=== PATIENT | female | born 2005 | race Caucasian/White ===

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

== ENCOUNTER 2024-04-01 20:21 | Emergency (ER) | payer BC, SELFPAY ==
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
[2024-04-01 20:44] VITALS: BP 127/67; PULSE 99; RESP 18; RESP 20; TEMP 36.9; O2SAT 99; BMI 21.6
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
--- OUTSIDE RECORDS SUMMARY | 2024-04-01 21:18 | XMS_ITS | Encounter Summary ---
Author Organization [facility] Healthcare Address [address] [place] [address] Care Team Providers Care Second Grade Teacher Name Role Phone Gerald Tuttle MD Primary Care Provider [phone] Reason for Visit * Reason Onset Date Comments Request Call Back 02/19/2024 Encounter Details Date Type Department Care Team (Late st Contact Info) Description 02/19/2024 Telephone [facility] Medical Group Women's Care [address] [facility] [address] [place] [id number] Diana Yu MD [address] [facility] [address], [place] [address] Request Call Back Social History Tobacco Use Types Packs/Day Years Used Date Smoking Tobacco: Every Day Cigarettes 0.3 1 Smokeless Tobacco: Never AUDIT-C Answer Date Recorded Q1: How often do you have a drink containing alcohol? Never 08/16/2023 Q2: How many drinks containi ng alcohol do you have on a typical day when you are drinking? Patient does not drink Q3: How often do you have si x or more drinks on one occasion? Never 08/16/2023 Personal Safety Answer Date Recorded Have you ever been in or are you currently in a harmful physical or emotional relationship or is someone making you feel afraid or unsafe? Denies 08/16/2023 Sex and Gender Information Value Date Recorded Sex Assigned at Not on file Gender Identity Not on file Sexual Orientation Not on file documented as of this encounter Miscellaneous Notes * Telephone Encounter - Stacia Rocha MA - 02/19/2024 4:10 PM CDT Spoke to patient. Schedule for replacement for 02/19 at 10:30 * Telephone Encounter - Carlita Fulton - 02/19/2024 3:07 PM CDT Pt's mother called to schedule IUD removal and replacement following the ultrasound she had done tolocate her current IUD before she returns to college 03/07/24. documented in this encounter Plan of Treatment Not on file documented as of this encounter Visit Diagnoses Not on filedocumented in this encounter Care Teams Second Grade Teacher Relationship Specialty [place] [address] [facility] [address] [place] [address] PCP - General Pediatrics 08/20/19 documented as of this encounter
--- OUTSIDE RECORDS SUMMARY | 2024-04-01 21:18 | XMS_ITS | Encounter Summary ---
Author Organization [facility] Address [facility] [place] [address] Care Team Providers Care Pipe Layer Helper Name Role Phone Undetermined, Pcp Primary Care Provider Unavaila ble Encounter Details Date Type Department Care Team (Late st Contact Info) Description 02/28/2023 Access Center [facility] [place] [address] Social History Tobacco Use Types Packs/Day Years Used Date Smoking Tobacco: Every Day Cigarettes E-cigarette Smokeless Tobacco: Never Alcohol Use Standard Drinks/Week Comments Yes 0 (1 standard drink = 0.6 oz pure alcohol) Pt reports recent sewell but not daily use, hx withdrawals 2yrs ago, last drink 2200 yesterday Sex and Gender Information Value Date Recorded Sex Assigned at Not on file Gender Identity Not on file Sexual Orientation Not on file COVID-19 Exposure Response Date Recorded In the last 10 days, have yo u been in contact with someone who was confirmed or suspected to have Coronavirus/COVID-19? No / Unsure 02/28/2023 11:33 AM CDT documented as of this encounter Plan of Treatment Not on file documented as of this encounter Visit Diagnoses Not on filedocumented in this encounter Care Teams Pipe Layer Helper Relationship Specialty Start Date End Date Undetermined, Pcp PCP - General 02/28/23 documented as of this encounter
--- OUTSIDE RECORDS SUMMARY | 2024-04-01 21:18 | XMS_ITS | Encounter Summary ---
Author Organization [facility] Healthcare Address [address] [place] [address] Care Team Providers Care Lightout Examiner Name Role Phone Gerald Tuttle MD Primary Care Provider [phone] Reason for Referral * Procedure (Routine) - Pending Review Specialty Diagnoses / Procedures Referred By Leobardo singh Referred To Contact Diagnoses Encounter for removal and reinsertion of intrauterine contraceptive device (IUD) Malpositioned intrauterine device (IUD), subsequent encounter Procedures IUD ? Insertion/removal/reinsertion procedure. Diana Yu MD [address] [address] [facility] Referral ID Status Reason Start Date Expiration Date V isits Requested Visits Authorized [id number] Pending Review 02/25/2024 03/26/2025 1 1 Reason for Visit * Reason Comments paragard replacement Encounter Details Date Type Department Care Team (Latest Contact Info) Description 02/20/2024 10:30 AM CDT Procedure visit [facility] Medical Group Women's Care [address] [facility] [address] [id number] Diana Yu MD [address] [facility] [address] [address] Encounter for removal and reinsertion of intrauterine contraceptive device (IUD) (Primary Dx); Malpositioned intrauterine device (IUD), subsequent encounter Social History Tobacco Use Types Packs/Day [...] on file documented as of this encounter Last Filed Vital Signs Vital Sign Reading Time Taken Comments Blood Pressure 114/76 02/20/2024 10:20 AM CDT Pulse - - Temperature - - Respiratory Rate - - Oxygen Saturation - - Inhaled Oxygen Concentration - - Weight 59.4 kg (131 lb) 02/20/2024 10:20 AM CDT Height 165.1 cm (5' 5) 02/20/2024 10:20 AM CDT Body Mass Index 21.8 02/20/2024 10:20 AM CDT documented in this encounter Progress Notes * Stacia Rocha MA - 02/20/2024 10:30 AM CDT Song [facility]: [id number] Lot: [id number] Exp: 04/2029 documented in this encounter Procedure Notes * Diana Yu MD - 02/20/2024 10:30 AM CDTAssociated Order(s): IUD ??? Insertion/removal/reinsertion procedure. Post-Procedure Diagnose(s): Malpositioned intrauterine device (IUD), subsequent encounter; Encounter for removal and reinsertion of intrauterine contraceptive device (IUD) IUD - Insertion/removal/reinsertion procedure. Performed by: Diana Yu MD Authorized by: Diana Yu MD Consent Given by: Patient Verbal consent obtained: Yes Written consent obtained: Yes Risks, alternatives, and patient questions discussed: Yes Removal: Removal with/due to: Mechanical complications of IUD Insertion: Pelvic exam performed: yes Negative urine test: yes Cervix cleaned and prepped: yes Speculum placed in vagina: yes Tenaculum applied to cervix: yes IUD inserted with no complications: yes IUD type: 1 each copper 380 square mm Strings trimmed: yes Uterus sounded to confirm IUD placement: yes Post-procedure: Patient tolerance: Patient tolerated the procedure well with no immediate complications Comments: Diana Yu MD documented in this encounter Plan of Treatment Not on file documented as of this encounter Procedures Procedure Name Priority Date/Time Associated Diagnosis Comments [place] REMOVAL INTRAUTERINE DEVICE IUD Routine 02/20/2024 10:30 AM CDT Encounter for removal and reinsertion of intrauterine contraceptive device (IUD) Malpositioned intrauterine device (IUD), subsequent encounter [place] INSERTION INTRAUTERINE DEVICE IUD Routine 02/20/2024 10:30 AM CDT Encounter for removal and reinsertion of intrauterine contraceptive device (IUD) Malpositioned intrauterine device (IUD), subsequent encounter documented in this encounter Results * [place] INSERTION INTRAUTERINE DEVICE IUD, [place] REMOVAL INTRAUTERINE DEVICE IUD (02/20/2024 10:30 AM CDT) Narrative Diana Yu MD - 02/20/2024 10:30 AM CDT Diana Yu MD ? 02/25/2024 ??9:15 PM IUD - Insertion/removal/reinsertion procedure. Performed by: Diana Yu MD Authorized by: Diana Yu MD ?? Consent Given by: ??Patient Verbal consent obtained: Yes ?? Written consent obtained: Yes ?? Risks, alternatives, and patient questions discussed: Yes ?? Removal: ??Removal with/due to: ??Mechanical complications of IUD Insertion: ??Pelvic exam performed: yes ?Negative urine test: yes ?Cervix cleaned and prepped: yes ?Speculum placed in vagina: yes ?Tenaculum applied to cervix: yes ?IUD inserted with no complications: yes ?IUD type: ??1 each copper 380 square mm ??Strings trimmed: yes ?Uterus sounded to confirm IUD placement: yes ?? Post-procedure: ??Patient tolerance: ??Patient tolerated the procedure well with no immediate complications Comments: ?? Diana Yu MD Diana Yu MD IN CLINIC/BEDS MELANIE ORDERABLES documented in this encounter Visit Diagnoses Diagnosis Encounter for removal and reinsertion of intrauterine contraceptive device (IUD)- Primary Malpositioned intrauterine device (IUD), subsequent encounter documented in this encounter Administered Medications Inactive Administered Medications - up to 3 most recent administrations Medication Order MAR Action Action Date Dose Rate Site copper (PARAGARD) 380 square mm IUD 1 each 1 each, intrauterine, One-Time Injection, Starting on Mon02/20/24 at 1030, For 1 dose, Indications: Contraception Given 02/20/2024 10:30 AM CDT 1 each documented in this encounter Historical Medications * This list may reflect changes made after this encounter. Medication Sig Dispensed Refills Start Date End Date ISOtretinoin (ABSORICA) 30 mg capsule Take 1 capsule (30 mg total) by mouth 2 (two) times a day added in this encounter Care Teams Lightout Examiner Relationship Specialty [place] [address] [facility] [address] [place] [address] PCP - General Pediatrics 08/20/19 documented as of this encounter
--- OUTSIDE RECORDS SUMMARY | 2024-04-01 21:18 | XMS_ITS | Encounter Summary ---
Author Organization [facility] Healthcare Address [address] [place] [address] Care Team Providers Care Long Term Name Role Phone Gerald Tuttle MD Primary Care Provider [phone] Reason for Visit * Reason Onset Date Comments Request Call Back 02/05/2024 Encounter Details Date Type Department Care Team (Late st Contact Info) Description 02/05/[address] [facility] Medical Group Women's Care [address] [facility] [address] [address] Diana Yu MD [address] [facility] [address], [place] [address] Request Call Back Social History [...] encounter Miscellaneous Notes * Telephone Encounter - Nathalia Love RN - 02/05/2024 1:13 PM CDT Order was already placed by AC. Called pt back and provided phone # to call to schedule. * Telephone Encounter - Carlita Fulton - 02/05/2024 11:25 AM CDT Pt left vm stating she needs to schedule an ultrasound to check where her IUD is so that it can be removed. documented in this encounter Plan of Treatment Not on file documented as of this encounter Visit Diagnoses Not on filedocumented in this encounter Care Teams Long Term Relationship Specialty [place] [id number] [facility] [address] [place] [address] PCP - General Pediatrics 08/20/19 documented as of this encounter
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
--- OUTSIDE RECORDS SUMMARY | 2024-04-01 21:18 | XMS_ITS | Referral Summary ---
Author Organization [facility] Address [address] [place] [address] Care Team Providers Care Vocational Services Specialist Name Role Phone Gerald Tuttle MD Primary Care Provider Encounters Date Type Department Care Team Description 04/01/2024 Nurse Triage [facility] Answer Line 1 [place] [address] Jayshree Scott RN 02/20/2024 10:30 AM CDT Procedure [facility] [address] [facility] [address] [place] [phone] Diana Yu MD Encounter for removal and reinsertion of intrauterine contraceptive device (IUD) (Primary Dx); Malpositioned intrauterine device (IUD), subsequent encounter 02/19/2024 Telephone [facility] [address] [place] [address] [place] [phone] Diana Yu MD Request Call Back 02/13/2024 11:14 AM CDT - 02/13/2024 11:59 PM CDT Hospital Encounter [facility] [address] [facility] [address] [place] [address] Abnormal uterine bleeding (AUB); IUD (intrauterine device) in place Discharge Disposition: Discharge to home or self care 02/05/[address] [phone] Diana Yu MD Request Call Back 02/02/2024 Telephone [facility] [address] [place] [phone] Gladys Donovan RN Covid 02/01/2024 9:15 AM CDT Office Visit [address] [phone] Diana Yu MD Surveillance of intrauterine contraception (Primary Dx); Abnormal uterine bleeding (AUB); IUD (intrauterine device) in place 01/29/[address] [phone] Diana Yu MD CRAFT ARTIST Problem (IUD) 01/22/2024 3:15 PM CDT Office Visit [address] [phone] Gerald Tuttle MD Irritant contact dermatitis, unspecified trigger (Primary Dx); Deliberate self-cutting from Last 3 Months Allergies Active Allergy Reactions Criticality Noted Date [...] 1 each by intrauterine route once Paragard [facility]: [address]-7 Lot: [id number] Exp: 04/202902/20/2024 Active carBAMazepine (TEGretol) 200 mg [...] Anxiety 04/23/2016 Overview (10/27/2017): Description: Ad[facility] for suicidal ideation. Major depressive disorder, single episode, moder ate 09/09/2015 Overview (08/09/2021): Intentional overdose of clonidine 07/2021. Admitted to [facility]. Vocal cord dysfunction 01/12/2015 Resolved Problems [...] of breast 07/05/2016 07/05/2018 Angioedema 01/12/2015 07/05/2018 Immunizations Name Administration Dates Next Due DTaP 03/02/2009, 6,2004,06/18,2004 HPV9 05/09/2016,04/29/2015 Hep A, Pediatric 02/07/2007,07/11/2006 Hep B / HiB 02/18/2005,2004,2004 IPV 03/02/2009, 5,2004,04/14 Influenza LAIV (Nasal) 04/07/2014,2011,03/07/2011,05/06 Influenza, Quadrivalent, Spl it, Preservative Free, Intramuscular 05/26/2021,04/26/2019,04/14/2018,05/09,04/29/2015 Influenza, Unspecified 04/10/2020,04/26/2019 MMR 03/02/2009,02/18/2005 Meningococcal B, Recombinant (Trumenba) 03/14/2023,08/20/2020 Meningococcal MCV4P (Menactra) 08/20/2020,2014 PPD TEST 07/22/2019,05/22/2019 Pneumococcal Conjugate 7-Valent 05/20/20,2004,2004,04/14 Tdap 04/29/2015 Varicella 03/02/2009,05/20/2005 Social History Tobacco Use Types Packs/Day Years [...] AM CDT Pulse 57 08/16/2023 6:50 PM COMMUNITY PLANNER Temperature 36.7 ??C (98.1 ??F) 01/22/2024 3:19 PM CD T Respiratory Rate 22 01/22/2024 3:19 PM CDT Oxygen Saturation 98% 08/16/2023 6:50 PM COMMUNITY PLANNER Inhaled Oxygen Concentration - - Weight 59.4 kg (131 lb) 02/20/2024 10:20 AM CDT Height 165.1 cm (5' 5) 02/20/2024 10:20 AM CDT Body Mass Index 21.8 02/20/2024 10:20 AM CDT Plan of Treatment Not on file Procedures Procedure Name Priority Date/Time Associated Diagnosis Comments UT REMOVAL INTRAUTERINE DEVICE IUD Routine 02/20/2024 10:30 AM CDT Encounter for removal and reinsertion of intrauterine contraceptive device (IUD) Malpositioned intrauterine device (IUD), subsequent encounter UT INSERTION INTRAUTERINE DEVICE IUD Routine 02/20/2024 10:30 AM CDT Encounter for removal and reinsertion of intrauterine contraceptive device (IUD) Malpositioned intrauterine device (IUD), subsequent encounter US PELVIS COMPLETE Schedule Routine, Read Routine (OP Routine) 02/13/2024 11:14 AM CDT Abnormal uterine bleeding (AUB) IUD (intrauterine device) in place from Last 3 Months Results * UT INSERTION INTRAUTERINE DEVICE IUD, UT REMOVAL INTRAUTERINE DEVICE IUD (02/20/2024 10:30 AM [...] RES from Last 3 Months Care Teams Vocational Services Specialist Relationship Specialty [place] [address] [place] [address] PCP - General Pediatrics 08/20/19
--- OUTSIDE RECORDS SUMMARY | 2024-04-01 21:18 | XMS_ITS | Encounter Summary ---
Author Organization [facility] Address [address] [place] [address] Phone Care Team Providers Care Inductor Tester Name Role Phone Gerald Tuttle MD Primary Care Provider [phone] Reason for Visit * Reason Onset Date Comments Covid 02/02/2024 Encounter Details Date Type Department Care Team (Late st Contact Info) Description 02/02/2024 Telephone [facility] [address] [phone] Gladys Donovan, RN Covid Social History Tobacco Use Types Packs/Day Years [...] encounter Miscellaneous Notes * Telephone Encounter - Gladys Donovan RN - 02/02/2024 3:22 PM CDT Pt called re: testing positive for COVID on at home test today. Pt was exposure at work as there isan outbreak in the [employer] she works at. Pt woke up this morning with ST and BYRD. No fevers at this time. No cold symptoms or breathing concerns. RN reviewed that we follow CDC guidelines for COVID but she should check with her place of work for their guidelines. Pt is concerned as her father has a history of heart disease. RN advised taking special precautions around her father with mask andgood hand washing. Informed pt that we are happy to see her in the office for PCWAs. documented in this encounter Plan of Treatment Not on file documented as of this encounter Visit Diagnoses Not on filedocumented in this encounter Care Teams Inductor Tester Relationship Specialty [place] [address] [facility] [address] [place] [address] PCP - General Pediatrics 08/20/19 documented as of this encounter
--- OUTSIDE RECORDS SUMMARY | 2024-04-01 21:18 | XMS_ITS | Encounter Summary ---
Author Organization [facility] Address [address] [place] [address] Care Team Providers Care Surgical Garment Assembly Supervisor Name Role Phone Gerald Tuttle MD Primary Care Provider [phone] Reason for Referral * Diagnostic Imaging (Routine) - Closed Specialty Diagnoses / Procedures Referred By Leobardo t Referred To Contact Diagnoses Abnormal uterine bleeding (AUB) IUD (intrauterine device) in place Procedures US Pelvis Complete Diana Yu MD [address] [address] [facility] (All Locations) Referral ID Status Reason Start Date Expiration Date Visits Re quested Visits Authorized [id number] Closed 02/04/2024 03/05/2025 1 1 Reason for Visit * Reason Comments irregular periods with IUD Encounter Details Date Type Department Care Team (Latest Contact Info) Description 02/01/2024 9:15 AM CDT Office Visit [facility] [address] [facility] [address], [place] [address] Diana Yu MD [address] [address] Surveillance of intrauterine contraception (Primary Dx); Abnormal uterine bleeding (AUB); IUD (intrauterine device) in place Social History Tobacco Use Types Packs/Day Years [...] Sign Reading Time Taken Comments Blood Pressure 124/70 02/01/2024 9:06 AM CDT Pulse - - Temperature - - Respiratory Rate - - Oxygen Saturation - - Inhaled Oxygen Concentration - - Weight 58.1 kg (128 lb) 02/01/2024 9:06 AM CDT Height 165.1 cm (5' 5) 02/01/2024 9:06 AM CDT Body Mass Index 21.3 02/01/2024 9:06 AM CDT documented in this encounter Progress Notes * Diana Yu MD - 02/01/2024 9:15 AM CDT Karen had an IUD placed 02/2022. She flew to [place] 01/06. In [place] until the . She then got her period on 01/11. Heavier than it had been. She also had vomiting and was feeling poorly. The nausea continued for a little while on Monday, 01/27, got some spotting. She had not had spotting in between periods for a time. She has also noticed that she has had more mood swings, headaches, and cramping. The cramping is more recent than the abnormal bleeding. Vitals BP 124/70 Ht 165.1 cm (5' 5) Wt 128 lb (58.1 kg) LMP 01/18/2024 BMI 21.30 kg/m?? Normal external genitalia, vagina and cervix normal in appearance, IUD strings visualized and appropriate Shanda Jean is a 18 year old who presents for an IUD issue. IUD issue - Reports that she recently had a heavier period than usual. She also had intermenstrual spotting. Additionally she has had more mood swings, headaches, and cramping - We discussed that given that there are no hormones in the copper IUD, I would not expect systemicproblems, which she understands - IUD strings visualized today - Given change in symptoms, Pelvic US ordered - Also discussed using alternative form of contraception until after ultrasound - If IUD is malpositioned, she would like another one Will plan for follow up pending US My total encounter time on 02/01/2024 was 32 minutes which was spent in the activities documented inthe note. This includes time spent prior to the visit and after the visit in direct care of the patient. This time does not include time spent in any separately reportable services. Diana Yu MD documented in this encounter Plan of Treatment Not on file documented as of this encounter Results * US Pelvis Complete (02/13/2024 11:14 AM [...] Diana Yu MD IMG US PROCEDU RES documented in this encounter Visit Diagnoses Diagnosis Surveillance of intrauterine contraception- Primary Abnormal uterine bleeding (AUB) IUD (intrauterine device) in place Presence of intrauterine contraceptive device Abnormal uterine bleeding (AUB) IUD (intrauterine device) in place Presence of intrauterine contraceptive device documented in this encounter Discontinued Medications Medication Sig Discontinue Reason Start Date End Da te traZODone (DESYREL) 50 mg tabletIndications:katie or depressive disorder Take 1 tablet (50 mg total) by mouth nightly Therapy completed 05/01/2023 02/01/2024 topiramate (TOPAMAX) 50 mg tabletIndications:moo d Take 1 tablet (50 mg total) by mouth 2 times daily Therapy completed 07/02/2022 02/01/2024 propranoloL (INDERAL) 20 mg tabletIndications:Moo d Take 2 tablets (40 mg total) by mouth 2 (two) times a day Therapy completed 04/24/2023 02/01/2024 levonorgestreL (MIRENA) IUD 1 each by intrauterine route once Therapy completed 02/01/2024 hydrOXYzine (ATARAX) 50 mg tabletIndications:anx iety Take 1 tablet (50 mg total) by mouth 3 (three) times a day Therapy completed 04/14/2023 02/01/2024 hydrocortisone 2.5 % ointment Apply topically 2 (two) times a day Therapy completed 01/22/2024 02/01/2024 HYDROcodone-acetamino phen (NORCO) 5-325 mg per tabletIndications:James n Take 1 tablet by mouth every 6 (six) hours as needed for pain Therapy completed 08/16/2023 02/01/2024 gabapentin (NEURONTIN) 300 mg capsuleIndications:an xiety Take 1-2 mg by mouth 2 (two) times a day Therapy completed 06/16/2023 02/01/2024 documented as of this encounter Historical Medications * This list may reflect changes made after this encounter. Medication Sig Dispensed Refills Start Date End Date carBAMazepine (TEGretol) 200 mg tablet Take 1 tablet (200 mg total) by mouth nightly 12/25/2023 copper (PARAGARD) 380 square mm IUDIndications: Contraception 1 each by intrauterine route once Paragard [facility]: [address]-1 Lot: [id number] Exp: 04/202902/20/2024 added in this encounter Care Teams Surgical Garment Assembly Supervisor Relationship Specialty [place] [address] [facility] [address] [place] [address] PCP - General Pediatrics 08/20/19 documented as of this encounter
--- OUTSIDE RECORDS SUMMARY | 2024-04-01 21:18 | XMS_ITS ---
Author Organization [facility] Address [address] [place] [address] Care Team Providers Care Dopster Name Role Phone Gerald Tuttle MD Primary Care Provider [phone] Active Problems Problem Noted Date Diagnosed Date [...] Anxiety 04/23/2016 Overview (10/27/2017): Description: Admitted to [facility] for suicidal ideation. Major depressive disorder, single episode, moder ate 09/09/2015 Overview (08/09/2021): Intentional overdose of clonidine 07/2021. Admitted to [facility]. Vocal cord dysfunction 01/12/2015 Current Oncology Plans No current plan information found. Past Plans No past plan information found. Radiation Treatments * No radiation treatments are documented for this patient in [facility]. Treatments may have been administered in another system. Lifetime Dose Tracking * Chemical Lifetime Dose Automatic Entry Manual Entr y DLP 348 mGycm 348 mGycm 0 mGycm Resolved Problems Problem Noted Date Diagnosed Date [...]
--- OUTSIDE RECORDS SUMMARY | 2024-04-01 21:18 | XMS_ITS | Encounter Summary ---
Author Organization [facility] Healthcare Address [address] [place] [address] Care Team Providers Care Occ Therapist Name Role Phone Gerald Tuttle MD Primary Care Provider [phone] Reason for Visit * Reason Onset Date Comments Rectal Bleeding 04/01/2024 Encounter Details Date Type Department Care Team (Late st Contact Info) Description 04/01/2024 Nurse Triage [facility] Answer Line [address] [place] [id number] Jayshree Scott RN Social History Tobacco Use Types Packs/Day Years [...] encounter Miscellaneous Notes * Telephone Encounter - Jayshree Scott RN - 04/01/2024 8:43 PM CDT MEDICAL VISITS (OFFICE/ED/Urgent Care) IN LAST 2 WEEKS:n/a ADDITIONAL INFORMATION: being evaluated now. RN instructed to f/u with PCP in the am with update ON-CALL PROVIDER: Kat Holguin Reason for Disposition Already left for the hospital/clinic Protocols used: No Contact or Duplicate Contact [id number] * Telephone Encounter - Jayshree Scott RN - 04/01/2024 8:41 PM CDT Regarding: bm with blood in it since yesterday and still having blood coming out ----- Message from [facility] sent at 04/01/2024 7:41 PM CDT ----- Phone number: Number verified. documented in this encounter Plan of Treatment Not on file documented as of this encounter Visit Diagnoses Not on filedocumented in this encounter Care Teams Occ Therapist Relationship Specialty [place] [address] [facility] [address] [place] [address] PCP - General Pediatrics 08/20/19 documented as of this encounter
--- OUTSIDE RECORDS SUMMARY | 2024-04-01 21:18 | XMS_ITS | Encounter Summary ---
Author Organization [facility] Healthcare Address [address] [place] [address] Care Team Providers Care Inventory Control Manager Name Role Phone Gerald Tuttle MD Primary Care Provider [phone] Reason for Referral * Diagnostic Imaging (Routine) - Closed Specialty Diagnoses / Procedures Referred By Contac t Referred To Contact Diagnoses Abnormal uterine bleeding (AUB) IUD (intrauterine device) in place Procedures US Pelvis Complete Diana Yu MD [address] [address] [facility] (All Locations) Referral ID Status Reason Start Date Expiration Date Visits Re quested Visits Authorized [id number] Closed 02/04/2024 03/05/2025 1 1 Reason for Visit * Diagnostic Imaging (Routine) - Closed Specialty Diagnoses / Procedures Referred By Contac t Referred To Contact Diagnoses Abnormal uterine bleeding (AUB) IUD (intrauterine device) in place Procedures US Pelvis Complete Diana Yu MD [address] [address] [facility] (All Locations) Referral ID Status Reason Start Date Expiration Date Visits Re quested Visits Authorized [id number] Closed 02/04/2024 03/05/2025 1 1 Encounter Details Date Type Department Care Team (Latest Contact Info) Description 02/13/2024 11:14 AM CDT - 02/13/2024 11:59 PM CDT Hospital Encounter [facility] [address] [facility] [address] [place] [address] Abnormal uterine bleeding (AUB); IUD (intrauterine device) in place Discharge Disposition: Discharge to home or self care Social History Tobacco Use Types Packs/Day Years [...] on file documented as of this encounter Medications at Time of Discharge Medication Sig Dispensed Refills Start Date End Date carBAMazepine (TEGretol) 200 mg tablet Take 1 tablet (200 mg total) by mouth nightly 12/25/2023 chlorproMAZINE (THORAZINE) 50 mg tabletIndications:[place] associated with Bipolar Disorder,Borderline Personality Disorder and Bipolar Take 4 tablets (200 mg total) by mouth nightly copper (PARAGARD) 380 square mm IUDIndications: Contraception 1 each by intrauterine route once Paragard [facility]: [address]-4 Lot: [id number] Exp: 04/202902/20/2024 lurasidone (LATUDA) 60 mg tabletIndications:Depres tyler associated with Bipolar Disorder Take 2 tablets (120 mg total) by mouth nightly at bedtime. 06/22/2023 prazosin (MINIPRESS) 1 mg capsule Take 1 capsule (1 mg total) by mouth nightly 01/31/2023 documented as of this encounter Discharge Disposition Disposition Code Departure Means Destination Discharge to home or self care documented in this encounter Plan of Treatment Not on file documented as of this encounter Procedures Procedure Name Priority Date/Time Associated Diagnosis Comments US PELVIS COMPLETE Schedule Routine, Read Routine (OP Routine) 02/13/2024 11:14 AM CDT Abnormal uterine bleeding (AUB) IUD (intrauterine device) in place documented in this encounter Results * US Pelvis Complete [...] documented in this encounter Visit Diagnoses Diagnosis Abnormal uterine bleeding (AUB) IUD (intrauterine device) in place Presence of intrauterine contraceptive device documented in this encounter Care Teams Inventory Control Manager Relationship Specialty [place] [address] [facility] [address] [place] [address] PCP - General Pediatrics 08/20/19 documented as of this encounter
--- OUTSIDE RECORDS SUMMARY | 2024-04-01 21:19 | XMS_ITS | Clinical Summary ---
Author Organization [facility] Address [address] [place] [address] Care Team Providers Care Rn Hematology Name Role Phone Gerald Tuttle MD Primary Care Provider [phone] Source Comments [facility],non-owned Affiliates and Associated Physician Practices is amultiple site organization consisting of ambulatory clinics and hospital sitesin [place], [place], [place]. This disclosure is being madepursuant to the Care Everywhere program and may not contain all information available regarding this patient. Last updated 18.[facility] Allergies Active Allergy Reactions Criticality Noted Date Comments Amoxicillin Unknown 05/25/2021 Medications * Be aware that medications may not be up to date on this document. Alwaysverify current medications with the patient. Medication Sig Dispensed Refills Start Date End Date Status norgestim-eth estrad triphasic 0.18/0.215/0.25 MG-35 MCG tabletIndications:C ontraceptive Therapy Take 1 tablet by mouth at bedtime Reasons: Control Treatment 0 04/08/2021 Active hydrOXYzine hcl (ATARAX) 10 MG tabletIndications:A nxiety Take 1 (one) tablet by mouth 3 times daily Reasons: Feeling Anxious 90 tablet 1 05/30/2021 Active traZODone (DESYREL) 50 MG tabletIndications:I nsomnia Take 1 (one) tablet by mouth at bedtime Reasons: Trouble Sleeping 30 tablet 1 05/30/2021 Active Additional Information Patient not taking.Reported on 11/16/2021 prazosin (MINIPRESS) 1 MG capsuleIndications: Sleep Disturbance Take 1 (one) capsule by mouth at bedtime Reasons: Disturbed Sleep 30 capsule 1 05/30/2021 Active Additional Information Patient not taking.Reported on 11/16/2021 ARIPiprazole (ABILIFY) 2 MG tabletIndications:Litzy ramsey Depressive Disorder Take 1 (one) tablet by mouth once daily Reasons: Major Depressive Disorder 30 tablet 1 05/30/2021 Active Additional Information Patient not taking.Reported on 11/16/2021 OLANZapine (ZYPREXA) 5 MG tablet Take 5 mg by mouth at bedtime 0 Active Active Problems Problem Noted Date Diagnosed Date Anticholinergic drug overdose 11/16/2021 Last Assessment & Plan: Karen Jean is a 16 year old transgender male (he/him) with MDD and prior inpatient psychiatric hospitalizations admitted for management of anticholinergic toxicity (seizures, hallucinations, and confusion, tachycardia, hypertension, QTc prolongation, mydriasis) following ingestion of 30-40 of 25mg benadryl tablets with intention of stress relief. Pt clinically improving. Plan -Diet: regular -DC IVF -I/Os, q4hr vitals, CRMs -EKG on admission then q4-6 hours until QTc normalizes -Continue home medication: OCPs (if parents bring) -Hold home olanzapine 5mg qPM until EKG normalize -Suicide precautions with sitter -Psych consult -Contact pt's PCP, psychiatrist, and psychologist regarding admission -Social work to provide substance abuse resources Access: PIV Labs: none scheduled Suicidal ideation 05/27/2021 PTSD (post-traumatic stress disorder) 05/27/2021 Major depressive disorder 05/25/2021 Immunizations Name Administration Dates Next Due INFLUENZA VACCINE, QUADR. (F LUZONE; FLULAVAL; FLUARIX; AFLURIA QUADRIVALENT; 6MO+), 0.5 ML (IIV4) 05/26/2021 Family History Medical History Relation Name Comments Nephrolithiasis Maternal Grandfather Arrhthymia Neg Hx Seizures Neg Hx Sudd. <30 Neg Hx Relation Name Status Comments Maternal Grandfather Social History Tobacco Use Types Packs/Day Years Used Date Smoking Tobacco: Never Smokeless Tobacco: Never Tobacco Cessation:Counseling Given: No Alcohol Use Standard Drinks/Week Comments Yes 0 (1 standard drink = 0.6 oz pur e alcohol) tablespoon of grain alcohol PHQ-2 Answer Date Recorded PHQ2 TOTAL SCORE 6 05/25/2021 Sex and Gender Information Value Date Recorded Sex Assigned at Not on file Gender Identity Not on file Sexual Orientation Not on file Last Filed Vital Signs Vital Sign Reading Time Taken Comments Blood Pressure 117/88 11/17/2021 12:05 PM CDT Pulse 96 11/17/2021 12:05 PM CDT Temperature 36.8 ??C (98.2 ??F) 11/17/2021 12:05 PM C DT Respiratory Rate 22 11/17/2021 12:05 PM CDT Oxygen Saturation 97% 11/17/2021 12:05 PM CDT Inhaled Oxygen Concentration - - Weight 68 kg (149 lb 14.6 oz) 11/16/2021 7:44 PM CDT Height 167.6 cm (5' 6) 11/16/2021 7:44 PM CDT Body Mass Index 24.2 11/16/2021 7:44 PM CDT Plan of Treatment Health Maintenance Due Date Last Done Comments HIV SCREENING 02/11/2019 HPV VACCINE (1 - 3-dose series) 02/11/2019 CHLAMYDIA/GONORRHEA SCREENING 2020 HEPATITIS C SCREENING 02/07/2022 DTAP/TDAP/TD VACCINES (1 - Tdap) 02/11/2023 HEPATITIS B VACCINE (1 of 3 - 19+ 3-dose series) 02/11/2023 DEPRESSION SCREENING 07/17/2023 COVID-19 VACCINE (4 - 2022- season) 2024 07/08/2021, 11/13/2020, 10/22/2020 INFLUENZA VACCINE (#1) 2024 , 04/10/2020, 04/26/2019, Additional history exists ZOSTER VACCINE (1 of 2) 02/11/2054 HIB VACCINE Aged Out No longer eligi ble based on patient's age to complete this topic MENINGOCOCCAL VACCINE Aged Out No roque nilton eligible based on patient's age to complete this topic PNEUMOCOCCAL VACCINE Aged Out No long er eligible based on patient's age to complete this topic Advance Directives * Full Code (Latest Code Status on File) Date Activated Date Inactivated Comments 11/16/2021 8:14 PM 11/17/2021 6:05 PM * Full Code Date Activated Date Inactivated Comments 05/25/2021 9:06 PM 05/30/2021 11:55 AM Care Teams Rn Hematology Relationship Specialty [place] [address] [facility] [address] [place] [address] PCP - General Pediatrics 05/25/21
--- OUTSIDE RECORDS SUMMARY | 2024-04-01 21:19 | XMS_ITS | Patient Health Record ---
Author Organization [facility] Address [address] [place] [address] [address] [place], [place] [id number] Care Team Providers Care Mill Operator Helper Name Role Phone NONE PROVIDED, . Primary Care Provider Unavailab Soheila England Unavailable [phone] ALLERGIES Allergen (clinical drug ingredient) Drug/Non Drug Allergy documented on EMR Reaction Allergy Type Onset Date Status amoxicillin Amoxicillin Unknown Drug Allergy Act beau RESULTS Component Value Reference Range Notes Test, Urine Reviewed date:07/25/2023 03:47:26 PM Interpretation: Acceptable Performing Lab: Notes/Report: Acceptable Test, Urine negative Test, Urine Reviewed date:12/21/2023 08:20:23 AM Interpretation: Acceptable Performing Lab: Notes/Report: Acceptable Test, Urine negative Test, Urine Reviewed date:12/21/2023 08:20:23 AM Interpretation: Acceptable Performing Lab: Notes/Report: Acceptable Test, Urine Test, Urine Reviewed date:12/21/2023 08:20:23 AM Interpretation: Acceptable Performing Lab: Notes/Report: Acceptable Test, Urine negative Test, Urine (Not y et reviewed by provider) Interpretation: Performing Lab: Notes/Report: Test, Urine Negative Test, Urine (Not y et reviewed by provider) Interpretation: Performing Lab: Notes/Report: Test, Urine negative HCG, TOTAL, QN Reviewed date:07/25/2023 03:47:26 PM Interpretation:08/09 accu labs Acceptable Performing Lab:[place], [facility]-[id number] Philip Sanon, [id number] Carlos Warren MD Notes/Report: FASTING:YES FASTING: YES HCG, TOTAL, QN <5 Reference Range Non or premenopausal <5 Postmenopausal <10 Values from different assay methods may vary. The use of this assay to monitor or to diagnose patients with cancer or any condition unrelated to has not been cleared or approved by the FDA or the mechanical planner of the assay. COMPREHENSIVE METABOLIC PANE L Reviewed date:07/25/2023 03:47:26 PM Interpretation: Acceptable Performing Lab:[facility]-[id number] Philip Sanon, [id number] Carlos Warren MD Notes/Report: FASTING:YES FASTING: YES GLUCOSE 79 65-99 mg/dL Fasting reference interval UREA NITROGEN (BUN) 13 7-20 mg/dL CREATININE 0.82 0.50-0.96 mg/dL EGFR 106 > OR = 60 mL/min/1.73m2 BUN/CREATININE RATIO SEE NOTE: 6-22 (calc) Not Reported: BUN and Creatinine are within reference range. SODIUM 141 135-146 mmol/L POTASSIUM 4.0 3.8-5.1 mmol/L CHLORIDE 108 98-110 mmol/L CARBON DIOXIDE 27 20-32 mmol/L CALCIUM 9.2 8.9-10.4 mg/dL PROTEIN, TOTAL 6.5 6.3-8.2 g/dL ALBUMIN 4.5 3.6-5.1 g/dL GLOBULIN 2.0 2.0-3.8 g/dL (calc) ALBUMIN/GLOBULIN RATIO 2.3 1.0-2.5 (calc) BILIRUBIN, TOTAL 0.5 0.2-1.1 mg/dL ALKALINE PHOSPHATASE 70 36-128 U/L AST 14 12-32 U/L ALT 13 5-32 U/L LIPID PANEL Reviewed date:07/25/2023 03:47:26 PM Interpretation: Acceptable Performing Lab:[facility]-[id number] Philip Sanon, [id number] Carlos Warren MD Notes/Report: FASTING:YES FASTING: YES CHOLESTEROL, TOTAL 160 <170 mg/dL HDL CHOLESTEROL 62 >45 mg/dL TRIGLYCERIDES 96 <90 mg/dL LDL-CHOLESTEROL 80 <110 mg/dL (calc) LDL-C is now calculated using the Whitney calculation, which is a validated novel method providing better accuracy than the Friedewald equation in the estimation of LDL-C. Godwin VENTURA et al. CINDY. 2013;310(19): 3202-2733 (http://education.MINDBODY/faq/TYX534) CHOL/HDLC RATIO 2.6 <5.0 (calc) NON HDL CHOLESTEROL 98 <120 mg/dL (calc) For patients with diabetes plus 1 major ASCVD risk factor, treating to a non-HDL-C goal of <100 mg/dL (LDL-C of <70 mg/dL) is considered a therapeutic option. COMPREHENSIVE METABOLIC PANE L Reviewed date:12/21/2023 08:20:23 AM Interpretation:01/07 accu labs Acceptable Performing Lab:[facility]-[id number] Derek [id number] Carlos Warren MD Notes/Report: FASTING:YES FASTING: YES GLUCOSE 108 65-99 mg/dL Fasting reference interval For someone without known diabetes, a glucose value between 100 and 125 mg/dL is consistent with prediabetes and should be confirmed with a follow-up test. UREA NITROGEN (BUN) 9 7-20 mg/dL CREATININE 0.74 0.50-0.96 mg/dL EGFR 119 > OR = 60 mL/min/1.73m2 BUN/CREATININE RATIO SEE NOTE: 6- (calc) Not Reported: BUN and Creatinine are within reference range. SODIUM 141 135-146 mmol/L POTASSIUM 3.9 3.8-5.1 mmol/L CHLORIDE 106 98-110 mmol/L CARBON DIOXIDE 28 20-32 mmol/L CALCIUM 9.2 8.9-10.4 mg/dL PROTEIN, TOTAL 6.9 6.3-8.2 g/dL ALBUMIN 4.9 3.6-5.1 g/dL GLOBULIN 2.0 2.0-3.8 g/dL (calc) ALBUMIN/GLOBULIN RATIO 2.5 1.0-2.5 (calc) BILIRUBIN, TOTAL 0.6 0.2-1.1 mg/dL ALKALINE PHOSPHATASE 71 36-128 U/L AST 17 12-32 U/L ALT 9 5-32 U/L LIPID PANEL Reviewed date:12/21/2023 08:20:23 AM Interpretation: Acceptable Performing Lab:[facility]-[id number] Derek [id number] Carlos Warren MD Notes/Report: FASTING:YES FASTING: YES CHOLESTEROL, TOTAL 157 <170 mg/dL HDL CHOLESTEROL 55 >45 mg/dL TRIGLYCERIDES 140 <90 mg/dL LDL-CHOLESTEROL 78 <110 mg/dL (calc) LDL-C is now calculated using the Whitney calculation, which is a validated novel method providing better accuracy than the Friedewald equation in the estimation of LDL-C. Godwin SS et al. CINDY. 2013;310(19): 2620-2953 (http://Askablogr.MINDBODY/faq/RBI254) CHOL/HDLC RATIO 2.9 <5.0 (calc) NON HDL CHOLESTEROL 102 <120 mg/dL (calc) For patients with diabetes plus 1 major ASCVD risk factor, treating to a non-HDL-C goal of <100 mg/dL (LDL-C of <70 mg/dL) is considered a therapeutic option. REASON FOR REFERRAL No Information MEDICATIONS Medication SIG (Take, Route, Frequency, Duration) Notes Start Date End Date Status Doxycycline Hyclate 100 MG 1 capsule Orally Once a day for 30 days 03/08/2022 Not-Taking Winlevi 1 % 1 application Externally Twice a day for 30 days 09/13/2021 Not-Taking Spironolactone 100 MG 1 tablet Orally Once a day for 30 day(s) 06/02/2021 Not-Taking Cleocin-T 1 % 1 application to affected area Externally Twice a day for 30 days large bottle 01/22/2018 Not-Taking Accutane 30 MG 1 pill Orally twice a day for 30 days 11/28/2023 Active Tazarotene 0.1 % APPLY 2 GRAMS IN THE EVENING for 30 Active hydrOXYzine HCl 10 MG Oral for 30 Active Bactrim DS 800-160 MG 1 tablet Orally 11rf qday for 30 days 03/25/2019 Not-Taking Tretinoin 0.05 % 1 application to affected area in the evening to face Externally Once a day for 30 days 12/16/2019 Not-Taking traZODone HCl 50 MG Oral for 30 Active Aczone 5 % APPLY ONCE DAILY IN THE MORNING TO AFFECTED AREA for 30 Not-Taking Prazosin HCl 1 MG Oral for 30 Active Spironolactone 100 MG 1 tablet Orally Once a day for 30 day(s) 12/16/2019 Not-Taking ARIPiprazole 2 MG Oral for 30 Active Adapalene 0.3 % 1 application to affected area at bedtime Externally Once a day for 30 days 03/11/2019 Not-Taking IMMUNIZATIONS Vaccine Route Administration Date Status Comme nts Influenza, unspecified formu lation (CPT 22410 Inactive) Unknown 04/25/2017 Administered Influenza, unspecified formu lation (CPT 70456 Inactive) Unknown 04/25/2018 Administered Influenza, unspecified formu lation (CPT 78800 Inactive) Unknown 03/20/2019 Administered Influenza, unspecified formu lation (CPT 03362 Inactive) Unknown 03/25/2020 Administered Influenza, unspecified formu lation (CPT 55807 Inactive) Unknown 04/27/2021 Administered Influenza, unspecified formu lation (CPT 28901 Inactive) Unknown 04/27/2022 Administered Influenza, unspecified formu lation (CPT 18042 Inactive) Unknown 04/25/2023 Administered Pneumococcal polysaccharide PPV23 Unknown 10/16/2017 Re fused Pneumococcal polysaccharide PPV23 Unknown 06/28/2021 Re fused Pneumococcal polysaccharide PPV23 Unknown 03/08/2022 Re fused Pneumococcal polysaccharide PPV23 Unknown 05/30/2022 Re fused Pneumococcal polysaccharide PPV23 Unknown 06/13/2023 Re fused Pneumococcal polysaccharide PPV23 Unknown 08/21/2023 Re fused SOCIAL HISTORY Tobacco Use: Social History Observation Description Date Details (start date - stop date) Never Smoker NA - NA Sex Assigned At : Social History Observation Description Sex Assigned At Unknown Tobacco Use/Smoking Question Answer Notes Are you a nonsmoker PROBLEMS Problem Type ICD Code Onset Dates Problem Status W/U Status Risk SNOMED Code Notes Problem Acne vulgaris (L70.0) Active confirmed Acne vulgaris (53228786) Acne is improving on Accutane with minimal side effects or blood abnormalities other than xerosis. Reviewed lab work results and potential side effects including teratogenicity, photosensitivity , xerosis, chelitis, mood changes, liver toxicity, headaches and lipid elevation and ways to manage the side effects. Patient has negative test and was advised to continue 2 forms of control. Patient will continue Accutane at 30 mg p.o. twice daily Encounters Encounter Location Date Provider Diagnosis [facility] [address] [place] [id number] 08/21/2023 Soheila Jacobs Acne vulgaris L70.0 [facility]ila Jacobs[facility] 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 [address] [place], [place] [id number] 12/18/2023 Soheila Jacobs Soheila Jacobs, [facility] 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 [address] [place], [place] [id number] 08/25/2023 Soheila Jacobs Soheila Jacobs, [facility] [address] [place], [place] [id number] 11/28/2023 Soheila Jacobs Soheila Jacobs, [facility] [address] [place], [place] [id number] 12/21/2023 Soheila Jacobs Soheila Jacobs, Inc[facility] [address] [place], [place] [id number] 06/13/2023 Soheila Jacobs Acne vulgaris L70.0 and half-way use of drug Z79.899 Osheila Jacobs, [facility] [address] [place], [place] [id number] 07/19/2023 Soheila Jacobs Acne vulgaris L70.0 and half-way use of drug Z79.899 Soheila Jacobs[facility] 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 [address] [place], [place] [id number] 11/09/2023 Soheila Jacobs Soheila Jacobs, [facility] 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 Is here today to initiate Accutane, awaiting blood work results. Once we have those available we will treat with 30 mg of Accutane twice daily. She was again warned of the side effects of this medication. 11/15/2023 Acne vulgaris (ICD-10 - L70.0) Acne is improving on Accutane with minimal side effects or blood abnormalities other than xerosis. Reviewed lab work results and potential side effects including teratogenicity, photosensitivity, xerosis, chelitis, mood changes, liver toxicity, headaches and lipid elevation and ways to manage the side effects. Patient has negative test and was advised to continue 2 forms of control. Patient will continue Accutane at 30 mg p.o. 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 Reviewed lab work results and potential side effects including teratogenicity, photosensitivity, xerosis, chelitis, mood changes, liver toxicity, headaches and lipid elevation and ways to manage the side effects. Patient has negative test and was advised to continue 2 forms of control. Patient will continue Accutane at 30 mg p.o. twice daily 01/24/2024 half-way use of drug (ICD-10 - Z79.899) 10/10/2023 Acne vulgaris (ICD-10 - L70.0) Acne is improving on Accutane with minimal side effects or blood abnormalities other than xerosis. Reviewed lab work results and potential side effects including teratogenicity, photosensitivity, xerosis, chelitis, mood changes, liver toxicity, headaches and lipid elevation and ways to manage the side effects. Patient has negative test and was advised to continue 2 forms of control. Patient will continue Accutane at 30 mg p.o. twice daily 10/10/2023 half-way use of drug (ICD-10 - Z79.899) 06/13/2023 Acne vulgaris (ICD-10 - L70.0) Patient still severely involved with acne despite Tazorac and continuing spironolactone and winlevi, doxycycline . She would like to transition to Accutane. The risks and benefits of isotretinoin were discussed in detail with the patient and her parent where appropriate. Patient was warned of the side effects of accutane including teratogenicity, pseudotumor cerebri, elevated triglycerides with acute pancreatitis, liver toxicity, inflammatory bowel disease, headaches, muscle or joint aches, decrease WBC, nosebleeds, alopecia, depression and suicidal ideation, xerosis, photohypersensitivity and premature closure of the epiphyseal plates. Informed consent was obtained.Patient had a negarive urine test in the office and I confirmed that the patient will initiate 2 forms of control immediately. Once patient has been on both control methods for a month and has ahd a menstrual cycle and her screening bloodwork drawn, she will return to my office to initiate the medication. 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 Is here today to initiate Accutane, awaiting blood work results. Once we have those available we will treat with 30 mg of Accutane twice daily. She was again warned of the side effects of this medication. 07/19/2023 half-way use of drug (ICD-10 - Z79.899) 11/09/2023 Acne vulgaris (ICD-10 - L70.0) Acne is improving on Accutane with minimal side effects or blood abnormalities other than xerosis. Reviewed lab work results and potential side effects including teratogenicity, photosensitivity, xerosis, chelitis, mood changes, liver toxicity, headaches and lipid elevation and ways to manage the side effects. Patient has negative test and was advised to continue 2 forms of control. Patient will continue Accutane at 30 mg p.o. twice daily 03/07/2024 Acne vulgaris (ICD-10 - L70.0) Acne is improving on Accutane with minimal side effects or blood abnormalities other than xerosis. Reviewed lab work results and potential side effects including teratogenicity, photosensitivity, xerosis, chelitis, mood changes, liver toxicity, headaches and lipid elevation and ways to manage the side effects. Patient has negative test and was advised to continue 2 forms of control. Patient will continue Accutane at 30 mg p.o. 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) 11/09/2023 half-way use of drug (ICD-10 - Z79.899) 06/13/2023 Other [employer] Your [employer] material was published 07/19/2023 Other Learning About [employer] Your [employer] material was published 10/10/2023 Other Learning About [employer] Your [employer] material was published 11/15/2023 Other [employer] Your [employer] material was published 01/24/2024 Other [employer] About [employer] Your [employer] material was published 03/07/2024 Other Learning About [employer] Your [employer] material was published PLAN OF TREATMENT Pending Test Test Name Order Date Test, Urine 01/24/2024 Test, Urine 03/07/2024 hCG,Beta Subunit,Qnt,Serum 07/19/2023 Lipid Panel 11/15/2023 Lipid Panel 07/19/2023 Comp. Metabolic Panel (14) 07/19/2023 Comp. Metabolic Panel (14) 11/15/2023 Future Test Test Name Order Date hCG,Beta Subunit,Qnt,Serum 11/07/2023 Lipid Panel 11/07/2023 Comp. Metabolic Panel (14) 11/07/2023 Insurance Providers Payer Name Payer Address Payer Phone Subscriber Number Group Number Insured Name Patient Relationship to Insured Coverage Start Date Coverage End Date [facility] [address] [place] [address] [id number] [id number] Self - patient is the insured
--- OUTSIDE RECORDS SUMMARY | 2024-04-01 21:19 | XMS_ITS | Encounter Summary ---
Author Organization [facility] Address [address] [place] [address] Phone Care Team Providers Care Property Investor Name Role Phone Gerald Tuttle MD Primary Care Provider [phone] Reason for Visit * Reason Comments Rash Encounter Details Date Type Department Care Team (Late st Contact Info) Description 01/22/2024 3:15 PM CDT Office Visit [facility] [address] [place] [address] [place] [address] [facility] [address] [place] [address] Irritant contact dermatitis, unspecified trigger (Primary Dx); Deliberate self-cutting Social History Tobacco Use Types Packs/Day Years [...] Sign Reading Time Taken Comments Blood Pressure 112/65 01/22/2024 3:19 PM CDT Pulse - - Temperature 36.7 ??C (98.1 ??F) 01/22/2024 3:19 PM CD T Respiratory Rate 22 01/22/2024 3:19 PM CDT Oxygen Saturation - - Inhaled Oxygen Concentration - - Weight 57.9 kg (127 lb 9.6 oz) 01/22/2024 3:19 P M CDT Height 165.1 cm (5' 5) 01/22/2024 3:19 PM CDT Body Mass Index 21.23 01/22/2024 3:19 PM CDT documented in this encounter Ordered Prescriptions Prescription Sig Dispensed Refills Start Date End Da te hydrocortisone 2.5 % ointment Apply topically 2 (two) times a day 30 g 01/22/2024 02/01/2024 documented in this encounter Progress Notes * Gerald Tuttle MD - 01/22/2024 3:15 PM CDT Karen Jean is a 18 y.o. female who presents for rash on left wrist first noticed about 2 weeksago and spreading. ROS: General: negative for fever, negative stiff neck Skin: positive for rashes, negative for petechiae Throat: negative for sore throat Resp: negative for wheezing, negative for shortness of breath Medications: Accutane, Thorazine, Latuda, Tegretol History was provided by the patient. I have reviewed the patient's medical history in detail; there are no changes to the history as noted in the electronic medical record. OBJECTIVE: Vital signs: Blood pressure 112/65, temperature 36.7 ??C (98.1 ??F), temperature source Oral, resp.rate 22, height 165.1 cm (5' 5), weight 57.9 kg (127 lb 9.6 oz). General: Alert in NAD with good color, non-toxic appearing Skin: No petechiae or purpura, good turgor, erythematous papular rash on left forearm with excoriations, numerous healed scars consistent with cutting on both forearms Extremities: No clubbing, no cyanosis, no edema ASSESSMENT: Encounter Diagnoses Name Primary? Irritant contact dermatitis, unspecified trigger Yes Deliberate self-cutting PLAN: Will Rx as written for contact derm. Discussed further care for avoiding cutting. Symptomaticrelief measures discussed. She is to call or return for any persisting, changing, worsening, or anxiety provoking symptoms or for any of the specific symptoms we discussed. documented in this encounter Plan of Treatment Not on file documented as of this encounter Visit Diagnoses Diagnosis Irritant contact dermatitis, unspecified trigger- Primary Deliberate self-cutting Unspecified nonpsychotic mental disorder documented in this encounter Care Teams Property Investor Relationship Specialty [place] [address] [facility] [address] [place] [address] PCP - General Pediatrics 08/20/19 documented as of this encounter
--- OUTSIDE RECORDS SUMMARY | 2024-04-01 21:19 | XMS_ITS | Referral Summary ---
Author Organization [facility] Address [address] [place] [address] Care Team Providers Care Railway Track Worker Name Role Phone Gerald Tuttle MD Primary Care Provider [phone] Source Comments [facility],non-owned Affiliates and Associated Physician Practices is amultiple site organization consisting of ambulatory clinics and hospital sitesin [place], [place], [place] and [place]. This disclosure is being madepursuant to the Care Everywhere program and may not contain all information available regarding this patient. Last updated 18.[facility] PerspecSys Allergies Active Allergy Reactions Criticality Noted Date [...] AFLURIA QUADRIVALENT; 6MO+), 0.5 ML (IIV4) 05/26/2021 Social History Tobacco Use Types Packs/Day Years [...] Mass Index 24.2 11/16/2021 7:44 PM CDT Functional Status Functional Status Response Date of Assess ment Is person deaf or have serious hearing difficult y? No 11/16/2021 Is person blind or have serious difficulty seein g? No 11/16/2021 Does person have serious dif ficulty walking/climbing stairs? No 11/16/2021 Does person have difficulty dressing/bathing? No 11/16/2021 Does person have difficulty doing errands alone? No 11/16/2021 Cognitive Status Response Date of Assessm ent Does person have difficulty concentrating/remembering/making decisions? No 11/16/2021 Plan of Treatment Not on file Advance Directives * Full Code (Latest Code Status on File) Date Activated Date Inactivated Comments 11/16/2021 8:14 PM 11/17/2021 6:05 PM * Full Code Date Activated Date Inactivated Comments 05/25/2021 9:06 PM 05/30/2021 11:55 AM Care Teams Railway Track Worker Relationship Specialty [place] [address] [facility] [address] [place] [address] PCP - General Pediatrics 05/25/21
--- OUTSIDE RECORDS SUMMARY | 2024-04-01 21:19 | XMS_ITS ---
Author Organization [facility] Address [address] [place] [address] [address] [place] [id number] Care Team Providers Care Air Support Operations Operator Name Role Phone NONE PROVIDED, . Primary Care Provider Unavailab Soheila England Unavailable [phone] ALLERGIES Allergen (clinical drug ingredient) Drug/Non Drug Allergy documented on EMR Reaction Allergy Type Onset Date Status amoxicillin Amoxicillin Unknown Drug Allergy Act beau RESULTS Component Value Reference Range Notes Test, Urine (Not y et reviewed by provider) Interpretation: Performing Lab: Notes/Report: Test, Urine negative REASON FOR VISIT ACCUTANE - facetime MEDICATIONS Medication SIG (Take, Route, Frequency, Duration) Notes Start Date End Date Status Accutane 30 MG 1 pill Orally twice a day for 30 days 11/28/2023 Active Bactrim DS 800-160 MG 1 tablet Orally 11rf qday for 30 days 03/25/2019 Not-Taking Aczone 5 % APPLY ONCE DAILY IN THE MORNING TO AFFECTED AREA for 30 Not-Taking Spironolactone 100 MG 1 tablet Orally Once a day for 30 day(s) 12/16/2019 Not-Taking Adapalene 0.3 % 1 application to affected area at bedtime Externally Once a day for 30 days 03/11/2019 Not-Taking Winlevi 1 % 1 application Externally Twice a day for 30 days 09/13/2021 Not-Taking Spironolactone 100 MG 1 tablet Orally Once a day for 30 day(s) 06/02/2021 Not-Taking Cleocin-T 1 % 1 application to affected area Externally Twice a day for 30 days large bottle 01/22/2018 Not-Taking Tazarotene 0.1 % 1 application in the evening Externally Once a day for 30 days 06/02/2022 Not-Taking Tretinoin 0.05 % 1 application to affected area in the evening to face Externally Once a day for 30 days 12/16/2019 Not-Taking Doxycycline Hyclate 100 MG 1 capsule Orally Once a day for 30 days 03/08/2022 Not-Taking hydrOXYzine HCl 10 MG Oral for 30 Active traZODone HCl 50 MG Oral for 30 Active Prazosin HCl 1 MG Oral for 30 Active ARIPiprazole 2 MG Oral for 30 Active SOCIAL HISTORY Tobacco Use: Social History Observation Description Date Details (start date - stop date) Never Smoker NA - NA Sex Assigned At : Social History Observation Description Sex Assigned At Unknown Tobacco Use/Smoking Question Answer Notes Are you a nonsmoker Encounters Encounter Location Date Provider [facility] [address] [place], [place] [id number] 03/07/2024 Soheila Jacobs Acne vulgaris L70.0 and intermediate use of drug Z79.899 ASSESSMENTS Encounter Date Diagnosis Assessment Notes Treatment Notes Treatment Clinical Notes 03/07/2024 Acne vulgaris (ICD-10 - L70.0) Acne [...] at 30 mg p.o. twice daily 03/07/2024 intermediate use of drug (ICD-10 - Z79.899) 03/07/2024 Other Learning About Sun Damage and Your Skin material was published PLAN OF TREATMENT Medication Medication Name Sig Start Date Stop Date Notes Accutane 30 MG 1 pill Orally twice a day for 30 days 11/27 Treatment Notes Assessment Notes Other Learning About Sun D amage and Your Skin material was published Pending Test Test Name Order Date Test, Urine 03/07/2024 Next Appt Details Follow Up: prn, Reason:
--- OUTSIDE RECORDS SUMMARY | 2024-04-01 21:19 | XMS_ITS ---
Author Organization Unknown Address [address] [place], [place] [id number] Phone Care Team Providers Care Employee Health Nurse Name Role Phone JESU HINOJOSA MD Attending Unavail able NO OR UNK FAMILY PHYSICIAN Primary Unava ilable Results TEST URINE - Colle ct Date/Time: 02/28/2023 03:12 [facility] ID: [id number] [address] [place], [place], [id number] LOINC: 2112-1 Test Value Unit Reference Range Code Code System Flag PREG URINE NEGATIVE URINALYSIS* - Collect Date/T jluis: 02/28/2023 03:12 [facility] ID: [id number] [address] [place], [place], [id number] LOINC: 39187-8 Test Value Unit Reference Range Code Code System Flag SOURCE Random COLOR Dk Yellow NORMAL: Straw 5778-6 LOINC CLARITY Hazy NORMAL: Clear 52926-0 LOINC GLUCOSE Negative NORMAL: Negative 5792-7 LOINC BILIRUBIN Negative NORMAL: Negative 5770-3 LOINC KETONE Negative NORMAL: Negative 5797-6 LOINC SPEC GRAVITY 1.025 1.005 - 1.020 5811-5 LOINC A BLOOD 3+ NORMAL: Negative 98416-8 LOINC A pH 6.0 5.5 - 7.5 5803-2 LOINC PROTEIN 1+ NORMAL: Negative 5804-0 LOINC A UROBILINOGEN 0.2 0.2 - 1.0 mg/dL 5818-0 LOINC NITRITE Negative NORMAL: Negative 5802-4 LOINC LEUK EST Negative NORMAL: Negative 5799-2 LOINC MICROSCOPIC? SEE BELOW WBC 20 - 30 NORMAL: None Seen 78254-1 LOINC RBC 10 - 20 NORMAL: None Seen 798-9 LOINC SQUAMOUS EPI Many/lpf NORMAL: None Seen 45828-1 LOINC BACTERIA 1+/hpf NORMAL: None Seen 43799-7 LOINC MUCOUS Trace NORMAL: None Seen 87437-6 LOINC CASTS None Seen NORMAL: None Seen 9842-6 LOINC CRYSTALS None Seen NORMAL: None Seen COMP METABOLIC PANEL - Colle ct Date/Time: 02/28/2023 02:36 [facility] ID: [id number] [address] [place] [address], [id number] LOINC: 23696-0 Test Value Unit Reference Range Code Code System Flag SODIUM 142 mEq/L L=136 H=145 2951-2 LOINC POTASSIUM 4.4 mEq/L L=3.5 H=5.1 2823-3 LOINC CHLORIDE 105 mmol/L L=98 H=107 2075-0 LOINC CO2 31.8 mmol/L L=21.0 H=32.0 2028-9 LOINC CALCIUM 8.0 mg/dL L=8.5 H=10.1 95693-3 LOINC L BUN 12 mg/dL L=7 H=18 3094-0 LOINC CREATININE 1.0 mg/dL L=0.6 H=1.3 2160-0 LOINC BUN/CREAT 12 L=6 H=20 3097-3 LOINC GLUCOSE 97 mg/dL L=74 H=106 2345-7 LOINC SGPT/ALTI 119 U/L L=17 H=78 1743-4 LOINC H ALBUMIN 3.5 g/dL L=3.4 H=5.0 1751-7 LOINC ALKALINE PHOS 73 U/L L=46 H=116 6768-6 LOINC SGOT/AST 91 IU/L L=15 H=37 77115-5 LOINC H TOTAL BILI 0.4 mg/dL L=0.2 H=1.0 1975-2 LOINC TOTAL PROTEIN 5.7 g/dL L=6.4 H=8.2 2885-2 LOINC L AGE 18 yrs 73466-2 LOINC eGFR > 60 mL/min/BAS 73052-5 LOINC CBC WITH AUTO DIFF - Collect Date/Time: 02/28/2023 02:36 [facility] ID: [id number] [address] [place] [address], [id number] LOINC: 73893-0 Test Value Unit Reference Range Code Code System Flag WBC 19.79 K/uL L=3.90 H=10.60 6690-2 LOINC H RBC 3.97 M/uL L=3.80 H=5.20 789-8 LOINC HEMOGLOBIN 12.5 g/dL L=11.7 H=15.7 718-7 LOINC HEMATOCRIT 36.5 % L=35.0 H=47.0 4544-3 LOINC MCV 91.9 fL L=80.0 H=100 787-2 LOINC MCH 31.5 pg L=27.0 H=34.0 785-6 LOINC MCHC 34.2 g/dL L=30.0 H=36.0 786-4 LOINC RDWSD 42.1 fL L=39.0 H=47.0 39145-0 LOINC RDW 12.8 % L=11.5 H=14.5 788-0 LOINC PLATELETS 226 K/uL L=150 H=400 777-3 LOINC MPV 10.6 fL L=7.4 H=10.4 63785-6 LOINC H %NEUT 83.4 % L=55.0 H=62.0 770-8 LOINC H %LYMPH 10.0 % L=20.0 H=40.0 736-9 LOINC L %MONO 6.4 % L=4.0 H=10.0 5905-5 LOINC %EOS 0.1 % L=1.0 H=3.0 713-8 LOINC L %BASO 0.1 % L=0.0 H=1.0 706-2 LOINC #NEUT 16.53 K/uL L=1.40 H=9.80 751-8 LOINC H #LYMPH 1.97 K/uL L=1.20 H=3.40 731-0 LOINC #MONO 1.26 K/uL L=0.10 H=0.60 742-7 LOINC H #EOS 0.01 K/uL L=0.00 H=0.30 711-2 LOINC #BASO 0.02 K/uL L=0.00 H=0.10 704-7 LOINC MANUAL DIFF? NO CT ABD/PELVIS W/CONTRAST - C ompleted: 02/28/2023 03:22 LOINC: \TM00\\12PI\\DRAo\\BM09\ \MRLo\ [address] [address] ---------NAME--------- NUMBER SEX AGE ADMIT DISC. XRAY# F/C TYPE DENNYI IWONA Hagan [id number] F 18 02/28/23 03288 P E/R DATE OF : 2005 M/R# [id number] #: [id number] [facility] LOCATION: TRANSCRIBED: 02/28/23 4:53 CT ABD/PELVIS W/CONTRAST [id number] COMPLETED:02/28/23 3:22 MDD [id number] Reason for Procedure: Abdominal Pain PHYSICIAN: JESU CONROY RADIOLOGY REPORT ORDER DATE and TIME: 02/28/[address] SCANS ABDOMEN AND PELVIS WITH IV CONTRAST. HISTORY: Trauma COMPARISON: None. TECHNIQUE: Radiation dose reduction techniques were utilized, including automated exposure control and exposure modulation based on body size. Axial images were obtained from the lung bases to the symphysis pubis with IV contrast only.. Oral contrast was not administered per request. FINDINGS : There are linear areas of decreased density along the inferior margin of the right hepatic lobe (segment 5) best illustrated on axial images 35-40 likely related to small grade 2 parenchymal laceration. It measures approximately 3.4 x 2.2 cm. There is a very small amount of adjacent fluid along the undersurface of the liver likely related to small amount of hemorrhage. There does not appear to be evidence of active hemorrhage. Spleen is enlarged at 13.3 cm but enhances homogeneously. Remaining abdominal organs have an unremarkable appearance. Normal aorta. The appendix is not identified with certainty on this exam without oral contrast. Mild constipation. The GI tract not opacified for assessment but non obstructive in appearance. IUD resides in the central uterus. Regional osseous structures intact on bone window images. Findings were called directly to Dr. Brandt Lorenz during interpretation at 5:48 AM eastern time. IMPRESSION : 1. Small irregular hepatic laceration with minimal amount of adjacent hemorrhage. No active hemorrhage. 2. Homogeneous splenomegaly. 3. Constipation without obstruction Electronically signed by: Boy Bocanegra MD 02/28/2023 4:53 AM CDT Social History Type Status Start Date End Date Code Code Syst em Sex Female Hospital Discharge Instructions Should you have any questions prior to discharge, please contact a member of your healthcare team. If you have left the hospital and have any questions, please contact your primary care physician. Reason For Referral No Data Found Plan of Treatment No Data Found Encounters Encounter Diagnosis Start Date Code Code Sys tem Laceration of liver 02/28/2023 [id number] SNOMED-C T Personal Care Team Section Performer Name Performer Role Active Date Inactive Da te
--- OUTSIDE RECORDS SUMMARY | 2024-04-01 21:19 | XMS_ITS | Encounter Summary ---
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 Pt agreeable. Appt made. * Telephone Encounter - Carlita Fulton - 01/29/2024 3:15 PM CDT Pt states she thinks her IUD is out of place because she's had irregular periods, and a bit of bleeding in between her periods and would like to come in to be seen. Pt was last seen by Dr. Yu but states she would like to be seen by the soonest available doctor. Pt notified that transfer of care would be permanent. Pt is aware the nurse will follow up for additional information. documented in this encounter Plan of Treatment Not on file documented as of this encounter Visit Diagnoses Not on filedocumented in this encounter Care Teams Core Piler Relationship Specialty [place] [address] [place] [address] PCP - General Pediatrics 08/20/19 documented as of this encounter
--- OUTSIDE RECORDS SUMMARY | 2024-04-01 21:19 | XMS_ITS ---
Author Organization [facility] Address [address] [place] [address] [address] [place] [id number] Care Team Providers Care Network Operations Technician Name Role Phone NONE PROVIDED, . Primary Care Provider Unavailab Soheila England Unavailable [phone] ALLERGIES Allergen (clinical drug ingredient) Drug/Non Drug Allergy documented on EMR Reaction Allergy Type Onset Date Status amoxicillin Amoxicillin Unknown Drug Allergy Act beau RESULTS Component Value Reference Range Notes Test, Urine (Not y et reviewed by provider) Interpretation: Performing Lab: Notes/Report: Test, Urine Negative REASON FOR VISIT acne facetime - [phone] MEDICATIONS Medication SIG (Take, Route, Frequency, Duration) Notes Start Date End Date Status traZODone HCl 50 MG Oral for 30 Active Adapalene 0.3 % 1 application to affected area at bedtime Externally Once a day for 30 days 03/11/2019 Not-Taking Accutane 30 MG 1 pill Orally twice a day for 30 days 11/28/2023 Active hydrOXYzine HCl 10 MG Oral for 30 Active Prazosin HCl 1 MG Oral for 30 Active Cleocin-T 1 % 1 application to affected area Externally Twice a day for 30 days large bottle 01/22/2018 Not-Taking Tretinoin 0.05 % 1 application to affected area in the evening to face Externally Once a day for 30 days 12/16/2019 Not-Taking Bactrim DS 800-160 MG 1 tablet Orally 11rf qday for 30 days 03/25/2019 Not-Taking Spironolactone 100 MG 1 tablet Orally Once a day for 30 day(s) 12/16/2019 Not-Taking Aczone 5 % APPLY ONCE DAILY IN THE MORNING TO AFFECTED AREA for 30 Not-Taking Spironolactone 100 MG 1 tablet Orally Once a day for 30 day(s) 06/02/2021 Not-Taking Winlevi 1 % 1 application Externally Twice a day for 30 days 09/13/2021 Not-Taking Tazarotene 0.1 % 1 application in the evening Externally Once a day for 30 days 06/02/2022 Not-Taking ARIPiprazole 2 MG Oral for 30 Active Doxycycline Hyclate 100 MG 1 capsule Orally Once a day for 30 days 03/08/2022 Not-Taking SOCIAL HISTORY Tobacco Use: Social History Observation Description Date Details (start date - stop date) Never Smoker NA - NA Sex Assigned At : Social History Observation Description Sex Assigned At Unknown Tobacco Use/Smoking Question Answer Notes Are you a nonsmoker Encounters Encounter Location Date Provider 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 twice daily 01/24/2024 residential use of drug (ICD-10 - Z79.899) 01/24/2024 Other Learning About Sun Damage and Your Skin material was published PLAN OF TREATMENT Medication Medication Name Sig Start Date Stop Date Notes Accutane 30 MG 1 pill Orally twice a day for 30 days 11/27 Treatment Notes Assessment Notes Other Learning About Sun D amage and Your Skin material was published Pending Test Test Name Order Date Test, Urine 01/24/2024 Next Appt Details Follow Up: pt will call, Stephanie son:
--- OUTSIDE RECORDS SUMMARY | 2024-04-01 21:20 | XMS_ITS | Continuity of Care Document ---
Author Organization [employer] [place] Address [address] [facility] [address] [place] [phone] Phone Care Team Providers Care Drop Board Worker Name Role Phone Jamaica Jameson PT Unavailable Unavailable Procedures Procedure Date Therapeutic Exercise Therapeutic Activities Therapeutic Activities Therapeutic Exercise Therapeutic Activities Therapeutic Exercise Therapeutic Activities Neuromuscular Re-Ed Therapeutic Activities Neuromuscular Re-Ed Therapeutic Exercise Therapeutic Activities Neuromuscular Re-Ed Therapeutic Activities Neuromuscular Re-Ed Therapeutic Activities Neuromuscular Re-Ed Neuromuscular Re-Ed Therapeutic Activities Neuromuscular Re-Ed Therapeutic Activities Therapeutic Activities Neuromuscular Re-Ed Therapeutic Exercise Therapeutic Activities Therapeutic Exercise Neuromuscular Re-Ed Neuromuscular Re-Ed Therapeutic Exercise Therapeutic Activities Therapeutic Activities Neuromuscular Re-Ed Neuromuscular Re-Ed Therapeutic Activities Therapeutic Activities Neuromuscular Re-Ed Therapeutic Exercise Therapeutic Activities Therapeutic Activities Therapeutic Exercise Neuromuscular Re-Ed Therapeutic Activities Hot or Cold Pack Neuromuscular Re-Ed Therapeutic Exercise Therapeutic Activities Neuromuscular Re-Ed Therapeutic Exercise Manual Therapy PT Evaluation Moderate Complexity Therapeutic Activities Therapeutic Exercise Neuromuscular Re-Ed Advance Directives Directive Yes / No Effective Date File Name No Information Encounters Encounter Description Practice Location Reason(s) For Visit Diagnoses Date Provider Providers Copied on Encounter [facility], [id number], tel:[phone] [place] No Information Nahlik Jamaica. . Referring Provider: Naren Muñoz, [address], [place], [address]. tel:[phone] [place] [address] [address] [address], [place], [place], [id number], tel:[phone] [place] No Information Nahlik Jamaica. . Referring Provider: Naren Muñoz, [address], [place], [address]. tel:[phone] [place] [address], [place], [place], [id number], tel:[phone] [place] No Information Nahlik Jamaica. . Referring Provider: Naren Muñoz, [address], [place], [address]. tel:[phone] [place], [place] [id number] [address] [address], [place], [place], [id number], tel:[phone] [place] No Information Nahlik Jamaica. . Referring Provider: Naren Muñoz, [address], [place], [address]. tel:[phone] [place] [address], [address] [place], [place] [address], [place], [place], [id number], tel:[phone] [place] No Information Nahlik Jamaica. . Referring Provider: Naren Muñoz, [address], [place], [address]. tel:[phone] [place], [place] [address], [place], [place], [id number], tel:[phone] [place] No Information Nahlik Jamaica. . Referring Provider: Naren Muñoz, [address], [place], [address]. tel:[phone] [place] [address], [address] [place], [place] [address], [place], [place], [id number], [place] tel:[phone] Susanne No Information Nahlik [place]. . Referring Provider: Naren Muñoz, [address], [place], [address]. tel:[phone] [place], [place] [address], [place], [place], [id number], [place] tel:[phone] [place] No Information Nahlik [place]. . Referring Provider: Naren Muñoz, [address], [place], [address]. tel:[phone] [place] [id number] [facility], [place], [place], [id number], tel:[phone] [place] No Information Nahlik Jamaica. . Referring Provider: Naren Muñoz, [address], [place], [address]. tel:[phone] [place] [address] [address], [place], [place], [id number], [place] tel:[phone] [place] No Information Nahlik [place]. . Referring Provider: Naren Muñoz, [address], [place], [address]. tel:[phone] [place] [address] [address], [place], [place], [id number], [place] tel:[phone] [place] No Information Nahlik [place]. . Referring Provider: Naren Muñoz, [address], [place], [address]. tel:[phone] [place] [address], [address] [facility], [place], [place], [id number], [place] tel:[phone] [place] No Information Nahlik [place]. . Referring Provider: Naren Muñoz, [address], [place], [address]. tel:[phone] [place], [place] [address] [facility], [place], [place], [address], [place] tel:[phone] [place] No Information Nahlik [place]. . Referring Provider: Naren Muñoz, [address], [place], [address]. tel:[phone] [place] [id number] [address], [place], [place], [id number], [place] tel:[phone] [place] No Information Nahlik Jamaica. . Referring Provider: Naren Muñoz, [address], [place], [address]. tel:[phone] [place], [place] [address] [address], [place], [place], [address], [place] tel:[phone] [place] No Information Nahlik [place]. . Referring Provider: Naren Muñoz, [address], [place], [address]. tel:[phone] [place] [address], [address] [facility], [place], [place], [address], tel:[phone] [place] No Information Nahlik [place]. . Referring Provider: Naren Muñoz, [address], [place], [address]. tel:[phone] [place] [address] [facility], [place], [place], [id number], tel:[phone] Susanne No Information Nahlik [place]. . Referring Provider: Naren Muñoz, [address], [place], [address]. tel:[phone] [place] [address], [address] [facility], [place], [place], [address], tel:[phone] Susanne No Information Nahlik [place]. . Referring Provider: Naren Muñoz, [address], [place], [address]. tel:[phone] [place] [address] [address] [facility], [place], [place], [id number], tel:[phone] Susanne No Information Nahlik Jamaica. . Referring Provider: Naren Muñoz, [address], [place], [address]. tel:[phone] [place] [address] [facility], [place], [place], [id number], tel:[phone] Susanne No Information Nahlik [place]. . Referring Provider: Naren Muñoz, [address], [place], [address]. tel:[phone] [employer] [place], [address] [facility] [address], [place], [place], [address], [place] tel:[phone] Susanne No Information Gisell Jamaica. . Referring Provider: Naren Muñoz, [address] [facility] [address], [place], [address]. tel:[phone] Family History Family Member Type Diagnosis Age At Onset No Information Payers Payer name Insurance type Covered democrat ID Authorsharon rogers(s) All Savers [id number] Social History Type Description Quantity Date Captured Comments Sex Female Smoking Status No Information Chief Complaint And Reason For Visit No Information Reason For Referral Reason For Referral No Information History Of Present Illness Encounter Date Complaint History Of Prese nt Illness No Information Functional Status Date Functional Assessmen t No Information Instructions Date Instruction Additional Infor mation No Information Assessments Type Assessment Date No Information Patient Care Teams Name Effective Dates (start - stop) Status Members No Information
--- OUTSIDE RECORDS SUMMARY | 2024-04-01 21:20 | XMS_ITS | Clinical Summary ---
Author Organization [place] Address [address] [place] [address]. [place] [address] Care Team Providers Care Blending Supervisor Name Role Phone Unavailable Primary Care Provider Unavailabl e Allergies Active Allergy Reactions Criticality Noted Date Comments Amoxicillin 05/05/2022 Lamotrigine Muscle Pain (Myalgia) 08/10/2022 Medications Medication Sig Dispensed Refills Start Date End Date Status doxycycline hyclate (VIBRAMYCIN) 100 MG capsule Take 100 mg by mouth daily Take one capsule by mouth every day for 30 days. Filled 07/15/22 Active gabapentin (NEURONTIN) 300 MG capsuleIndications:B orderline personality disorder (H) Take 3 capsules (900 mg) by mouth At Bedtime for 14 days 42 capsule 08/12/2022 Active lurasidone (LATUDA) 60 MG TABS tabletIndications:Javier rderline personality disorder (H) Take 1 tablet (60 mg) by mouth daily with food for 14 days 14 tablet 08/12/2022 Active spironolactone (ALDACTONE) 100 MG tabletIndications:Ajvier rderline personality disorder (H) Take 1 tablet (100 mg) by mouth daily for 14 days Take one tablet by mouth every day for 30 days. 14 tablet 08/12/2022 Active topiramate (TOPAMAX) 50 MG tabletIndications:Javier rderline personality disorder (H) Take 1 tablet (50 mg) by mouth 2 times daily for 14 days 28 tablet 08/12/2022 Active clonazePAM (KLONOPIN) 0.5 MG tabletIndications:Javier rderline personality disorder (H) Take 1 tablet (0.5 mg) by mouth 2 times daily as needed for anxiety 28 tablet 08/13/2022 Active Social History Tobacco Use Types Packs/Day Years Used Date Smoking Tobacco: Never Assessed Adolescent Education Answer Date Record ed Getting School Help Needed Not on file 04/08 Sex and Gender Information Value Date Recorded Sex Assigned at Not on file Gender Identity Not on file Sexual Orientation Not on file Last Filed Vital Signs Vital Sign Reading Time Taken Comments Blood Pressure 102/70 08/13/2022 6:00 AM 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 Pulse 91 08/13/2022 6:00 AM 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 Temperature 36.2 ??C (97.2 ??F) 08/13/2022 6:00 AM CS T Respiratory Rate 12 08/13/2022 6:00 AM 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 Oxygen Saturation 100% 08/13/2022 6:00 AM 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 Inhaled Oxygen Concentration - - Weight 58.8 kg (129 lb 11.9 oz) 05/05/2022 2:09 PM CDT Height - - Body Mass Index - - Plan of Treatment Health Maintenance Due Date Last Done Comments ADVANCE CARE PLANNING 2004 ANNUAL REVIEW OF HM ORDERS 2004 CHLAMYDIA SCREENING 2004 YEARLY PREVENTIVE VISIT 2004 DTAP/TDAP/TD IMMUNIZATION (1 - Tdap) 02/11/2011 HIV SCREENING 02/11/2019 HPV IMMUNIZATION (1 - 3-dose series) 02/11/2019 HEPATITIS C SCREENING 02/11/2022 HEPATITIS B IMMUNIZATION (1 of 3 - 19+ 3-dose series) 02/11/2023 PHQ-2 (once per calendar year) 2023 COVID-19 Vaccine (2 - season) 2024 06/15/2022 INFLUENZA VACCINE (#1) 2024 2, 05/26/2021, 04/27/2021, Additional history exists MENINGITIS IMMUNIZATION Aged Out No l onger eligible based on patient's age to complete this topic Pneumococcal Vaccine: Pediatrics (0 to 5 Years) and At-Risk Patients (6 to 64 Years) Aged Out No longer eligible based on patient's age to complete this topic RSV MONOCLONAL ANTIBODY Aged Out No l onger eligible based on patient's age to complete this topic Advance Directives For more information, please contact: [phone] * Full Code (Latest Code Status on File) Date Activated Date Inactivated Comments 08/09/2022 12:32 PM 08/13/2022 2:59 PM All basic a nd advanced life-sustaining interventions are performed as appropriate Question Answer Comments Code status determined by: Unable to dis cuss and no AD/POLST on file; continue PREVIOUSLY ORDERED code status
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
--- OUTSIDE RECORDS SUMMARY | 2024-04-01 21:20 | XMS_ITS | Patient Health Summary ---
Author Organization [facility] Address [address] [place] [address] Care Team Providers [employer] Name Role Phone Gerald Tuttle MD Primary Care Provider [phone] Note from [facility],non-owned Affiliates and Associated Physician Practices is amultiple site organization consisting of ambulatory clinics and hospital sitesin [place], [place], [place]. This disclosure is being madepursuant to the Care Everywhere program and may not contain all information available regarding this patient. Last updated 18.[facility] Allergies * Amoxicillin(Unknown) Medications * Be aware that medications may not be up to date on this document. Alwaysverify current medications with the patient. * norgestim-eth estrad triphasic 0.18/0.215/0.25 MG-35 MCG tablet(Started 04/08/2021) Take 1 tablet by mouth at bedtime Reasons: Control Treatment * hydrOXYzine hcl (ATARAX) 10 MG tablet(Started 05/30/2021) Take 1 (one) tablet by mouth 3 times daily Reasons: Feeling Anxious 1 refill by 05/30/2022 * traZODone (DESYREL) 50 MG tablet(Started 05/30/2021) Take 1 (one) tablet by mouth at bedtime Reasons: Trouble Sleeping 1 refill by 05/30/2022 * prazosin (MINIPRESS) 1 MG capsule(Started 05/30/2021) Take 1 (one) capsule by mouth at bedtime Reasons: Disturbed Sleep 1 refill by 05/30/2022 * ARIPiprazole (ABILIFY) 2 MG tablet(Started 05/30/2021) Take 1 (one) tablet by mouth once daily Reasons: Major Depressive Disorder 1 refill by 05/30/2022 * OLANZapine (ZYPREXA) 5 MG tablet Take 5 mg by mouth at bedtime Active Problems Problem Noted Date Diagnosed Date Anticholinergic drug overdose 11/16/2021 Suicidal ideation 05/27/2021 PTSD (post-traumatic stress disorder) 05/27/2021 Major depressive disorder 05/25/2021 Immunizations * INFLUENZA VACCINE, QUADR. (FLUZONE; FLULAVAL; FLUARIX; AFLURIA QUADRIVALENT; 6MO+), 0.5 ML (IIV4)(Given 05/26/2021) Social History Tobacco Use Types Packs/Day Years [...] Mass Index 24.2 11/16/2021 7:44 PM CDT Procedures * CARDIAC EKG ORDER(Performed 11/17/2021) * EKG 15-LEAD(Performed 11/17/2021) * URINE DRUG SCREEN IMMUNOASSAY(Performed 11/16/2021) * DRUG SCREEN TOX COMPREHESIVE PANEL(Performed 11/16/2021) * EKG 15-LEAD(Performed 11/16/2021) * MAGNESIUM BLOOD(Performed 11/16/2021) * CK BLOOD(Performed 11/16/2021) * HCG BLOOD QUALITATIVE(Performed 11/16/2021) * SALICYLATE LEVEL BLOOD(Performed 11/16/2021) * COMPREHENSIVE METABOLIC PANEL(Performed 11/16/2021) * CBC W AUTO DIFFERENTIAL(Performed 11/16/2021) * ALCOHOL ETHYL BLOOD(Performed 11/16/2021) * ACETAMINOPHEN LEVEL(Performed 11/16/2021) * ED CRITICAL CARE(Performed 11/16/2021) Performed for Accidental diphenhydramine overdose, initial encounter, Prolonged Q-T interval on ECG, Auditory hallucination * EKG 12-LEAD(Performed 11/16/2021) Performed for Accidental diphenhydramine overdose, initial encounter * URINALYSIS REFLEX TO MICROSCOPIC NO CULTURE(Performed 05/26/2021) * URINE DRUG SCREEN IMMUNOASSAY(Performed 05/26/2021) * HCG URINE QUALITATIVE(Performed 05/26/2021) * TSH REFLEX FREE T4(Performed 05/26/2021) * LIPID PROFILE(Performed 05/26/2021) * HEMOGLOBIN A1C(Performed 05/26/2021) * COMPREHENSIVE METABOLIC PANEL(Performed 05/26/2021) * CBC W AUTO DIFFERENTIAL(Performed 05/26/2021) * SARS-COV-2 (COVID-19) RAPID(Performed 05/25/2021) Performed for Major depressive disorder with single episode, remission status unspecified Results * CARDIAC EKG ORDER (11/17/2021 9:37 PM CDT) Narrative 11/17/2021 9:37 PM CDT Ordered by an unspecified provider. Scanned Document CARDIAC SERVICES ORD ERABLES * EKG 15-LEAD (11/17/2021 11:23 AM CDT) Only the most recent of2 resultswithin the time period is included. Ventricular Rate 87 BPM CG MUSE Atrial Rate 87 BPM CG MUSE P-R Interval 124 ms CG MUSE QRS Duration ms 88 ms CG MUSE Q-T Interval ms 380 ms CG MUSE QTC Calculation (Bezet) 457 ms CG MUSE Calculated P Decker 67 degrees CG MUSE Calculated R Decker 49 degrees CG MUSE Calculated T Decker 51 degrees CG MUSE Interpretation EKG Normal sinus rhythm Q waves noted in 1 and aVL When compared with ECG of 16-NOV-2021 21:15, No significant change was found Confirmed by MD Urias Renuka ([id number]) on 11/17/2021 5:41:23 PM CG MUSE 11/17/2021 11:2 3 AM CDT 11/17/2021 5:41 PM CDT Tiffani Robison MD ECG ORDERABLES Performing Organization Address City/[facility]/ZIP Co de Phone Number MUSE * DRUG SCREEN TOX COMPREHESIVE URINE PANEL (11/16/2021 9:20 PM CDT) [facility] Drug Screen Urine Comprehensive Panel See Scanned Report 11/17/2021 6:18 PM CDT [facility] Urine URINE / Unknown Collection / Unknown 11/16/2021 9:20 PM CDT 11/16/2021 9:26 PM CDT Tiffani Robison MD LAB - URINE CHEMISTR Y ORDERABLES Performing Organization Address City/[facility]/ZIP Co de Phone Number [facility] ATTN Dr Darin Glover [address] [place] [address] * URINE DRUG SCREEN IMMUNOASSAY (11/16/2021 9:20 PM CDT) Only the most recent of2 resultswithin the time period is included. [facility] Amphetamines Screen Urine Negative Negative: < 1000 ng/mL 11/16/2021 9:46 PM CDT [facility] Barbiturates Screen Urine Negative Negative: < 200 ng/mL 11/16/2021 9:46 PM CDT [facility] Benzodiazepine Screen Urine Negative Negative: < 200 ng/mL 11/16/2021 9:46 PM CDT [facility] Opiates Urine Negative Negative: < 300 ng/mL 11/16/2021 9:46 PM CDT [facility] Cocaine Metabolites Urine Negative Negative: < 300 ng/mL 11/16/2021 9:46 PM CDT [facility] Phencyclidine Screen Urine Negative Negative: < 25 ng/ml 11/16/2021 9:46 PM CDT [facility] Cannabinoids Screen Urine Negative Negative: <50 ng/mL 11/16/2021 9:46 PM CDT [facility] Methadone Screen Urine Negative Negative: < 300 ng/mL 11/16/2021 9:46 PM CDT [facility] Fentanyl Screen Urine Negative Negative: <1.0 ng/mL 11/16/2021 9:46 PM CDT [facility] Urine URINE / Unknown Collection / Unknown 11/16/2021 9:20 PM CDT 11/16/2021 9:27 PM CDT Narrative [facility] - 11/16/2021 9:46 PM CDT The Urine Toxicology Screening Panel does not screen for Propoxyphene, Meprobamate, Carisoprodol, Trazodone, [id number]-[id number] medications and/or volatiles (Acetone, Isopropanol, Methanol or Ethylene Glycol). Ethanol, Salicylate, Acetaminophen, Tricyclic Antidepressants and several therapeutic drugs may be individually assayed in serum or plasma specimen. Toxicology testing by the Laboratory is an aid to medical diagnosis and treatment of patients. No documented chain of custody was maintained. Results are intended to be used for clinical purposes only. ? Tiffani Robison MD LAB - URINE CHEMISTR Y ORDERABLES Performing Organization Address City/State/[facility] Co de Phone Number [facility] [address] [place] [address], [place] [phone] * (ABNORMAL) CBC W AUTO DIFFERENTIAL (11/16/2021 3:07 PM CDT) Only the most recent of2 resultswithin the time period is included. [facility] WBC 11.9(H) 4.5 - 11.0 x10E9/L 11/16/2021 3:[facility] W[facility] Corrected 11/16/2021 3:13 PM [facility] RBC 5.05 4.10 - 5.10 x10E12/L 11/16/2021 3:13 PM [facility] Hemoglobin 14.7 12.0 - 16.0 gm/dL 11/16/2021 3:13 PM [facility] Hematocrit 43.7 36.0 - 47.0 % 11/16/2021 3:13 PM [facility] MCV 86.5 78.0 - 102.0 fl 11/16/2021 3:13 PM [facility] MCH 29.1 25.0 - 35.0 pg 11/16/2021 3:13 PM [facility] MCHC 33.6 31.0 - 37.0 gm/dL 11/16/2021 3:13 PM [facility] Platelet Count 324 100 - 400 x10E9/L 11/16/2021 3:13 PM [facility] RDW-CV 12.2 11.5 - 14.0 % 11/16/2021 3:13 PM [facility] MPV 10.4(H) 6.0 - 9.5 fl 11/16/2021 3:13 PM [facility] Neutrophils % 79.0(H) 31.0 - 78.0 % 11/16/2021 3:13 PM [facility] Lymphocytes % 13.7 13.0 - 54.0 % 11/16/2021 3:13 PM [facility] Monocytes % 5.3 4.0 - 13.0 % 11/16/2021 3:13 PM [facility] Eosinophils % 0.9 0.0 - 8.0 % 11/16/2021 3:13 PM [facility] Basophils % 0.5 % 11/16/2021 3:13 PM [facility] Immature Granulocytes 0.6 % 11/16/2021 3:13 PM [facility] Neutrophil Absolute 9.39(H) 1.4 - 8.58 x10E9/L 11/16/2021 3:13 PM CDT [facility] Lymphocytes Absolute 1.63 0.59 - 5.94 x10E9/L 11/16/2021 3:13 PM CDT [facility] Monocytes Absolute 0.63 0.18 - 1.43 x10E9/L 11/16/2021 3:13 PM CDT [facility] Eosinophils Absolute 0.11 0 - 0.88 x10E9/L 11/16/2021 3:13 PM CDT [facility] Basophils Absolute 0.06 0 - 0.22 x10E9/L 11/16/2021 3:13 PM CDT [facility] Immature Granulocytes Absolute 0.07 0 - 0.11 x10E9/L 11/16/2021 3:13 PM CDT [facility] nRBC Auto 0 /100 WBC 11/16/2021 3:13 PM CDT [facility] Blood BLOOD SPECIMEN / Unknown Venipuncture / Unknown 11/16/2021 3:07 PM CDT 11/16/2021 3:10 PM CDT Smiley Wilks PA-C LAB - HEMATOLOGY ORD ERABLES [facility] [address] [place] [address] * (ABNORMAL) COMPREHENSIVE METABOLIC PANEL (11/16/2021 3:07 PM CDT) Only the most recent of2 resultswithin the time period is included. [facility] Glucose 100 70 - 105 mg/dL 11/16/2021 3:29 PM CDT [facility] Sodium 143 136 - 145 mmol/L 11/16/2021 3:29 PM CDT [facility] Potassium 3.7 3.5 - 5.1 mmol/L 11/16/2021 3:29 PM CDT [facility] Chloride 110(H) 98 - 107 mmol/L 11/16/2021 3:29 PM CDT [facility] CO2 22 20 - 28 mmol/L 11/16/2021 3:29 PM CDT [facility] Calcium 9.6 8.4 - 10.4 mg/dL 11/16/2021 3:29 PM CDT [facility] Anion Gap 11 8 - 18 mmol/L 11/16/2021 3:29 PM CDT [facility] BUN 10 7 - 18.7 mg/dL 11/16/2021 3:29 PM CDT [facility] Creatinine 0.88 0.57 - 1.11 mg/dL 11/16/2021 3:29 PM CDT [facility] Alkaline Phosphatase 67(L) 100 - 390 U/L 11/16/2021 3:29 PM CDT [facility] ALT 13 0 - 61 U/L 11/16/2021 3:29 PM CDT [facility] AST 15 5 - 34 U/L 11/16/2021 3:29 PM CDT [facility] Protein Total 7.5 6.4 - 8.3 gm/dL 11/16/2021 3:29 PM CDT [facility] Albumin 4.5 3.4 - 5.0 gm/dL 11/16/2021 3:29 PM CDT [facility] Bilirubin Total 0.5 0.2 - 1.2 mg/dL 11/16/2021 3:29 PM CDT [facility] eGFR by CKD-EPI 3:29 PM CDT [facility] Comment:eGFR calculations ar e not performed for children <18yrs old. Blood BLOOD SPECIMEN / Unknown Venipuncture / Unknown 11/16/2021 3:07 PM CDT 11/16/2021 3:10 PM CDT Narrative [facility] - 11/16/2021 3:29 PM CDT eGFR result was calculated using the updated CKD-EPI Creatinine Equations (2020). Prior to go live 2021 the eGFR was calculated using the MDRD calculation. Please note Reference Range change. Smiley Wilks PA-C LAB - CHEMISTRY MARYELLEN Max Organization Address City/State/ZIP Co de Phone Number [facility] [address] [address] * MAGNESIUM BLOOD (11/16/2021 3:07 PM CDT) [facility] Magnesium 2.1 1.7 - 2.3 mg/dL 11/16/2021 3:29 PM CDT [facility] Blood BLOOD SPECIMEN / Unknown Venipuncture / Unknown 11/16/2021 3:07 PM CDT 11/16/2021 3:10 PM CDT Franc Ryan MD LAB - CHEMISTRY MARYELLEN MCCABE Performing Organization Address [facility]/ZIP Co de Phone Number [facility] [address] [address] * CK BLOOD (11/16/2021 3:07 PM CDT) CK 71 29 - 168 U/L 11/16/2021 3:29 PM CDT [facility] Blood BLOOD SPECIMEN / Unknown Venipuncture / Unknown 11/16/2021 3:07 PM CDT 11/16/2021 3:10 PM CDT Franc Ryan MD LAB - CHEMISTRY MARYELLEN MCCABE Performing Organization Address [facility]/ZIP Co de Phone Number [facility] [address] [address] * ALCOHOL ETHYL BLOOD (11/16/2021 3:07 PM CDT) Ethanol <10.0 <10 mg/dL 11/16/2021 3:29 PM CDT [facility] Ethanol Calculated <0.010 <=0.100 gm/dL 11/16/2021 3:29 PM CDT [facility] Blood BLOOD SPECIMEN / Unknown Venipuncture / Unknown 11/16/2021 3:07 PM CDT 11/16/2021 3:10 PM CDT Narrative [facility] - 11/16/2021 3:29 PM CDT Non Legal Serum Alcohol Smiley Wilks PA-C LAB - CHEMISTRY MARYELLEN MCCABE Performing Organization Address City/[facility]/ZIP Co de Phone Number [facility] [address] [address] * (ABNORMAL) SALICYLATE LEVEL BLOOD (11/16/2021 3:07 PM CDT) Pathologist [facility] [place] Salicylate <5.0(L) 15.0 - 30.0 mg/dL 11/16/2021 3:29 PM CDT [facility] Blood BLOOD SPECIMEN / Unknown Venipuncture / Unknown 11/16/2021 3:07 PM CDT 11/16/2021 3:10 PM CDT Smiley Wilks PA-C LAB - CHEMISTRY MARYELLEN MCCABE Performing Organization Address [facility] Co de Phone Number [facility] [address] [place] [phone] * HCG BLOOD QUALITATIVE (11/16/2021 3:07 PM CDT) [facility] HCG Qual Serum Negative Negative 11/16/2021 3:32 PM CDT [facility] Blood BLOOD SPECIMEN / Unknown Venipuncture / Unknown 11/16/2021 3:07 PM CDT 11/16/2021 3:10 PM CDT Narrative [facility] - 11/16/2021 3:32 PM CDT Specimens containing heterophilic antibodies may demonstrate false positive results. ??Specimens containing human anti-mouse antibodies may exhibit false positive or false negative results. If qualitative interpretation is inconsistant with clinical evaluation, consider confirmation by an alternative hCG method. Franc Ryan MD LAB - CHEMISTRY MARYELLEN MCCABE Performing Organization Address [facility] Co de Phone Number [facility] [address] [place] [address] * (ABNORMAL) ACETAMINOPHEN LEVEL (11/16/2021 3:07 PM CDT) [facility] Acetaminophen <3.0(L) 10.0 - 30.0 ug/mL 11/16/2021 3:29 PM CDT [facility] Blood BLOOD SPECIMEN / Unknown Venipuncture / Unknown 11/16/2021 3:07 PM CDT 11/16/2021 3:10 PM CDT Narrative [facility] - 11/16/2021 3:29 PM CDT [facility] ACETAMINOPHEN COMMENT Critical values: 4 Hours Post Ingestion: Critical value ?? > 200 ??g/mL 12 Hours Post Ingestion: Critical value ??> ??50 ??g/mL For acute ingestion, please refer to Acetaminophen nomogram to determine the ??risk of toxicity ??based on time since ingestion and acetaminophen level (see link provided). Note the nomogram disclaimer. WARNING: Assessing the potential toxicity of an acetaminophen level on a standard risk nomogram must take into consideration many factors including any uncertainty of the time since ingestion or the possibility of other medications that may alter the peak level. Contact the [place] [facility] at or reserved for healthcare professionals to assist you in evaluating potentially toxic acetaminophen levels. Smiley Wilks PA-C LAB - CHEMISTRY MARYELLEN MCCABE [facility] [address] [place] [address] * Critical Care (11/16/2021 2:43 PM CDT) Narrative Franc Ryan MD - 11/16/2021 2:43 PM CDT Franc Ryan MD ? 11/16/2021 ??4:30 PM Critical Care Performed by: Franc Ryan MD Authorized by: Franc Ryan MD Critical care provider statement: ??Critical care time (minutes): ??35 ??Critical care time was exclusive of: ??Separately billable procedures and treating other patients ??Critical care was necessary to treat or prevent imminent or life-threatening deterioration of the following conditions: drug overdose with prolonged qtc. ??Critical care was time spent personally by me on the following activities: ??Development of treatment plan with patient or surrogate, discussions with consultants, ordering and review of laboratory studies, ordering and review of radiographic studies and pulse oximetry Franc Ryan MD PROCEDURE/MINOR SURG ICAL ORDERABLES * EKG 12-LEAD (11/16/2021 2:43 PM CDT) Ventricular Rate 142 BPM [facility] MUSE Atrial Rate 142 BPM [facility]USE P-R Interval 112 ms [facility] MUSE QRS Duration ms 78 ms [facility] MUSE Q-T Interval ms 360 ms [facility] MUSE QTC Calculation (Bezet) 553 ms [facility] MUSE Calculated P Decker 67 degrees [facility] MUSE Calculated R Decker 36 degrees [facility] MUSE Calculated T Decker 66 degrees [facility] MUSE Interpretation EKG Sinus tachycardia Cannot rule out Inferior infarct , age undetermined Abnormal ECG No previous ECGs available Confirmed by MD Elo, Roque ([id number]) on 11/19/2021 7:52:34 AM [facility] MUSE 11/16/2021 2:43 PM CDT 11/19/2021 7:52 AM CDT Smiley Wilks PA-C ECG ORDERABLES [facility] * (ABNORMAL) URINALYSIS REFLEX TO MICROSCOPIC NO CULTURE (05/26/2021 10:36 AM WATER FILTRATION TECHNICIAN) Color UA Straw Straw, Yellow 05/26/2021 11:53 AM [facility] Clarity UA Clear Clear 05/26/2021 11:53 AM [facility] Glucose UA Negative Negative 05/26/2021 11:53 AM [facility] Bilirubin UA Negative Negative 05/26/2021 11:53 AM [facility] Ketone UA Negative Negative 05/26/2021 11:53 AM [facility] Specific [place] UA 1.003(L) 1.005 - 1.030 05/26/2021 11:53 AM [facility] Blood UA Negative Negative 05/26/2021 11:53 AM [facility] pH UA 6.0 5.0 - 8.0 pH 05/26/2021 11:53 AM [facility] Protein UA Negative Negative 05/26/2021 11:53 AM [facility] Urobilinogen UA Negative Negative mg/dL 05/26/2021 11:53 AM [facility] Nitrite UA Negative Negative 05/26/2021 11:53 AM [facility] Leukocyte UA Negative Negative 05/26/2021 11:53 AM [facility] Urine Microscopy Urine microscopy not indicated 05/26/2021 11:53 AM [facility] Urine URINE SPECIMEN OBTAINED BY CLEAN CATCH PROCEDURE / Unknown Collection / Unknown 05/26/2021 10:36 AM WATER FILTRATION TECHNICIAN 05/26/2021 11:38 AM WATER FILTRATION TECHNICIAN Narrative [facility] - 05/26/2021 11:53 AM WATER FILTRATION TECHNICIAN Alan Anderson MD LAB - URINA LYSIS ORDERABLES [facility] [address] [place] [address] * HCG URINE QUALITATIVE (05/26/2021 10:36 AM WATER FILTRATION TECHNICIAN) Pathologist [facility] [place] hCG Qualitative Urine Negative Negative 05/26/2021 11:49 AM WATER FILTRATION TECHNICIAN [facility] Urine URINE / Unknown Collection / Unknown 05/26/2021 10:36 AM WATER FILTRATION TECHNICIAN 05/26/2021 11:38 AM WATER FILTRATION TECHNICIAN Alan Anderson MD LAB - URINA LYSIS ORDERABLES Performing Organization Address City/[facility]/ZIP Co de Phone Number [facility] [address] [place] [place] [phone] * TSH REFLEX FREE T4 (05/26/2021 6:23 AM WATER FILTRATION TECHNICIAN) Pathologist [facility] [place] TSH 1.677 0.350 - 4.940 uIU/mL 05/26/2021 10:33 AM [facility] Blood BLOOD SPECIMEN / Unknown Lab Venipuncture / Unknown 05/26/2021 6:23 AM WATER FILTRATION TECHNICIAN 05/26/2021 7:31 AM WATER FILTRATION TECHNICIAN Alan Anderson MD LAB - CHEMI STRY ORDERABLES [facility] [address] [place] [address] * HEMOGLOBIN A1C (05/26/2021 6:23 AM WATER FILTRATION TECHNICIAN) Pathologist [facility] [place] Hemoglobin A1c 4.4 4.2 - 5.6 % 05/26/2021 9:55 AM WATER FILTRATION TECHNICIAN [facility] Estimated Average Glucose 80 mg/dL 05/26/2021 9:55 AM [facility] Blood BLOOD SPECIMEN / Unknown Lab Venipuncture / Unknown 05/26/2021 6:23 AM [facility] 05/26/2021 7:26 AM [facility] Narrative [facility] - 05/26/2021 9:55 AM [facility] The following cutoff levels are recommended by [place] [employer]. ?? A1c ??> 6.5% : considered as diabetes if two separate tests >6.5% or in an appropriate clinical setting. A1c ??5.7% - 6.4% : considered as prediabetes (suggest increased risk for diabetes and cardiovascular disease) Control target level: ??Should be individualized. ??< 7 ??for general (non- ) , ??< 8% less stringent goal, ??< 6.5 ??more stringent goal. Hemoglobin A1c measurements are used as an aid in the diagnosis of diabetic mellitus, as an aid to identify patients who may be at the risk for developing diabetic mellitus, and for the monitoring long-term blood glucose control in individuals with diabetes mellitus. ??This test should not replace glucose testing for patients with Type 1 diabetes, pediatric patients, or women. ??Falsely low HbA1c results may be observed in patients with clinical conditions that shorten erythrocyte life span or decrease mean erythrocyte age such as the presence of unstable hemoglobin variants, elevated hemoglobin F level ??or other causes of hemolytic anemia . ??HbA1c may not accurately reflect glycemic control when clinical conditions that affect erythrocyte survival are present. ??Severe Iron deficiency anemia may yield falsely high results. ??Hemoglobin A1c assay should not be used to diagnose or monitor diabetes in patients with malignancy, recent blood transfusion, chronic kidney or liver disease. ?? This method may yield falsely low results when hemoglobin (HbF) exceeds 5% in the specimen. Alan Anderson MD LAB - CHEMI STRY ORDERABLES [facility] [address] [place] [address] * LIPID PROFILE (05/26/2021 6:23 AM [facility]) [facility] Cholesterol 140 <200 mg/dL 05/26/2021 10:08 AM [facility] Triglycerides 75 <150 mg/dL 05/26/2021 10:08 AM [facility] HDL Cholesterol 54 >40 mg/dL 1 10:08 AM [facility] LDL Calculated 71 <130 mg/dL 05/26/2021 10:08 AM [facility] VLDL Calculated 15 <=30 mg/dL 1 10:08 AM [facility] Chol HDL Ratio 2.6 <4.5 05/26/2021 10:08 AM [facility] LDL/HDL Ratio 1.3 <5.0 05/26/2021 10:08 AM [facility] Blood BLOOD SPECIMEN / Unknown Lab Venipuncture / Unknown 05/26/2021 6:23 AM WATER FILTRATION TECHNICIAN 05/26/2021 7:31 AM WATER FILTRATION TECHNICIAN Alan Anderson MD LAB - CHEMI STRY ORDERABLES [facility] [address] [place] [address] * SARS-COV-2 (COVID-19) RAPID (05/25/2021 3:41 PM WATER FILTRATION TECHNICIAN) COVID-19 PCR Not detected Not detected 05/25/20 4:45 PM WATER FILTRATION TECHNICIAN [facility] [facility] Microbiology SPECIMEN FROM NASOPHARYNGEAL STRUCTURE / Unknown Collection / Unknown 05/25/2021 3:41 PM WATER FILTRATION TECHNICIAN 05/25/2021 3:50 PM WATER FILTRATION TECHNICIAN Narrative [facility] - 05/25/2021 4:45 PM WATER FILTRATION TECHNICIAN The Cepheid Xpert Xpress SARS-COV-2 has been authorized by the Food and Drug Administration (FDA) under an Emergency Use Authorization (EUA). This test has been validated in accordance with the FDA's guidance document Policy for Diagnostic Testing in Laboratories Certified to perform High Complexity Testing under CLIA prior to Emergency Use Authorization for Coronavirus Disease-2019 during the Public Health Emergency issued on September 14, 2019. FDA independent review of this validation is pending. This test is only authorized for the duration of the time the declaration that circumstances exist justifying the authorization of emergency use of in vitro diagnostic tests for detection of SARS-COV-2 virus and/or diagnosis of COVID-19 infection under 564(b) (1) of the Act. 21 U.S.C. 360bbb-3 (b) (1), unless the authorization is terminated or revoked sooner. Fact Sheets for this EUA assay are available upon request. Zoe Mcnair APRN-PANTRY GOODS MAKER LAB - MICROBI OLOGY ORDERABLES [facility] [address] [place] [address] Care Teams Helper [employer] Relationship Specialty [place] [id number] [facility] [address] [place] [address] PCP - General Pediatrics 05/25/21
--- OUTSIDE RECORDS SUMMARY | 2024-04-01 21:20 | XMS_ITS | Referral Summary ---
Author Organization [facility] Address [address] [place] [address]. [place] [address] Care Team Providers Care Derrick Builder Name Role Phone Unavailable Primary Care Provider [...] tablet 08/12/2022 Active spironolactone (ALDACTONE) 100 MG tabletIndications:Javier rderline personality disorder (H) Take [...] Comments Blood Pressure 102/70 08/13/2022 6:00 AM TRANSIT CLERK Pulse 91 08/13/2022 6:00 AM TRANSIT CLERK Temperature 36.2 ??C (97.2 ??F) 08/13/2022 6:00 AM CS T Respiratory Rate 12 08/13/2022 6:00 AM TRANSIT CLERK Oxygen Saturation 100% 08/13/2022 6:00 AM TRANSIT CLERK Inhaled Oxygen Concentration - - Weight 58.8 kg (129 lb 11.9 oz) 05/05/2022 2:09 PM CDT Height - - Body Mass Index - - Plan of Treatment Not on file Advance Directives For more information, please contact: [phone] * Full Code (Latest Code Status on File) Date Activated Date Inactivated Comments 08/09/2022 12:32 PM 08/13/2022 2:59 PM All basic a nd advanced life-sustaining interventions are performed as appropriate Question Answer Comments Code status determined by: Unable to dis cuss and no AD/POLST on file; continue PREVIOUSLY ORDERED code status
--- OUTSIDE RECORDS SUMMARY | 2024-04-01 21:20 | XMS_ITS | Clinical Summary ---
Author Organization [facility] Address [place] [address] Care Team Providers Care Edger Automatic Name Role Phone Pcp, No Primary Care Provider Unavailabl e Allergies Active Allergy Reactions Criticality Noted Date Comments Amoxicillin *Unknown - Follow up needed,Hives 1 07/25/2020 Medications Medication Sig Dispensed Refills Start Date End Date Status clonazePAM (KLONOPIN) 1 mg tablet TAKE 1 TABLET BY MOUTH FOUR TIMES DAILY NEEDED FOR ANXIETY 07/05/2022 Active clascoterone (Winlevi) 1 % crea 1 application 09/13/2021 Act beau Dapsone (Aczone) 5 % topical gel APPLY ONCE DAILY IN THE MORNING TO AFFECTED AREA Active doxycycline (VIBRAMYCIN) 100 mg capsule TAKE 1 CAPSULE BY MOUTH EVERY DAY FOR 30 DAYS 07/15/2022 Active Latuda 60 mg tab 07/17/2022 Active OLANzapine (ZYPREXA) 5 mg tablet Take 5 mg by mouth. Acti ve prazosin (MINIPRESS) 1 mg capsule 07/17/2022 Active spironolactone (ALDACTONE) 100 mg tablet 1 tablet 06/02/2021 Active topiramate (TOPAMAX) 50 mg tablet TAKE 1 TABLET BY MOUTH AT BED FOR 2 NIGHTS THEN TAKE 1 TAB IN THE AM AND 1 TAB AT BED 07/02/2022 Active tretinoin 0.05 % 0.05 % cream APPLY TO AFFECTED AREA IN THE EVENING TO FACE EXTERNALLY ONCE A DAY 30 DAYS 07/14/2022 Active zolpidem (AMBIEN) 10 mg tablet TAKE 1 TABLET BY MOUTH AT BEDTIME NEEDED FOR INSOMNIA 07/05/2022 Active Social History Tobacco Use Types Packs/Day Years Used Date Smoking Tobacco: Never Passive Smoke Exposure: Never Smokeless Tobacco: Never Tobacco Cessation:Counseling Given: Yes Alcohol Use Standard Drinks/Week Comments Never 0 (1 standard drink = 0.6 oz pur e alcohol) Social Connections Answer Date Recorded Frequency of Communication with Friends and Fami ly Not on file 07/27/2022 Sex and Gender Information Value Date Recorded Sex Assigned at Female 07/04/2022 2:10 PM SPINNING MULE OPERATOR Gender Identity Female 07/04/2022 2:10 PM SPINNING MULE OPERATOR Sexual Orientation Don't know 07/04/2022 2: 10 PM SPINNING MULE OPERATOR Obstetrics History Para Term AB IAB SAB Ectopic Multiple Livin g Live Births 0 0 0 0 0 0 0 0 0 0 0 Last Filed Vital Signs Vital Sign Reading Time Taken Comments Blood Pressure 124/82 07/27/2022 8:34 AM SPINNING MULE OPERATOR Pulse 80 07/27/2022 8:34 AM SPINNING MULE OPERATOR Temperature - - Respiratory Rate - - Oxygen Saturation 98% 07/27/2022 8:34 AM SPINNING MULE OPERATOR Inhaled Oxygen Concentration - - Weight 56.2 kg (123 lb 12.8 oz) 07/27/2022 8:34 AM SPINNING MULE OPERATOR Height 167 cm (5' 5.75) 07/27/2022 8:34 AM SPINNING MULE OPERATOR Body Mass Index 20.14 07/27/2022 8:34 AM SPINNING MULE OPERATOR Plan of Treatment Health Maintenance Due Date Last Done Comments Well Child Check for age 3-20 01/12/2007 Tdap 02/11/2015 Depression screening for age 12+ 2016 HIV for age 15-65 02/11/2019 HPV series for age 9-26 (1 - 3-dose series) 02/11/2019 Chlamydia for age 16-24 2020 Hepatitis C screening for ag e 18-79 02/11/2022 BMI (ht and wt on same day) for age 18+ 07/27/2023 07/27/2022 Tetanus booster 2024 COVID-19 vaccine series ( season) 2024 06/15/2022 Influenza for age 9-49 03/17/2024 Meningococcal series for age 11-21 Aged Out No longer eligible based on patient's age to complete this topic Pneumococcal series for age 6-64 Aged Out No longer eligible based on patient's age to complete this topic Care Teams Edger Automatic Relationship Specialty Start Date End Date Pcp, No . PCP - General 07/04/22
[2024-04-01 21:29] LABS: Basophils Percent Auto 0.4 % (0.0-3.0); Hematocrit 36.5 % (33.0-51.0); Hemoglobin* 12.6 gm/dL (12.0-16.0); Immature Granulocytes Pct Auto 0.2 %; Lymphocytes Percent Auto 18.8 % (20-44); Mean Corpuscular HGB Conc 35 gm/dL (32-36); Mean Corpuscular Hemoglobin 31 pg (26-34); Mean Corpuscular Volume 89 fL (80-100); Monocytes Percent Auto 5.6 % (0.0-11.0); Platelet Count* 230 K/uL (140-440); RDW Coefficient of Variation % 12.4 % (11.5-15.5); Red Blood Count 4.12 m/uL (4.00-5.20); White Blood Count* 12.64 K/uL (4.50-11.00)
[2024-04-01 21:51] LABS: Chloride* 104 mmol/L (96-114); Potassium* 3.7 mmol/L (3.6-5.1); Sodium* 136 mmol/L (135-149)
[2024-04-01 21:53] LABS: INR 0.95 (0.91-1.10); Prothrombin Time 13.2 Seconds
[2024-04-01 21:54] LABS: Anion Gap 6 mEq/L (7-15); Blood Urea Nitrogen* 10 mg/dL (5-24); Carbon Dioxide* 26 mmol/L (20-32); Creatinine* 0.7 mg/dL (0.5-1.5); Est. Creatinine Clearance* 115.36; Estimated Glomerular Filt Rate 127 ml/min
[2024-04-01 21:55] LABS: Calcium* 9.1 mg/dL (8.4-10.6); Glucose* 94 mg/dL (60-115)
[2024-04-01 21:58] LABS: Slide Review Reflex No
[2024-04-01 22:07] LABS: HCG Qualitative Serum* Negative (Negative)
[2024-04-01 23:29] VITALS: BP 120/69; PULSE 84; RESP 20; TEMP 36.9; O2SAT 99
[2024-04-01 23:31] VITALS: BP 120/69; PULSE 84; RESP 20; TEMP 36.9
== END 2024-04-01 23:32 | disposition home or self-care (01) ==
PROVIDERS: Emergency Provider Emergency Medicine
DX: K60.2 Anal fissure, unspecified (principal); R11.10 Vomiting, unspecified
CPT/HCPCS: 36415; 80048; 84703; 85025; 85610; 99283

== ENCOUNTER 2024-04-04 16:56 | Emergency (ER) | payer BC, SELFPAY ==
[2024-04-04 17:13] VITALS: BP 123/82; PULSE 100; RESP 18; TEMP 37.1; O2SAT 100; BMI 21.6
--- NOTE | 2024-04-04 19:00 | CRLHL7_ITS ---
For Patients: As a result of the Century Cures Act, medical imaging exams and procedure reports are released immediately into your electronic medical record. You may view this report before your referring provider. If you have questions, please contact your health care provider. INDICATION: Abdominal pain, blood in stool. TECHNIQUE: CT of the abdomen and pelvis acquired with 64 cc of Isovue 370 IV contrast. Coronal and sagittal reconstructions. COMPARISON: None. FINDINGS: Liver: Normal attenuation. No focal liver lesions. Portal veins are patent. Gallbladder and bile ducts: Unremarkable. No biliary dilation. Spleen: Unremarkable. Pancreas: Unremarkable. Adrenal glands: Unremarkable. Kidneys: Symmetric enhancement. No hydronephrosis or ureteral dilation. No obstructing urinary calculi identified. No bladder wall thickening. Reproductive organs: IUD in the uterus. Small collapsed follicle in the right ovary. GI tract/Peritoneum: No small bowel dilation. Moderate amount of stool. Mild wall thickening of the cecum and proximal ascending colon could be inflammatory. No other signs of bowel inflammation. Negative appendix. No intraperitoneal free air. Trace free fluid in the pelvis is likely physiologic. Vasculature: Abdominal aorta is normal in caliber. Mesenteric arteries are patent. Lymph nodes: No lymphadenopathy. Abdominal Wall: Unremarkable. Bones: Unremarkable. Lower chest: Trace right pleural effusion. The lung bases are otherwise clear. IMPRESSION: 1. Mild wall thickening of the cecum and proximal ascending colon could be inflammatory. 2. Trace right pleural effusion. 3. No other acute findings in the abdomen or pelvis. Please note that all CT scans at this facility use dose modulation, iterative reconstruction, and/or weight-based dosing when appropriate to reduce radiation dose to as low as reasonably achievable. Dictated by Tennille Castellanos MD @ 04/04/2024 8:49:03 PM (Electronically Signed)
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
--- OUTSIDE RECORDS SUMMARY | 2024-04-04 19:28 | XMS_ITS | Clinical Summary ---
Author Organization [facility] Address [address] [place] [address] [address] [place], [place] [address] Care Team Providers Care Family Law Attorney Name Role Phone Undetermined, Pcp Primary Care [...] wa s Performed by: Resident Care Teams Family Law Attorney Relationship Specialty Start Date End Date Undetermined, Pcp PCP - General 02/28/23
--- OUTSIDE RECORDS SUMMARY | 2024-04-04 19:28 | XMS_ITS | Encounter Summary ---
Author Organization [facility] Address [address] [place] [address] Phone Care Team Providers Care Mortgage Branch Manager Name Role Phone Gerald Tuttle MD Primary Care Provider [phone] Reason for Visit * Reason Onset Date Comments Rectal Bleeding 04/04/2024 Encounter Details Date Type Department Care Team (Late st Contact Info) Description 04/04/2024 Telephone [facility] [address] [address] Marilee Adkins, CHRISTOPHER Rectal Bleeding Social History Tobacco Use Types Packs/Day Years [...] encounter Miscellaneous Notes * Telephone Encounter - Marilee Adkins RN - 04/04/2024 2:40 PM CDT Karen calls to report that she has been having blood in her stool. Symptoms started 2 days ago andtommy went to a local ED (she is currently away at school in [place]). Karen reports they advised she return if symptoms persisted or worsened. Karen states she feels it is not improving. She stillreports blood in her stool and that the consistency has changed. She describes her stool as stringy and reports abdominal pain. RN advised Karen return to the ED where she was evaluated for persisting/worsening symptoms. Karen verbalized understanding of all. documented in this encounter Plan of Treatment Not on file documented as of this encounter Visit Diagnoses Not on filedocumented in this encounter Care Teams Mortgage Branch Manager Relationship Specialty [place] [address] [facility] [address] [place] [address] PCP - General Pediatrics 08/20/19 documented as of this encounter
--- OUTSIDE RECORDS SUMMARY | 2024-04-04 19:28 | XMS_ITS | Encounter Summary ---
Author Organization [facility] Address [address] [place] [address] Care Team Providers Care Gleason Gear Generator Name Role Phone Gerald Tuttle MD Primary Care Provider [phone] Reason for Visit * Reason Onset Date Comments Allergic Reaction 04/02/2024 Encounter Details Date Type Department Care Team (Late st Contact Info) Description 04/02/2024 Nurse Triage [facility] Answer Line [address] [place] [id number] Jillian Parmar RN Social History Tobacco Use Types Packs/Day [...] encounter Miscellaneous Notes * Telephone Encounter - Jillian Parmar RN - 04/02/2024 6:11 PM CDT MEDICAL VISITS (OFFICE/ED/Urgent Care) IN LAST 2 WEEKS: Went to ED on 04/01 ONSET/SEVERITY: Has been taking Keflex since 03/28 for ear infection Woke up in middle of the night with coughing and concerns she may be allergic to medication Denies currently difficulty breathing Had hive like rash around neck on 04/01 ACTIVITY LEVEL: Denies change in activity Went to class today OTHER SYMPTOMS: Did not take medication today Afebrile Denies current rash I/O WNL Denies difficulty swallowing ADDITIONAL INFORMATION: Reviewed home care per guideline. RN instructed caller to call back for newor worsening symptoms. ON-CALL PROVIDER: KADIE GONZALES MD Reason for Disposition [1] Mild rash of small pink spots AND [2] present < 48 hours Protocols used: Rash - Widespread On [id number] * Telephone Encounter - Jillian Parmar RN - 04/02/2024 6:11 PM CDT Regarding: allergic reaction to a new abx ----- Message from Yeni Escobar sent at 04/02/2024 6:09 PM CDT ----- Phone number: Number verified. documented in this encounter Plan of Treatment Not on file documented as of this encounter Visit Diagnoses Not on filedocumented in this encounter Care Teams Gleason Gear Generator Relationship Specialty [place] [address] [facility] [address] [place] [address] PCP - General Pediatrics 08/20/19 documented as of this encounter
--- OUTSIDE RECORDS SUMMARY | 2024-04-04 19:28 | XMS_ITS | Clinical Summary ---
Author Organization [facility] Address [address] [place] [address] Care Team Providers Care Automotive Parts Coordinator Name Role Phone Gerald Tuttle MD Primary Care Provider [phone] Allergies Active Allergy Reactions Criticality Noted Date [...] 1 each by intrauterine route once Paragard [facility]: [address]-7 Lot: [id number] Exp: 04/202902/20/2024 Active carBAMazepine (TEGretol) 200 mg [...] Anxiety 04/23/2016 Overview (10/27/2017): Description: Admitted to [facility] for suicidal ideation. Major depressive disorder, single episode, moder ate 09/09/2015 Overview (08/09/2021): Intentional overdose of clonidine 07/2021. Admitted to [facility]. Vocal cord dysfunction 01/12/2015 Resolved Problems [...] Encounters Date Type Department Care Team Description 04/04/2024 Telephone [facility] Pediatrics [address] [place] [address] Marilee Adkins, CHRISTOPHER Rectal Bleeding 04/02/2024 Nurse Triage [facility] Answer Line [address] [place] [address] Jillian Parmar RN 04/01/2024 Nurse Triage [facility] Answer Line [address] [place] [address] Jayshree Scott, CHRISTOPHER 02/20/2024 10:30 AM CDT Procedure visit [facility] [address] [facility] [address], [place] [address] Diana Yu MD Encounter for removal and reinsertion of intrauterine contraceptive device (IUD) (Primary Dx); Malpositioned intrauterine device (IUD), subsequent encounter 02/19/2024 Telephone [facility] [address] [place] [address] Diana Yu MD Request Call Back 02/13/2024 11:14 AM CDT - 02/13/2024 11:59 PM CDT Hospital Encounter [facility] [address] [facility] [address] [place] [address] Abnormal uterine bleeding (AUB); IUD (intrauterine device) in place Discharge Disposition: Discharge to home or self care 02/05/2024 Telephone [facility] [address] [address] Diana Yu MD Request Call Back 02/02/2024 Telephone [facility] [address] [address] Gladys Donovan RN Covid 02/01/2024 9:15 AM CDT Office Visit [facility] [address] [phone] Diana Yu MD Surveillance of intrauterine contraception (Primary Dx); Abnormal uterine bleeding (AUB); IUD (intrauterine device) in place 01/29/2024 Telephone [facility] [address] [phone] Diana Yu MD ASSISTANT DIRECTOR OF NURSING Problem (IUD) 01/22/2024 3:15 PM CDT Office Visit [facility] [address] [address] Gerald Tuttle MD Irritant contact [...] AM CDT Pulse 57 08/16/2023 6:50 PM HELPER DRIVER Temperature 36.7 ??C (98.1 ??F) 01/22/2024 3:19 PM CD T Respiratory Rate 22 01/22/2024 3:19 PM CDT Oxygen Saturation 98% 08/16/2023 6:50 PM HELPER DRIVER Inhaled Oxygen Concentration - - Weight 59.4 [...] Procedure Name Priority Date/Time Associated Diagnosis Comments [place] REMOVAL INTRAUTERINE DEVICE IUD Routine 02/20/2024 10:30 AM CDT Encounter for removal and reinsertion of intrauterine contraceptive device (IUD) Malpositioned intrauterine device (IUD), subsequent encounter AZ INSERTION INTRAUTERINE DEVICE IUD Routine 02/20/2024 10:30 AM CDT Encounter for removal and reinsertion of intrauterine contraceptive device (IUD) Malpositioned intrauterine device (IUD), subsequent encounter US PELVIS COMPLETE Schedule Routine, Read Routine (OP Routine) 02/13/2024 11:14 AM CDT Abnormal uterine bleeding (AUB) IUD (intrauterine device) in place from Last 3 Months Results * AZ INSERTION INTRAUTERINE DEVICE IUD, [place] REMOVAL INTRAUTERINE DEVICE IUD (02/20/2024 10:30 AM [...] RES from Last 3 Months Care Teams Automotive Parts Coordinator Relationship Specialty [place] [address] [place] [address] PCP - General Pediatrics 08/20/19
--- OUTSIDE RECORDS SUMMARY | 2024-04-04 19:28 | XMS_ITS | Referral Summary ---
Author Organization [facility] Address [address] [place] [address] Care Team Providers Care Human Resources Compliance Manager Name Role Phone Gerald Tuttle MD Primary Care Provider [phone] Encounters Date Type Department Care Team Description 04/04/2024 Telephone [facility] [address] [address] Marilee Adkins, CHRISTOPHER Rectal Bleeding 04/02/2024 Nurse Triage [facility] Answer Line 1 [place] [address] Jillian Parmar, CHRISTOPHER 04/01/2024 Nurse Triage [facility] Answer [address] [place] [address] Jayshree Scott, CHRISTOPHER 02/20/2024 10:30 AM CDT Procedure visit [facility]'s [address] [address] Diana Yu MD Encounter for removal and reinsertion of intrauterine contraceptive device (IUD) (Primary Dx); Malpositioned intrauterine device (IUD), subsequent encounter 02/19/[address] [place] [address] Diana Yu MD Request Call Back 02/13/2024 11:14 AM CDT - 02/13/2024 11:59 PM CDT Hospital Encounter [facility] [address] [facility] [address] [place] [address] Abnormal uterine bleeding (AUB); IUD (intrauterine device) in place Discharge Disposition: Discharge to home or self care 02/05/2024 Telephone [facility] [address] [address] Diana Yu MD Request Call Back 02/02/[address] [address] Gladys Donovan RN Covid 02/01/2024 9:15 AM CDT Office Visit [facility] [address] [address] Diana Yu MD Surveillance of intrauterine contraception (Primary Dx); Abnormal uterine bleeding (AUB); IUD (intrauterine device) in place 01/29/[address] [address] Diana Yu MD PARTY PLAN SALES DIRECTOR Problem (IUD) 01/22/2024 3:15 PM CDT Office Visit [address] [address] Gerald Tuttle MD Irritant contact [...] [facility]: [address]-7 Lot: [id number] Exp: 04/202902/20/2024 Active carBAMazepine (TEGretol) 200 mg [...] Anxiety 04/23/2016 Overview (10/27/2017): Description: Admitted to [facility] for suicidal ideation. Major depressive disorder, single episode, moder ate 09/09/2015 Overview (08/09/2021): Intentional overdose of clonidine 07/2021. Admitted to [facility]. Vocal cord dysfunction 01/12/2015 Resolved Problems Problem [...] 7-Valent 05/20/20 05,2004,2004,04/14 Tdap 04/29/2015 Varicella 03/02/2009,05/20/2005 Social History Tobacco [...] AM CDT Pulse 57 08/16/2023 6:50 PM LICENSE DISTRIBUTOR Temperature 36.7 ??C (98.1 ??F) 01/22/2024 3:19 PM CD T Respiratory Rate 22 01/22/2024 3:19 PM CDT Oxygen Saturation 98% 08/16/2023 6:50 PM LICENSE DISTRIBUTOR Inhaled Oxygen Concentration - - Weight 59.4 kg (131 lb) 02/20/2024 10:20 AM CDT Height 165.1 cm (5' 5) 02/20/2024 10:20 AM CDT Body Mass Index 21.8 02/20/2024 10:20 AM CDT Plan of Treatment Not on file Procedures Procedure Name Priority Date/Time Associated Diagnosis Comments MA REMOVAL INTRAUTERINE DEVICE IUD Routine 02/20/2024 10:30 AM CDT Encounter for removal and reinsertion of intrauterine contraceptive device (IUD) Malpositioned intrauterine device (IUD), subsequent encounter MA INSERTION INTRAUTERINE DEVICE IUD Routine 02/20/2024 10:30 AM CDT Encounter for removal and reinsertion of intrauterine contraceptive device (IUD) Malpositioned intrauterine device (IUD), subsequent encounter US PELVIS COMPLETE Schedule Routine, Read Routine (OP Routine) 02/13/2024 11:14 AM CDT Abnormal uterine bleeding (AUB) IUD (intrauterine device) in place from Last 3 Months Results * MA INSERTION INTRAUTERINE DEVICE IUD, MA REMOVAL INTRAUTERINE DEVICE IUD (02/20/2024 10:30 AM [...] 2. Normal ovaries bilaterally. Diana Yu MD IM US PROCEDU RES from Last 3 Months Care Teams Human Resources Compliance Manager Relationship Specialty [place] [address] [place], [place] [id number] PCP - General Pediatrics 08/20/19
--- OUTSIDE RECORDS SUMMARY | 2024-04-04 19:28 | XMS_ITS | Encounter Summary ---
Author Organization [facility] Address Critical access hospital1 [facility] [place] [address] Care Team Providers Care Logistics Assistant Name Role Phone Undetermined, Pcp Primary Care Provider Unavaila ble Encounter Details Date Type Department Care Team (Late st Contact Info) Description 02/28/2023 Access Center [facility] [place] [address] Social History Tobacco Use Types Packs/Day Years [...] on filedocumented in this encounter Care Teams Logistics Assistant Relationship Specialty Start Date End Date Undetermined, Pcp PCP - General 02/28/23 documented as of this encounter
--- OUTSIDE RECORDS SUMMARY | 2024-04-04 19:28 | XMS_ITS ---
Author Organization [facility] Address [address] [place] [address] Care Team Providers Care Primary Therapist Name Role Phone Gerald Tuttle MD Primary Care Provider [phone] Active Problems Problem Noted Date Diagnosed Date [...] Anxiety 04/23/2016 Overview (10/27/2017): Description: Admitted to [facility] for suicidal ideation. Major depressive disorder, single episode, moder ate 09/09/2015 Overview (08/09/2021): Intentional overdose of clonidine 07/2021. Admitted to [facility]. Vocal cord dysfunction 01/12/2015 Current Oncology Plans No current plan information found. Past Plans No past plan information found. Radiation Treatments * No radiation treatments are documented for this patient in [facility]. Treatments may have been administered in another [...]
--- OUTSIDE RECORDS SUMMARY | 2024-04-04 19:29 | XMS_ITS | Encounter Summary ---
Author Organization [facility] Healthcare Address [address] [place] [address] Care Team Providers Care Search Marketing Coordinator Name Role Phone Gerald Tuttle MD Primary Care Provider [phone] Reason for Visit * Reason Onset Date Comments Rectal Bleeding 04/01/2024 Encounter Details Date Type Department Care Team (Late st Contact Info) Description 04/01/2024 Nurse Triage [facility] Answer Line [address] [place] [phone] Jayshree Scott RN Social History Tobacco Use [...] Protocols used: No Contact or Duplicate Contact [id number] * Telephone Encounter - Jayshree Scott RN - 04/01/2024 8:41 PM CDT Regarding: bm with blood in it since yesterday and still having blood coming out ----- Message from [employer] sent at 04/01/2024 7:41 PM CDT ----- Phone number: Number verified. documented in this encounter Plan of Treatment Not on file documented as of this encounter Visit Diagnoses Not on filedocumented in this encounter Care Teams Search Marketing Coordinator Relationship Specialty [place] [address] [facility] [address] [facility] [address] [place] [address] PCP - General Pediatrics 08/20/19 documented as of this encounter
--- OUTSIDE RECORDS SUMMARY | 2024-04-04 19:29 | XMS_ITS | Encounter Summary ---
Author Organization [facility] Healthcare Address [address] [place] [address] Care Team Providers Care Bundler Seasonal Greenery Name Role Phone Gerald Tuttle MD Primary Care Provider [phone] Reason for Referral * Diagnostic Imaging (Routine) - Closed Specialty Diagnoses / Procedures Referred By Contac t Referred To Contact Diagnoses Abnormal uterine bleeding (AUB) IUD (intrauterine device) in place Procedures US Pelvis Complete Diana Yu MD [address] [address] [facility] (All Locations) Referral ID Status Reason Start Date Expiration Date Visits Re quested Visits Authorized [id number] Closed 02/04/2024 03/05/2025 1 1 Reason for Visit * Diagnostic Imaging (Routine) - Closed Specialty Diagnoses / Procedures Referred By Contac t Referred To Contact Diagnoses Abnormal uterine bleeding (AUB) IUD (intrauterine device) in place Procedures US Pelvis Complete Diana Yu MD [address] [address] [facility] (All Locations) Referral ID Status Reason Start Date Expiration Date Visits Re quested Visits Authorized [id number] Closed 02/04/2024 03/05/2025 1 1 Encounter Details Date Type Department Care Team (Latest Contact Info) Description 02/13/2024 11:14 AM CDT - 02/13/2024 11:59 PM CDT Hospital Encounter [facility] [address] [facility] [address] [place] [address] Abnormal uterine bleeding (AUB); IUD (intrauterine device) [...] 1 each by intrauterine route once Paragard [facility]: [address]-1 Lot: [id number] Exp: 04/202902/20/2024 lurasidone (LATUDA) 60 mg tabletIndications:Depres [...] device documented in this encounter Care Teams Bundler Seasonal Greenery Relationship Specialty [place] [address] [facility] [address] [place] [address] PCP - General Pediatrics 08/20/19 documented as of this encounter
--- OUTSIDE RECORDS SUMMARY | 2024-04-04 19:29 | XMS_ITS ---
Author Organization [facility] Address [address] [place] [address] [address] [place] [id number] Care Team Providers Care Utility Porter Name Role Phone NONE PROVIDED, . Primary Care Provider Unavailab Soheila England Unavailable [phone] ALLERGIES Allergen (clinical drug ingredient) Drug/Non Drug [...] Encounter Location Date Provider Diagnosis [facility] [address] [place], [place] [id number] 03/07/2024 Soheila Jacobs Acne vulgaris L70.0 and [facility] use of drug Z79.899 ASSESSMENTS Encounter Date [...] at 30 mg p.o. twice daily 03/07/2024 [facility] use of drug (ICD-10 - Z79.899) 03/07/2024 [...]
--- OUTSIDE RECORDS SUMMARY | 2024-04-04 19:29 | XMS_ITS | Encounter Summary ---
Author Organization [facility] Address [address] [place] [address] Phone Care Team Providers Care Insole And Outsole Splitter Name Role Phone Gerald Tuttle MD Primary Care Provider [phone] Reason for Visit * Reason Comments Rash Encounter Details Date Type Department Care Team (Late st Contact Info) Description 01/22/2024 3:15 PM CDT Office Visit [facility] [address] [facility] [address] [facility] [address] [place] [address] [place] [address] [facility] [address] [place] [address] Irritant contact dermatitis, unspecified trigger [...] disorder documented in this encounter Care Teams Insole And Outsole Splitter Relationship Specialty [place] [address] [facility] [address] [place] [address] PCP - General Pediatrics 08/20/19 documented as of this encounter
--- OUTSIDE RECORDS SUMMARY | 2024-04-04 19:29 | XMS_ITS | Encounter Summary ---
Author Organization [facility] Healthcare Address [address] [place] [address] Care Team Providers Care Ware Carrier Name Role Phone Gerald Tuttle MD Primary Care Provider [phone] Reason for Referral * Procedure (Routine) - Pending Review Specialty Diagnoses / Procedures Referred By Leobardo singh Referred To Contact Diagnoses Encounter for removal and reinsertion of intrauterine contraceptive device (IUD) Malpositioned intrauterine device (IUD), subsequent encounter Procedures IUD ? Insertion/removal/reinsertion procedure. Diana Yu MD [address] [address] [facility] Referral ID Status Reason Start Date Expiration Date V isits Requested Visits Authorized [id number] Pending Review 02/25/2024 03/26/2025 1 1 Reason for Visit * Reason Comments paragard replacement Encounter Details Date Type Department Care Team (Latest Contact Info) Description 02/20/2024 10:30 AM CDT Procedure visit [facility] Women's Care [address] [facility] [address] [address] Diana Yu MD [address] [facility] [address], [place] [address] Encounter for removal and reinsertion [...] MA - 02/20/2024 10:30 AM CDT [facility] [place]: [id number] Lot: [id number] Exp: 04/2029 documented in this encounter Procedure [...] encounter documented in this encounter Results * [place] INSERTION INTRAUTERINE DEVICE IUD, [...] day added in this encounter Care Teams Ware Carrier Relationship Specialty [place] [address] [facility] [address] [place] [address] PCP - General Pediatrics 08/20/19 documented as of this encounter
--- OUTSIDE RECORDS SUMMARY | 2024-04-04 19:29 | XMS_ITS | Encounter Summary ---
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 Pt woke up this [...] on filedocumented in this encounter Care Teams Base Brander Relationship Specialty [place] [address] [facility] [address] [place] [address] PCP - General Pediatrics 08/20/19 documented as of this encounter
--- OUTSIDE RECORDS SUMMARY | 2024-04-04 19:29 | XMS_ITS | Encounter Summary ---
Author Organization [facility] Healthcare Address [address] [place] [address] Care Team Providers Care Clinic Office Manager Name Role Phone Gerald Tuttle MD Primary Care Provider [phone] Reason for Visit * Reason Onset Date Comments Request Call Back 02/05/2024 Encounter Details Date Type Department Care Team (Late st Contact Info) Description 02/05/2024 Telephone [facility] [address] [facility] [address], [place] [address] Diana Yu MD [address] [facility] [address], [place] [address] Request Call Back Social History [...] on filedocumented in this encounter Care Teams Clinic Office Manager Relationship Specialty [place] [address] [facility] [address] [place] [address] PCP - General Pediatrics 08/20/19 documented as of this encounter
--- OUTSIDE RECORDS SUMMARY | 2024-04-04 19:29 | XMS_ITS ---
Author Organization [facility] Address [address] [place] [address] [address] [place] [id number] Care Team Providers Care Door Repairman Name Role Phone NONE PROVIDED, . Primary Care Provider Unavailab Soheila England Unavailable [phone] ALLERGIES Allergen (clinical drug ingredient) Drug/Non Drug Allergy documented on EMR Reaction Allergy Type Onset Date Status amoxicillin Amoxicillin Unknown Drug Allergy Act beau RESULTS Component Value Reference Range Notes Test, Urine (Not y et reviewed by provider) Interpretation: Performing Lab: Notes/Report: Test, Urine Negative REASON FOR VISIT acne facetime - [phone] MEDICATIONS Medication SIG (Take, Route, Frequency, Duration) [...] Encounter Location Date Provider Diagnosis 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 twice daily 01/24/2024 [facility] use of drug (ICD-10 - Z79.899) 01/24/2024 [...]
--- OUTSIDE RECORDS SUMMARY | 2024-04-04 19:29 | XMS_ITS | Encounter Summary ---
Author Organization [facility] Healthcare Address [address] [place] [address] Care Team Providers Care Reproductive Healthcare Assistant Name Role Phone Gerald Tuttle MD Primary Care Provider [phone] Reason for Visit * Reason Onset Date Comments Request Call Back 02/19/2024 Encounter Details Date Type Department Care Team (Late st Contact Info) Description 02/19/2024 Telephone [facility] Women[facility] Care [address] [facility] [address] [place] [address] Diana Yu MD [address] [facility] [address], [place] [address] Request Call Back Social History [...] on filedocumented in this encounter Care Teams Reproductive Healthcare Assistant Relationship Specialty [place] [address] [facility] [address] [place] [address] PCP - General Pediatrics 08/20/19 documented as of this encounter
--- OUTSIDE RECORDS SUMMARY | 2024-04-04 19:29 | XMS_ITS | Encounter Summary ---
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 Encounter Details Date Type Department Care Team (Late st Contact Info) Description 01/29/2024 Telephone [facility] [address] [facility] [address] [place] [address] Diana Yu MD [address] [facility] [address], [place] [address] STREETCAR DISPATCHER Problem (IUD) Social History Tobacco Use Types [...] on filedocumented in this encounter Care Teams Peanut Blancher Relationship Specialty [place] [address] [place] [address] PCP - General Pediatrics 08/20/19 documented as of this encounter
--- OUTSIDE RECORDS SUMMARY | 2024-04-04 19:29 | XMS_ITS | Encounter Summary ---
Author Organization [facility] Healthcare Address [address] [place] [address] Care Team Providers Care Chain Hoist Operator Name Role Phone Gerald Tuttle MD Primary Care Provider [phone] Reason for Referral * Diagnostic Imaging (Routine) - Closed Specialty Diagnoses / Procedures Referred By Leobardo t Referred To Contact Diagnoses Abnormal uterine bleeding (AUB) IUD (intrauterine device) in place Procedures US Pelvis Complete Diana Yu MD [address] [address] [facility] (All Locations) Referral ID Status Reason Start Date Expiration Date Visits Re quested Visits Authorized [id number] Closed 02/04/2024 03/05/2025 1 1 Reason for Visit * Reason Comments irregular periods with IUD Encounter Details Date Type Department Care Team (Latest Contact Info) Description 02/01/2024 9:15 AM CDT Office Visit [facility] Women[facility] Care [address] [facility] [address], [place] [address] Diana Yu MD [address] [address] Surveillance of intrauterine contraception (Primary [...] an IUD placed 02/2022. [place] flew [place] 01[place]06. [place] the . She then got her [...] 1 each by intrauterine route once Paragard [facility]: [address]-5 Lot: [id number] Exp: 04/202902/20/2024 added in this encounter Care Teams Chain Hoist Operator Relationship Specialty [place] [address] [facility] [address] [place] [address] PCP - General Pediatrics 08/20/19 documented as of this encounter
--- OUTSIDE RECORDS SUMMARY | 2024-04-04 19:29 | XMS_ITS | Patient Health Record ---
Author Organization [facility] Address [address] [place] [address] [address] [place], [place] [id number] Care Team Providers Care Deputy Treasurer Name Role Phone NONE PROVIDED, . Primary Care Provider Unavailab Soheila England Unavailable [phone] ALLERGIES Allergen (clinical drug ingredient) Drug/Non Drug [...] Interpretation:08/09 accu labs Acceptable Performing Lab:[place], [facility]-[id number] Philip Sanon, [id number] Carlos Warren MD Notes/Report: FASTING:YES FASTING: YES HCG, TOTAL, QN <5 Reference Range Non or premenopausal <5 Postmenopausal <10 Values from different assay methods may vary. The use of this assay to monitor or to diagnose patients with cancer or any condition unrelated to has not been cleared or approved by the FDA or the daycare teacher of the assay. COMPREHENSIVE METABOLIC PANE L Reviewed date:07/25/2023 03:47:26 PM Interpretation: Acceptable Performing Lab:[facility]-[id number] Philip Sanon, [id number] Carlos Warren MD Notes/Report: FASTING:YES FASTING: YES [...] date:07/25/2023 03:47:26 PM Interpretation: Acceptable Performing Lab:[facility]-[id number] Philip Sanon, [id number] Carlos Warren MD Notes/Report: FASTING:YES FASTING: YES CHOLESTEROL, TOTAL 160 <170 mg/dL HDL CHOLESTEROL 62 >45 mg/dL TRIGLYCERIDES 96 <90 mg/dL LDL-CHOLESTEROL 80 <110 mg/dL (calc) LDL-C is now calculated using the Whitney calculation, which is a validated novel method providing better accuracy than the Friedewald equation in the estimation of LDL-C. Godwin VENTURA et al. CINDY. 2013;310(19): 7162-3471 (http://education.My Digital Shield/faq/SBS931) CHOL/HDLC RATIO 2.6 <5.0 (calc) NON HDL CHOLESTEROL 98 <120 mg/dL (calc) For patients with diabetes plus 1 major ASCVD risk factor, treating to a non-HDL-C goal of <100 mg/dL (LDL-C of <70 mg/dL) is considered a therapeutic option. COMPREHENSIVE METABOLIC PANE L Reviewed date:12/21/2023 08:20:23 AM Interpretation:01/07 accu labs Acceptable Performing Lab:[facility] Valet [facility]-[id number] Derek [id number] Carlos Warren MD Notes/Report: FASTING:YES [...] date:12/21/2023 08:20:23 AM Interpretation: Acceptable Performing Lab:[facility] Val[facility]-[id number] Derek [id number] Carlos Warren MD Notes/Report: FASTING:YES FASTING: YES CHOLESTEROL, TOTAL 157 <170 mg/dL HDL CHOLESTEROL 55 >45 mg/dL TRIGLYCERIDES 140 <90 mg/dL LDL-CHOLESTEROL 78 <110 mg/dL (calc) LDL-C is now calculated using the Whitney calculation, which is a validated novel method providing better accuracy than the Friedewald equation in the estimation of LDL-C. Godwin SS et al. CINDY. 2013;310(19): 8003-0057 (http://[employer].My Digital Shield/faq/CTS753) CHOL/HDLC RATIO 2.9 <5.0 (calc) NON HDL [...] Comme nts Influenza, unspecified formu lation (CPT 71199 Inactive) Unknown 04/25/2017 Administered Influenza, unspecified formu lation (CPT 48993 Inactive) Unknown 04/25/2018 Administered Influenza, unspecified formu lation (CPT 81165 Inactive) Unknown 03/20/2019 Administered Influenza, unspecified formu lation (CPT 72147 Inactive) Unknown 03/25/2020 Administered Influenza, unspecified formu lation (CPT 96840 Inactive) Unknown 04/27/2021 Administered Influenza, unspecified formu lation (CPT 08710 Inactive) Unknown 04/27/2022 Administered Influenza, unspecified formu lation (CPT 86057 Inactive) Unknown 04/25/2023 Administered Pneumococcal polysaccharide PPV23 [...] Acne vulgaris (L70.0) Active confirmed Acne vulgaris (51164526) Acne is improving on Accutane with minimal [...] Encounter Location Date Provider Diagnosis [facility] [address] [place] [id number] 08/21/2023 Soheila Jacobs Acne vulgaris L70.0 Soheila Jacobs, [facility] 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 [address] [place], [place] [id number] 12/18/2023 Soheila Jacobs Soheila Jacobs, [facility] [address] [place], [place] [id number] 01/24/2024 Soheila Jacobs Acne vulgaris L70.0 and manager terminal use of drug Z79.899 Soheila Jacobs, Inc[facility] [address] [place], [place] [id number] 10/10/2023 Soheila Jacobs Acne vulgaris L70.0 and manager terminal use of drug Z79.899 Soheila Jacobs, Inc[facility] [address] [place], [place] [id number] 08/25/2023 Soheila Jacobs Soheila Jacobs, Inc. [address] [place], [place] [id number] 11/28/2023 Soheila Jacobs Soheila Jacobs, Inc[facility] [address] [place], [place] [id number] 12/21/2023 Soheila Jacobs Soheila Jacobs, Inc[facility] [address] [place], [place] [id number] 06/13/2023 Soheila Jacobs Acne vulgaris L70.0 and nursing home use of drug Z79.899 Soheila Jacobs, Inc[facility] [address] [place], [place] [id number] 07/19/2023 Soheila Jacobs Acne vulgaris L70.0 and nursing home use of drug Z79.899 Soheila Jacobs, Inc[facility] [address] [place], [place] [id number] 11/09/2023 Soheila Jacobs Acne vulgaris L70.0 and manager terminal use of drug Z79.899 Soheila Jacobs, [facility] [address] [place], [place] [id number] 11/09/2023 Soheila Jacobs Soheila Jacobs, [facility] [address] [place], [place] [id number] 03/07/2024 Soheila Jacobs Acne vulgaris L70.0 and manager terminal use of drug Z79.899 ASSESSMENTS Encounter Date [...] at 30 mg p.o. twice daily 11/15/2023 manager terminal use of drug (ICD-10 - Z79.899) 01/24/2024 [...] at 30 mg p.o. twice daily 01/24/2024 nursing home use of drug (ICD-10 - Z79.899) 10/10/2023 [...] at 30 mg p.o. twice daily 10/10/2023 nursing home use of drug (ICD-10 - Z79.899) 06/13/2023 [...] my office to initiate the medication. 06/13/2023 manager terminal use of drug (ICD-10 - Z79.899) 07/19/2023 [...] the side effects of this medication. 07/19/2023 nursing home use of drug (ICD-10 - Z79.899) 11/09/2023 [...] at 30 mg p.o. twice daily 03/07/2024 manager terminal use of drug (ICD-10 - Z79.899) 11/09/2023 nursing home use of drug (ICD-10 - Z79.899) 06/13/2023 [...] Test Name Order Date Test, Urine 03/07/2024 Test, Urine 01/24/2024 hCG,Beta Subunit,Qnt,Serum 07/19/2023 Lipid Panel 11/15/2023 Lipid Panel 07/19/2023 Comp. Metabolic Panel (14) 07/19/2023 Comp. Metabolic Panel (14) 11/15/2023 Future Test Test Name Order Date hCG,Beta Subunit,Qnt,Serum 11/07/2023 Lipid Panel 11/07/2023 Comp. Metabolic Panel (14) 11/07/2023 Insurance Providers Payer Name Payer Address Payer Phone Subscriber Number Group Number Insured Name Patient Relationship to Insured Coverage Start Date Coverage End Date [facility] [address] [place] [phone] [id number] COMBS Self - patient is the insured
--- OUTSIDE RECORDS SUMMARY | 2024-04-04 19:30 | XMS_ITS | Clinical Summary ---
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 Sexual Orientation Don't know 07/04/2022 2: 10 PM VENETIAN BLIND CLEANER AND REPAIRER Obstetrics History Para Term AB IAB SAB Ectopic Multiple Livin g Live Births 0 0 0 0 0 0 0 0 0 0 0 Last Filed Vital Signs Vital Sign Reading Time Taken Comments Blood Pressure 124/82 07/27/2022 8:34 AM VENETIAN BLIND CLEANER AND REPAIRER Pulse 80 07/27/2022 8:34 AM VENETIAN BLIND CLEANER AND REPAIRER Temperature - - Respiratory Rate - - Oxygen Saturation 98% 07/27/2022 8:34 AM VENETIAN BLIND CLEANER AND REPAIRER Inhaled Oxygen Concentration - - Weight 56.2 kg (123 lb 12.8 oz) 07/27/2022 8:34 AM VENETIAN BLIND CLEANER AND REPAIRER Height 167 cm (5' 5.75) 07/27/2022 8:34 AM VENETIAN BLIND CLEANER AND REPAIRER Body Mass Index 20.14 07/27/2022 8:34 AM VENETIAN BLIND CLEANER AND REPAIRER Plan of Treatment Health Maintenance Due Date [...] age to complete this topic Care Teams Annealing Furnace Operator Relationship Specialty Start Date End Date Pcp, No . PCP - General 07/04/22
--- OUTSIDE RECORDS SUMMARY | 2024-04-04 19:30 | XMS_ITS | Continuity of Care Document ---
Author Organization [facility] [place] Address [address] [facility] [address] [place] [address] Phone Care Team Providers Care Family Helper Name Role Phone Jamaica Jameson PT Unavailable Unavailable Procedures Procedure Date Therapeutic Activities Therapeutic Exercise Therapeutic Activities Therapeutic Exercise Therapeutic Activities Therapeutic [...] Re-Ed Neuromuscular Re-Ed Therapeutic Activities Therapeutic Activities Therapeutic Exercise Neuromuscular Re-Ed Therapeutic Activities Therapeutic Activities Therapeutic Exercise Neuromuscular Re-Ed Therapeutic Activities Hot or Cold Pack Therapeutic Exercise Neuromuscular Re-Ed Therapeutic Activities Therapeutic Exercise Neuromuscular Re-Ed Manual Therapy PT Evaluation Moderate Complexity Therapeutic Activities Therapeutic Exercise Neuromuscular Re-Ed Advance Directives Directive Yes / No Effective Date File Name No Information Encounters Encounter Description Practice Location Reason(s) For Visit Diagnoses Date Provider Providers Copied on Encounter [facility], [id number], tel:[phone] [place] No Information Nahlik Jamaica. . Referring Provider: Naren Muñoz, [address], [place], [address]. tel:[phone] [place] [address] [address] [place] [address], [place], [place], [id number], tel:[phone] [place] No Information Nahlik [place]. . Referring Provider: Naren Muñoz, [address], [place], [address]. tel:[phone] [place] [address] [address] [facility] [address], [place], [place], [id number], tel:[phone] [place] No Information Nahlik [place]. . Referring Provider: Naren Muñoz, [address], [place], [address]. tel:[phone] [place], [place] [address] [place] [address], [place], [place], [id number], tel:[phone] [place] No Information Nahlik [place]. . Referring Provider: Naren Muñoz, [address], [place], [address]. tel:[phone] [place] [address], [address] [place], [place] [address], [place], [place], [id number], tel:[phone] [place] No Information Nahlik [place]. . Referring Provider: Naren Muñoz, [address], [place], [address]. tel:[phone] [place], [place] [address], [place], [place], [id number], tel:[phone] [place] No Information Nahlik [place]. . Referring Provider: Naren Muñoz, [address], [place], [address]. tel:[phone] [place] [address], [address] [place], [place] [address] [address], [place], [place], [id number], [place] tel:[phone] Susanne No Information Nahlik [place]. . Referring Provider: Naren Muñoz, [address], [place], [address]. tel:[phone] [place], [place] [address], [place], [place], [id number], [place] tel:[phone] [place] No Information Nahlik [place]. . Referring Provider: Naren Muñoz, [address], [place], [address]. tel:[phone] [place] [address] [facility], [place], [place], [id number], tel:[phone] [place] No Information Nahlik [place]. . Referring Provider: Naren Muñoz, [address], [place], [address]. tel:[phone] [place] [address] [address], [place], [place], [id number], [place] tel:[phone] [place] No Information Nahlik [place]. . Referring Provider: Naren Muñoz, [address], [place], [address]. tel:[phone] [place] [address] [address], [place], [place], [id number], [place] tel:[phone] [place] No Information Nahlik [place]. . Referring Provider: Naren Muñoz, [address], [place], [address]. tel:[phone] [place] [address], [address] [facility], [place], [place], [id number], [place] tel:[phone] [place] No Information Nahlik [place]. . Referring Provider: Naren Muñoz, [address], [place], [address]. tel:[phone] [place] [address] [facility], [place], [id number], [place] tel:[phone] [place] No Information Nahlik [place]. . Referring Provider: Naren Muñoz, [address], [place], [address]. tel:[phone] [place], [place] [address] [address], [place], [place], [id number], [place] tel:[phone] [place] No Information Nahlik [place]. . Referring Provider: Naren Muñoz, [address], [place], [address]. tel:[phone] [place], [place] [address] [address], [place], [id number], [place] tel:[phone] [place] No Information Nahlik [place]. . Referring Provider: Naren Muñoz, [address], [place], [address]. tel:[phone] [place] [address], [address] [facility], [place], [place], [address], tel:[phone] [place] No Information Nahlik [place]. . Referring Provider: Naren Muñoz, [address], [place], [address]. tel:[phone] [place] [address] [facility], [place], [place], [id number], tel:[phone] Susanne No Information Nahlik [place]. . Referring Provider: Naren Muñoz, [address], [place], [address]. tel:[phone] [place] [address], [address] [facility], [place], [place], [id number], tel:[phone] Susanne No Information Nahlik [place]. . Referring Provider: Naren Muñoz, [address], [place], [address]. tel:[phone] [place] [address] [address] [facility], [place], [place], [id number], tel:[phone] Susanne No Information Nahlik [place]. . Referring Provider: Naren Muñoz, [address], [place], [address]. tel:[phone] [place] [address] [facility], [place], [place], [id number], tel:[phone] Susanne No Information Nahlik [place]. . Referring Provider: Naren Muñoz, [address], [place], [address]. tel:[phone] [facility] [place], [address] [facility], [place], [place], [id number], [place] tel:[phone] Susanne No Information Gisell Jamaica. . Referring Provider: Naren Muñoz, [address] [facility] [address], [place], [address]. tel:[phone] Family History Family Member Type Diagnosis Age At Onset No Information Payers Payer name Insurance type Covered libertarian ID Authorsharon rogers(s) All Savers [id number] Social History Type Description Quantity Date Captured [...]
--- OUTSIDE RECORDS SUMMARY | 2024-04-04 19:30 | XMS_ITS | Referral Summary ---
Author Organization [facility] Address [address] [place] [address]. [place] [address] Care Team Providers Care Aws Developer Name Role Phone Unavailable Primary Care Provider [...] (NEURONTIN) 300 MG capsuleIndications:B orderline personality disorder Take 3 capsules (900 mg) by mouth At Bedtime for 14 days 42 capsule 08/12/2022 Active lurasidone (LATUDA) 60 MG TABS tabletIndications:Javier rderline personality disorder Take 1 tablet (60 mg) by mouth daily with food for 14 days 14 tablet 08/12/2022 Active spironolactone (ALDACTONE) 100 MG tabletIndications:Javier rderline personality disorder Take 1 tablet (100 mg) by mouth daily for 14 days Take one tablet by mouth every day for 30 days. 14 tablet 08/12/2022 Active topiramate (TOPAMAX) 50 MG tabletIndications:Javier rderline personality disorder Take 1 tablet (50 mg) by mouth 2 times daily for 14 days 28 tablet 08/12/2022 Active clonazePAM (KLONOPIN) 0.5 MG tabletIndications:Javier rderline personality disorder Take 1 tablet (0.5 mg) by mouth [...] Comments Blood Pressure 102/70 08/13/2022 6:00 AM RESEARCH METHODS INSTRUCTOR Pulse 91 08/13/2022 6:00 AM RESEARCH METHODS INSTRUCTOR Temperature 36.2 ??C (97.2 ??F) 08/13/2022 6:00 AM CS T Respiratory Rate 12 08/13/2022 6:00 AM RESEARCH METHODS INSTRUCTOR Oxygen Saturation 100% 08/13/2022 6:00 AM RESEARCH METHODS INSTRUCTOR Inhaled Oxygen Concentration - - Weight 58.8 kg (129 lb 11.9 oz) 05/05/2022 2:09 PM CDT Height - - Body Mass Index - - Plan of Treatment Not on file Advance Directives For more information, please contact: [phone] * Full Code (Latest Code Status on File) Date Activated Date Inactivated Comments 08/09/2022 12:32 PM 08/13/2022 2:59 PM All basic a nd advanced life-sustaining interventions are performed as appropriate Question Answer Comments Code status determined by: Unable to dis cuss and no AD/POLST on file; continue PREVIOUSLY ORDERED code status
--- OUTSIDE RECORDS SUMMARY | 2024-04-04 19:30 | XMS_ITS | Referral Summary ---
Author Organization [facility] Address [address] [place] [address] Care Team Providers Care Blue Crabber Name Role Phone Gerald Tuttle MD Primary Care Provider [phone] Source Comments [facility],non-owned Affiliates and Associated Physician Practices is amultiple site organization consisting of ambulatory clinics and hospital sitesin [place], [place], [place] and [place]. This disclosure is being madepursuant to the Care Everywhere program and may not contain all information available regarding this patient. Last updated 18.[facility] [employer] Allergies Active Allergy Reactions Criticality Noted Date [...] 9:06 PM 05/30/2021 11:55 AM Care Teams Blue Crabber Relationship Specialty [place] [address] [facility] [address] [place] [address] PCP - General Pediatrics 05/25/21
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
--- OUTSIDE RECORDS SUMMARY | 2024-04-04 19:30 | XMS_ITS | Patient Health Summary ---
Author Organization [facility] Address [address] [place] [address] Care Team Providers Care Corporate Human Resources Manager Name Role Phone Gerald Tuttle MD Primary Care Provider [phone] Note from [facility],non-owned Affiliates and Associated Physician Practices is amultiple site organization consisting of ambulatory clinics and hospital sitesin [place], [place], [place] and [place]. This disclosure is being madepursuant to the Care Everywhere program and may not contain all information available regarding this patient. Last updated 18.[facility] Allergies * Amoxicillin(Unknown) Medications * Be aware [...] (Bezet) 457 ms CG MUSE Calculated P [place] 67 degrees CG MUSE Calculated R [place] 49 degrees CG MUSE Calculated T [place] 51 degrees CG MUSE Interpretation EKG Normal sinus rhythm Q waves noted in 1 and aVL When compared with ECG of 16-NOV-2021 21:15, No significant change was found Confirmed by MD Urias Renuka ([id number]) on 11/17/2021 5:41:23 PM CG MUSE 11/17/2021 11:2 3 AM CDT 11/17/2021 5:41 PM CDT Tiffani Robison MD ECG ORDERABLES Performing Organization Address City/[facility]/ZIP Co de Phone Number MUSE * DRUG SCREEN TOX COMPREHESIVE URINE PANEL (11/16/2021 9:20 PM CDT) [facility] Drug Screen Urine Comprehensive Panel See Scanned Report 11/17/2021 6:18 PM CDT [facility] Urine URINE / Unknown Collection / Unknown 11/16/2021 9:20 PM CDT 11/16/2021 9:26 PM CDT Tiffani Robison MD LAB - URINE CHEMISTR Y ORDERABLES Performing Organization Address City/[facility]/ZIP Co de Phone Number [facility] ATTN Dr Darin Glover [address] [place] [address] * URINE DRUG SCREEN IMMUNOASSAY (11/16/2021 9:20 PM CDT) Only the most recent of2 resultswithin the time period is included. [facility] Amphetamines Screen Urine Negative Negative: < 1000 ng/mL 11/16/2021 9:46 PM CDT [facility] Barbiturates Screen Urine Negative Negative: < 200 ng/mL 11/16/2021 9:46 PM CDT [facility] Benzodiazepine Screen Urine Negative Negative: < 200 ng/mL 11/16/2021 9:46 PM CDT [facility] Opiates Urine Negative Negative: < 300 ng/mL 11/16/2021 9:46 PM CDT [facility] Cocaine Metabolites Urine Negative Negative: < 300 ng/mL 11/16/2021 9:46 PM CDT [facility] Phencyclidine Screen Urine Negative Negative: < 25 ng/ml 11/16/2021 9:46 PM CDT [facility] Cannabinoids Screen Urine Negative Negative: <50 ng/mL 11/16/2021 9:46 PM CDT [facility] Methadone Screen Urine Negative Negative: < 300 ng/mL 11/16/2021 9:46 PM CDT [facility] Fentanyl Screen Urine Negative Negative: <1.0 ng/mL 11/16/2021 9:46 PM CDT [facility] Urine URINE / Unknown Collection / Unknown 11/16/2021 9:20 PM CDT 11/16/2021 9:27 PM CDT Narrative [facility] - 11/16/2021 9:46 PM CDT The Urine Toxicology Screening Panel does not screen for Propoxyphene, Meprobamate, Carisoprodol, Trazodone, ivqh-cey-tssorml medications and/or volatiles (Acetone, Isopropanol, Methanol or Ethylene Glycol). Ethanol, Salicylate, Acetaminophen, Tricyclic Antidepressants and several therapeutic drugs may be individually assayed in serum or plasma specimen. Toxicology testing by the [facility] is an aid to medical diagnosis and treatment of patients. No documented chain of custody was maintained. Results are intended to be used for clinical purposes only. ? Tiffani Robison MD LAB - URINE CHEMISTR Y ORDERABLES Performing Organization Address City/State/[facility] Co de Phone Number [facility] [address] [place] [address], [place] [phone] * (ABNORMAL) CBC W AUTO DIFFERENTIAL (11/16/2021 3:07 PM CDT) Only the most recent of2 resultswithin the time period is included. [facility] WBC 11.9(H) 4.5 - 11.0 x10E9/L 11/16/2021 3:13 PM [facility] WBC Corrected 11/16/2021 3:13 PM [facility] RBC 5.05 4.10 - 5.10 x10E12/L 11/16/2021 3:13 PM [facility] Hemoglobin 14.7 12.0 - 16.0 gm/dL 11/16/2021 3:13 PM [facility] Hematocrit 43.7 36.0 - 47.0 % 11/16/2021 3:13 PM [facility] MCV 86.5 78.0 - 102.0 fl 11/16/2021 3:13 PM [facility] MCH 29.1 25.0 - 35.0 pg 11/16/2021 3:13 PM [facility] MCHC 33.6 31.0 - 37.0 gm/dL 11/16/2021 3:13 PM [facility] Platelet Count 324 100 - 400 x10E9/L 11/16/2021 3:13 PM [facility] RDW-CV 12.2 11.5 - 14.0 % 11/16/2021 3:13 PM [facility] MPV 10.4(H) 6.0 - 9.5 fl 11/16/2021 3:13 PM [facility] Neutrophils % 79.0(H) 31.0 - 78.0 % 11/16/2021 3:13 PM [facility] Lymphocytes % 13.7 13.0 - 54.0 % 11/16/2021 3:13 PM [facility] Monocytes % 5.3 4.0 - 13.0 % 11/16/2021 3:13 PM [facility] Eosinophils % 0.9 0.0 - 8.0 % 11/16/2021 3:13 PM [facility] Basophils % 0.5 % 11/16/2021 3:13 PM [facility] Immature Granulocytes 0.6 % 11/16/2021 3:13 PM [facility] Neutrophil Absolute 9.39(H) 1.4 - 8.58 x10E9/L 11/16/2021 3:13 PM CDT [facility] Lymphocytes Absolute 1.63 0.59 - 5.94 x10E9/L 11/16/2021 3:13 PM CDT [facility] Monocytes Absolute 0.63 0.18 - 1.43 x10E9/L 11/16/2021 3:13 PM CDT [facility] Eosinophils Absolute 0.11 0 - 0.88 x10E9/L 11/16/2021 3:13 PM CDT [facility] Basophils Absolute 0.06 0 - 0.22 x10E9/L 11/16/2021 3:13 PM CDT [facility] Immature Granulocytes Absolute 0.07 0 - 0.11 x10E9/L 11/16/2021 3:13 PM CDT [facility] nRBC Auto 0 /100 WBC 11/16/2021 3:13 PM CDT [facility] Blood BLOOD SPECIMEN / Unknown Venipuncture / Unknown 11/16/2021 3:07 PM CDT 11/16/2021 3:10 PM CDT Smiley Wilks PA-C LAB - HEMATOLOGY ORD ERABLES [facility] [address] [place] [address] * (ABNORMAL) COMPREHENSIVE METABOLIC PANEL (11/16/2021 3:07 PM CDT) Only the most recent of2 resultswithin the time period is included. [facility] Glucose 100 70 - 105 mg/dL 11/16/2021 3:29 PM CDT [facility] Sodium 143 136 - 145 mmol/L 11/16/2021 3:29 PM CDT [facility] Potassium 3.7 3.5 - 5.1 mmol/L 11/16/2021 3:29 PM CDT [facility] Chloride 110(H) 98 - 107 mmol/L 11/16/2021 3:29 PM CDT [facility] CO2 22 20 - 28 mmol/L 11/16/2021 3:29 PM CDT [facility] Calcium 9.6 8.4 - 10.4 mg/dL 11/16/2021 3:29 PM CDT [facility] Anion Gap 11 8 - 18 mmol/L 11/16/2021 3:29 PM CDT [facility] BUN 10 7 - 18.7 mg/dL 11/16/2021 3:29 PM CDT [facility] Creatinine 0.88 0.57 - 1.11 mg/dL 11/16/2021 3:29 PM CDT [facility] Alkaline Phosphatase 67(L) 100 - 390 U/L 11/16/2021 3:29 PM CDT [facility] ALT 13 0 - 61 U/L 11/16/2021 3:29 PM CDT [facility] AST 15 5 - 34 U/L 11/16/2021 3:29 PM CDT [facility] Protein Total 7.5 6.4 - 8.3 gm/dL 11/16/2021 3:29 PM CDT [facility] Albumin 4.5 3.4 - 5.0 gm/dL 11/16/2021 3:29 PM CDT [facility] Bilirubin Total 0.5 0.2 - 1.2 mg/dL 11/16/2021 3:29 PM CDT [facility] eGFR by CKD-EPI 3:29 PM CDT [facility] Comment:eGFR calculations ar e not performed for children <18yrs old. Blood BLOOD SPECIMEN / Unknown Venipuncture / Unknown 11/16/2021 3:07 PM CDT 11/16/2021 3:10 PM CDT Narrative [facility] - 11/16/2021 3:29 PM CDT eGFR result was calculated using the updated CKD-EPI Creatinine Equations (2020). Prior to go live 2021 the eGFR was calculated using the MDRD calculation. Please note Reference Range change. Smiley Wilks PA-C LAB - CHEMISTRY MARYELLEN Max Organization Address City/State/ZIP Co de Phone Number [facility] [address] [address] * MAGNESIUM BLOOD (11/16/2021 3:07 PM CDT) [facility] Magnesium 2.1 1.7 - 2.3 mg/dL 11/16/2021 3:29 PM CDT [facility] Blood BLOOD SPECIMEN / Unknown Venipuncture / Unknown 11/16/2021 3:07 PM CDT 11/16/2021 3:10 PM CDT Franc Ryan MD LAB - CHEMISTRY MARYELLEN MCCABE Performing Organization Address [facility] [place]/[facility]/ZIP Co de Phone Number [facility] [address] [address] * CK BLOOD (11/16/2021 3:07 PM CDT) CK 71 29 - 168 U/L 11/16/2021 3:29 PM CDT [facility] Blood BLOOD SPECIMEN / Unknown Venipuncture / Unknown 11/16/2021 3:07 PM CDT 11/16/2021 3:10 PM CDT Franc Ryan MD LAB - CHEMISTRY MARYELLEN MCCABE Performing Organization Address [facility] [place]/[facility]/ZIP Co de Phone Number [facility] [address] [address] * ALCOHOL ETHYL BLOOD (11/16/2021 3:07 PM CDT) Ethanol <10.0 <10 mg/dL 11/16/2021 3:29 PM CDT [facility] Ethanol Calculated <0.010 <=0.100 gm/dL 11/16/2021 3:29 PM CDT [facility] Blood BLOOD SPECIMEN / Unknown Venipuncture / Unknown 11/16/2021 3:07 PM CDT 11/16/2021 3:10 PM CDT Narrative [facility] - 11/16/2021 3:29 PM CDT Non Legal Serum Alcohol Smiley Wilks PA-C LAB - CHEMISTRY MARYELLEN MCCABE Performing Organization Address City/[facility]/ZIP Co de Phone Number [facility] [address] [address] * (ABNORMAL) SALICYLATE LEVEL BLOOD (11/16/2021 3:07 PM CDT) Pathologist [facility] Salicylate <5.0(L) 15.0 - 30.0 mg/dL 11/16/2021 3:29 PM CDT [facility] Blood BLOOD SPECIMEN / Unknown Venipuncture / Unknown 11/16/2021 3:07 PM CDT 11/16/2021 3:10 PM CDT Smiley Wilks PA-C LAB - CHEMISTRY MARYELLEN MCCABE Performing Organization Address [facility] [place]/[facility] Co de Phone Number [facility] [address] [place] [phone] * HCG BLOOD QUALITATIVE (11/16/2021 3:07 PM CDT) [facility] HCG Qual Serum Negative Negative 11/16/2021 3:32 PM CDT [facility] Blood BLOOD SPECIMEN / Unknown Venipuncture / Unknown 11/16/2021 3:07 PM CDT 11/16/2021 3:10 PM CDT Narrative [facility] - 11/16/2021 3:32 PM CDT Specimens containing heterophilic antibodies may demonstrate false positive results. ??Specimens containing human anti-mouse antibodies may exhibit false positive or false negative results. If qualitative interpretation is inconsistant with clinical evaluation, consider confirmation by an alternative hCG method. Franc Ryan MD LAB - CHEMISTRY MARYELLEN MCCABE Performing Organization Address [facility] [place]/[facility] Co de Phone Number [facility] [address] [place] [address] * (ABNORMAL) ACETAMINOPHEN LEVEL (11/16/2021 3:07 PM CDT) [facility] Acetaminophen <3.0(L) 10.0 - 30.0 ug/mL 11/16/2021 3:29 PM CDT [facility] Blood BLOOD SPECIMEN / Unknown Venipuncture / Unknown 11/16/2021 3:07 PM CDT 11/16/2021 3:10 PM CDT Narrative [facility] - 11/16/2021 3:29 PM CDT [facility] [...] may alter the peak level. Contact the [place] [facility] at or reserved for healthcare professionals to assist you in evaluating potentially toxic acetaminophen levels. Smiley Wilks PA-C LAB - CHEMISTRY MARYELLEN MCCABE [facility] [address] [place] [address] * Critical Care (11/16/2021 2:43 PM [...] BPM SCH MUSE P-R Interval 112 ms [facility] MUSE QRS Duration ms 78 ms [facility] MUSE Q-T Interval ms 360 ms [facility] MUSE QTC Calculation (Bezet) 553 ms [facility] MUSE Calculated P [place] 67 degrees SCH MUSE Calculated R [place] 36 degrees [facility] MUSE Calculated T [place] 66 degrees SCH MUSE Interpretation EKG Sinus tachycardia Cannot rule out Inferior infarct , age undetermined Abnormal ECG No previous ECGs available Confirmed by MD Elo, Roque ([id number]) on 11/19/2021 7:52:34 AM [facility] MUSE 11/16/2021 2:43 PM CDT 11/19/2021 7:52 AM CDT Smiley Wilks PA-C ECG ORDERABLES [facility] MUSE * (ABNORMAL) URINALYSIS REFLEX TO MICROSCOPIC NO CULTURE (05/26/2021 10:36 AM METAL CRAFTS TEACHER) Color UA Straw Straw, Yellow 05/26/2021 11:53 AM [facility] Clarity UA Clear Clear 05/26/2021 11:53 AM [facility] Glucose UA Negative Negative 05/26/2021 11:53 AM [facility] Bilirubin UA Negative Negative 05/26/2021 11:53 AM [facility] Ketone UA Negative Negative 05/26/2021 11:53 AM [facility] Specific [place] UA 1.003(L) 1.005 - 1.030 05/26/2021 11:53 AM [facility] Blood UA Negative Negative 05/26/2021 11:53 AM [facility] pH UA 6.0 5.0 - 8.0 pH 05/26/2021 11:53 AM [facility] Protein UA Negative Negative 05/26/2021 11:53 AM [facility] Urobilinogen UA Negative Negative mg/dL 05/26/2021 11:53 AM [facility] Nitrite UA Negative Negative 05/26/2021 11:53 AM [facility] Leukocyte UA Negative Negative 05/26/2021 11:53 AM [facility] Urine Microscopy Urine microscopy not indicated 05/26/2021 11:53 AM [facility] Urine URINE SPECIMEN OBTAINED BY CLEAN CATCH PROCEDURE / Unknown Collection / Unknown 05/26/2021 10:36 AM [employer]AL CRAFTS TE[employer]ER 05/26/2021 11:38 AM METAL CRAFTS TEACHER Narrative [facility] - 05/26/2021 11:53 AM METAL CRAFTS TEACHER Alan Anderson MD LAB - URINA LYSIS ORDERABLES [facility] [address] [place] [address] * HCG URINE QUALITATIVE (05/26/2021 10:36 AM METAL CRAFTS TEACHER) Pathologist [facility] hCG Qualitative Urine Negative Negative 05/26/2021 11:49 AM METAL CRAFTS TEACHER [facility] Urine URINE / Unknown Collection / Unknown 05/26/2021 10:36 AM METAL CRAFTS TEACHER 05/26/2021 11:38 AM METAL CRAFTS TEACHER Alan Anderson MD LAB - URINA LYSIS ORDERABLES Performing Organization Address City/[facility]/ZIP Co de Phone Number [facility] [address] [place] [phone] * TSH REFLEX FREE T4 (05/26/2021 6:23 AM METAL CRAFTS TEACHER) Pathologist [facility] TSH 1.677 0.350 - 4.940 uIU/mL 05/26/2021 10:33 AM [facility] Blood BLOOD SPECIMEN / Unknown Lab Venipuncture / Unknown 05/26/2021 6:23 AM [employer] CRAFT[employer] TE[employer] 05/26/2021 7:31 AM METAL CRAFTS TEACHER Alan Anderson MD LAB - CHEMI STRY ORDERABLES [facility] [address] [place] [address] * HEMOGLOBIN A1C (05/26/2021 6:23 AM METAL CRAFTS TEACHER) Pathologist [facility] Hemoglobin A1c 4.4 4.2 - 5.6 % 05/26/2021 9:55 AM METAL CRAFTS TEACHER [facility] Estimated Average Glucose 80 mg/dL 05/26/2021 9:55 AM [facility] Blood BLOOD SPECIMEN / Unknown Lab Venipuncture / Unknown 05/26/2021 6:23 AM [facility] 05/26/2021 7:26 AM [facility] Narrative [facility] - 05/26/2021 9:55 AM [facility] The following cutoff levels are recommended by [place] [employer]. ?? A1c ??> 6.5% : [...] Anderson MD LAB - CHEMI STRY ORDERABLES [facility] [address] [place] [address] * LIPID PROFILE (05/26/2021 6:23 AM [facility]) [facility] Cholesterol 140 <200 mg/dL 05/26/2021 10:08 AM [facility] Triglycerides 75 <150 mg/dL 05/26/2021 10:08 AM [facility] HDL Cholesterol 54 >40 mg/dL 1 10:08 AM [facility] LDL Calculated 71 <130 mg/dL 05/26/2021 10:08 AM [facility] VLDL Calculated 15 <=30 mg/dL 1 10:08 AM [facility] Chol HDL Ratio 2.6 <4.5 05/26/2021 10:08 AM [facility] LDL/HDL Ratio 1.3 <5.0 05/26/2021 10:08 AM [facility] Blood BLOOD SPECIMEN / Unknown Lab Venipuncture / Unknown 05/26/2021 6:23 AM [employer] CRAFTS TE[employer] 05/26/2021 7:31 AM METAL CRAFTS TEACHER Alan Anderson MD LAB - CHEMI STRY ORDERABLES [facility] [address] [place] [address] * SARS-COV-2 (COVID-19) RAPID (05/25/2021 3:41 PM METAL CRAFTS TEACHER) COVID-19 PCR Not detected Not detected 05/25/20 4:45 PM METAL CRAFTS TEACHER [facility] Microbiology SPECIMEN FROM NASOPHARYNGEAL STRUCTURE / Unknown Collection / Unknown 05/25/2021 3:41 PM METAL CRAFTS TEACHER 05/25/2021 3:50 PM METAL CRAFTS TEACHER Narrative [facility] - 05/25/2021 4:45 PM METAL CRAFTS TEACHER The Cepheid Xpert Xpress SARS-COV-2 has been [...] assay are available upon request. Zoe Mcnair APRN-AUTO GLASS INSTALLER LAB - MICROBI OLOGY ORDERABLES [facility] [address] [place] [address] Care Teams Corporate Human Resources Manager Relationship Specialty [place] [address] [facility] [address] [place] [address] PCP - General Pediatrics 05/25/21
--- OUTSIDE RECORDS SUMMARY | 2024-04-04 19:30 | XMS_ITS | Clinical Summary ---
Author Organization [facility] [employer] Address [address] [address] Care Team Providers Care Museum Educator Name Role Phone Gerald Tuttle MD Primary Care Provider [phone] Source Comments [facility],non-owned Affiliates and Associated Physician Practices is amultiple site organization consisting of ambulatory clinics and hospital sitesin [place], [place], [place] and [place]. This disclosure is being madepursuant to the Care Everywhere program and may not contain all information available regarding this patient. Last updated 18.[facility] [employer] Allergies Active Allergy Reactions Criticality Noted Date [...] 9:06 PM 05/30/2021 11:55 AM Care Teams Museum Educator Relationship Specialty [place] [address] [facility] [address] [place] [address] PCP - General Pediatrics 05/25/21
--- OUTSIDE RECORDS SUMMARY | 2024-04-04 19:30 | XMS_ITS ---
Author Organization Unknown Address [address] [place] [address] Phone Care Team Providers Care Stationary Engineer Apprentice Name Role Phone JESU HINOJOSA MD Attending Unavail able NO OR UNK FAMILY PHYSICIAN Primary Unava ilable Results TEST URINE - Colle ct Date/Time: 02/28/2023 03:12 [facility] ID: [id number] [address] [place], [place], [id number] LOINC: 2112-1 Test Value Unit Reference Range Code Code System Flag PREG URINE NEGATIVE URINALYSIS* - Collect Date/T jluis: 02/28/2023 03:12 [facility] ID: [id number] [address] [place], [place], [phone] LOINC: 58726-9 Test Value Unit Reference Range Code Code System Flag SOURCE Random COLOR Dk Yellow NORMAL: Straw 5778-6 LOINC CLARITY Hazy NORMAL: Clear 90464-2 LOINC GLUCOSE Negative NORMAL: Negative 5792-7 LOINC BILIRUBIN Negative NORMAL: Negative 5770-3 LOINC KETONE Negative NORMAL: Negative 5797-6 LOINC SPEC GRAVITY 1.025 1.005 - 1.020 5811-5 LOINC A BLOOD 3+ NORMAL: Negative 97501-0 LOINC A pH 6.0 5.5 - 7.5 5803-2 LOINC PROTEIN 1+ NORMAL: Negative 5804-0 LOINC A UROBILINOGEN 0.2 0.2 - 1.0 mg/dL 5818-0 LOINC NITRITE Negative NORMAL: Negative 5802-4 LOINC LEUK EST Negative NORMAL: Negative 5799-2 LOINC MICROSCOPIC? SEE BELOW WBC 20 - 30 NORMAL: None Seen 40540-1 LOINC RBC 10 - 20 NORMAL: None Seen 798-9 LOINC SQUAMOUS EPI Many/lpf NORMAL: None Seen 31214-1 LOINC BACTERIA 1+/hpf NORMAL: None Seen 83277-0 LOINC MUCOUS Trace NORMAL: None Seen 42475-4 LOINC CASTS None Seen NORMAL: None Seen 9842-6 LOINC CRYSTALS None Seen NORMAL: None Seen COMP METABOLIC PANEL - Colle ct Date/Time: 02/28/2023 02:36 [facility] ID: [id number] [address] [place] [address], [phone] LOINC: 99829-4 Test Value Unit Reference Range Code Code System Flag SODIUM 142 mEq/L L=136 H=145 2951-2 LOINC POTASSIUM 4.4 mEq/L L=3.5 H=5.1 2823-3 LOINC CHLORIDE 105 mmol/L L=98 H=107 2075-0 LOINC CO2 31.8 mmol/L L=21.0 H=32.0 2028-9 LOINC CALCIUM 8.0 mg/dL L=8.5 H=10.1 59953-7 LOINC L BUN 12 mg/dL L=7 H=18 3094-0 LOINC CREATININE 1.0 mg/dL L=0.6 H=1.3 2160-0 LOINC BUN/CREAT 12 L=6 H=20 3097-3 LOINC GLUCOSE 97 mg/dL L=74 H=106 2345-7 LOINC SGPT/ALTI 119 U/L L=17 H=78 1743-4 LOINC H ALBUMIN 3.5 g/dL L=3.4 H=5.0 1751-7 LOINC ALKALINE PHOS 73 U/L L=46 H=116 6768-6 LOINC SGOT/AST 91 IU/L L=15 H=37 04548-5 LOINC H TOTAL BILI 0.4 mg/dL L=0.2 H=1.0 1975-2 LOINC TOTAL PROTEIN 5.7 g/dL L=6.4 H=8.2 2885-2 LOINC L AGE 18 yrs 26567-4 LOINC eGFR > 60 mL/min/BAS 22833-0 LOINC CBC WITH AUTO DIFF - Collect Date/Time: 02/28/2023 02:36 [facility] ID: [id number] [address] [place] [address], [phone] LOINC: 06954-6 Test Value Unit Reference Range Code Code [...] 786-4 LOINC RDWSD 42.1 fL L=39.0 H=47.0 27506-1 LOINC RDW 12.8 % L=11.5 H=14.5 788-0 LOINC PLATELETS 226 K/uL L=150 H=400 777-3 LOINC MPV 10.6 fL L=7.4 H=10.4 00426-0 LOINC H %NEUT 83.4 % L=55.0 H=62.0 [...] C ompleted: 02/28/2023 03:22 LOINC: \TM00\\12PI\\DRAo\\BM09\ \[place]\ [place] [address] ---------NAME--------- NUMBER SEX AGE ADMIT DISC. XRAY# F/C TYPE DENNYI IWONA Hagan [id number] F 18 02/28/23 28920 P E/R DATE OF : 2005 M/R# [id number] #: [id number] \MRHx\ LOCATION: TRANSCRIBED: 02/28/23 4:53 CT ABD/PELVIS W/CONTRAST 14670 COMPLETED:02/28/23 3:22 MDD 96943 Reason for Procedure: Abdominal Pain PHYSICIAN: JESU [...] Code Sys tem Laceration of liver 02/28/2023 [id number] SNOMED-C T Personal Care Team Section Performer Name Performer Role Active Date Inactive Da te
--- OUTSIDE RECORDS SUMMARY | 2024-04-04 19:30 | XMS_ITS | Clinical Summary ---
Author Organization [facility] Address [address] [place] [address]. [place] [address] Care Team Providers Care Igniter Capper Name Role Phone Unavailable Primary Care Provider [...] Comments Blood Pressure 102/70 08/13/2022 6:00 AM STONE SANDBLASTER Pulse 91 08/13/2022 6:00 AM STONE SANDBLASTER Temperature 36.2 ??C (97.2 ??F) 08/13/2022 6:00 AM CS T Respiratory Rate 12 08/13/2022 6:00 AM STONE SANDBLASTER Oxygen Saturation 100% 08/13/2022 6:00 AM STONE SANDBLASTER Inhaled Oxygen Concentration - - Weight 58.8 [...] season) 2024 06/15/2022 INFLUENZA VACCINE (#1) 2024 , 05/26/2021, 04/27/2021, Additional history exists MENINGITIS IMMUNIZATION [...] Advance Directives For more information, please contact: [phone] * Full Code (Latest Code Status on File) Date Activated Date Inactivated Comments 08/09/2022 12:32 PM 08/13/2022 2:59 PM All basic a nd advanced life-sustaining interventions are performed as appropriate Question Answer Comments Code status determined by: Unable to dis cuss and no AD/POLST on file; continue PREVIOUSLY ORDERED code status
[2024-04-04 19:53] LABS: Basophils Absolute Auto 0.06 K/uL (0.00-0.30); Basophils Percent Auto 0.6 % (0.0-3.0); Hematocrit 38.1 % (33.0-51.0); Immature Granulocytes Abs Auto 0.02 K/uL (0.00-0.30); Immature Granulocytes Pct Auto 0.2 %; Lymphocytes Absolute Auto 2.42 K/uL (0.90-2.90); Lymphocytes Percent Auto 24.6 % (20-44); Mean Corpuscular HGB Conc 34 gm/dL (32-36); Mean Corpuscular Hemoglobin 30 pg (26-34); Mean Corpuscular Volume 89 fL (80-100); Monocytes Percent Auto 5.1 % (0.0-11.0); Neutrophils Absolute Auto 6.83 K/uL (1.7-7.0); Neutrophils Percent Auto 69.5 % (42.0-72.0); Platelet Count* 251 K/uL (140-440); RDW Coefficient of Variation % 12.4 % (11.5-15.5); Red Blood Count 4.27 m/uL (4.00-5.20); White Blood Count* 9.83 K/uL (4.50-11.00)
[2024-04-04 19:57] LABS: Slide Review Reflex No
[2024-04-04 20:17] LABS: C Reactive Protein* < 0.5 mg/dL (0.5-1.0)
[2024-04-04 20:36] LABS: Erythrocyte SedimentationRate* 2 mm/hr (2-20)
== END 2024-04-04 20:34 | disposition home or self-care (01) ==
PROVIDERS: Emergency Provider Emergency Medicine Emergency Medical Services
DX: K62.5 Hemorrhage of anus and rectum (principal)
CPT/HCPCS: 36415; 74177; 85025; 85651; 86140; 99284; Q9967

== ENCOUNTER 2024-05-22 16:36 | Emergency (ER) | payer BC, SELFPAY ==
[2024-05-22 16:39] VITALS: BP 136/89; PULSE 125; RESP 18; TEMP 37; O2SAT 97; BMI 21.3
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
--- NOTE | 2024-05-22 16:54 | ED.NURSE ---
[facility] contacted for advocate. ELHAM nurse contacted, ETA 8 PM.
--- NOTE | 2024-05-22 17:20 | ED.NURSE ---
Explained that LIZARRAGA was contacted and approximate wait time. Patient asked for something for anxiety and MD was updated.
[2024-05-22] MEDS: LORazepam 1 MG TABLET PO (17:32)
--- NOTE | 2024-05-22 17:57 | ED.NURSE ---
Advocate in with patient.
--- NOTE | 2024-05-22 20:59 | ED.NURSE ---
ELHAM RN here at 2049
--- OUTSIDE RECORDS SUMMARY | 2024-05-22 23:24 | XMS_ITS | Clinical Summary ---
Author Organization [facility] Address [address] [place] [address] [address] [place], [place] [address] Care Team Providers Care Card Checker Name Role Phone Undetermined, Pcp Primary Care [...] C Screening 02/11/2023 COVID-19 Vaccine (1 - 2023-2 5 season) 2024 Influenza Vaccine (#1) 2024 05/26/2021 [...] wa s Performed by: Resident Care Teams Card Checker Relationship Specialty Start Date End Date Undetermined, Pcp PCP - General 02/28/23
--- OUTSIDE RECORDS SUMMARY | 2024-05-22 23:24 | XMS_ITS | Encounter Summary ---
Author Organization [facility] Healthcare Address [address] [place] [address] Care Team Providers Care Carpet Jack Name Role Phone Gerald Tuttle MD Primary Care Provider [phone] Reason for Referral * Procedure (Routine) - Pending Review Specialty Diagnoses / Procedures Referred By Leobardo t Referred To Contact Diagnoses Encounter for removal and reinsertion of intrauterine contraceptive device (IUD) Malpositioned intrauterine device (IUD), subsequent encounter Procedures IUD ? Insertion/removal/reinsertion procedure. Diana Yu MD [address] [address] Phone: tel: fax: [facility] Referral ID Status Reason Start Date Expiration Date V isits Requested Visits Authorized [id number] Pending Review 02/25/2024 03/26/2025 1 1 Reason for Visit * Reason Comments paragard replacement Encounter Details Date Type Department Care Team (Latest Contact Info) Description 02/20/2024 10:30 AM CDT Procedure visit [facility] Women's Care [address] [facility] [address] [place] [phone] Diana Yu MD [address] [place] [address] Encounter for removal and reinsertion of intrauterine [...] you feel afraid or unsafe? 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 Gender Identity Not on file Sexual Orientation [...] MA - 02/20/2024 10:30 AM CDT Song [facility]: [id number] Lot: [id number] Exp: 04/2029 documented in this encounter Procedure [...] Procedure Name Priority Date/Time Associated Diagnosis Comments OK REMOVAL INTRAUTERINE DEVICE IUD Routine 02/20/2024 10:30 AM CDT Encounter for removal and reinsertion of intrauterine contraceptive device (IUD) Malpositioned intrauterine device (IUD), subsequent encounter OK INSERTION INTRAUTERINE DEVICE IUD Routine 02/20/2024 10:30 AM CDT Encounter for removal and reinsertion of intrauterine contraceptive device (IUD) Malpositioned intrauterine device (IUD), subsequent encounter documented in this encounter Results * OK INSERTION INTRAUTERINE DEVICE IUD, OK REMOVAL INTRAUTERINE DEVICE IUD (02/20/2024 10:30 AM [...] Diana Yu MD Diana Yu MD IN CLINIC/BEDSIDE [facility] MCCABE Final Result documented in this encounter Visit Diagnoses Diagnosis [...] Mon02/20/24 at 1030, For 1 dose, Indications: ContraceptionIndications:Pregnanc y Contraception Given 02/20/2024 10:30 AM CDT 1 each documented in this encounter Historical Medications * This list may reflect changes made after this encounter. ISOtretinoin (ABSORICA) 30 mg capsule Take 1 capsule (30 mg total) by mouth 2 (two) times a day added in this encounter Care Teams Carpet Jack Relationship Specialty [place] [address] [facility] [address] [place] [address] PCP - General Pediatrics 08/20/19 documented as of this encounter
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
--- OUTSIDE RECORDS SUMMARY | 2024-05-22 23:24 | XMS_ITS | Referral Summary ---
Author Organization [facility] Address [address] [place] [address] Care Team Providers Care Deck Officer Name Role Phone Gerald Tuttle MD Primary Care Provider [phone] Encounters Date Type Department Care Team Description 04/30/2024 10:15 AM CDT Procedure visit [facility] Medical Group Women's Care [address] [facility] [address] [address] Diana Yu MD IUD check up (Primary Dx) 04/15/2024 Telephone [facility] ([facility] - [facility] [address] [facility] [address] [place] [address] [place] [address] Daisy Jacome MS 04/04/2024 Telephone [facility] [address] [facility] [address] [place] [address] Marilee Adkins, CHRISTOPHER Rectal Bleeding 04/02/2024 Nurse Triage [facility] [address] [place] [address] Jillian Parmar RN 04/01/2024 Nurse Triage [facility] [address] [place] [address] Jayshree Scott, CHRISTOPHER 02/20/2024 10:30 AM CDT Procedure visit [facility] Medical Group Women's Care [address] [facility] [address] [place] [phone] Diana Yu MD Encounter for removal and reinsertion of intrauterine contraceptive device (IUD) (Primary Dx); Malpositioned intrauterine device (IUD), subsequent encounter from Last 3 Months Allergies Active Allergy [...] 1 each by intrauterine route once Paragard [facility]: [address]-5 Lot: [id number] Exp: 04/202902/20/20 24 Active carBAMazepine (TEGretol) 200 mg tablet Take 1 tablet (200 mg total) by mouth nightly 12/25/19 24 Active ISOtretinoin (ABSORICA) 30 mg capsule Take 1 capsule (30 mg total) by mouth 2 (two) times a day Active testosterone cypionate (DEPO-TESTOTERONE ) 200 mg/mL injection Inject 1 mL (200 mg total) into the muscle as instructed every 7 days 04/16/20 24 Active BD Tuberculin Slip-Tip 1 mL syringe as directed 04/16/20 24 Active BD SafetyGlide Needle 25 gauge x 5/8 needle (SQ) USE DIRECTED FOR SELF-INJECTION OF MEDICATION. 04/16/20 24 Active BD Regular Bevel [place] 18 gauge x 1 needle USE DIRECTED FOR DRAWING UP MEDICATION. 04/16/20 24 Active Active Problems Problem Noted Date Diagnosed [...] Anxiety 04/23/2016 Overview (10/27/2017): Description: Admitted to [facility] for suicidal ideation. Major depressive disorder, single episode, moder ate 09/09/2015 Overview (08/09/2021): Intentional overdose of clonidine 07/2021. Admitted to [facility]. 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 Gender Identity Not on file Sexual Orientation Not on file Last Filed Vital Signs Vital Sign Reading Time Taken Comments Blood Pressure 116/74 04/30/2024 10:27 AM CDT Pulse 57 08/16/2023 6:50 PM KNIFE FINISHER Temperature 36.7 ??C (98.1 ??F) 01/22/2024 3:19 PM CD T Respiratory Rate 22 01/22/2024 3:19 PM CDT Oxygen Saturation 98% 08/16/2023 6:50 PM KNIFE FINISHER Inhaled Oxygen Concentration - - Weight 62.1 kg (137 lb) 04/30/2024 10:27 AM CDT Height 165.1 cm (5' 5) 04/30/2024 10:27 AM CDT Body Mass Index 22.8 04/30/2024 10:27 AM CDT Plan of Treatment Not on file Procedures Procedure Name Priority Date/Time Associated Diagnosis Comments AR REMOVAL INTRAUTERINE DEVICE IUD Routine 02/20/2024 10:30 AM CDT Encounter for removal and reinsertion of intrauterine contraceptive device (IUD) Malpositioned intrauterine device (IUD), subsequent encounter AR INSERTION INTRAUTERINE DEVICE IUD Routine 02/20/2024 10:30 AM CDT Encounter for removal and reinsertion of intrauterine contraceptive device (IUD) Malpositioned intrauterine device (IUD), subsequent encounter from Last 3 Months Results * AR INSERTION INTRAUTERINE DEVICE IUD, AR REMOVAL INTRAUTERINE DEVICE IUD (02/20/2024 10:30 AM [...] immediate complications Comments: ?? Diana Yu MD us Diana Yu MD IN CLINIC/BEDSIDE [facility]ARYELLEN MCCABE Final Result from Last 3 Months Insurance [facility] H[facility]/PPO Address: [address] [address] [place] [address] [employer] Address: [address] [place] [address] [employer] Address: [address] [place] [address] [facility] H[facility]/PPO Address: [address] [address] [place] [address] [employer] Member Subscriber Plan / Payer (Ef fective 2023-Present) Name:Karen Jean Relation to Subscriber:Child Name:MEGHAN JEAN Date of :[birth year]99 (Home) Address: [address] [place] [address] [place] [phone] Payer ID:[id number] (NAIC) Type:[employer] Address: [facility] [id number] [place] [id number] Care Teams Deck Officer Relationship Specialty [place] [address] [facility] [address] [place] [address] PCP - General Pediatrics 08/20/19
--- OUTSIDE RECORDS SUMMARY | 2024-05-22 23:24 | XMS_ITS | Encounter Summary ---
Author Organization [facility] Healthcare Address [address] [place] [address] Care Team Providers Care Student Education Specialist Name Role Phone Gerald Tuttle MD Primary Care Provider Reason for Visit * Reason Onset Date Comments Request Call Back 02/19/2024 Encounter Details Date Type Department Care Team (Late st Contact Info) Description 02/19/2024 Telephone [facility] Medical Group Women's Care [address] [facility] [address] [place] [phone] Diana Yu MD [address] [facility] [address], [place] [address] Request Call Back Social History [...] on file 

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
--- OUTSIDE RECORDS SUMMARY | 2024-05-22 23:24 | XMS_ITS | Encounter Summary ---
Author Organization [facility] Address [facility] [place] [address] Care Team Providers Care Beef Breaker Name Role Phone Undetermined, Pcp Primary Care Provider Unavaila ble Encounter Details Date Type Department Care Team (Late st Contact Info) Description 02/28/2023 Access Center [facility] [place] [address] Social History Tobacco Use Types Packs/Day Years [...] on filedocumented in this encounter Care Teams Beef Breaker Relationship Specialty Start Date End Date Undetermined, Pcp PCP - General 02/28/23 documented as of this encounter
--- OUTSIDE RECORDS SUMMARY | 2024-05-22 23:24 | XMS_ITS ---
Author Organization [facility] Address [address] [place] [address] Care Team Providers Care Typecasting Machine Operator Name Role Phone Gerald Tuttle MD Primary Care Provider [phone] Active Problems Problem Noted Date Diagnosed Date [...] Anxiety 04/23/2016 Overview (10/27/2017): Description: Admitted to [facility] for suicidal ideation. Major depressive disorder, single episode, moder ate 09/09/2015 Overview (08/09/2021): Intentional overdose of clonidine 07/2021. Admitted to [facility]. Vocal cord dysfunction 01/12/2015 Current Oncology Plans No current plan information found. Past Plans No past plan information found. Radiation Treatments * No radiation treatments are documented for this patient in [facility]. Treatments may have been administered in another [...]
--- OUTSIDE RECORDS SUMMARY | 2024-05-22 23:24 | XMS_ITS | Encounter Summary ---
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 documented in this encounter Plan of Treatment Not on file documented as of this encounter Visit Diagnoses Not on filedocumented in this encounter Care Teams Youth Agent Relationship Specialty [place] [address] [facility] [address] [place] [address] PCP - General Pediatrics 08/20/19 documented as of this encounter
--- OUTSIDE RECORDS SUMMARY | 2024-05-22 23:24 | XMS_ITS | Encounter Summary ---
Author Organization [facility] Address [address] [place] [address] Phone Care Team Providers Care Extension Course Coordinator Name Role Phone Gerald Tuttle MD Primary Care Provider [phone] Encounter Details Date Type Department Care Team (Late st Contact Info) Description 04/15/2024 Telephone [facility] ([facility]) - [facility] ENT [address] [facility] Advanced Medicine 11th [place] [address] [place] [address] Daisy Jacome MS Social History Tobacco Use Types Packs/Day Years [...] on file 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 Gender Identity Not on file Sexual Orientation Not on file documented as of this encounter Miscellaneous Notes * Telephone Encounter - Emily Mckinley - 04/15/2024 9:25 AM CDT Mom called to reschedule appt for pt - away for school documented in this encounter Plan of Treatment Not on file documented as of this encounter Visit Diagnoses Not on filedocumented in this encounter Care Teams Extension Course Coordinator Relationship Specialty [place] [address] [facility] [address] [place] [address] PCP - General Pediatrics 08/20/19 documented as of this encounter
--- OUTSIDE RECORDS SUMMARY | 2024-05-22 23:24 | XMS_ITS | Encounter Summary ---
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 Symptoms started 2 days ago andtommy went to a local ED (she is currently away at school in [place]). Karen reports they advised she return if [...] on filedocumented in this encounter Care Teams Canvas Baster Jumpbasting Relationship Specialty [place] [address] [place] [address] PCP - General Pediatrics 08/20/19 documented as of this encounter
--- OUTSIDE RECORDS SUMMARY | 2024-05-22 23:24 | XMS_ITS | Encounter Summary ---
Author Organization [facility] Healthcare Address [address] [place] [address] Care Team Providers Care Telephone Interviewer Name Role Phone Gerald Tuttle MD Primary Care Provider [phone] Reason for Visit * Reason Comments iud check Encounter Details Date Type Department Care Team (Latest Contact Info) Description 04/30/2024 10:15 AM CDT Procedure visit [facility] [address] [facility] [address] [address] Diana Yu MD [address] [facility] [address], [place] [address] IUD check up (Primary Dx) Social History Tobacco Use Types Packs/Day Years [...] on file 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 She has recently started testosterone, so she has not had recent bleeding. She would like to keep the IUD in at this point. No pelvic pain. No pain with intercourse. Vitals BP 116/74 Ht 165.1 cm (5' 5) Wt 137 lb (62.1 kg) LMP 04/09/2024 BMI 22.80 kg/m?? Normal external genitalia, vagina and cervix normal in appearance, IUD strings visualized and appropriate Assessment/Plan Karen Jean is a 19 year old who presents for an IUD check IUD check - Copper IUD replaced 02/20/24 - No issues - No bleeding now that she is on testosterone - Strings visualized and appropriate Will plan for follow up for WWE or sooner PRN My total encounter time on 04/30/2024 was 25 minutes which was spent in the activities documented in the note. This includes time spent prior to the visit and after the visit in direct care of the patient. This time does not include time spent in any separately reportable services. Diana Yu MD documented in this encounter Plan of Treatment Not on file documented as of this encounter Visit Diagnoses Diagnosis IUD check up- Primary documented in this encounter Historical Medications * This list may reflect changes made after this encounter. BD Regular Bevel [place] 18 gauge x 1 needle USE DIRECTED FOR DRAWING UP MEDICATION. 04/16/2024 BD SafetyGlide Needle 25 gauge x 5/8 needle (SQ) USE DIRECTED FOR SELF-INJECTION OF MEDICATION. 04/16/2024 BD Tuberculin Slip-Tip 1 mL syringe as directed 04/16/2024 testosterone cypionate (DEPO-TESTOTERONE ) 200 mg/mL injection Inject 1 mL (200 mg total) into the muscle as instructed every 7 days 04/16/2024 added in this encounter Care Teams Telephone Interviewer Relationship Specialty [place] [address] [facility] [address] [place] [address] PCP - General Pediatrics 08/20/19 documented as of this encounter
--- OUTSIDE RECORDS SUMMARY | 2024-05-22 23:25 | XMS_ITS | Clinical Summary ---
Author Organization [facility] Address [address] [facility] [address] [place] [address] [address] Care Team Providers Care Cobol Developer Name Role Phone Gerald Tuttle MD Primary Care Provider [phone] Source Comments [facility],non-owned Affiliates and Associated Physician Practices is amultiple site organization consisting of ambulatory clinics and hospital sitesin [place], [place], [place] and [place]. This disclosure is being madepursuant to the Care Everywhere program and may not contain all information available regarding this patient. Last updated 18.[facility] Allergies Active Allergy Reactions Criticality Noted Date Comments Amoxicillin Unknown 05/25/2021 Medications * Be aware that medications may not be up to date on this document. Alwaysverify current medications with the patient. Medication Sig Dispensed Refills Start Date End Date Status norgestim-eth estrad triphasic 0.18/0.215/0.25 MG-35 MCG tabletIndications:C ontraceptive Therapy Take 1 tablet by mouth at bedtime Reasons: Control Treatment 04/08/2021 Active hydrOXYzine hcl (ATARAX) 10 MG [...] 5 mg by mouth at bedtime Active Active Problems Problem Noted Date Diagnosed Date Anticholinergic drug overdose 11/16/2021 Assessment & Plan (11/17/2021 1:47 PM CDT): Karen Jean is a 16 year old [...] abuse resources Access: PIV Labs: none scheduled Assessment & Plan (11/16/2021 9:52 PM CDT): Karen Jean is a 16 year old female with mood disorder that was a direct admission for management of anticholinergic toxicity following ingestion of 30-40 of 25mg benadryl tablets at approximately 0800 on 11/17. He denies suicidal intent but reports she wanted relief from the significant stress he feels. Patient demonstrated both central (seizure, hallucinations, dysarthria, confusion) and peripheral (tachycardia, hypertension, QTc prolongation, mydriasis with ?blurry vision, decreased bowel sounds) signs of anticholinergic toxicity. She requires admission for close monitoring of I/Os, vital signs, serial EKGs, and IV fluids. She requires safe disposition prior to discharge. Benadryl ingestion may result in anticholinergic poisoning. Anticholinergic toxicity should be characterized as peripheral, central, or both peripheral and central. Severe severe anticholinergic toxicity typically prevents with OPERATOR/ASSISTANT FOREMAN effects (central), which include anxiety, agitation, dysarthria, confusion, disorientation, visual hallucinations, bizarre behavior, delirium, psychosis (usually paranoia), coma, and seizures. Peripheral findings include tachycardia, cutaneous vasodilation (flushing), anhidrosis, hyperthermia, mydriasis (can lead to blurry vision), urinary retention, absent/decreased bowel sounds, arrhythmia (prolonged QRS or the QTc intervals), and rhabdomyolysis. After initial stabilization, system specific treatment should be initiated. Prolonged QRS intervals and wide complex tachyarrhythmias related to anticholinergic poisoning are treated with sodium bicarbonate. OPERATOR/ASSISTANT FOREMAN toxicity including agitation and seizures should be treated with benzodiazepines. Environmental cooling factors should be implemented in hyperthermia. Physostigmine can be used in cases of severe toxicity (0.02 mg/kg IV up to a maximum of 0.5 mg per dose). [place] poison control was contacted upon admission, peak effect generally about 2-3 hours, can be delayed in overdoses. Plan -Admit to general pediatrics, Dr. Robison -Diet: regular -IVF: LR at maintenance (100ml/hr) -I/Os, q4hr vitals, CRMs -EKG on admission then q4-6 hours depending on trend -Will obtain BMP, Mg if continued prolonging -Continue home medication: OCPs (if parents bring) -Hold home olanzapine 5mg qPM until EKG normalize -Suicide precautions with sitter, recommend central intake consult Access: PIV Labs: none scheduled Suicidal ideation [...] series) 02/11/2023 DEPRESSION SCREENING 07/17/2023 COVID-19 VACCINE ( - season) 2024 07/08/2021, 11/13/2020, 10/22/2020 INFLUENZA VACCINE [...] 9:06 PM 05/30/2021 11:55 AM Care Teams Cobol Developer Relationship Specialty [place] [address] [facility] [address] [place] [address] PCP - General Pediatrics 05/25/21
--- OUTSIDE RECORDS SUMMARY | 2024-05-22 23:25 | XMS_ITS ---
Author Organization Unknown Address [address] [place], [place] [id number] Phone Care Team Providers Care Repairer Handtools Name Role Phone JESU HINOJOSA MD Attending Unavail able NO OR UNK FAMILY PHYSICIAN Primary Unava ilable Results TEST URINE - Colle ct Date/Time: 02/28/2023 03:12 [facility] ID: [id number] [address] [place], [place], [id number] LOINC: 2112-1 Test Value Unit Reference Range Code Code System Flag PREG URINE NEGATIVE URINALYSIS* - Collect Date/T jluis: 02/28/2023 03:12 [facility] ID: [id number] [address] [place], [place], [id number] LOINC: 16245-3 Test Value Unit Reference Range Code Code System Flag SOURCE Random COLOR Dk Yellow NORMAL: Straw 5778-6 LOINC CLARITY Hazy NORMAL: Clear 30085-9 LOINC GLUCOSE Negative NORMAL: Negative 5792-7 LOINC BILIRUBIN Negative NORMAL: Negative 5770-3 LOINC KETONE Negative NORMAL: Negative 5797-6 LOINC SPEC GRAVITY 1.025 1.005 - 1.020 5811-5 LOINC A BLOOD 3+ NORMAL: Negative 12672-8 LOINC A pH 6.0 5.5 - 7.5 5803-2 LOINC PROTEIN 1+ NORMAL: Negative 5804-0 LOINC A UROBILINOGEN 0.2 0.2 - 1.0 mg/dL 5818-0 LOINC NITRITE Negative NORMAL: Negative 5802-4 LOINC LEUK EST Negative NORMAL: Negative 5799-2 LOINC MICROSCOPIC? SEE BELOW WBC 20 - 30 NORMAL: None Seen 06228-3 LOINC RBC 10 - 20 NORMAL: None Seen 798-9 LOINC SQUAMOUS EPI Many/lpf NORMAL: None Seen 20666-2 LOINC BACTERIA 1+/hpf NORMAL: None Seen 67522-3 LOINC MUCOUS Trace NORMAL: None Seen 98396-3 LOINC CASTS None Seen NORMAL: None Seen 9842-6 LOINC CRYSTALS None Seen NORMAL: None Seen COMP METABOLIC PANEL - Colle ct Date/Time: 02/28/2023 02:36 [facility] ID: [id number] [address] [place] [address], [id number] LOINC: 02761-9 Test Value Unit Reference Range Code Code System Flag SODIUM 142 mEq/L L=136 H=145 2951-2 LOINC POTASSIUM 4.4 mEq/L L=3.5 H=5.1 2823-3 LOINC CHLORIDE 105 mmol/L L=98 H=107 2075-0 LOINC CO2 31.8 mmol/L L=21.0 H=32.0 2028-9 LOINC CALCIUM 8.0 mg/dL L=8.5 H=10.1 69328-5 LOINC L BUN 12 mg/dL L=7 H=18 3094-0 LOINC CREATININE 1.0 mg/dL L=0.6 H=1.3 2160-0 LOINC BUN/CREAT 12 L=6 H=20 3097-3 LOINC GLUCOSE 97 mg/dL L=74 H=106 2345-7 LOINC SGPT/ALTI 119 U/L L=17 H=78 1743-4 LOINC H ALBUMIN 3.5 g/dL L=3.4 H=5.0 1751-7 LOINC ALKALINE PHOS 73 U/L L=46 H=116 6768-6 LOINC SGOT/AST 91 IU/L L=15 H=37 29498-4 LOINC H TOTAL BILI 0.4 mg/dL L=0.2 H=1.0 1975-2 LOINC TOTAL PROTEIN 5.7 g/dL L=6.4 H=8.2 2885-2 LOINC L AGE 18 yrs [address]-6 LOINC eGFR > 60 mL/min/BAS 81100-6 LOINC CBC WITH AUTO DIFF - Collect Date/Time: 02/28/2023 02:36 [facility] ID: [id number] [address] [place] [address], [id number] LOINC: 58890-8 Test Value Unit Reference Range Code Code [...] 786-4 LOINC RDWSD 42.1 fL L=39.0 H=47.0 23089-4 LOINC RDW 12.8 % L=11.5 H=14.5 788-0 LOINC PLATELETS 226 K/uL L=150 H=400 777-3 LOINC MPV 10.6 fL L=7.4 H=10.4 17018-5 LOINC H %NEUT 83.4 % L=55.0 H=62.0 [...] C ompleted: 02/28/2023 03:22 LOINC: \TM00\\12PI\\DRAo\\BM09\ \MRLo\ [address] [address] ---------NAME--------- NUMBER SEX AGE ADMIT DISC. XRAY# F/C TYPE DENNYI IWONA Hagan [id number] F 18 02/28/23 50185 P E/R DATE OF : 2005 M/R# [id number] #: [id number] [facility] LOCATION: TRANSCRIBED: 02/28/23 4:53 CT ABD/PELVIS W/CONTRAST [id number] COMPLETED:02/28/23 3:22 MDD [id number] Reason for Procedure: Abdominal Pain PHYSICIAN: JESU [...] Code Sys tem Laceration of liver 02/28/2023 [id number] SNOMED-C T Personal Care Team Section Performer Name Performer Role Active Date Inactive Da te
--- OUTSIDE RECORDS SUMMARY | 2024-05-22 23:25 | XMS_ITS | Referral Summary ---
Author Organization [facility] Address [address] [place] [address] Care Team Providers Care Engine Repairer Production Name Role Phone Gerald Tuttle MD Primary Care Provider [phone] [facility],non-owned Affiliates and Associated Physician Practices is amultiple site organization consisting of ambulatory clinics and hospital sitesin [place], [place], [place] and [place]. This disclosure is being madepursuant to the Care Everywhere program and may not contain all information available regarding this patient. Last updated 18.[facility] Allergies Active Allergy Reactions Criticality Noted Date [...] Severe severe anticholinergic toxicity typically prevents with COMMUNITY DEVELOPMENT WORKER effects (central), which include anxiety, agitation, dysarthria, [...] anticholinergic poisoning are treated with sodium bicarbonate. COMMUNITY DEVELOPMENT WORKER toxicity including agitation and seizures should be [...] 9:06 PM 05/30/2021 11:55 AM Care Teams Engine Repairer Production Relationship Specialty [place] [address] [place] [address] PCP - General Pediatrics 05/25/21
--- OUTSIDE RECORDS SUMMARY | 2024-05-22 23:25 | XMS_ITS | Encounter Summary ---
Author Organization [facility] Healthcare Address [address] [place] [address] Care Team Providers Care Metal Fabricating Supervisor Name Role Phone Gerald Tuttle MD Primary Care Provider [phone] Reason for Referral * Diagnostic Imaging (Routine) - Closed Specialty Diagnoses / Procedures Referred By Leobardo singh Referred To Contact Diagnoses Abnormal uterine bleeding (AUB) IUD (intrauterine device) in place Procedures US Pelvis Complete Diana Yu MD [address] [address] Phone: tel: fax: [facility] (All Locations) Referral ID Status Reason Start Date Expiration Date Visits Re quested Visits Authorized [id number] Closed 02/04/2024 03/05/2025 1 1 Reason for Visit * Diagnostic Imaging (Routine) - Closed Specialty Diagnoses / Procedures Referred By Leobardo singh Referred To Contact Diagnoses Abnormal uterine bleeding (AUB) IUD (intrauterine device) in place Procedures US Pelvis Complete Diana Yu MD [address] [address] Phone: tel: fax: [facility] (All Locations) Referral ID Status Reason Start Date Expiration Date Visits Re quested Visits Authorized [id number] Closed 02/04/2024 03/05/2025 1 1 Encounter Details Date Type Department Care Team (Latest Contact Info) Description 02/13/2024 11:14 AM CDT - 02/13/2024 11:59 PM CDT Hospital Encounter [facility] [address] [facility] [address], [place] [address] Abnormal uterine bleeding (AUB); IUD (intrauterine device) [...] on file 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 Gender Identity Not on file Sexual Orientation Not on file documented as of this encounter Medications at Time of Discharge carBAMazepine (TEGretol) 200 mg tablet Take 1 tablet (200 mg total) by mouth nightly 12/25/2023 chlorproMAZINE (THORAZINE) 50 mg tabletIndications: [place] associated with Bipolar Disorder,Borderlin e Personality Disorder and Bipolar Take 4 tablets (200 mg total) by mouth nightly copper (PARAGARD) 380 square mm IUDIndications:Pre gnancy Contraception 1 each by intrauterine route once Paragard [facility]: [address]-0 Lot: [id number] Exp: 04/202902/20/2024 lurasidone (LATUDA) 60 mg tabletIndications: Depression associated with Bipolar Disorder Take 2 tablets [...] ovaries bilaterally. Diana Yu MD IMG US PROCEDURES Jocelin patsy Result documented in this encounter Visit Diagnoses Diagnosis Abnormal uterine bleeding (AUB) IUD (intrauterine device) in place Presence of intrauterine contraceptive device documented in this encounter Care Teams Metal Fabricating Supervisor Relationship Specialty Start [place] [address] [facility] [address] [place] [address] PCP - General Pediatrics 08/20/19 documented as of this encounter
--- OUTSIDE RECORDS SUMMARY | 2024-05-22 23:25 | XMS_ITS | Continuity of Care Document ---
Author Organization [facility] Address [address] [facility] [address] [place] [id number] Phone Care Team Providers Care Blend Technician Name Role Phone Jamaica Jameson PT Unavailable [...] Exercise Therapeutic Activities Therapeutic Exercise Neuromuscular Re-Ed Therapeutic Exercise Neuromuscular Re-Ed Therapeutic Activities Therapeutic Activities Neuromuscular Re-Ed Therapeutic Activities Neuromuscular Re-Ed Therapeutic Activities Therapeutic Exercise Neuromuscular Re-Ed Therapeutic Activities Therapeutic Activities Therapeutic Exercise Neuromuscular Re-Ed Therapeutic Activities Therapeutic Exercise Neuromuscular Re-Ed Hot or Cold Pack Therapeutic Exercise Neuromuscular Re-Ed Therapeutic Activities Manual Therapy PT Evaluation Moderate Complexity Therapeutic Activities Therapeutic Exercise Neuromuscular Re-Ed Advance Directives Directive Yes / No Effective Date File Name No Information Encounters Encounter Description Practice Location Reason(s) For Visit Diagnoses Date Provider Providers Copied on Encounter [facility], [id number], tel:[phone] Susanne No Information Nahlik Jamaica. . Referring Provider: Naren Muñoz, [address], [place], [address]. tel:[phone] [place] [address] [address] [address], [place], [place], [id number], tel:[phone] Susanne No Information Nahlik Jamaica. . Referring Provider: Naren Muñoz, [address], [place], [address]. tel:[phone] [place] [address] [address] [facility] [address], [place], [place], [id number], tel:[phone] Susanne No Information Nahlik Jamaica. . Referring Provider: Naren Muñoz, [address], [place], [address]. tel:[phone] [place] [id number] [address] [address], [place], [place], [id number], tel:[phone] Mccreary No Information Nahlik Jamaica. . Referring Provider: Naren Muñoz, [address], [place], [address]. tel:[phone] [place] [address], [address] [place], [place] [address], [place], [place], [id number], tel:[phone] Mccreary No Information Nahlik Jamaica. . Referring Provider: Naren Muñoz, [address], [place], [address]. tel:[phone] [place], [place] [address], [place], [place], [id number], tel:[phone] Susanne No Information Nahlik Jamaica. . Referring Provider: Naren Muñoz, [address], [place], [address]. tel:[phone] [place] [address], [address] [place], [place] [address], [place], [place], [id number], [place] tel:[phone] Mccreary No Information Nahlik Jamaica. . Referring Provider: Naren Muñoz, [address], [place], [address]. tel:[phone] [place], [place] [address], [place], [place], [id number], [place] tel:[phone] Mccreary No Information Nahlik Jamaica. . Referring Provider: Naren Muñoz, [address], [place], [address]. tel:[phone] [place] [id number] [facility], [place], [place], [id number], tel:[phone] Susanne No Information Nahlik Jamaica. . Referring Provider: Naren Muñoz, [address], [place], [address]. tel:[phone] [place] [address] [address], [place], [place], [id number], [place] tel:[phone] Mccreary No Information Nahlik Jamaica. . Referring Provider: Naren Muñoz, [address], [place], [address]. tel:[phone] [place] [id number] [address], [place], [place], [id number], [place] tel:[phone] Mccreary No Information Nahlik Jamaica. . Referring Provider: Naren Muñoz, [address], [place], [address]. tel:[phone] [place] [address], [address] [facility], [place], [place], [id number], [place] tel:[phone] Mccreary No Information Nahlik [place]. . Referring Provider: Naren Muñoz, [address], [place], [address]. tel:[phone] [place], [place] [id number] [facility], [place], [id number], [place] tel:[phone] Susanne No Information Nahlik [place]. . Referring Provider: Naren Muñoz, [address], [place], [address]. tel:[phone] [place] [id number] [address], [place], [place], [id number], [place] tel:[phone] Mccreary No Information Nahlik [place]. . Referring Provider: Naren Muñoz, [address], [place], [address]. tel:[phone] [place], [place] [id number] [address], [place], [id number], [place] tel:[phone] Mccreary No Information Nahlik [place]. . Referring Provider: Naren Muñoz, [address], [place], [address]. tel:[phone] [place] [address], [address] [facility], [place], [place], [id number], tel:[phone] Susanne No Information Nahlik Jamaica. . Referring Provider: Naren Muñoz, [address], [place], [address]. tel:[phone] [place] [address] [facility], [place], [place], [id number], tel:[phone] Susanne No Information Nahlik Jamaica. . Referring Provider: Naren Muñoz, [address], [place], [address]. tel:[phone] [place] [address], [address] [facility], [place], [place], [id number], tel:[phone] Mccreary No Information Nahlik [place]. . Referring Provider: Naren Muñoz, [address], [place], [address]. tel:[phone] [place] [address] [address] [facility], [place], [place], [id number], tel:[phone] Mccreary No Information Nahlik Jamaica. . Referring Provider: Naren Muñoz, [address], [place], [address]. tel:[phone] [place] [address] [facility], [place], [place], [id number], tel:[phone] Susanne No Information Nahlik [place]. . Referring Provider: Naren Muñoz, [address], [place], [address]. tel:[phone] [facility], [address] [facility], [place], [place], [id number], [place] tel:[phone] Susanne No Information Gisell Jamaica. . Referring Provider: Naren Muñoz, [address] [facility] [address], [place], [address]. tel:[phone] Family History Family Member Type Diagnosis Age At Onset No Information Payers Payer name Insurance type Covered libertarian ID Authorsharon rogers(s) All Savers [id number] Social History Type Description Quantity Date Captured [...]
--- OUTSIDE RECORDS SUMMARY | 2024-05-22 23:25 | XMS_ITS | Patient Health Summary ---
Author Organization [facility] Address [address] [place] [address] Care Team Providers Care Attache Name Role Phone Gerald Tuttle MD Primary Care Provider [phone] Note from [facility],non-owned Affiliates and Associated Physician Practices is amultiple site organization consisting of ambulatory clinics and hospital sitesin [place], [place], [place] and [place]. This disclosure is being madepursuant to the Care Everywhere program and may not contain all information available regarding this patient. Last updated 18.[facility] Allergies * Amoxicillin(Unknown) Medications * Be aware [...] (Bezet) 457 ms CG MUSE Calculated P [place] 67 degrees CG MUSE Calculated R [place] 49 degrees CG MUSE Calculated T [place] 51 degrees CG MUSE Interpretation EKG Normal sinus rhythm Q waves noted in 1 and aVL When compared with ECG of 16-NOV-2021 21:15, No significant change was found Confirmed by MD Urias Renuka ([id number]) on 11/17/2021 5:41:23 PM CG MUSE 11/17/2021 11:2 3 AM CDT 11/17/2021 5:41 PM CDT Tiffani Robison MD ECG ORDERABLES Performing Organization Address City/[facility]/ZIP Co de Phone Number CG MUSE * DRUG SCREEN TOX COMPREHESIVE URINE PANEL (11/16/2021 9:20 PM CDT) [facility] Drug Screen Urine Comprehensive Panel See Scanned Report 11/17/2021 6:18 PM CDT [facility] Urine URINE / Unknown Collection / Unknown 11/16/2021 9:20 PM CDT 11/16/2021 9:26 PM CDT Tiffani Robison MD LAB - URINE CHEMISTR Y ORDERABLES Performing Organization Address City/State/[facility] Co de Phone Number [facility] ATTN Dr Darin Glover [address] [place] [address] * URINE DRUG SCREEN IMMUNOASSAY (11/16/2021 9:20 PM CDT) Only the most recent of2 resultswithin the time period is included. [facility] Amphetamines Screen Urine Negative Negative: < 1000 ng/mL 11/16/2021 9:46 PM CDT [facility] Barbiturates Screen Urine Negative Negative: < 200 ng/mL 11/16/2021 9:46 PM CDT [facility] Benzodiazepine Screen Urine Negative Negative: < 200 ng/mL 11/16/2021 9:46 PM CDT [facility] Opiates Urine Negative Negative: < 300 ng/mL 11/16/2021 9:46 PM CDT [facility] Cocaine Metabolites Urine Negative Negative: < 300 ng/mL 11/16/2021 9:46 PM CDT [facility] Phencyclidine Screen Urine Negative Negative: < 25 ng/ml 11/16/2021 9:46 PM CDT [facility] Cannabinoids Screen Urine Negative Negative: <50 ng/mL 11/16/2021 9:46 PM CDT [facility] Methadone Screen Urine Negative Negative: < 300 ng/mL 11/16/2021 9:46 PM CDT [facility] Fentanyl Screen Urine Negative Negative: <1.0 ng/mL 11/16/2021 9:46 PM CDT [facility] Urine URINE / Unknown Collection / Unknown 11/16/2021 9:20 PM CDT 11/16/2021 9:27 PM CDT Narrative [facility] - 11/16/2021 9:46 PM CDT The Urine Toxicology Screening Panel does not screen for Propoxyphene, Meprobamate, Carisoprodol, Trazodone, deto-rit-kgmtmio medications and/or volatiles (Acetone, Isopropanol, Methanol or Ethylene Glycol). Ethanol, Salicylate, Acetaminophen, Tricyclic Antidepressants and several therapeutic drugs may be individually assayed in serum or plasma specimen. Toxicology testing by the [facility] is an aid to medical diagnosis and treatment of patients. No documented chain of custody was maintained. Results are intended to be used for clinical purposes only. ? Tiffani Robison MD LAB - URINE CHEMISTR Y ORDERABLES Performing Organization Address City/State/[facility] Co de Phone Number [facility] [address] [place] [address], [place] [phone] * (ABNORMAL) CBC W AUTO DIFFERENTIAL (11/16/2021 3:07 PM CDT) Only the most recent of2 resultswithin the time period is included. WBC 11.9(H) 4.5 - 11.0 x10E9/L 11/16/2021 3:13 PM [facility] WBC Corrected 11/16/2021 3:13 PM [facility] RBC 5.05 4.10 - 5.10 x10E12/L 11/16/2021 3:13 PM [facility] Hemoglobin 14.7 12.0 - 16.0 gm/dL 11/16/2021 3:13 PM [facility] Hematocrit 43.7 36.0 - 47.0 % 11/16/2021 3:13 PM [facility] MCV 86.5 78.0 - 102.0 fl 11/16/2021 3:13 PM [facility] MCH 29.1 25.0 - 35.0 pg 11/16/2021 3:13 PM [facility] MCHC 33.6 31.0 - 37.0 gm/dL 11/16/2021 3:13 PM [facility] Platelet Count 324 100 - 400 x10E9/L 11/16/2021 3:13 PM [facility] RDW-CV 12.2 11.5 - 14.0 % 11/16/2021 3:13 PM [facility] MPV 10.4(H) 6.0 - 9.5 fl 11/16/2021 3:13 PM [facility] Neutrophils % 79.0(H) 31.0 - 78.0 % 11/16/2021 3:13 PM [facility] Lymphocytes % 13.7 13.0 - 54.0 % 11/16/2021 3:13 PM [facility] Monocytes % 5.3 4.0 - 13.0 % 11/16/2021 3:13 PM [facility] Eosinophils % 0.9 0.0 - 8.0 % 11/16/2021 3:13 PM [facility] Basophils % 0.5 % 11/16/2021 3:13 PM [facility] Immature Granulocytes 0.6 % 11/16/2021 3:13 PM [facility] Neutrophil Absolute 9.39(H) 1.4 - 8.58 x10E9/L 11/16/2021 3:13 PM CDT [facility] Lymphocytes Absolute 1.63 0.59 - 5.94 x10E9/L 11/16/2021 3:13 PM CDT [facility] Monocytes Absolute 0.63 0.18 - 1.43 x10E9/L 11/16/2021 3:13 PM CDT [facility] Eosinophils Absolute 0.11 0 - 0.88 x10E9/L 11/16/2021 3:13 PM CDT [facility] Basophils Absolute 0.06 0 - 0.22 x10E9/L 11/16/2021 3:13 PM CDT [facility] Immature Granulocytes Absolute 0.07 0 - 0.11 x10E9/L 11/16/2021 3:13 PM CDT [facility] nRBC Auto 0 /100 WBC 11/16/2021 3:13 PM CDT [facility] Blood BLOOD SPECIMEN / Unknown Venipuncture / Unknown 11/16/2021 3:07 PM CDT 11/16/2021 3:10 PM CDT Smiley Wilks PA-C LAB - HEMATOLOGY ORD ERABLES [facility] [address] [facility] [place] [address] * (ABNORMAL) COMPREHENSIVE METABOLIC PANEL (11/16/2021 3:07 PM CDT) Only the most recent of2 resultswithin the time period is included. [facility] Signature Glucose 100 70 - 105 mg/dL 11/16/2021 3:29 PM CDT [facility] Sodium 143 136 - 145 mmol/L 11/16/2021 3:29 PM CDT [facility] Potassium 3.7 3.5 - 5.1 mmol/L 11/16/2021 3:29 PM CDT [facility] Chloride 110(H) 98 - 107 mmol/L 11/16/2021 3:29 PM CDT [facility] CO2 22 20 - 28 mmol/L 11/16/2021 3:29 PM CDT [facility] Calcium 9.6 8.4 - 10.4 mg/dL 11/16/2021 3:29 PM CDT [facility] Anion Gap 11 8 - 18 mmol/L 11/16/2021 3:29 PM CDT [facility] BUN 10 7 - 18.7 mg/dL 11/16/2021 3:29 PM CDT [facility] Creatinine 0.88 0.57 - 1.11 mg/dL 11/16/2021 3:29 PM CDT [facility] Alkaline Phosphatase 67(L) 100 - 390 U/L 11/16/2021 3:29 PM CDT [facility] ALT 13 0 - 61 U/L 11/16/2021 3:29 PM CDT [facility] AST 15 5 - 34 U/L 11/16/2021 3:29 PM CDT [facility] Protein Total 7.5 6.4 - 8.3 gm/dL 11/16/2021 3:29 PM CDT [facility] Albumin 4.5 3.4 - 5.0 gm/dL 11/16/2021 3:29 PM CDT [facility] Bilirubin Total 0.5 0.2 - 1.2 mg/dL 11/16/2021 3:29 PM T [facility] eGFR by CKD-EPI 3:29 PM CDT [facility] Comment:eGFR calculations ar e not performed for children <18yrs old. Blood BLOOD SPECIMEN / Unknown Venipuncture / Unknown 11/16/2021 3:07 PM CDT 11/16/2021 3:10 PM CDT Narrative [facility] - 11/16/2021 3:29 PM CDT eGFR result was calculated using the updated CKD-EPI Creatinine Equations (2020). Prior to go live 2021 the eGFR was calculated using the MDRD calculation. Please note Reference Range change. Smiley Wilks PA-C LAB - CHEMISTRY MARYELLEN Max Organization Address City/State/ZIP Co de Phone Number [facility] [address] [address] * MAGNESIUM BLOOD (11/16/2021 3:07 PM CDT) [facility] Magnesium 2.1 1.7 - 2.3 mg/dL 11/16/2021 3:29 PM CDT [facility] Blood BLOOD SPECIMEN / Unknown Venipuncture / Unknown 11/16/2021 3:07 PM CDT 11/16/2021 3:10 PM CDT Franc Ryan MD LAB - CHEMISTRY MARYELLEN MCCABE Performing Organization Address [facility]/ZIP Co de Phone Number [facility] [address] [phone] * CK BLOOD (11/16/2021 3:07 PM CDT) CK 71 29 - 168 U/L 11/16/2021 3:29 PM CDT [facility] Blood BLOOD SPECIMEN / Unknown Venipuncture / Unknown 11/16/2021 3:07 PM CDT 11/16/2021 3:10 PM CDT Franc Ryan MD LAB - CHEMISTRY ORDSravanthi MCCABE Performing Organization Address [facility] Co de Phone Number [facility] [address] [address] * ALCOHOL ETHYL BLOOD (11/16/2021 3:07 PM CDT) Ethanol <10.0 <10 mg/dL 11/16/2021 3:29 PM CDT [facility] Ethanol Calculated <0.010 <=0.100 gm/dL 11/16/2021 3:29 PM CDT [facility] Blood BLOOD SPECIMEN / Unknown Venipuncture / Unknown 11/16/2021 3:07 PM CDT 11/16/2021 3:10 PM CDT Narrative [facility] - 11/16/2021 3:29 PM CDT Non Legal Serum Alcohol Smiley Wilks PA-C LAB - CHEMISTRY MARYELLEN MCCABE Performing Organization Address [facility]/ZIP Co de Phone Number [facility] [address] [phone] * (ABNORMAL) SALICYLATE LEVEL BLOOD (11/16/2021 3:07 PM CDT) [facility] Salicylate <5.0(L) 15.0 - 30.0 mg/dL 11/16/2021 3:29 PM CDT [facility] Blood BLOOD SPECIMEN / Unknown Venipuncture / Unknown 11/16/2021 3:07 PM CDT 11/16/2021 3:10 PM CDT Smiley Wilks PA-C LAB - CHEMISTRY ORDSravanthi MCCABE Performing Organization Address [facility] Co de Phone Number [facility] [address] [place] [phone] * HCG BLOOD QUALITATIVE (11/16/2021 3:07 PM CDT) [facility] HCG Qual Serum Negative Negative 11/16/2021 3:32 PM CDT [facility] Blood BLOOD SPECIMEN / Unknown Venipuncture / Unknown 11/16/2021 3:07 PM CDT 11/16/2021 3:10 PM CDT Narrative [facility] - 11/16/2021 3:32 PM CDT Specimens containing heterophilic antibodies may demonstrate false positive results. ??Specimens containing human anti-mouse antibodies may exhibit false positive or false negative results. If qualitative interpretation is inconsistant with clinical evaluation, consider confirmation by an alternative hCG method. Franc Ryan MD LAB - CHEMISTRY MARYELLEN MCCABE Performing Organization Address [facility] Co de Phone Number [facility] [address] [place] [address] * (ABNORMAL) ACETAMINOPHEN LEVEL (11/16/2021 3:07 PM CDT) [facility] Acetaminophen <3.0(L) 10.0 - 30.0 ug/mL 11/16/2021 3:29 PM CDT [facility] Blood BLOOD SPECIMEN / Unknown Venipuncture / Unknown 11/16/2021 3:07 PM CDT 11/16/2021 3:10 PM CDT Narrative [facility] - 11/16/2021 3:29 PM CDT [...] Wilks PA-C LAB - CHEMISTRY MARYELLEN MCCABE [facility] [address] [place] [address] * Critical Care (11/16/2021 2:43 PM [...] BPM [facility] MUSE Atrial Rate 142 BPM [facility] P-R Interval 112 ms [facility] QRS Duration ms 78 ms [facility] Q-T Interval ms 360 ms [facility] QTC Calculation (Bezet) 553 ms [facility] MUSE Calculated P [place] 67 degrees [facility] MUSE Calculated R [place] 36 degrees [facility] MUSE Calculated T [place] 66 degrees [facility] MUSE Interpretation EKG Sinus tachycardia Cannot rule out Inferior infarct , age undetermined Abnormal ECG No previous ECGs available Confirmed by MD Elo, Roque ([id number]) on 11/19/2021 7:52:34 AM [facility] MUSE 11/16/2021 2:43 PM CDT 11/19/2021 7:52 AM CDT Smiley Wilks PA-C ECG ORDERABLES [facility] MUSE * (ABNORMAL) URINALYSIS REFLEX TO MICROSCOPIC NO CULTURE (05/26/2021 10:36 AM [employer]) Color UA Straw Straw, Yellow 05/26/2021 11:53 AM [facility] Clarity UA Clear Clear 05/26/2021 11:53 AM [facility] Glucose UA Negative Negative 05/26/2021 11:53 AM [facility] Bilirubin UA Negative Negative 05/26/2021 11:53 AM [facility] Ketone UA Negative Negative 05/26/2021 11:53 AM [facility] Specific [place] UA 1.003(L) 1.005 - 1.030 05/26/2021 11:53 AM [facility] Blood UA Negative Negative 05/26/2021 11:53 AM [facility] pH UA 6.0 5.0 - 8.0 pH 05/26/2021 11:53 AM [facility] Protein UA Negative Negative 05/26/2021 11:53 AM [facility] Urobilinogen UA Negative Negative mg/dL 05/26/2021 11:53 AM [facility] Nitrite UA Negative Negative 05/26/2021 11:53 AM [facility] Leukocyte UA Negative Negative 05/26/2021 11:53 AM [facility] Urine Microscopy Urine microscopy not indicated 05/26/2021 11:53 AM [facility] Urine URINE SPECIMEN OBTAINED BY CLEAN CATCH PROCEDURE / Unknown Collection / Unknown 05/26/2021 10:36 AM [employer] 05/26/2021 11:38 AM [employer] Narrative [facility] - 05/26/2021 11:53 AM [employer] Alan Anderson MD LAB - URINA LYSIS ORDERABLES [facility] [address] [place] [address] * HCG URINE QUALITATIVE (05/26/2021 10:36 AM [employer]) hCG Qualitative Urine Negative Negative 05/26/2021 11:49 AM [employer] [facility] Urine URINE / Unknown Collection / Unknown 05/26/2021 10:36 AM [employer] 05/26/2021 11:38 AM [employer] Alan Anderson MD LAB - URINA LYSIS ORDERABLES Performing Organization Address City/[facility]/ZIP Co de Phone Number [facility] [address] [place] [address] * TSH REFLEX FREE T4 (05/26/2021 6:23 AM [employer]) Pathologist [facility] TSH 1.677 0.350 - 4.940 uIU/mL 05/26/2021 10:33 AM [facility] Blood BLOOD SPECIMEN / Unknown Lab Venipuncture / Unknown 05/26/2021 6:23 AM [employer] 05/26/2021 7:31 AM [employer] Alan Anderson MD LAB - CHEMI STRY ORDERABLES [facility] [address] [place] [address] * HEMOGLOBIN A1C (05/26/2021 6:23 AM [employer]) Hemoglobin A1c 4.4 4.2 - 5.6 % 05/26/2021 9:55 AM [employer] [facility] Estimated Average Glucose 80 mg/dL 05/26/2021 9:55 AM [facility] Blood BLOOD SPECIMEN / Unknown Lab Venipuncture / Unknown 05/26/2021 6:23 AM [facility] 05/26/2021 7:26 AM [facility] Narrative [facility] - 05/26/2021 9:55 AM [facility] The following cutoff levels are recommended by [place] [employer]. ?? A1c ??> 6.5% : [...] Anderson MD LAB - CHEMI STRY ORDERABLES [facility] [address] [place] [address] * LIPID PROFILE (05/26/2021 6:23 AM [facility]) [facility] Cholesterol 140 <200 mg/dL 05/26/2021 10:08 AM [facility] Triglycerides 75 <150 mg/dL 05/26/2021 10:08 AM [facility] HDL Cholesterol 54 >40 mg/dL 10:08 AM [employer] [facility] LDL Calculated 71 <130 mg/dL 05/26/2021 10:08 AM [facility] VLDL Calculated 15 <=30 mg/dL 10:08 AM [facility] Chol HDL Ratio 2.6 <4.5 05/26/2021 10:08 AM [facility] LDL/HDL Ratio 1.3 <5.0 05/26/2021 10:08 AM [employer] [facility] Blood BLOOD SPECIMEN / Unknown Lab Venipuncture / Unknown 05/26/2021 6:23 AM [employer] 05/26/2021 7:31 AM [employer] Alan Anderson MD LAB - CHEMI STRY ORDERABLES [facility] [address] [place] [address] * SARS-COV-2 (COVID-19) RAPID (05/25/2021 3:41 PM [employer]) COVID-19 PCR Not detected Not detected 05/25/20 4:45 PM [employer] [facility] Microbiology SPECIMEN FROM NASOPHARYNGEAL STRUCTURE / Unknown Collection / Unknown 05/25/2021 3:41 PM [employer] 05/25/2021 3:50 PM [employer] Narrative [facility] - 05/25/2021 4:45 PM [employer] The [employer] Xpert Xpress SARS-COV-2 has been authorized by [...] assay are available upon request. Zoe Mcnair COMMODITY LOAN CLERK-INDUSTRIAL SAFETY AND HEALTH SPECIALIST LAB - MICROBI OLOGY ORDERABLES [facility] [address] [place] [address] Care Teams Attache Relationship Specialty [place] [id number] [address] [facility] [address] [place] [address] PCP - General Pediatrics 05/25/21
--- OUTSIDE RECORDS SUMMARY | 2024-05-22 23:25 | XMS_ITS | Patient Health Record ---
Author Organization [facility] Address [address] [place] [address] [address] [place], [place] [id number] Care Team Providers Care Supervisor Acoustical Tile Carpenters Name Role Phone NONE PROVIDED, . Primary Care Provider Unavailab Soheila England Unavailable [phone] ALLERGIES Allergen (clinical drug ingredient) Drug/Non Drug [...] Interpretation:08/09 accu labs Acceptable Performing Lab:[place], [facility]-[id number] Philip Sanon, [id number] Carlos Warren MD Notes/Report: FASTING:YES FASTING: YES HCG, TOTAL, QN <5 Reference Range Non or premenopausal <5 Postmenopausal <10 Values from different assay methods may vary. The use of this assay to monitor or to diagnose patients with cancer or any condition unrelated to has not been cleared or approved by the FDA or the metal stamper of the assay. COMPREHENSIVE METABOLIC PANE L Reviewed date:07/25/2023 03:47:26 PM Interpretation: Acceptable Performing Lab:[facility]-[id number] Philip Sanon, [id number] Carlos Warren MD Notes/Report: FASTING:YES FASTING: YES [...] date:07/25/2023 03:47:26 PM Interpretation: Acceptable Performing Lab:[facility]-[id number] Philip Sanon, [id number] Carlos Warren MD Notes/Report: FASTING:YES FASTING: YES CHOLESTEROL, TOTAL 160 <170 mg/dL HDL CHOLESTEROL 62 >45 mg/dL TRIGLYCERIDES 96 <90 mg/dL LDL-CHOLESTEROL 80 <110 mg/dL (calc) LDL-C is now calculated using the Whitney calculation, which is a validated novel method providing better accuracy than the Friedewald equation in the estimation of LDL-C. Godwin VENTURA et al. CINDY. 2013;310(19): 9441-8861 (http://education.hoccer/faq/WAG511) CHOL/HDLC RATIO 2.6 <5.0 (calc) NON HDL CHOLESTEROL 98 <120 mg/dL (calc) For patients with diabetes plus 1 major ASCVD risk factor, treating to a non-HDL-C goal of <100 mg/dL (LDL-C of <70 mg/dL) is considered a therapeutic option. COMPREHENSIVE METABOLIC PANE L Reviewed date:12/21/2023 08:20:23 AM Interpretation:01/07 accu labs Acceptable Performing Lab:[facility]-[id number] Derek [id number] Carlos Warren MD Notes/Report: FASTING:YES [...] date:12/21/2023 08:20:23 AM Interpretation: Acceptable Performing Lab:[facility]-[id number] Derek [id number] Carlos Warren MD Notes/Report: FASTING:YES FASTING: YES CHOLESTEROL, TOTAL 157 <170 mg/dL HDL CHOLESTEROL 55 >45 mg/dL TRIGLYCERIDES 140 <90 mg/dL LDL-CHOLESTEROL 78 <110 mg/dL (calc) LDL-C is now calculated using the Whitney calculation, which is a validated novel method providing better accuracy than the Friedewald equation in the estimation of LDL-C. Godwin SS et al. CINDY. 2013;310(19): 8866-0208 (http://BlueSnap.hoccer/faq/CIT243) CHOL/HDLC RATIO 2.9 <5.0 (calc) NON HDL [...] Comme nts Influenza, unspecified formu lation (CPT 90404 Inactive) Unknown 04/25/2017 Administered Influenza, unspecified formu lation (CPT 98202 Inactive) Unknown 04/25/2018 Administered Influenza, unspecified formu lation (CPT 64134 Inactive) Unknown 03/20/2019 Administered Influenza, unspecified formu lation (CPT 07277 Inactive) Unknown 03/25/2020 Administered Influenza, unspecified formu lation (CPT 72309 Inactive) Unknown 04/27/2021 Administered Influenza, unspecified formu lation (CPT 42904 Inactive) Unknown 04/27/2022 Administered Influenza, unspecified formu lation (CPT 56610 Inactive) Unknown 04/25/2023 Administered Pneumococcal polysaccharide PPV23 [...] Acne vulgaris (L70.0) Active confirmed Acne vulgaris (06445109) Acne is improving on Accutane with minimal [...] Encounter Location Date Provider Diagnosis [facility] [address] [place] [id number] 08/21/2023 Soheila Jacobs Acne vulgaris L70.0 So[facility]ila Jacobs, [facility] [address] [place], [place] [id number] 11/15/2023 Soheila Jacobs Acne vulgaris L70.0 and ocean transportation intermediary use of drug Z79.899 Soheila Jacobs, Inc[facility] [address] [place], [place] [id number] 12/18/2023 Soheila Jacobs Soheila Jacobs, [facility] [address] [place], [place] [id number] 01/24/2024 Soheila Jacobs Acne vulgaris L70.0 and retirement use of drug Z79.899 Soheila Jacobs, Inc[facility] [address] [place], [place] [id number] 10/10/2023 Soheila Jacobs Acne vulgaris L70.0 and ocean transportation intermediary use of drug Z79.899 Soheila Jacobs, Inc[facility] [address] [place], [place] [id number] 08/25/2023 Soheila Jacobs Soheila Jacobs, Inc[facility] [address] [place], [place] [id number] 11/28/2023 Soheila Jacobs Soheila Jacobs, Inc[facility] [address] [place], [place] [id number] 12/21/2023 Soheila Jacobs Soheila Jacobs, Inc[facility] [address] [place], [place] [id number] 06/13/2023 Soheila Jacobs Acne vulgaris L70.0 and ocean transportation intermediary use of drug Z79.899 Soheila Jacobs, Inc[facility] [address] [place], [place] [id number] 07/19/2023 Soheila Jacobs Acne vulgaris L70.0 and retirement use of drug Z79.899 Soheila Jacobs, Inc[facility] [address] [place], [place] [id number] 11/09/2023 Soheila Jacobs Acne vulgaris L70.0 and retirement use of drug Z79.899 Soheila Jacobs, Inc[facility] [address] [place], [place] [id number] 11/09/2023 Soheila Jacobs Soheila Jacobs, [facility] [address] [place], [place] [id number] 03/07/2024 Soheila Jacobs Acne vulgaris L70.0 and retirement use of drug Z79.899 ASSESSMENTS Encounter Date [...] at 30 mg p.o. twice daily 11/15/2023 ocean transportation intermediary use of drug (ICD-10 - Z79.899) 01/24/2024 [...] at 30 mg p.o. twice daily 01/24/2024 ocean transportation intermediary use of drug (ICD-10 - Z79.899) 10/10/2023 [...] at 30 mg p.o. twice daily 10/10/2023 ocean transportation intermediary use of drug (ICD-10 - Z79.899) 06/13/2023 [...] my office to initiate the medication. 06/13/2023 retirement use of drug (ICD-10 - Z79.899) 07/19/2023 [...] the side effects of this medication. 07/19/2023 retirement use of drug (ICD-10 - Z79.899) 11/09/2023 [...] at 30 mg p.o. twice daily 03/07/2024 retirement use of drug (ICD-10 - Z79.899) 11/09/2023 ocean transportation intermediary use of drug (ICD-10 - Z79.899) 06/13/2023 [...] Insured Coverage Start Date Coverage End Date [facility] [address] [place] [address] [id number] COMBS Self - patient is the insured
--- OUTSIDE RECORDS SUMMARY | 2024-05-22 23:25 | XMS_ITS ---
Author Organization [facility] Address [address] [place] [address] [address] [place] [id number] Care Team Providers Care Publications Designer Name Role Phone NONE PROVIDED, . Primary Care Provider Unavailab Soheila England Unavailable [phone] ALLERGIES Allergen (clinical drug ingredient) Drug/Non Drug [...] Encounter Location Date Provider [facility] [address] [place], [place] [phone] 03/07/2024 Soheila Jacobs Acne vulgaris L70.0 and terminal clerk use of drug Z79.899 ASSESSMENTS Encounter Date [...] at 30 mg p.o. twice daily 03/07/2024 terminal clerk use of drug (ICD-10 - Z79.899) 03/07/2024 [...]
--- OUTSIDE RECORDS SUMMARY | 2024-05-22 23:26 | XMS_ITS | Referral Summary ---
Author Organization [facility] Address [address] [place] [address]. [place] [address] Care Team Providers Care Manager Of Drilling Name Role Phone Unavailable Primary Care Provider Unavailabl e Allergies Active Allergy Reactions Criticality Noted Date Comments Amoxicillin 05/05/2022 Lamotrigine Muscle Pain (Myalgia) 08/10/2022 Medications doxycycline hyclate (VIBRAMYCIN) 100 MG capsule Take 100 mg by mouth daily Take one capsule by mouth every day for 30 days. Filled 07/15/22 Active gabapentin (NEURONTIN) 300 MG capsuleIndicatio ns:Borderline personality disorder (H) Take 3 capsules (900 mg) by mouth At Bedtime for 14 days 42 capsule 3 Active lurasidone (LATUDA) 60 MG TABS tabletIndication s:Borderline personality disorder (H) Take 1 tablet (60 mg) by mouth daily with food for 14 days 14 tablet 3 Active spironolactone (ALDACTONE) 100 MG tabletIndication s:Borderline personality disorder (H) Take 1 tablet (100 mg) by mouth daily for 14 days Take one tablet by mouth every day for 30 days. 14 tablet 3 Active topiramate (TOPAMAX) 50 MG tabletIndication s:Borderline personality disorder (H) Take 1 tablet (50 mg) by mouth 2 times daily for 14 days 28 tablet 3 Active clonazePAM (KLONOPIN) 0.5 MG tabletIndication s:Borderline personality disorder (H) Take 1 tablet (0.5 mg) by mouth 2 times daily as needed for anxiety 28 tablet 3 Active Social History Tobacco Use Types Packs/Day Years Used Date Smoking Tobacco: Never Assessed Adolescent Education Answer Date Record ed Getting School Help Needed Not on file 04/08 Comments Unknown Sex and Gender Information Value Date Recorded Sex Assigned at Not on file Legal Sex Female 1:52 PM CDT Gender Identity Not on file Sexual Orientation Not on file Last Filed Vital Signs Vital Sign Reading Time Taken Comments Blood Pressure 102/70 08/13/2022 6:00 AM REMOTELY OPERATED VEHICLE Pulse 91 08/13/2022 6:00 AM REMOTELY OPERATED VEHICLE Temperature 36.2 ??C (97.2 ??F) 08/13/2022 6:00 AM CS T Respiratory Rate 12 08/13/2022 6:00 AM REMOTELY OPERATED VEHICLE Oxygen Saturation 100% 08/13/2022 6:00 AM REMOTELY OPERATED VEHICLE Inhaled Oxygen Concentration - - Weight 58.8 kg (129 lb 11.9 oz) 05/05/2022 2:09 PM CDT Height - - Body Mass Index - - Plan of Treatment Not on file Insurance [facility] SAVERS [facility] ALL SAVERS Advance Directives For more information, please contact: [phone] * Full Code (Latest Code Status on File) Date Activated Date Inactivated Comments 08/09/2022 12:32 PM 08/13/2022 2:59 PM All basic a nd advanced life-sustaining interventions are performed as appropriate Question Answer Comments Code status determined by: Unable to dis cuss and no AD/POLST on file; continue PREVIOUSLY ORDERED code status
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
--- OUTSIDE RECORDS SUMMARY | 2024-05-22 23:26 | XMS_ITS | Clinical Summary ---
Author Organization [facility] Address [address] [place] [address]. [place] [address] Care Team Providers Care Senior Controls Engineer Name Role Phone Unavailable Primary Care Provider [...] Comments Blood Pressure 102/70 08/13/2022 6:00 AM AIRBRUSH PAINTER Pulse 91 08/13/2022 6:00 AM AIRBRUSH PAINTER Temperature 36.2 ??C (97.2 ??F) 08/13/2022 6:00 AM CS T Respiratory Rate 12 08/13/2022 6:00 AM AIRBRUSH PAINTER Oxygen Saturation 100% 08/13/2022 6:00 AM AIRBRUSH PAINTER Inhaled Oxygen Concentration - - Weight 58.8 [...] 2024 2, 05/26/2021, 04/27/2021, Additional history exists RSV VACCINE (1 - 1-dose 75+ series) 02/11/2079 MENINGITIS IMMUNIZATION Aged Out No l onger eligible based on patient's age to complete this topic Pneumococcal Vaccine: Pediatrics (0 to 5 Years) and At-Risk Patients (6 to 64 Years) Aged Out No longer eligible based on patient's age to complete this topic RSV MONOCLONAL ANTIBODY Aged Out No l onger eligible based on patient's age to complete this topic Insurance [facility] ALL SAVERS [facility] ALL SAVERS Advance Directives For more information, please contact: [phone] * Full Code (Latest Code Status on File) Date Activated Date Inactivated Comments 08/09/2022 12:32 PM 08/13/2022 2:59 PM All basic a nd advanced life-sustaining interventions are performed as appropriate Question Answer Comments Code status determined by: Unable to dis cuss and no AD/POLST on file; continue PREVIOUSLY ORDERED code status
[2024-05-22] MEDS: ONDANSETRON ODT 4 MG TAB PO (23:29)
[2024-05-22] MEDS: metroNIDAZOLE 500 MG TABLET PO (23:29)
[2024-05-22] MEDS: cefTRIAXone 500 MG VIAL IM (23:30)
[2024-05-22] MEDS: LIDOCAINE 1% 5 ml (pf) 5 ML VIAL 1 ML IM (23:31)
[2024-05-22] MEDS: levonorgestreL 1.5 MG TABLET PO (23:38)
[2024-05-22] MEDS: DOXYCYCLINE HYCLATE 100 MG PO (23:38)
[2024-05-22] MEDS: EMTRICITABINE/TENOFOVIR 200-300MG TABLET 1 TAB PO (23:40)
[2024-05-22 23:50] VITALS: BP 121/78; PULSE 78; RESP 18; TEMP 37; O2SAT 97
[2024-05-22 23:52] VITALS: BP 136/89; PULSE 125; RESP 18; TEMP 37
== END 2024-05-22 23:53 | disposition home or self-care (01) ==
LOC: ED 23:22
PROVIDERS: Emergency Provider Emergency Medicine
DX: F41.9 Anxiety disorder, unspecified (principal)
CPT/HCPCS: 99282; 99283; A9270; J0696

== ENCOUNTER 2024-06-16 20:51 | Outpatient (CLI) | payer BC, SELFPAY ==
--- OUTSIDE RECORDS SUMMARY | 2024-06-18 05:47 | XMS_ITS ---
Author Organization [facility] Address [address] [place] [address] Care Team Providers Care Railroad Detective Name Role Phone Gerald Tuttle MD Primary Care Provider [phone] Active Problems Problem Noted Date Diagnosed Date [...] Intentional overdose of clonidine 07/2021. Admitted to [facility]. Vocal cord dysfunction 01/12/2015 Current Oncology Plans No current plan information found. Past Plans No past plan information found. Radiation Treatments * No radiation treatments are documented for this patient in [facility]. Treatments may have been administered in another [...]
--- OUTSIDE RECORDS SUMMARY | 2024-06-18 05:47 | XMS_ITS | Clinical Summary ---
Author Organization [facility] Address [address] [place] [address] Dr ALFRED, [place] [address] Care Team Providers Care Adult Neuropsychologist Name Role Phone Undetermined, Pcp Primary Care [...] wa s Performed by: Resident Care Teams Adult Neuropsychologist Relationship Specialty Start Date End Date Undetermined, Pcp PCP - General 02/28/23
--- OUTSIDE RECORDS SUMMARY | 2024-06-18 05:47 | XMS_ITS | Encounter Summary ---
Author Organization [facility] Address [facility] [place] [address] Care Team Providers Care Neck Fitter Name Role Phone Undetermined, Pcp Primary Care Provider Unavaila ble Encounter Details Date Type Department Care Team (Late st Contact Info) Description 02/28/2023 Access Center [facility] [place] [address] Social History Tobacco Use Types Packs/Day Years [...] on filedocumented in this encounter Care Teams Neck Fitter Relationship Specialty Start Date End Date Undetermined, Pcp PCP - General 02/28/23 documented as of this encounter
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
--- OUTSIDE RECORDS SUMMARY | 2024-06-18 05:47 | XMS_ITS | Referral Summary ---
Author Organization [facility] Address [address] [place] [address] Care Team Providers Care Reserves Clerk Name Role Phone Gerald Tuttle MD Primary Care Provider [phone] Encounters Date Type Department Care Team Description 04/30/2024 10:15 AM CDT Procedure visit [facility] Medical Group Women's Care [address] [facility] [address] [address] Diana Yu MD IUD check up (Primary Dx) 04/15/2024 Telephone [facility] ([facility]) - [facility] [address] [facility] 11th [place] [address] [place] [address] Daisy Jacome MS 04/04/2024 Telephone [facility] Pediatrics [address] [facility] [address] [place] [address] Marilee Adkins, CHRISTOPHER Rectal Bleeding 04/02/2024 Nurse Triage [facility] [address] [place] [address] Jillian Parmar RN 04/01/2024 Nurse Triage [facility] [address] [place] [address] Jayshree Scott, CHRISTOPHER from Last [...] 1 each by intrauterine route once Paragard [facility]: [address]-2 Lot: [id number] Exp: 04/202902/20/20 24 Active carBAMazepine (TEGretol) 200 [...] MEDICATION. 04/16/20 24 Active BD Regular Bevel [place] 18 gauge x 1 needle USE DIRECTED [...] Anxiety 04/23/2016 Overview (10/27/2017): Description: Admitted to [facility] for suicidal ideation. Major depressive disorder, single episode, moder ate 09/09/2015 Overview (08/09/2021): Intentional overdose of clonidine 07/2021. Admitted to [facility]. 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 Gender Identity Not on file Sexual Orientation Not on file Last Filed Vital Signs Vital Sign Reading Time Taken Comments Blood Pressure 116/74 04/30/2024 10:27 AM CDT Pulse 57 08/16/2023 6:50 PM REAL ESTATE OPERATIONS MANAGER Temperature 36.7 C (98.1 F) 01/22/2024 3:19 PM CDT Respiratory Rate 22 01/22/2024 3:19 PM CDT Oxygen Saturation 98% 08/16/2023 6:50 PM REAL ESTATE OPERATIONS MANAGER Inhaled Oxygen Concentration - - Weight 62.1 kg (137 lb) 04/30/2024 10:27 AM CDT Height 165.1 cm (5' 5) 04/30/2024 10:27 AM CDT Body Mass Index 22.8 04/30/2024 10:27 AM CDT Plan of Treatment Not on file Insurance [facility] [employer]eb[employer] OOS Zeb[employer] OOS Zebit OOS [facility] Address: [address] [place] [address] [facility] [employer] OOS Member Subscriber Plan / Payer (Ef fective 2023-) Name:Karen Jean Relation to Subscriber:Child Name:MEGHAN JEAN Date of :1899 (Home) Address: [address] [place] [address] Payer ID:[id number] (NAIC) Type:BC [employer] Address: [address] [place] [id number] Care Teams Reserves Clerk Relationship Specialty [place] [address] [place] [address] PCP - General Pediatrics 08/20/19
--- OUTSIDE RECORDS SUMMARY | 2024-06-18 05:48 | XMS_ITS | Patient Health Record ---
Author Organization [facility] Address [address] [place] [address] [address] [place], [place] [address] Care Team Providers Care Vp Cardiovascular Service Line Name Role Phone NONE PROVIDED, . Primary Care Provider Unavailab Soheila England Unavailable [phone] ALLERGIES Allergen (clinical drug ingredient) Drug/Non Drug [...] Interpretation:08/09 accu labs Acceptable Performing Lab:[place], [facility]-[id number] [address] Sanon, [id number] Carlos Warren MD Notes/Report: FASTING:YES FASTING: YES HCG, TOTAL, QN <5 Reference Range Non or premenopausal <5 Postmenopausal <10 Values from different assay methods may vary. The use of this assay to monitor or to diagnose patients with cancer or any condition unrelated to has not been cleared or approved by the FDA or the favor maker of the assay. COMPREHENSIVE METABOLIC PANE L Reviewed date:07/25/2023 03:47:26 PM Interpretation: Acceptable Performing Lab:[facility]-[id number] [address]on, [id number] Carlos Warren MD Notes/Report: FASTING:YES FASTING: YES [...] date:07/25/2023 03:47:26 PM Interpretation: Acceptable Performing Lab:[facility]-[id number] Philip Sanon, [id number] Carlos Warren MD Notes/Report: FASTING:YES FASTING: YES CHOLESTEROL, TOTAL 160 <170 mg/dL HDL CHOLESTEROL 62 >45 mg/dL TRIGLYCERIDES 96 <90 mg/dL LDL-CHOLESTEROL 80 <110 mg/dL (calc) LDL-C is now calculated using the Whitney calculation, which is a validated novel method providing better accuracy than the Friedewald equation in the estimation of LDL-C. Godwin VENTURA et al. CINDY. 2013;310(19): 3882-8042 (http://education.BiggiFi/faq/TZP264) CHOL/HDLC RATIO 2.6 <5.0 (calc) NON HDL CHOLESTEROL 98 <120 mg/dL (calc) For patients with diabetes plus 1 major ASCVD risk factor, treating to a non-HDL-C goal of <100 mg/dL (LDL-C of <70 mg/dL) is considered a therapeutic option. COMPREHENSIVE METABOLIC PANE L Reviewed date:12/21/2023 08:20:23 AM Interpretation:01/07 accu labs Acceptable Performing Lab:[facility]-[id number] Philip Sanon, [id number] Carlos Warren MD Notes/Report: FASTING:YES FASTING: YES [...] date:12/21/2023 08:20:23 AM Interpretation: Acceptable Performing Lab:[facility]-Sznlal34624 Philip Sanon, [id number] Carlos Warren MD Notes/Report: FASTING:YES FASTING: YES CHOLESTEROL, TOTAL 157 <170 mg/dL HDL CHOLESTEROL 55 >45 mg/dL TRIGLYCERIDES 140 <90 mg/dL LDL-CHOLESTEROL 78 <110 mg/dL (calc) LDL-C is now calculated using the Whitney calculation, which is a validated novel method providing better accuracy than the Friedewald equation in the estimation of LDL-C. Godwin VENTURA et al. CINDY. 2013;310(89): 3556-3310 (http://Idea Shower.BiggiFi/faq/UMK661) CHOL/HDLC RATIO 2.9 <5.0 (calc) NON HDL [...] Comme nts Influenza, unspecified formu lation (CPT 02083 Inactive) Unknown 04/25/2017 Administered Influenza, unspecified formu lation (CPT 62759 Inactive) Unknown 04/25/2018 Administered Influenza, unspecified formu lation (CPT 20527 Inactive) Unknown 03/20/2019 Administered Influenza, unspecified formu lation (CPT 51261 Inactive) Unknown 03/25/2020 Administered Influenza, unspecified formu lation (CPT 95380 Inactive) Unknown 04/27/2021 Administered Influenza, unspecified formu lation (CPT 18550 Inactive) Unknown 04/27/2022 Administered Influenza, unspecified formu lation (CPT 77673 Inactive) Unknown 04/25/2023 Administered Pneumococcal polysaccharide PPV23 [...] Acne vulgaris (L70.0) Active confirmed Acne vulgaris (97463506) Acne is improving on Accutane with minimal [...] Encounter Location Date Provider [facility] [address] [place], [place] [id number] 08/21/2023 Soheila Jacobs Acne vulgaris L70.0 [facility] [address] [place], [place] [id number] 11/15/2023 Soheila Jacobs Acne vulgaris L70.0 and keno terminal operator use of drug Z79.899 Soheila Jacobs, Inc[facility] [address] [place] [id number] 12/18/2023 Soheila Jacobs, Inc[facility] [address] [place] [id number] 01/24/2024 Soheila Jacobs Acne vulgaris L70.0 and keno terminal operator use of drug Z79.899 Soheila Jacobs, Inc[facility] [address] [place] [id number] 10/10/2023 Soheila Jacobs Acne vulgaris L70.0 and keno terminal operator use of drug Z79.899 Soheila Jacobs, Inc. [address] [id number] 08/25/2023 Soheila Jacobs, Inc. [facility] [address] [place] [address] [place] [id number] 11/28/2023 Soheila Jacobs, Inc. [facility] [address] [place] [id number] 12/21/2023 Soheila Platta Jacobs, Inc. [facility] [address] [place] [address] [id number] 07/19/2023 Soheila Jacobs Acne vulgaris L70.0 and keno terminal operator use of drug Z79.899 Soheila Jacobs, Inc. [facility] [address] [place] [id number] 11/09/2023 Soheila Jacobs Acne vulgaris L70.0 and USP use of drug Z79.899 Soheila Jacobs, Inc. [address] [place] [id number] 11/09/2023 Soheila Platta Reynaldo, Inc[facility] [address] [id number] 03/07/2024 Soheila Jacobs Acne vulgaris L70.0 and keno terminal operator use of drug Z79.899 ASSESSMENTS Encounter Date [...] at 30 mg p.o. twice daily 11/15/2023 USP use of drug (ICD-10 - Z79.899) 01/24/2024 [...] at 30 mg p.o. twice daily 01/24/2024 USP use of drug (ICD-10 - Z79.899) 10/10/2023 [...] at 30 mg p.o. twice daily 10/10/2023 USP use of drug (ICD-10 - Z79.899) 07/19/2023 [...] the side effects of this medication. 07/19/2023 keno terminal operator use of drug (ICD-10 - Z79.899) 11/09/2023 [...] at 30 mg p.o. twice daily 03/07/2024 USP use of drug (ICD-10 - Z79.899) 11/09/2023 keno terminal operator use of drug (ICD-10 - Z79.899) 07/19/2023 [...] Insured Coverage Start Date Coverage End Date [facility] [address] [place] [address] [id number] IWONA COMBS Self - patient is the insured
--- OUTSIDE RECORDS SUMMARY | 2024-06-18 05:48 | XMS_ITS | Encounter Summary ---
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 Symptoms started 2 days ago andtommy went to a local ED (she is currently away at school in [place]). Karen reports they advised she return if [...] on filedocumented in this encounter Care Teams Levers Lace Machine Operator Relationship Specialty [place] [address] [place] [address] PCP - General Pediatrics 08/20/19 documented as of this encounter
--- OUTSIDE RECORDS SUMMARY | 2024-06-18 05:48 | XMS_ITS | Encounter Summary ---
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 BD Regular Bevel Avis 18 gauge x 1 needle USE DIRECTED [...] 04/16/2024 added in this encounter Care Teams Collective Bargaining Specialist Relationship Specialty [place] [address] [facility] [address] [place] [address] PCP - General Pediatrics 08/20/19 documented as of this encounter
--- OUTSIDE RECORDS SUMMARY | 2024-06-18 05:48 | XMS_ITS | Clinical Summary ---
Author Organization [facility] Address [address] [facility] [place] [address] Care Team Providers Care Analytics Specialist Name Role Phone Gerald Tuttle MD Primary Care Provider [phone] Source Comments [facility],non-owned Affiliates and Associated Physician Practices is amultiple site organization consisting of ambulatory clinics and hospital sitesin [place], [place], [place] and [place]. This disclosure is being madepursuant to the Care Everywhere program and may not contain all information available regarding this patient. Last updated 18.[facility] Kira Talent Allergies Active Allergy Reactions Criticality Noted Date [...] Severe severe anticholinergic toxicity typically prevents with NEON PUMPER effects (central), which include anxiety, agitation, dysarthria, [...] anticholinergic poisoning are treated with sodium bicarbonate. NEON PUMPER toxicity including agitation and seizures should be [...] 9:06 PM 05/30/2021 11:55 AM Care Teams Analytics Specialist Relationship Specialty [place] [address] [facility] [address] [place] [address] PCP - General Pediatrics 05/25/21
--- OUTSIDE RECORDS SUMMARY | 2024-06-18 05:48 | XMS_ITS ---
Author Organization Unknown Address [address] [place], [place] [id number] Phone Care Team Providers Care Cryptographic Center Specialist Name Role Phone JESU HINOJOSA MD Attending Unavail able NO OR UNK FAMILY PHYSICIAN Primary Unava ilable Results TEST URINE - Colle ct Date/Time: 02/28/2023 03:12 [facility] ID: [id number] [address] [place], [place], [id number] LOINC: 2112-1 Test Value Unit Reference Range Code Code System Flag PREG URINE NEGATIVE URINALYSIS* - Collect Date/T jluis: 02/28/2023 03:12 [facility] ID: [id number] [address] [place], [place], [id number] LOINC: 13802-9 Test Value Unit Reference Range Code Code System Flag SOURCE Random COLOR Dk Yellow NORMAL: Straw 5778-6 LOINC CLARITY Hazy NORMAL: Clear 45338-3 LOINC GLUCOSE Negative NORMAL: Negative 5792-7 LOINC BILIRUBIN Negative NORMAL: Negative 5770-3 LOINC KETONE Negative NORMAL: Negative 5797-6 LOINC SPEC GRAVITY 1.025 1.005 - 1.020 5811-5 LOINC A BLOOD 3+ NORMAL: Negative 39013-0 LOINC A pH 6.0 5.5 - 7.5 5803-2 LOINC PROTEIN 1+ NORMAL: Negative 5804-0 LOINC A UROBILINOGEN 0.2 0.2 - 1.0 mg/dL 5818-0 LOINC NITRITE Negative NORMAL: Negative 5802-4 LOINC LEUK EST Negative NORMAL: Negative 5799-2 LOINC MICROSCOPIC? SEE BELOW WBC 20 - 30 NORMAL: None Seen 02824-9 LOINC RBC 10 - 20 NORMAL: None Seen 798-9 LOINC SQUAMOUS EPI Many/lpf NORMAL: None Seen 54667-4 LOINC BACTERIA 1+/hpf NORMAL: None Seen 87199-8 LOINC MUCOUS Trace NORMAL: None Seen 06949-2 LOINC CASTS None Seen NORMAL: None Seen 9842-6 LOINC CRYSTALS None Seen NORMAL: None Seen COMP METABOLIC PANEL - Colle ct Date/Time: 02/28/2023 02:36 [facility] ID: [id number] [address] [place] [address], [id number] LOINC: 52719-1 Test Value Unit Reference Range Code Code System Flag SODIUM 142 mEq/L L=136 H=145 2951-2 LOINC POTASSIUM 4.4 mEq/L L=3.5 H=5.1 2823-3 LOINC CHLORIDE 105 mmol/L L=98 H=107 2075-0 LOINC CO2 31.8 mmol/L L=21.0 H=32.0 2028-9 LOINC CALCIUM 8.0 mg/dL L=8.5 H=10.1 39609-5 LOINC L BUN 12 mg/dL L=7 H=18 3094-0 LOINC CREATININE 1.0 mg/dL L=0.6 H=1.3 2160-0 LOINC BUN/CREAT 12 L=6 H=20 3097-3 LOINC GLUCOSE 97 mg/dL L=74 H=106 2345-7 LOINC SGPT/ALTI 119 U/L L=17 H=78 1743-4 LOINC H ALBUMIN 3.5 g/dL L=3.4 H=5.0 1751-7 LOINC ALKALINE PHOS 73 U/L L=46 H=116 6768-6 LOINC SGOT/AST 91 IU/L L=15 H=37 44952-7 LOINC H TOTAL BILI 0.4 mg/dL L=0.2 H=1.0 1975-2 LOINC TOTAL PROTEIN 5.7 g/dL L=6.4 H=8.2 2885-2 LOINC L AGE 18 yrs 438[address]-4 LOINC eGFR > 60 mL/min/BAS 04091-6 LOINC CBC WITH AUTO DIFF - Collect Date/Time: 02/28/2023 02:36 [facility] ID: [id number] [address] [place] [address], [id number] LOINC: 20199-4 Test Value Unit Reference Range Code Code [...] 786-4 LOINC RDWSD 42.1 fL L=39.0 H=47.0 35637-5 LOINC RDW 12.8 % L=11.5 H=14.5 788-0 LOINC PLATELETS 226 K/uL L=150 H=400 777-3 LOINC MPV 10.6 fL L=7.4 H=10.4 66786-7 LOINC H %NEUT 83.4 % L=55.0 H=62.0 [...] C ompleted: 02/28/2023 03:22 LOINC: \TM00\\12PI\\DRAo\\BM09\ \[place]\ [place] [address] ---------NAME--------- NUMBER SEX AGE ADMIT DISC. XRAY# F/C TYPE DENNYI IWONA Hagan [id number] F 18 02/28/23 57417 P E/R DATE OF : 2005 M/R# [id number] #: [id number] \MRHx\ LOCATION: TRANSCRIBED: 02/28/23 4:53 CT ABD/PELVIS W/CONTRAST [id number] COMPLETED:02/28/23 3:22 MDD [id number] Reason for Procedure: Abdominal Pain PHYSICIAN: JESU [...] Code Sys tem Laceration of liver 02/28/2023 437194648 SNOMED-C T Personal Care Team Section Performer Name Performer Role Active Date Inactive Da te
--- OUTSIDE RECORDS SUMMARY | 2024-06-18 05:48 | XMS_ITS | Encounter Summary ---
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 documented in this encounter Plan of Treatment Not on file documented as of this encounter Visit Diagnoses Not on filedocumented in this encounter Care Teams Die Equipment Operator Relationship Specialty [place] [address] [facility] [address] [place] [address] PCP - General Pediatrics 08/20/19 documented as of this encounter
--- OUTSIDE RECORDS SUMMARY | 2024-06-18 05:48 | XMS_ITS | Patient Health Summary ---
Author Organization [facility] Address [address] [place] [address] Care Team Providers Care Clinical Educator Name Role Phone Gerald Tuttle MD Primary Care Provider [phone] Note from [facility],non-owned Affiliates and Associated Physician Practices is amultiple site organization consisting of ambulatory clinics and hospital sitesin [place], [place], [place] and [place]. This disclosure is being madepursuant to the Care Everywhere program and may not contain all information available regarding this patient. Last updated 18.[facility] Allergies * Amoxicillin(Unknown) Medications * Be aware [...] (Bezet) 457 ms CG MUSE Calculated P Lakes[place] 67 degrees CG MUSE Calculated R [place] 49 degrees CG MUSE Calculated T [place] 51 degrees CG MUSE Interpretation EKG Normal sinus rhythm Q waves noted in 1 and aVL When compared with ECG of 16-NOV-2021 21:15, No significant change was found Confirmed by MD Urias Renuka ([id number]) on 11/17/2021 5:41:23 PM CG MUSE 11/17/2021 11:2 3 AM CDT 11/17/2021 5:41 PM CDT Tiffani Robison MD ECG ORDERABLES Performing Organization Address City/[facility]/ZIP Co de Phone Number MUSE * DRUG SCREEN TOX COMPREHESIVE URINE PANEL (11/16/2021 9:20 PM CDT) [facility] Drug Screen Urine Comprehensive Panel See Scanned Report 11/17/2021 6:18 PM CDT [facility] Urine URINE / Unknown Collection / Unknown 11/16/2021 9:20 PM CDT 11/16/2021 9:26 PM CDT Tiffani Robison MD LAB - URINE CHEMISTR Y ORDERABLES Performing Organization Address City/[facility]/ZIP Co de Phone Number [facility] ATTN Dr Darin Glover [address] [place] [address] * URINE DRUG SCREEN IMMUNOASSAY (11/16/2021 9:20 PM CDT) Only the most recent of2 resultswithin the time period is included. [facility] Amphetamines Screen Urine Negative Negative: < 1000 ng/mL 11/16/2021 9:46 PM CDT [facility] Barbiturates Screen Urine Negative Negative: < 200 ng/mL 11/16/2021 9:46 PM CDT [facility] Benzodiazepine Screen Urine Negative Negative: < 200 ng/mL 11/16/2021 9:46 PM CDT [facility] Opiates Urine Negative Negative: < 300 ng/mL 11/16/2021 9:46 PM CDT [facility] Cocaine Metabolites Urine Negative Negative: < 300 ng/mL 11/16/2021 9:46 PM CDT [facility] Phencyclidine Screen Urine Negative Negative: < 25 ng/ml 11/16/2021 9:46 PM CDT [facility] Cannabinoids Screen Urine Negative Negative: <50 ng/mL 11/16/2021 9:46 PM CDT [facility] Methadone Screen Urine Negative Negative: < 300 ng/mL 11/16/2021 9:46 PM T [facility] Fentanyl Screen Urine Negative Negative: <1.0 ng/mL 11/16/2021 9:46 PM CDT [facility] Urine URINE / Unknown Collection / Unknown 11/16/2021 9:20 PM CDT 11/16/2021 9:27 PM CDT Narrative [facility] - 11/16/2021 9:46 PM CDT The Urine Toxicology Screening Panel does not screen for Propoxyphene, Meprobamate, Carisoprodol, Trazodone, [id number] medications and/or volatiles (Acetone, Isopropanol, Methanol or Ethylene Glycol). Ethanol, Salicylate, Acetaminophen, Tricyclic Antidepressants and several therapeutic drugs may be individually assayed in serum or plasma specimen. Toxicology testing by the [facility] is an aid to medical diagnosis and treatment of patients. No documented chain of custody was maintained. Results are intended to be used for clinical purposes only. Tiffani Robison MD LAB - URINE CHEMISTR Y ORDERABLES [facility] [address] [place] [id number], [facility] [phone] * (ABNORMAL) CBC W AUTO DIFFERENTIAL (11/16/2021 3:07 PM CDT) Only the most recent of2 resultswithin the time period is included. WBC 11.9(H) 4.5 - 11.0 x10E9/L 11/16/2021 3:13 PM CDT [facility] WBC Corrected 11/16/2021 3:13 PM CDT [facility] RBC 5.05 4.10 - 5.10 x10E12/L 11/16/2021 3:13 PM CDT [facility] Hemoglobin 14.7 12.0 - 16.0 gm/dL 11/16/2021 3:13 PM CDT [facility] Hematocrit 43.7 36.0 - 47.0 % 11/16/2021 3:13 PM CDT [facility] MCV 86.5 78.0 - 102.0 fl 11/16/2021 3:13 PM [facility] MCH 29.1 25.0 - 35.0 pg 11/16/2021 3:13 PM [facility] MCHC 33.6 31.0 - 37.0 gm/dL 11/16/2021 3:13 PM [facility] Platelet Count 324 100 - 400 x10E9/L 11/16/2021 3:13 PM [facility] RDW-CV 12.2 11.5 - 14.0 % 11/16/2021 3:13 PM [facility] MPV 10.4(H) 6.0 - 9.5 fl 11/16/2021 3:13 PM [facility] Neutrophils % 79.0(H) 31.0 - 78.0 % 11/16/2021 3:13 PM [facility] Lymphocytes % 13.7 13.0 - 54.0 % 11/16/2021 3:13 PM [facility] Monocytes % 5.3 4.0 - 13.0 % 11/16/2021 3:13 PM [facility] Eosinophils % 0.9 0.0 - 8.0 % 11/16/2021 3:13 PM [facility] Basophils % 0.5 % 11/16/2021 3:13 PM [facility] Immature Granulocytes 0.6 % 11/16/2021 3:13 PM [facility] Neutrophil Absolute 9.39(H) 1.4 - 8.58 x10E9/L 11/16/2021 3:13 PM [facility] Lymphocytes Absolute 1.63 0.59 - 5.94 x10E9/L 11/16/2021 3:13 PM [facility] Monocytes Absolute 0.63 0.18 - 1.43 x10E9/L 11/16/2021 3:13 PM [facility] Eosinophils Absolute 0.11 0 - 0.88 x10E9/L 11/16/2021 3:13 PM [facility] Basophils Absolute 0.06 0 - 0.22 x10E9/L 11/16/2021 3:13 PM [facility] Immature Granulocytes Absolute 0.07 0 - 0.11 x10E9/L 11/16/2021 3:13 PM CDT [facility] nRBC Auto 0 /100 WBC 11/16/2021 3:13 PM T [facility] Blood BLOOD SPECIMEN / Unknown Venipuncture / Unknown 11/16/2021 3:07 PM CDT 11/16/2021 3:10 PM CDT Smiley Wilks PA-C LAB - HEMATOLOGY ORD ERABLES [facility] [address] [place] [address] * (ABNORMAL) COMPREHENSIVE METABOLIC PANEL (11/16/2021 3:07 PM CDT) Only the most recent of2 resultswithin the time period is included. Glucose 100 70 - 105 mg/dL 11/16/2021 3:29 PM [facility] Sodium 143 136 - 145 mmol/L 11/16/2021 3:29 PM [facility] Potassium 3.7 3.5 - 5.1 mmol/L 11/16/2021 3:29 PM [facility] Chloride 110(H) 98 - 107 mmol/L 11/16/2021 3:29 PM [facility] CO2 22 20 - 28 mmol/L 11/16/2021 3:29 PM [facility] Calcium 9.6 8.4 - 10.4 mg/dL 11/16/2021 3:29 PM [facility] Anion Gap 11 8 - 18 mmol/L 11/16/2021 3:29 PM [facility] BUN 10 7 - 18.7 mg/dL 11/16/2021 3:29 PM [facility] Creatinine 0.88 0.57 - 1.11 mg/dL 11/16/2021 3:29 PM [facility] Alkaline Phosphatase 67(L) 100 - 390 U/L 11/16/2021 3:29 PM [facility] ALT 13 0 - 61 U/L 11/16/2021 3:29 PM [facility] AST 15 5 - 34 U/L 11/16/2021 3:29 PM [facility] Protein Total 7.5 6.4 - 8.3 gm/dL 11/16/2021 3:29 PM CDT [facility] Albumin 4.5 3.4 - 5.0 gm/dL 11/16/2021 3:29 PM CDT [facility] Bilirubin Total 0.5 0.2 - 1.2 mg/dL 11/16/2021 3:29 PM CDT [facility] eGFR by CKD-EPI 3:29 PM CDT [facility] Comment:eGFR calculations ar e not performed for children <18yrs old. Blood BLOOD SPECIMEN / Unknown Venipuncture / Unknown 11/16/2021 3:07 PM CDT 11/16/2021 3:10 PM CDT Narrative [facility] - 11/16/2021 3:29 PM CDT eGFR result was calculated using the updated CKD-EPI Creatinine Equations (2020). Prior to go live 2021 the eGFR was calculated using the MDRD calculation. Please note Reference Range change. Smiley Wilks PA-C LAB - CHEMISTRY MARYELLEN MCCABE Performing Organization Address City/[facility]/ZIP Co de Phone Number [facility] [address] [place] [address] * MAGNESIUM BLOOD (11/16/2021 3:07 PM CDT) Magnesium 2.1 1.7 - 2.3 mg/dL 11/16/2021 3:29 PM CDT [facility] Blood BLOOD SPECIMEN / Unknown Venipuncture / Unknown 11/16/2021 3:07 PM CDT 11/16/2021 3:10 PM CDT Franc Ryan MD LAB - CHEMISTRY MARYELLEN MCCABE [facility] [address] [place] [id number] * CK BLOOD (11/16/2021 3:07 PM CDT) CK 71 29 - 168 U/L 11/16/2021 3:29 PM CDT [facility] Blood BLOOD SPECIMEN / Unknown Venipuncture / Unknown 11/16/2021 3:07 PM CDT 11/16/2021 3:10 PM CDT Franc Ryan MD LAB - CHEMISTRY ORDSravanthi MCCABE Performing Organization Address City/[facility]/ZIP Co de Phone Number [facility] [address] [phone] * ALCOHOL ETHYL BLOOD (11/16/2021 3:07 PM CDT) Ethanol <10.0 <10 mg/dL 11/16/2021 3:29 PM CDT [facility] Ethanol Calculated <0.010 <=0.100 gm/dL 11/16/2021 3:29 PM CDT [facility] Blood BLOOD SPECIMEN / Unknown Venipuncture / Unknown 11/16/2021 3:07 PM CDT 11/16/2021 3:10 PM CDT Narrative [facility] - 11/16/2021 3:29 PM CDT Non Legal Serum Alcohol Smiley Wilks PA-C LAB - CHEMISTRY MARYELLEN MCCABE Performing Organization Address [facility]/ZIP Co de Phone Number [facility] [address] [place] [phone] * (ABNORMAL) SALICYLATE LEVEL BLOOD (11/16/2021 3:07 PM CDT) Salicylate <5.0(L) 15.0 - 30.0 mg/dL 11/16/2021 3:29 PM CDT [facility] Blood BLOOD SPECIMEN / Unknown Venipuncture / Unknown 11/16/2021 3:07 PM CDT 11/16/2021 3:10 PM CDT Smiley Wilks PA-C LAB - CHEMISTRY MARYELLEN MCCABE [facility] [address] [place] [id number] * HCG BLOOD QUALITATIVE (11/16/2021 3:07 PM CDT) HCG Qual Serum Negative Negative 11/16/2021 3:32 PM CDT [facility] Blood BLOOD SPECIMEN / Unknown Venipuncture / Unknown 11/16/2021 3:07 PM CDT 11/16/2021 3:10 PM CDT Narrative [facility] - 11/16/2021 3:32 PM CDT Specimens containing heterophilic antibodies may demonstrate false positive results. Specimens containing human anti-mouse antibodies may exhibit false positive or false negative results. If qualitative interpretation is inconsistant with clinical evaluation, consider confirmation by an alternative hCG method. Franc Ryan MD LAB - CHEMISTRY OMARE ESTELLE [facility] Organization Address City/State/ZIP Co de Phone Number [facility] [address] [place] [address] * (ABNORMAL) ACETAMINOPHEN LEVEL (11/16/2021 3:07 PM CDT) Pathologist [facility] Acetaminophen <3.0(L) 10.0 - 30.0 ug/mL 11/16/2021 3:29 PM CDT [facility] Blood BLOOD SPECIMEN / Unknown Venipuncture / Unknown 11/16/2021 3:07 PM CDT 11/16/2021 3:10 PM CDT [facility] - 11/16/2021 3:29 PM CDT [facility] [...] may alter the peak level. Contact the [facility] at or reserved for healthcare professionals to assist you in evaluating potentially toxic acetaminophen levels. Smiley Wilks PA-C LAB - CHEMISTRY ORDE RABLES [facility] [address] [id number] * Critical Care (11/16/2021 2:43 PM CDT) [...] (Bezet) 553 ms [facility] MUSE Calculated P [place] 67 degrees [facility] MUSE Calculated R [place] 36 degrees [facility] MUSE Calculated T [place] 66 degrees [facility] MUSE Interpretation EKG Sinus tachycardia Cannot rule out Inferior infarct , age undetermined Abnormal ECG No previous ECGs available Confirmed by MD Elo, Roque ([id number]) on 11/19/2021 7:52:34 AM [facility] MUSE 11/16/2021 2:43 PM CDT 11/19/2021 7:52 AM CDT Smiley Wilks PA-C ECG ORDERABLES Performing Organization Address City/[facility]/ZIP Co de Phone Number [facility] MUSE * (ABNORMAL) URINALYSIS REFLEX TO MICROSCOPIC NO CULTURE (05/26/2021 10:36 AM ELIGIBILITY MANAGER) Color UA Straw Straw, Yellow 05/26/2021 11:53 AM [facility] Clarity UA Clear Clear 05/26/2021 11:53 AM [facility] Glucose UA Negative Negative 05/26/2021 11:53 AM [facility] Bilirubin UA Negative Negative 05/26/2021 11:53 AM [facility] Ketone UA Negative Negative 05/26/2021 11:53 AM [facility] Specific [place] UA 1.003(L) 1.005 - 1.030 05/26/2021 11:53 AM [facility] Blood UA Negative Negative 05/26/2021 11:53 AM [facility] pH UA 6.0 5.0 - 8.0 pH 05/26/2021 11:53 AM [facility] Protein UA Negative Negative 05/26/2021 11:53 AM [facility] Urobilinogen UA Negative Negative mg/dL 05/26/2021 11:53 AM [facility] Nitrite UA Negative Negative 05/26/2021 11:53 AM [facility] Leukocyte UA Negative Negative 05/26/2021 11:53 AM [facility] Urine Microscopy Urine microscopy not indicated 05/26/2021 11:53 AM [facility] Urine URINE SPECIMEN OBTAINED BY CLEAN CATCH PROCEDURE / Unknown Collection / Unknown 05/26/2021 10:36 AM ELIGIBILITY MANAGER 05/26/2021 11:38 AM ELIGIBILITY MANAGER Narrative [facility] - 05/26/2021 11:53 AM ELIGIBILITY MANAGER Alan Anderson MD LAB - URINA LYSIS ORDERABLES [facility] [address] [facility] [place] [address] * HCG URINE QUALITATIVE (05/26/2021 10:36 AM ELIGIBILITY MANAGER) hCG Qualitative Urine Negative Negative 05/26/2021 11:49 AM [facility] Urine URINE / Unknown Collection / Unknown 05/26/2021 10:36 AM ELIGIBILITY MANAGER 05/26/2021 11:38 AM ELIGIBILITY MANAGER Alan Anderson MD LAB - URINA LYSIS ORDERABLES [facility] [address] [place] [address] * TSH REFLEX FREE T4 (05/26/2021 6:23 AM ELIGIBILITY MANAGER) TSH 1.677 0.350 - 4.940 uIU/mL 05/26/2021 10:33 AM [facility] Blood BLOOD SPECIMEN / Unknown Lab Venipuncture / Unknown 05/26/2021 6:23 AM ELIGIBILITY MANAGER 05/26/2021 7:31 AM ELIGIBILITY MANAGER Alan Anderson MD LAB - CHEMI STRY ORDERABLES [facility] [address] [place] [address] * HEMOGLOBIN A1C (05/26/2021 6:23 AM ELIGIBILITY MANAGER) Hemoglobin A1c 4.4 4.2 - 5.6 % 05/26/2021 9:55 AM [facility] Estimated Average Glucose 80 mg/dL 05/26/2021 9:55 AM [facility] Blood BLOOD SPECIMEN / Unknown Lab Venipuncture / Unknown 05/26/2021 6:23 AM ELIGIBILITY MANAGER 05/26/2021 7:26 AM ELIGIBILITY MANAGER Narrative [facility] - 05/26/2021 9:55 AM ELIGIBILITY MANAGER The following cutoff levels are recommended by [place] [employer]. A1c > 6.5% : considered [...] - CHEMI STRY ORDERABLES Performing Organization Address City/[facility]/ZIP Co de Phone Number [facility] [address] [place] [address] * LIPID PROFILE (05/26/2021 6:23 AM ELIGIBILITY MANAGER) Cholesterol 140 <200 mg/dL 05/26/2021 10:08 AM [facility] Triglycerides 75 <150 mg/dL 05/26/2021 10:08 AM [facility] HDL Cholesterol 54 >40 mg/dL 10:08 AM [facility] LDL Calculated 71 <130 mg/dL 05/26/2021 10:08 AM [facility] VLDL Calculated 15 <=30 mg/dL 10:08 AM [facility] Chol HDL Ratio 2.6 <4.5 05/26/2021 10:08 AM [facility] LDL/HDL Ratio 1.3 <5.0 05/26/2021 10:08 AM [facility] Blood BLOOD SPECIMEN / Unknown Lab Venipuncture / Unknown 05/26/2021 6:23 AM ELIGIBILITY MANAGER 05/26/2021 7:31 AM ELIGIBILITY MANAGER Alan Anderson MD LAB - CHEMI STRY ORDERABLES [facility] [address] [place] [address] * SARS-COV-2 (COVID-19) RAPID (05/25/2021 3:41 PM ELIGIBILITY MANAGER) COVID-19 PCR Not detected Not detected 05/25/20 4:45 PM ELIGIBILITY MANAGER [facility] Microbiology SPECIMEN FROM NASOPHARYNGEAL STRUCTURE / Unknown Collection / Unknown 05/25/2021 3:41 PM ELIGIBILITY MANAGER 05/25/2021 3:50 PM ELIGIBILITY MANAGER Narrative [facility] - 05/25/2021 4:45 PM ELIGIBILITY MANAGER [employer] Xpert Xpress SARS-COV-2 has been authorized by [...] assay are available upon request. Zoe Mcnair APRN-BASEBALL SCOUT LAB - [facility] OLOGY ORDERABLES [facility] [address] [place] [address] Care Teams Clinical Educator Relationship Specialty [place] [address] [facility] [address] [place] [address] PCP - General Pediatrics 05/25/21
--- OUTSIDE RECORDS SUMMARY | 2024-06-18 05:48 | XMS_ITS | Encounter Summary ---
Author Organization [facility] Address [address] [place] [address] Phone Care Team Providers Care Mechanical Pencils Assembler Name Role Phone Gerald Tuttle MD Primary Care Provider [phone] Encounter Details Date Type Department Care Team (Late st Contact Info) Description 04/15/2024 Telephone [facility] ([facility]) - [facility] ENT [address] [place] [address] [place] [address] Daisy Jacome MS Social History [...] on file 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
--- OUTSIDE RECORDS SUMMARY | 2024-06-18 05:48 | XMS_ITS | Encounter Summary ---
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 sent at 04/01/2024 7:41 PM CDT ----- Phone number: Number verified. documented in this encounter Plan of Treatment Not on file documented as of this encounter Visit Diagnoses Not on filedocumented in this encounter Care Teams Cistern Room Working Supervisor Relationship Specialty [place] [address] [place] [address] PCP - General Pediatrics 08/20/19 documented as of this encounter
--- OUTSIDE RECORDS SUMMARY | 2024-06-18 05:48 | XMS_ITS | Referral Summary ---
Author Organization [facility] Address [address] [place] [address] Care Team Providers Care Hoisting Engineer Name Role Phone Gerald Tuttle MD Primary Care Provider [phone] Source Comments [facility],non-owned Affiliates and Associated Physician Practices is amultiple site organization consisting of ambulatory clinics and hospital sitesin [place], [place], [place] and [place]. This disclosure is being madepursuant to the Care Everywhere program and may not contain all information available regarding this patient. Last updated 18.[facility] Allergies Active Allergy Reactions Criticality Noted Date [...] Severe severe anticholinergic toxicity typically prevents with MACHINIST HELPER effects (central), which include anxiety, agitation, dysarthria, [...] anticholinergic poisoning are treated with sodium bicarbonate. MACHINIST HELPER toxicity including agitation and seizures should be [...] 9:06 PM 05/30/2021 11:55 AM Care Teams Hoisting Engineer Relationship Specialty [place] [address] [place] [address] PCP - General Pediatrics 05/25/21
--- OUTSIDE RECORDS SUMMARY | 2024-06-18 05:49 | XMS_ITS | Continuity of Care Document ---
Author Organization [facility] [place] Address [address] [facility] [address] [place] [phone] Phone Care Team Providers Care Ore Dressing Engineer Name Role Phone Gisell RAMON Amanda Unavailable Unavailable Procedures Procedure Date Therapeutic Activities Therapeutic Exercise Therapeutic Activities Therapeutic Exercise Therapeutic Activities Therapeutic Exercise Neuromuscular Re-Ed Therapeutic Activities Therapeutic Activities Neuromuscular Re-Ed Therapeutic Exercise Therapeutic Activities Neuromuscular Re-Ed Therapeutic Activities Neuromuscular Re-Ed Therapeutic Activities Neuromuscular Re-Ed Neuromuscular Re-Ed Therapeutic Activities Therapeutic Activities Neuromuscular Re-Ed Therapeutic Activities Neuromuscular Re-Ed Therapeutic Exercise Therapeutic Activities Neuromuscular Re-Ed Therapeutic Exercise Neuromuscular Re-Ed Therapeutic Exercise Therapeutic Activities Therapeutic Activities Neuromuscular Re-Ed Therapeutic Activities Neuromuscular Re-Ed Therapeutic Activities Neuromuscular Re-Ed Therapeutic Exercise Therapeutic Activities Neuromuscular Re-Ed Therapeutic Exercise Therapeutic Activities Therapeutic Activities Therapeutic Exercise Neuromuscular Re-Ed Hot or Cold Pack Therapeutic Activities Neuromuscular Re-Ed Therapeutic Exercise Manual Therapy PT Evaluation Moderate Complexity Neuromuscular Re-Ed Therapeutic Exercise Therapeutic Activities Advance Directives Directive Yes / No Effective Date File Name No Information Encounters Encounter Description Practice Location Reason(s) For Visit Diagnoses Date Provider Providers Copied on Encounter [facility], [id number], tel:[phone] Susanne No Information Nahlik [place]. . Referring Provider: Naren Muñoz, [address], [place], [address]. tel:[phone] [place] [address] [address] [address], [place], [place], [id number], tel:[phone] Susanne No Information Nahlik [place]. . Referring Provider: Naren Muñoz, [address], [place], [address]. tel:[phone] [place] [address] [address] [facility], [place], [place], [id number], tel:[phone] Susanne No Information Nahlik [place]. . Referring Provider: Naren Muñoz, [address], [place], [address]. tel:[phone] [place], [place] [id number] [facility] [address], [place], [place], [id number], tel:[phone] [place] No Information Nahlik [place]. . Referring Provider: Naren Muñoz, [address], [place], [address]. tel:[phone] [place] [address], [address] [place], [place] [address], [place], [place], [id number], tel:[phone] [place] No Information Nahlik [place]. . Referring Provider: Naren Muñoz, [address], [place], [address]. tel:[phone] [place], [place] [address], [place], [place], [id number], tel:[phone] [place] No Information Nahlik [place]. . Referring Provider: Naren Muñoz, [address], [place], [address]. tel:[phone] [place] [address], [address] [place], [place] [address] [address], [place], [id number], [place] tel:[phone] [place] No Information Nahlik [place]. . Referring Provider: Naren Muñoz, [address], [place], [address]. tel:[phone] [place], [place] [address], [place], [id number], [place] tel:[phone] [place] No Information Nahlik [place]. . Referring Provider: Naren Muñoz, [address], [place], [address]. tel:[phone] [place], [place] [id number] [facility], [place], [id number], tel:[phone] [place] No Information Nahlik [place]. . Referring Provider: Naren Muñoz, [address], [place], [address]. tel:[phone] [place] [address] [address], [place], [place], [id number], [place] tel:[phone] [place] No Information Nahlik [place]. . Referring Provider: Naren Muñoz, [address], [place], [address]. tel:[phone] [place], [place] [id number] [address], [place], [place], [id number], [place] tel:[phone] [place] No Information Nahlik [place]. . Referring Provider: Naren Muñoz, [address], [place], [address]. tel:[phone] [place] [address], [address] [facility], [place], [id number], [place] tel:[phone] [place] No Information Nahlik [place]. . Referring Provider: Naren Muñoz, [address], [place], [address]. tel:[phone] [place] [address] [facility], [place], [id number], [place] tel:[phone] [place] No Information Nahlik [place]. . Referring Provider: Naren Muñoz, [address], [place], [address]. tel:[phone] [place], [place] [id number] [address], [place], [place], [id number], [place] tel:[phone] [place] No Information Nahlik [place]. . Referring Provider: Naren Muñoz, [address], [place], [address]. tel:[phone] [place], [place] [address] [address], [place], [place], [id number], [place] tel:[phone] [place] No Information Nahlik [place]. . Referring Provider: Naren Muñoz, [address], [place], [address]. tel:[phone] [place] [address], [address] [facility], [place], [place], [id number], tel:[phone] [place] No Information Nahlik [place]. . Referring Provider: Naren Muñoz, [address], [place], [address]. tel:[phone] [place] [address] [facility], [place], [place], [id number], tel:[phone] [place] No Information Nahlik [place]. . Referring Provider: Naren Muñoz, [address], [place], [address]. tel:[phone] [place] [address], [address] [facility], [place], [id number], tel:[phone] [place] No Information Nahlik [place]. . Referring Provider: Naren Muñoz, [address], [place], [address]. tel:[phone] [place] [address] [address] [facility], [place], [place], [address], tel:[phone] [place] No Information Nahlik [place]. . Referring Provider: Naren Muñoz, [address], [place], [address]. tel:[phone] [place] [address] [facility], [place], [place], [id number], tel:[phone] [place] No Information Nahlik [place]. . Referring Provider: Naren Muñoz, [address], [place], [address]. tel:[phone] [facility] [place], [address] [facility] [address], [place], [place], [id number], [place] tel:[phone] Susanne No Information Gisell [place]. . Referring Provider: Naren Muñoz, [address] [facility] [address], [place], [address]. tel:[phone] Family History Family Member Type Diagnosis Age At Onset No Information Payers Payer name Insurance type Covered republican ID Authorsharon rogers(s) All Savers [id number] Social History Type Description Quantity Date Captured [...]
--- OUTSIDE RECORDS SUMMARY | 2024-06-18 05:49 | XMS_ITS | Clinical Summary ---
Author Organization [facility] [facility] Address [place], [place] [address] Care Team Providers Care Coding Tech Name Role Phone Pcp, No Primary Care [...] Sex Assigned at Female 07/04/2022 2:10 PM SENIOR CLINICAL PROJECT MANAGER Gender Identity Female 07/04/2022 2:10 PM SENIOR CLINICAL PROJECT MANAGER Sexual Orientation Don't know 07/04/2022 2: 10 PM SENIOR CLINICAL PROJECT MANAGER Obstetrics History Para Term AB IAB SAB Ectopic Multiple Livin g Live Births 0 0 0 0 0 0 0 0 0 0 0 Last Filed Vital Signs Vital Sign Reading Time Taken Comments Blood Pressure 124/82 07/27/2022 8:34 AM SENIOR CLINICAL PROJECT MANAGER Pulse 80 07/27/2022 8:34 AM SENIOR CLINICAL PROJECT MANAGER Temperature - - Respiratory Rate - - Oxygen Saturation 98% 07/27/2022 8:34 AM SENIOR CLINICAL PROJECT MANAGER Inhaled Oxygen Concentration - - Weight 56.2 kg (123 lb 12.8 oz) 07/27/2022 8:34 AM SENIOR CLINICAL PROJECT MANAGER Height 167 cm (5' 5.75) 07/27/2022 8:34 AM SENIOR CLINICAL PROJECT MANAGER Body Mass Index 20.14 07/27/2022 8:34 AM SENIOR CLINICAL PROJECT MANAGER Plan of Treatment Health Maintenance Due Date [...] age to complete this topic Care Teams Coding Tech Relationship Specialty Start Date End Date Pcp, No . PCP - General 07/04/22
--- OUTSIDE RECORDS SUMMARY | 2024-06-18 05:49 | XMS_ITS | Referral Summary ---
Author Organization [facility] Address [address] [place] [address]. [place] [address] Care Team Providers Care Basket Patcher Name Role Phone Unavailable Primary Care Provider [...] Comments Blood Pressure 102/70 08/13/2022 6:00 AM RETAIL SEASONAL SPECIALIST Pulse 91 08/13/2022 6:00 AM RETAIL SEASONAL SPECIALIST Temperature 36.2 C (97.2 F) 08/13/2022 6:00 AM RETAIL SEASONAL SPECIALIST Respiratory Rate 12 08/13/2022 6:00 AM RETAIL SEASONAL SPECIALIST Oxygen Saturation 100% 08/13/2022 6:00 AM RETAIL SEASONAL SPECIALIST Inhaled Oxygen Concentration - - Weight 58.8 kg (129 lb 11.9 oz) 05/05/2022 2:09 PM CDT Height - - Body Mass Index - - Plan of Treatment Not on file Insurance [facility] ALL SAVERS [facility] ALL SAVERS Advance Directives For more information, please contact: [phone] * Full Code (Latest Code Status on File) Date Activated Date Inactivated Comments 08/09/2022 12:32 PM 08/13/2022 2:59 PM All basic a nd advanced life-sustaining interventions are performed as appropriate Question Answer Comments Code status determined by: Unable to dis cuss and no AD/POLST on file; continue PREVIOUSLY ORDERED code status
--- OUTSIDE RECORDS SUMMARY | 2024-06-18 05:49 | XMS_ITS | Clinical Summary ---
Author Organization [facility] Address [address] [place] [address]. [place] [address] Care Team Providers Care Commercial Construction Superintendent Name Role Phone Unavailable Primary Care Provider [...] Comments Blood Pressure 102/70 08/13/2022 6:00 AM DIRECTOR CLINICAL RESEARCH Pulse 91 08/13/2022 6:00 AM DIRECTOR CLINICAL RESEARCH Temperature 36.2 C (97.2 F) 08/13/2022 6:00 AM DIRECTOR CLINICAL RESEARCH Respiratory Rate 12 08/13/2022 6:00 AM DIRECTOR CLINICAL RESEARCH Oxygen Saturation 100% 08/13/2022 6:00 AM DIRECTOR CLINICAL RESEARCH Inhaled Oxygen Concentration - - Weight 58.8 [...] patient's age to complete this topic Insurance [facility] ALL SAVERS [facility] ALL SAVERS Advance Directives For more information, please contact: [phone] * Full Code (Latest Code Status on File) Date Activated Date Inactivated Comments 08/09/2022 12:32 PM 08/13/2022 2:59 PM All basic a nd advanced life-sustaining interventions are performed as appropriate Question Answer Comments Code status determined by: Unable to dis cuss and no AD/POLST on file; continue PREVIOUSLY ORDERED code status
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
== END 2024-06-16 20:52 | disposition home or self-care (01) ==
LOC: AMB 06-18 05:45
PROVIDERS: Visit Provider Family Medicine
DX: R45.851 Suicidal ideations (principal)
CPT/HCPCS: A0425; A0429

== ENCOUNTER 2024-06-16 21:11 | Emergency (ER) | payer BC, SELFPAY ==
[2024-06-16] VITALS (12 sets, daily range): BP systolic 104–121; BP diastolic 69–85; PULSE 69–98; RESP 16; TEMP 36.4; O2SAT 94–98; BMI 23.5
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
--- NOTE | 2024-06-16 21:37 | ED.NURSE ---
This nurse called poison control about Thorazine ingestion. Poison control recommends a 6 hour observation period in the ER. Poison control states to perform an EKG, and monitor for EPS signs/symptoms and anticholinergic effects from Thorazine. Poison Control states to use benzos for any agitation.
--- OUTSIDE RECORDS SUMMARY | 2024-06-16 21:51 | XMS_ITS | Encounter Summary ---
Author Organization [facility] Address [facility] [place] [address] Care Team Providers Care Grinder Set Up Operator Thread Tool Name Role Phone Undetermined, Pcp Primary Care Provider Unavaila ble Encounter Details Date Type Department Care Team (Late st Contact Info) Description 02/28/2023 Access Center [facility] [place] [address] Social History Tobacco Use Types Packs/Day Years [...] on filedocumented in this encounter Care Teams Grinder Set Up Operator Thread Tool Relationship Specialty Start Date End Date Undetermined, Pcp PCP - General 02/28/23 documented as of this encounter
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
--- OUTSIDE RECORDS SUMMARY | 2024-06-16 21:51 | XMS_ITS | Clinical Summary ---
Author Organization [facility] Address [address] [place] [address] [address] [place], [place] [address] Care Team Providers Care Commercial Sales Specialist Name Role Phone Undetermined, Pcp Primary Care [...] 63 03/01/2023 11:21 AM CDT Temperature 36.5 C (97.7 F) 03/01/2023 11:21 AM CDT Respiratory Rate 18 03/01/2023 11:21 AM CDT [...] wa s Performed by: Resident Care Teams Commercial Sales Specialist Relationship Specialty Start Date End Date Undetermined, Pcp PCP - General 02/28/23
--- OUTSIDE RECORDS SUMMARY | 2024-06-16 21:52 | XMS_ITS | Encounter Summary ---
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 Symptoms started 2 days ago andtommy went to a local ED (she is currently away at school in [place]). Karen reports they advised she return if [...] on filedocumented in this encounter Care Teams Nub Card Tender Relationship Specialty [place] [address] [place] [address] PCP - General Pediatrics 08/20/19 documented as of this encounter
--- OUTSIDE RECORDS SUMMARY | 2024-06-16 21:52 | XMS_ITS | Clinical Summary ---
Author Organization [facility] Address [place], [place] [address] Care Team Providers Care Sample Shoe Inspector And Reworker Name Role Phone Pcp, No Primary Care [...] Sex Assigned at Female 07/04/2022 2:10 PM CAMPUS POLICE OFFICER Gender Identity Female 07/04/2022 2:10 PM CAMPUS POLICE OFFICER Sexual Orientation Don't know 07/04/2022 2: 10 PM CAMPUS POLICE OFFICER Obstetrics History Para Term AB IAB SAB Ectopic Multiple Livin g Live Births 0 0 0 0 0 0 0 0 0 0 0 Last Filed Vital Signs Vital Sign Reading Time Taken Comments Blood Pressure 124/82 07/27/2022 8:34 AM CAMPUS POLICE OFFICER Pulse 80 07/27/2022 8:34 AM CAMPUS POLICE OFFICER Temperature - - Respiratory Rate - - Oxygen Saturation 98% 07/27/2022 8:34 AM CAMPUS POLICE OFFICER Inhaled Oxygen Concentration - - Weight 56.2 kg (123 lb 12.8 oz) 07/27/2022 8:34 AM CAMPUS POLICE OFFICER Height 167 cm (5' 5.75) 07/27/2022 8:34 AM CAMPUS POLICE OFFICER Body Mass Index 20.14 07/27/2022 8:34 AM CAMPUS POLICE OFFICER Plan of Treatment Health Maintenance Due Date [...] age to complete this topic Care Teams Sample Shoe Inspector And Reworker Relationship Specialty Start Date End Date Pcp, No . PCP - General 07/04/22
--- OUTSIDE RECORDS SUMMARY | 2024-06-16 21:52 | XMS_ITS | Encounter Summary ---
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 documented in this encounter Plan of Treatment Not on file documented as of this encounter Visit Diagnoses Not on filedocumented in this encounter Care Teams Sheet Rock Finisher Relationship Specialty [place] [address] [place] [address] PCP - General Pediatrics 08/20/19 documented as of this encounter
--- OUTSIDE RECORDS SUMMARY | 2024-06-16 21:52 | XMS_ITS | Referral Summary ---
Author Organization [facility] Address [address] [place] [address]. [place] [address] Care Team Providers Care Occupational Therapy Director Name Role Phone Unavailable Primary Care Provider [...] Comments Blood Pressure 102/70 08/13/2022 6:00 AM SHIRT BANDER Pulse 91 08/13/2022 6:00 AM SHIRT BANDER Temperature 36.2 C (97.2 F) 08/13/2022 6:00 AM SHIRT BANDER Respiratory Rate 12 08/13/2022 6:00 AM SHIRT BANDER Oxygen Saturation 100% 08/13/2022 6:00 AM SHIRT BANDER Inhaled Oxygen Concentration - - Weight 58.8 kg (129 lb 11.9 oz) 05/05/2022 2:09 PM CDT Height - - Body Mass Index - - Plan of Treatment Not on file Insurance [facility] [employer] [facility] [employer] Advance Directives For more information, please contact: [phone] * Full Code (Latest Code Status on File) Date Activated Date Inactivated Comments 08/09/2022 12:32 PM 08/13/2022 2:59 PM All basic a nd advanced life-sustaining interventions are performed as appropriate Question Answer Comments Code status determined by: Unable to dis cuss and no AD/POLST on file; continue PREVIOUSLY ORDERED code status
--- OUTSIDE RECORDS SUMMARY | 2024-06-16 21:52 | XMS_ITS | Patient Health Summary ---
Author Organization [facility] Address [address] [place] [address] Care Team Providers Care Bridge Painter Helper Name Role Phone Gerald Tuttle MD Primary Care Provider [phone] Note from [facility] [place],non-owned Affiliates and Associated Physician Practices is amultiple site organization consisting of ambulatory clinics and hospital sitesin [place], [place], [place] and [place]. This disclosure is being madepursuant to the Care Everywhere program and may not contain all information available regarding this patient. Last updated 18.[facility] Allergies * Amoxicillin(Unknown) Medications * Be aware [...] 96 11/17/2021 12:05 PM CDT Temperature 36.8 C (98.2 F) 11/17/2021 12:05 PM CDT Respiratory Rate 22 11/17/2021 12:05 PM CDT [...] (Bezet) 457 ms CG MUSE Calculated P Cyril 67 degrees CG MUSE Calculated R Cyril 49 degrees CG MUSE Calculated T Cyril 51 degrees CG MUSE Interpretation EKG Normal sinus rhythm Q waves noted in 1 and aVL When compared with ECG of 16-NOV-2021 21:15, No significant change was found Confirmed by MD Urias Renuka ([id number]) on 11/17/2021 5:41:23 PM CG MUSE 11/17/2021 11:2 3 AM CDT 11/17/2021 5:41 PM CDT Tiffani Robison MD ECG ORDERABLES Performing Organization Address City/[facility]/ZIP Co de Phone Number MUSE * DRUG SCREEN TOX COMPREHESIVE URINE PANEL (11/16/2021 9:20 PM CDT) [facility] Drug Screen Urine Comprehensive Panel See Scanned Report 11/17/2021 6:18 PM CDT [facility] Urine URINE / Unknown Collection / Unknown 11/16/2021 9:20 PM CDT 11/16/2021 9:26 PM CDT Tiffani Robison MD LAB - URINE CHEMISTR Y ORDERABLES Performing Organization Address City/[facility]/ZIP Co de Phone Number [facility] ATTN Dr Darin Glover [address] [place] [address] * URINE DRUG SCREEN IMMUNOASSAY (11/16/2021 9:20 PM CDT) Only the most recent of2 resultswithin the time period is included. [facility] Amphetamines Screen Urine Negative Negative: < 1000 ng/mL 11/16/2021 9:46 PM CDT [facility] Barbiturates Screen Urine Negative Negative: < 200 ng/mL 11/16/2021 9:46 PM CDT [facility] Benzodiazepine Screen Urine Negative Negative: < 200 ng/mL 11/16/2021 9:46 PM CDT [facility] Opiates Urine Negative Negative: < 300 ng/mL 11/16/2021 9:46 PM CDT [facility] Cocaine Metabolites Urine Negative Negative: < 300 ng/mL 11/16/2021 9:46 PM CDT [facility] Phencyclidine Screen Urine Negative Negative: < 25 ng/ml 11/16/2021 9:46 PM CDT [facility] Cannabinoids Screen Urine Negative Negative: <50 ng/mL 11/16/2021 9:46 PM CDT [facility] Methadone Screen Urine Negative Negative: < 300 ng/mL 11/16/2021 9:46 PM T [facility] Fentanyl Screen Urine Negative Negative: <1.0 ng/mL 11/16/2021 9:46 PM CDT [facility] Urine URINE / Unknown Collection / Unknown 11/16/2021 9:20 PM CDT 11/16/2021 9:27 PM CDT Narrative [facility] - 11/16/2021 9:46 PM CDT The Urine Toxicology Screening Panel does not screen for Propoxyphene, Meprobamate, Carisoprodol, Trazodone, bwah-cem-jkwsdrl medications and/or volatiles (Acetone, Isopropanol, Methanol or Ethylene Glycol). Ethanol, Salicylate, Acetaminophen, Tricyclic Antidepressants and several therapeutic drugs may be individually assayed in serum or plasma specimen. Toxicology testing by the [facility] is an aid to medical diagnosis and treatment of patients. No documented chain of custody was maintained. Results are intended to be used for clinical purposes only. Tiffani Robison MD LAB - URINE CHEMISTR Y ORDERABLES [facility] [address] [place] [id number], [facility] [phone] * (ABNORMAL) CBC W AUTO DIFFERENTIAL (11/16/2021 3:07 PM CDT) Only the most recent of2 resultswithin the time period is included. WBC 11.9(H) 4.5 - 11.0 x10E9/L 11/16/2021 3:13 PM CDT [facility] WBC Corrected 11/16/2021 3:13 PM CDT [facility] RBC 5.05 4.10 - 5.10 x10E12/L 11/16/2021 3:13 PM CDT [facility] Hemoglobin 14.7 12.0 - 16.0 gm/dL 11/16/2021 3:13 PM CDT [facility] Hematocrit 43.7 36.0 - 47.0 % 11/16/2021 3:13 PM CDT [facility] MCV 86.5 78.0 - 102.0 fl 11/16/2021 3:13 PM [facility] MCH 29.1 25.0 - 35.0 pg 11/16/2021 3:13 PM [facility] MCHC 33.6 31.0 - 37.0 gm/dL 11/16/2021 3:13 PM [facility] Platelet Count 324 100 - 400 x10E9/L 11/16/2021 3:13 PM [facility] RDW-CV 12.2 11.5 - 14.0 % 11/16/2021 3:13 PM [facility] MPV 10.4(H) 6.0 - 9.5 fl 11/16/2021 3:13 PM [facility] Neutrophils % 79.0(H) 31.0 - 78.0 % 11/16/2021 3:13 PM [facility] Lymphocytes % 13.7 13.0 - 54.0 % 11/16/2021 3:13 PM [facility] Monocytes % 5.3 4.0 - 13.0 % 11/16/2021 3:13 PM [facility] Eosinophils % 0.9 0.0 - 8.0 % 11/16/2021 3:13 PM [facility] Basophils % 0.5 % 11/16/2021 3:13 PM [facility] Immature Granulocytes 0.6 % 11/16/2021 3:13 PM [facility] Neutrophil Absolute 9.39(H) 1.4 - 8.58 x10E9/L 11/16/2021 3:13 PM [facility] Lymphocytes Absolute 1.63 0.59 - 5.94 x10E9/L 11/16/2021 3:13 PM [facility] Monocytes Absolute 0.63 0.18 - 1.43 x10E9/L 11/16/2021 3:13 PM [facility] Eosinophils Absolute 0.11 0 - 0.88 x10E9/L 11/16/2021 3:13 PM [facility] Basophils Absolute 0.06 0 - 0.22 x10E9/L 11/16/2021 3:13 PM [facility] Immature Granulocytes Absolute 0.07 0 - 0.11 x10E9/L 11/16/2021 3:13 PM CDT [facility] nRBC Auto 0 /100 WBC 11/16/2021 3:13 PM T [facility] Blood BLOOD SPECIMEN / Unknown Venipuncture / Unknown 11/16/2021 3:07 PM CDT 11/16/2021 3:10 PM CDT Smiley Wilks PA-C LAB - HEMATOLOGY ORD ERABLES [facility] [address] [place] [address] * (ABNORMAL) COMPREHENSIVE METABOLIC PANEL (11/16/2021 3:07 PM CDT) Only the most recent of2 resultswithin the time period is included. Glucose 100 70 - 105 mg/dL 11/16/2021 3:29 PM [facility] Sodium 143 136 - 145 mmol/L 11/16/2021 3:29 PM [facility] Potassium 3.7 3.5 - 5.1 mmol/L 11/16/2021 3:29 PM [facility] Chloride 110(H) 98 - 107 mmol/L 11/16/2021 3:29 PM [facility] CO2 22 20 - 28 mmol/L 11/16/2021 3:29 PM [facility] Calcium 9.6 8.4 - 10.4 mg/dL 11/16/2021 3:29 PM [facility] Anion Gap 11 8 - 18 mmol/L 11/16/2021 3:29 PM [facility] BUN 10 7 - 18.7 mg/dL 11/16/2021 3:29 PM [facility] Creatinine 0.88 0.57 - 1.11 mg/dL 11/16/2021 3:29 PM [facility] Alkaline Phosphatase 67(L) 100 - 390 U/L 11/16/2021 3:29 PM [facility] ALT 13 0 - 61 U/L 11/16/2021 3:29 PM [facility] AST 15 5 - 34 U/L 11/16/2021 3:29 PM [facility] Protein Total 7.5 6.4 - 8.3 gm/dL 11/16/2021 3:29 PM CDT [facility] Albumin 4.5 3.4 - 5.0 gm/dL 11/16/2021 3:29 PM CDT [facility] Bilirubin Total 0.5 0.2 - 1.2 mg/dL 11/16/2021 3:29 PM CDT [facility] eGFR by CKD-EPI 3:29 PM CDT [facility] Comment:eGFR calculations ar e not performed for children <18yrs old. Blood BLOOD SPECIMEN / Unknown Venipuncture / Unknown 11/16/2021 3:07 PM CDT 11/16/2021 3:10 PM CDT Narrative [facility] - 11/16/2021 3:29 PM CDT eGFR result was calculated using the updated CKD-EPI Creatinine Equations (2020). Prior to go live 2021 the eGFR was calculated using the MDRD calculation. Please note Reference Range change. Smiley Wilks PA-C LAB - CHEMISTRY MARYELLEN MCCABE Performing Organization Address City/[facility]/ZIP Co de Phone Number [facility] [address] [place] [address] * MAGNESIUM BLOOD (11/16/2021 3:07 PM CDT) Magnesium 2.1 1.7 - 2.3 mg/dL 11/16/2021 3:29 PM CDT [facility] Blood BLOOD SPECIMEN / Unknown Venipuncture / Unknown 11/16/2021 3:07 PM CDT 11/16/2021 3:10 PM CDT Franc Ryan MD LAB - CHEMISTRY MARYELLEN MCCABE [facility] [address] [place] [id number] * CK BLOOD (11/16/2021 3:07 PM CDT) CK 71 29 - 168 U/L 11/16/2021 3:29 PM CDT [facility] Blood BLOOD SPECIMEN / Unknown Venipuncture / Unknown 11/16/2021 3:07 PM CDT 11/16/2021 3:10 PM CDT Franc Ryan MD LAB - CHEMISTRY ORDSravanthi MCCABE Performing Organization Address City/[facility]/ZIP Co de Phone Number [facility] [address] [phone] * ALCOHOL ETHYL BLOOD (11/16/2021 3:07 PM CDT) Ethanol <10.0 <10 mg/dL 11/16/2021 3:29 PM CDT [facility] Ethanol Calculated <0.010 <=0.100 gm/dL 11/16/2021 3:29 PM CDT [facility] Blood BLOOD SPECIMEN / Unknown Venipuncture / Unknown 11/16/2021 3:07 PM CDT 11/16/2021 3:10 PM CDT Narrative [facility] - 11/16/2021 3:29 PM CDT Non Legal Serum Alcohol Smiley Wilks PA-C LAB - CHEMISTRY MARYELLEN MCCABE Performing Organization Address [facility]/ZIP Co de Phone Number [facility] [address] [place] [phone] * (ABNORMAL) SALICYLATE LEVEL BLOOD (11/16/2021 3:07 PM CDT) Salicylate <5.0(L) 15.0 - 30.0 mg/dL 11/16/2021 3:29 PM CDT [facility] Blood BLOOD SPECIMEN / Unknown Venipuncture / Unknown 11/16/2021 3:07 PM CDT 11/16/2021 3:10 PM CDT Smiley Wilks PA-C LAB - CHEMISTRY MARYELLEN MCCABE [facility] [address] [place] [id number] * HCG BLOOD QUALITATIVE (11/16/2021 3:07 PM CDT) HCG Qual Serum Negative Negative 11/16/2021 3:32 PM CDT [facility] Blood BLOOD SPECIMEN / Unknown Venipuncture / Unknown 11/16/2021 3:07 PM CDT 11/16/2021 3:10 PM CDT Narrative [facility] - 11/16/2021 3:32 PM CDT Specimens containing heterophilic antibodies may demonstrate false positive results. Specimens containing human anti-mouse antibodies may exhibit false positive or false negative results. If qualitative interpretation is inconsistant with clinical evaluation, consider confirmation by an alternative hCG method. Franc Ryan MD LAB - CHEMISTRY OMARE ESTELLE [facility] Organization Address City/State/ZIP Co de Phone Number [facility] [address] [place] [address] * (ABNORMAL) ACETAMINOPHEN LEVEL (11/16/2021 3:07 PM CDT) Pathologist [facility] Acetaminophen <3.0(L) 10.0 - 30.0 ug/mL 11/16/2021 3:29 PM CDT [facility] Blood BLOOD SPECIMEN / Unknown Venipuncture / Unknown 11/16/2021 3:07 PM CDT 11/16/2021 3:10 PM CDT [facility] - 11/16/2021 3:29 PM CDT [facility] ACETAMINOPHEN COMMENT Critical values: 4 Hours Post Ingestion: Critical value > 200 g/mL 12 Hours Post Ingestion: Critical value > 50 g/mL For acute ingestion, please refer to Acetaminophen nomogram to determine the risk of toxicity based on time since ingestion and acetaminophen level (see link provided). Note the nomogram disclaimer. WARNING: Assessing the potential toxicity of an acetaminophen level on a standard risk nomogram must take into consideration many factors including any uncertainty of the time since ingestion or the possibility of other medications that may alter the peak level. Contact the [place] [facility] at or reserved for healthcare professionals to assist you in evaluating potentially toxic acetaminophen levels. Smiley Wilks PA-C LAB - CHEMISTRY ORDE RABLES [facility] [address] [address] * Critical Care (11/16/2021 2:43 PM CDT) Narrative Franc Ryan MD - 11/16/2021 2:43 PM CDT Franc Ryan MD 11/16/2021 4:30 PM Critical Care Performed by: Franc Ryan MD Authorized by: Franc Ryan MD Critical care provider statement: Critical care time (minutes): 35 Critical care time was exclusive of: Separately billable procedures and treating other patients Critical care was necessary to treat or prevent imminent or life-threatening deterioration of the following conditions: drug overdose with prolonged qtc. Critical care was time spent personally by me on the following activities: Development of treatment plan with patient or surrogate, [...] (Bezet) 553 ms [facility] MUSE Calculated P Cyril 67 degrees [facility] MUSE Calculated R Cyril 36 degrees [facility] MUSE Calculated T Cyril 66 degrees [facility] MUSE Interpretation EKG Sinus tachycardia Cannot rule out Inferior infarct , age undetermined Abnormal ECG No previous ECGs available Confirmed by MD Elo, Roque ([id number]) on 11/19/2021 7:52:34 AM [facility] MUSE 11/16/2021 2:43 PM CDT 11/19/2021 7:52 AM CDT Smiley Wilks PA-C ECG ORDERABLES Performing Organization Address City/[facility]/ZIP Co de Phone Number [facility] * (ABNORMAL) URINALYSIS REFLEX TO MICROSCOPIC NO CULTURE (05/26/2021 10:36 AM MECHANICAL ARTIST) Color UA Straw Straw, Yellow 05/26/2021 11:53 AM [facility] Clarity UA Clear Clear 05/26/2021 11:53 AM [facility] Glucose UA Negative Negative 05/26/2021 11:53 AM [facility] Bilirubin UA Negative Negative 05/26/2021 11:53 AM [facility] Ketone UA Negative Negative 05/26/2021 11:53 AM [facility] Specific [place] UA 1.003(L) 1.005 - 1.030 05/26/2021 11:53 AM [facility] Blood UA Negative Negative 05/26/2021 11:53 AM [facility] pH UA 6.0 5.0 - 8.0 pH 05/26/2021 11:53 AM [facility] Protein UA Negative Negative 05/26/2021 11:53 AM [facility] Urobilinogen UA Negative Negative mg/dL 05/26/2021 11:53 AM [facility] Nitrite UA Negative Negative 05/26/2021 11:53 AM [facility] Leukocyte UA Negative Negative 05/26/2021 11:53 AM [facility] Urine Microscopy Urine microscopy not indicated 05/26/2021 11:53 AM [facility] Urine URINE SPECIMEN OBTAINED BY CLEAN CATCH PROCEDURE / Unknown Collection / Unknown 05/26/2021 10:36 AM MECHANICAL ARTIST 05/26/2021 11:38 AM MECHANICAL ARTIST Narrative [facility] - 05/26/2021 11:53 AM MECHANICAL ARTIST Alan Anderson MD LAB - URINA LYSIS ORDERABLES [facility] [address] [facility] [address] [place] [address] * HCG URINE QUALITATIVE (05/26/2021 10:36 AM MECHANICAL ARTIST) hCG Qualitative Urine Negative Negative 05/26/2021 11:49 AM [facility] Urine URINE / Unknown Collection / Unknown 05/26/2021 10:36 AM MECHANICAL ARTIST 05/26/2021 11:38 AM MECHANICAL ARTIST Alan Anderson MD LAB - URINA LYSIS ORDERABLES [facility] [address] [place] [address] * TSH REFLEX FREE T4 (05/26/2021 6:23 AM MECHANICAL ARTIST) TSH 1.677 0.350 - 4.940 uIU/mL 05/26/2021 10:33 AM [facility] Blood BLOOD SPECIMEN / Unknown Lab Venipuncture / Unknown 05/26/2021 6:23 AM MECHANICAL ARTIST 05/26/2021 7:31 AM MECHANICAL ARTIST Alan Anderson MD LAB - CHEMI STRY ORDERABLES [facility] [address] [place] [address] * HEMOGLOBIN A1C (05/26/2021 6:23 AM MECHANICAL ARTIST) Hemoglobin A1c 4.4 4.2 - 5.6 % 05/26/2021 9:55 AM [facility] Estimated Average Glucose 80 mg/dL 05/26/2021 9:55 AM [facility] Blood BLOOD SPECIMEN / Unknown Lab Venipuncture / Unknown 05/26/2021 6:23 AM MECHANICAL ARTIST 05/26/2021 7:26 AM MECHANICAL ARTIST Narrative [facility] - 05/26/2021 9:55 AM MECHANICAL ARTIST The following cutoff levels are recommended by [place] [employer]. A1c > 6.5% : considered as diabetes if two separate tests >6.5% or in an appropriate clinical setting. A1c 5.7% - 6.4% : considered as prediabetes (suggest increased risk for diabetes and cardiovascular disease) Control target level: Should be individualized. < 7 for general (non-) , < 8% less stringent goal, < 6.5 more stringent goal. Hemoglobin A1c measurements are used as an aid in the diagnosis of diabetic mellitus, as an aid to identify patients who may be at the risk for developing diabetic mellitus, and for the monitoring long-term blood glucose control in individuals with diabetes mellitus. This test should not replace glucose testing for patients with Type 1 diabetes, pediatric patients, or women. Falsely low HbA1c results may be observed in patients with clinical conditions that shorten erythrocyte life span or decrease mean erythrocyte age such as the presence of unstable hemoglobin variants, elevated hemoglobin F level or other causes of hemolytic anemia . HbA1c may not accurately reflect glycemic control when clinical conditions that affect erythrocyte survival are present. Severe Iron deficiency anemia may yield falsely high results. Hemoglobin A1c assay should not be used to diagnose or monitor diabetes in patients with malignancy, recent blood transfusion, chronic kidney or liver disease. This method may yield falsely low results when hemoglobin (HbF) exceeds 5% in the specimen. Alan Anderson MD LAB - CHEMI STRY ORDERABLES Performing Organization Address City/[facility]/ZIP Co de Phone Number [facility] [address] [place] [address] * LIPID PROFILE (05/26/2021 6:23 AM MECHANICAL ARTIST) Cholesterol 140 <200 mg/dL 05/26/2021 10:08 AM [facility] Triglycerides 75 <150 mg/dL 05/26/2021 10:08 AM [facility] HDL Cholesterol 54 >40 mg/dL 10:08 AM [facility] LDL Calculated 71 <130 mg/dL 05/26/2021 10:08 AM [facility] VLDL Calculated 15 <=30 mg/dL 10:08 AM [facility] Chol HDL Ratio 2.6 <4.5 05/26/2021 10:08 AM [facility] LDL/HDL Ratio 1.3 <5.0 05/26/2021 10:08 AM [facility] Blood BLOOD SPECIMEN / Unknown Lab Venipuncture / Unknown 05/26/2021 6:23 AM MECHANICAL ARTIST 05/26/2021 7:31 AM MECHANICAL ARTIST Alan Anderson MD LAB - CHEMI STRY ORDERABLES [facility] [address] [place] [address] * SARS-COV-2 (COVID-19) RAPID (05/25/2021 3:41 PM MECHANICAL ARTIST) COVID-19 PCR Not detected Not detected 05/25/20 4:45 PM MECHANICAL ARTIST [facility] Microbiology SPECIMEN FROM NASOPHARYNGEAL STRUCTURE / Unknown Collection / Unknown 05/25/2021 3:41 PM MECHANICAL ARTIST 05/25/2021 3:50 PM MECHANICAL ARTIST Narrative [facility] - 05/25/2021 4:45 PM MECHANICAL ARTIST The [employer] Xpert Xpress SARS-COV-2 has been authorized by [...] assay are available upon request. Zoe Mcnair APRN-HAULPAK DRIVER LAB - [facility] OLOGY ORDERABLES [facility] [address] [place] [address] Care Teams Bridge Painter Helper Relationship Specialty [place] [id number] [facility] [address] [place] [address] PCP - General Pediatrics 05/25/21
--- OUTSIDE RECORDS SUMMARY | 2024-06-16 21:52 | XMS_ITS | Clinical Summary ---
Author Organization [place] Address [address] [place] [phone] [phone] Care Team Providers Care Welder Plasma Arc Name Role Phone Unavailable Primary Care Provider [...] Comments Blood Pressure 102/70 08/13/2022 6:00 AM LAST MARKER Pulse 91 08/13/2022 6:00 AM LAST MARKER Temperature 36.2 C (97.2 F) 08/13/2022 6:00 AM LAST MARKER Respiratory Rate 12 08/13/2022 6:00 AM LAST MARKER Oxygen Saturation 100% 08/13/2022 6:00 AM LAST MARKER Inhaled Oxygen Concentration - - Weight 58.8 [...] patient's age to complete this topic Insurance [facility] Advance Directives For more information, please contact: [phone] * Full Code (Latest Code Status on File) Date Activated Date Inactivated Comments 08/09/2022 12:32 PM 08/13/2022 2:59 PM All basic a nd advanced life-sustaining interventions are performed as appropriate Question Answer Comments Code status determined by: Unable to dis cuss and no AD/POLST on file; continue PREVIOUSLY ORDERED code status
--- OUTSIDE RECORDS SUMMARY | 2024-06-16 21:52 | XMS_ITS | Continuity of Care Document ---
Author Organization [facility] [place] Address [address] [facility] [address] [place] [address] Phone Care Team Providers Care Mail Processor Name Role Phone Jamaica Jameson PT Unavailable [...] Activities Therapeutic Exercise Neuromuscular Re-Ed Therapeutic Activities Neuromuscular Re-Ed Therapeutic Activities Neuromuscular Re-Ed Therapeutic Activities Therapeutic Exercise Neuromuscular Re-Ed Therapeutic Activities Therapeutic Activities Therapeutic Exercise Neuromuscular Re-Ed Therapeutic Activities Hot or Cold Pack Neuromuscular Re-Ed Therapeutic Exercise Neuromuscular Re-Ed Therapeutic Exercise Therapeutic Activities Manual Therapy PT Evaluation Moderate Complexity Therapeutic Activities Therapeutic Exercise Neuromuscular Re-Ed Advance Directives Directive Yes / No Effective Date File Name No Information Encounters Encounter Description Practice Location Reason(s) For Visit Diagnoses Date Provider Providers Copied on Encounter [facility], [id number], tel:[phone] [place] No Information Nahlik Jamaica. . Referring Provider: Naren Muñoz, [address], [place], [address]. tel:[phone] [place] [address] [address] [address], [place], [place], [id number], tel:[phone] Susanne No Information Nahlik [place]. . Referring Provider: Naren Muñoz, [address], [place], [address]. tel:[phone] [place] [address] [address] [facility], [place], [place], [id number], tel:[phone] Susanne No Information Nahlik [place]. . Referring Provider: Naren Muñoz, [address], [place], [address]. tel:[phone] [place], [place] [id number] [facility] [address], [place], [place], [id number], tel:[phone] [place] No Information Nahlik Jamaica. . Referring Provider: Naren Muñoz, [address], [place], [address]. tel:[phone] [place] [address], [address] [place], [place] [address], [place], [place], [id number], tel:[phone] [place] No Information Nahlik [place]. . Referring Provider: Naren Muñoz, [address], [place], [address]. tel:[phone] [place], [place] [address], [place], [place], [id number], tel:[phone] [place] No Information Nahlik [place]. . Referring Provider: Naren Muñoz, [address], [place], [address]. tel:[phone] [place] [address], [address] [place], [place] [address] [address], [place], [place], [id number], [place] tel:[phone] [place] No Information Nahlik [place]. . Referring Provider: Naern Muñoz, [address], [place], [address]. tel:[phone] [place], [place] [address] [address], [place], [place], [id number], [place] tel:[phone] [place] No Information Nahlik [place]. . Referring Provider: Naren Muñoz, [address], [place], [address]. tel:[phone] [place], [place] [id number] [facility], [place], [place], [id number], tel:[phone] [place] No Information Nahlik [place]. . Referring Provider: Naren Muñoz, [address], [place], [address]. tel:[phone] [place] [address] [address], [place], [place], [id number], [place] tel:[phone] [place] No Information Nahlik [place]. . Referring Provider: Naren Muñoz, [address], [place], [address]. tel:[phone] [place], [place] [id number] [address], [place], [place], [id number], [place] tel:[phone] [place] No Information Nahlik [place]. . Referring Provider: Naren Muñoz, [address], [place], [address]. tel:[phone] [place] [address], [address] [facility], [place], [place], [id number], [place] tel:[phone] [place] No Information Nahlik [place]. . Referring Provider: Naren Muñoz, [address], [place], [address]. tel:[phone] [place] [address] [facility], [place], [address], [place] tel:[phone] [place] No Information Nahlik [place]. . Referring Provider: Naren Muñoz, [address], [place], [address]. tel:[phone] [place], [place] [id number] [address], [place], [place], [id number], [place] tel:[phone] [place] No Information Nahlik [place]. . Referring Provider: Naren Muñoz, [address], [place], [address]. tel:[phone] [place], [place] [id number] [address], [place], [id number], [place] tel:[phone] [place] No Information Nahlik [place]. . Referring Provider: Naren Muñoz, [address], [place], [address]. tel:[phone] [place] [address], [address] [facility], [place], [place], [id number], tel:[phone] [place] No Information Nahlik [place]. . Referring Provider: Naren Muñoz, [address], [place], [address]. tel:[phone] [place] [address] [facility], [place], [place], [id number], tel:[phone] [place] No Information Nahlik [place]. . Referring Provider: Naren Muñoz, [address], [place], [address]. tel:[phone] [place] [address], [address] [facility], [place], [place], [address], tel:[phone] [place] No Information Nahlik [place]. . Referring Provider: Naren Muñoz, [address], [place], [address]. tel:[phone] [place] [address] [address] [facility], [place], [place], [id number], tel:[phone] [place] No Information Nahlik [place]. . Referring Provider: Naren Muñoz, [address], [place], [address]. tel:[phone] [place] [address] [facility], [place], [place], [id number], tel:[phone] [place] No Information Nahlik [place]. . Referring Provider: Naren Muñoz, [address], [place], [address]. tel:[phone] [facility] [place], [address] [facility], [place], [place], [id number], [place] tel:[phone] Susanne No Information Gisell [place]. . Referring Provider: Naren Muñoz, [address] [facility] [address], [place], [address]. tel:[phone] Family History Family Member Type Diagnosis Age At Onset No Information Payers Payer name Insurance type Covered constitution party ID Authorsharon rogers(s) All Savers [id number] Social History Type Description Quantity Date Captured [...]
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
--- OUTSIDE RECORDS SUMMARY | 2024-06-16 21:52 | XMS_ITS | Referral Summary ---
Author Organization [facility] Address [address] [place] [address] Care Team Providers Care Thread Reeler Name Role Phone Gerald Tuttle MD Primary Care Provider [phone] Encounters Date Type Department Care Team Description 04/30/2024 10:15 AM CDT Procedure visit [facility] [address] [facility] [address] [address] Diana Yu MD IUD check up (Primary Dx) 04/15/2024 Telephone [facility] ([facility]) - [facility] [address] [facility] [address] [place] [address] [place] [address] Daisy Jacome MS 04/04/2024 Telephone [facility] [address] [facility] [address] [place] [address] Marilee Adkins, CHRISTOPHER Rectal Bleeding 04/02/2024 Nurse Triage [facility] [address] [place] [address] Jillian Parmar RN 04/01/2024 Nurse Triage [facility] [address] [place] [address] Jayshree Scott, CHRISTOPHER from Last 3 Months Allergies Active Allergy [...] 1 each by intrauterine route once Paragard [facility]: [address]-3 Lot: [id number] Exp: 04/202902/20/20 24 Active carBAMazepine (TEGretol) 200 [...] MEDICATION. 04/16/20 24 Active BD Regular Bevel Leupp 18 gauge x 1 needle USE DIRECTED [...] Anxiety 04/23/2016 Overview (10/27/2017): Description: Admitted to [facility] for suicidal ideation. Major depressive disorder, single episode, moder ate 09/09/2015 Overview (08/09/2021): Intentional overdose of clonidine 07/2021. Admitted to [facility]. 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 Gender Identity Not on file Sexual Orientation Not on file Last Filed Vital Signs Vital Sign Reading Time Taken Comments Blood Pressure 116/74 04/30/2024 10:27 AM CDT Pulse 57 08/16/2023 6:50 PM TENNIS INSTRUCTOR Temperature 36.7 C (98.1 F) 01/22/2024 3:19 PM CDT Respiratory Rate 22 01/22/2024 3:19 PM CDT Oxygen Saturation 98% 08/16/2023 6:50 PM TENNIS INSTRUCTOR Inhaled Oxygen Concentration - - Weight 62.1 kg (137 lb) 04/30/2024 10:27 AM CDT Height 165.1 cm (5' 5) 04/30/2024 10:27 AM CDT Body Mass Index 22.8 04/30/2024 10:27 AM CDT Plan of Treatment Not on file Insurance [facility] [employer] OOS [employer] [facility] [employer] OOS Member Subscriber Plan / Payer (Ef fective 2023-) Name:Karen Jean Relation to Subscriber:Child Name:MEGHAN JEAN Date of :1899 (Home) Address: [address] [place] [address] Payer ID:[id number] (NAIC) Type:[employer] Address: [address] [place] [id number] Care Teams Thread Reeler Relationship Specialty [place] [address] [place] [address] PCP - General Pediatrics 08/20/19
--- OUTSIDE RECORDS SUMMARY | 2024-06-16 21:52 | XMS_ITS ---
Author Organization [facility] Address [address] [place] [address] Care Team Providers Care Micropaleontologist Name Role Phone Gerald Tuttle MD Primary Care Provider [phone] Active Problems Problem Noted Date Diagnosed Date [...] Anxiety 04/23/2016 Overview (10/27/2017): Description: Admitted to [facility] for suicidal ideation. Major depressive disorder, single episode, moder ate 09/09/2015 Overview (08/09/2021): Intentional overdose of clonidine 07/2021. Admitted to [facility]. Vocal cord dysfunction 01/12/2015 Current Oncology Plans No current plan information found. Past Plans No past plan information found. Radiation Treatments * No radiation treatments are [facility]. Treatments may have been administered [...]
--- OUTSIDE RECORDS SUMMARY | 2024-06-16 21:52 | XMS_ITS | Clinical Summary ---
Author Organization [facility] Address [address] [place] [address] Care Team Providers Care Liquor Rectifier Name Role Phone Gerald Tuttle MD Primary Care Provider [phone] Source Comments [facility],non-owned Affiliates and Associated Physician Practices is amultiple site organization consisting of ambulatory clinics and hospital sitesin [place], [place], [place] and [place]. This disclosure is being madepursuant to the Care Everywhere program and may not contain all information available regarding this patient. Last updated 18.[facility] [employer] Allergies Active Allergy Reactions Criticality Noted Date [...] Severe severe anticholinergic toxicity typically prevents with BOMB TECHNICIAN effects (central), which include anxiety, agitation, dysarthria, [...] anticholinergic poisoning are treated with sodium bicarbonate. BOMB TECHNICIAN toxicity including agitation and seizures should be [...] DEPRESSION SCREENING 07/17/2023 COVID-19 VACCINE (4 - 2023- season) 2024 07/08/2021, 11/13/2020, 10/22/2020 INFLUENZA VACCINE [...] 9:06 PM 05/30/2021 11:55 AM Care Teams Liquor Rectifier Relationship Specialty [place] [address] [facility] [address] [place] [address] PCP - General Pediatrics 05/25/21
--- OUTSIDE RECORDS SUMMARY | 2024-06-16 21:52 | XMS_ITS | Encounter Summary ---
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 documented in this encounter Plan of Treatment Not on file documented as of this encounter Visit Diagnoses Not on filedocumented in this encounter Care Teams Insurance Claims Representative Relationship Specialty [place] [address] [facility] [address] [place] [address] PCP - General Pediatrics 08/20/19 documented as of this encounter
--- OUTSIDE RECORDS SUMMARY | 2024-06-16 21:52 | XMS_ITS | Referral Summary ---
Author Organization [facility] Address [address] [place] [address] Care Team Providers Care Precipitator Operator Name Role Phone Gerald Tuttle MD Primary Care Provider [phone] Source Comments [facility],non-owned Affiliates and Associated Physician Practices is amultiple site organization consisting of ambulatory clinics and hospital sitesin [place], [place], [place] and [place]. This disclosure is being madepursuant to the Care Everywhere program and may not contain all information available regarding this patient. Last updated 18.[facility] Allergies Active Allergy Reactions Criticality Noted Date [...] Severe severe anticholinergic toxicity typically prevents with CREW BOSS effects (central), which include anxiety, agitation, dysarthria, [...] anticholinergic poisoning are treated with sodium bicarbonate. CREW BOSS toxicity including agitation and seizures should be [...] 9:06 PM 05/30/2021 11:55 AM Care Teams Precipitator Operator Relationship Specialty [place] [address] [place] [address] PCP - General Pediatrics 05/25/21
--- OUTSIDE RECORDS SUMMARY | 2024-06-16 21:52 | XMS_ITS | Encounter Summary ---
Author Organization [facility] Address [address] [place] [address] Phone Care Team Providers Care Pediatric Lpn Name Role Phone Gerald Tuttle MD Primary Care Provider [phone] Encounter Details Date Type Department Care Team (Late st Contact Info) Description 04/15/2024 Telephone [facility] - [facility] ENT [address] [facility] 11th [place] [address] [place] [address] Daisy Jacome MS Social History [...] on file 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
--- OUTSIDE RECORDS SUMMARY | 2024-06-16 21:52 | XMS_ITS | Patient Health Record ---
Author Organization [facility] Address [address] [place] [address] [address] [place], [place] [address] Care Team Providers Care Louver Door Assembler Name Role Phone NONE PROVIDED, . Primary Care Provider Unavailab Soheila England Unavailable [phone] ALLERGIES Allergen (clinical drug ingredient) Drug/Non Drug Allergy documented on EMR Reaction Allergy Type Onset Date Status amoxicillin Amoxicillin Unknown Drug Allergy Act beau RESULTS Component Value Reference Range Notes Test, Urine Reviewed date:12/21/2023 08:20:23 AM Interpretation: [...] Interpretation:08/09 accu labs Acceptable Performing Lab:[place], [facility]-[id number] Philip Sanon, [id number] Carlos Warren MD Notes/Report: FASTING:YES FASTING: YES HCG, TOTAL, QN <5 Reference Range Non or premenopausal <5 Postmenopausal <10 Values from different assay methods may vary. The use of this assay to monitor or to diagnose patients with cancer or any condition unrelated to has not been cleared or approved by the FDA or the long term acute care registered nurse of the assay. COMPREHENSIVE METABOLIC PANE L Reviewed date:07/25/2023 03:47:26 PM Interpretation: Acceptable Performing Lab:[facility]-[id number] Philip Sanon, [id number] Carlos Warren MD Notes/Report: FASTING:YES FASTING: YES [...] date:07/25/2023 03:47:26 PM Interpretation: Acceptable Performing Lab:[facility] Vinspi-[id number] Philip Sanon, [id number] Carlos Warren MD Notes/Report: FASTING:YES FASTING: YES CHOLESTEROL, TOTAL 160 <170 mg/dL HDL CHOLESTEROL 62 >45 mg/dL TRIGLYCERIDES 96 <90 mg/dL LDL-CHOLESTEROL 80 <110 mg/dL (calc) LDL-C is now calculated using the Whitney calculation, which is a validated novel method providing better accuracy than the Friedewald equation in the estimation of LDL-C. Godwin VENTURA et al. CINDY. 2013;310(19): 0827-2247 (http://education.Soluto/faq/ZWY560) CHOL/HDLC RATIO 2.6 <5.0 (calc) NON HDL CHOLESTEROL 98 <120 mg/dL (calc) For patients with diabetes plus 1 major ASCVD risk factor, treating to a non-HDL-C goal of <100 mg/dL (LDL-C of <70 mg/dL) is considered a therapeutic option. COMPREHENSIVE METABOLIC PANE L Reviewed date:12/21/2023 08:20:23 AM Interpretation:01/07 accu labs Acceptable Performing Lab:[facility]ins[facility]-[id number] Philip Sanon, [id number] Carlos Warren MD Notes/Report: FASTING:YES FASTING: YES GLUCOSE 108 65-99 mg/dL Fasting reference interval For someone without known diabetes, a glucose value between 100 and 125 mg/dL is consistent with prediabetes and should be confirmed with a follow-up test. UREA NITROGEN (BUN) 9 7-20 mg/dL CREATININE 0.74 0.50-0.96 mg/dL EGFR 119 > OR = 60 mL/min/1.73m2 BUN/CREATININE RATIO SEE NOTE: - (calc) Not Reported: BUN and Creatinine are [...] date:12/21/2023 08:20:23 AM Interpretation: Acceptable Performing Lab:[facility] Vinspi-[id number] Philip Sanon, [id number] Carlos Warren MD Notes/Report: FASTING:YES FASTING: YES CHOLESTEROL, TOTAL 157 <170 mg/dL HDL CHOLESTEROL 55 >45 mg/dL TRIGLYCERIDES 140 <90 mg/dL LDL-CHOLESTEROL 78 <110 mg/dL (calc) LDL-C is now calculated using the Whitney calculation, which is a validated novel method providing better accuracy than the Friedewald equation in the estimation of LDL-C. Godwin VENTURA et al. CINDY. 2013;310(39): 0978-4196 (http://DesignGooroo.Soluto/faq/VHN096) CHOL/HDLC RATIO 2.9 <5.0 (calc) NON HDL [...] Comme nts Influenza, unspecified formu lation (CPT 69219 Inactive) Unknown 04/25/2017 Administered Influenza, unspecified formu lation (CPT 13724 Inactive) Unknown 04/25/2018 Administered Influenza, unspecified formu lation (CPT 63081 Inactive) Unknown 03/20/2019 Administered Influenza, unspecified formu lation (CPT 53721 Inactive) Unknown 03/25/2020 Administered Influenza, unspecified formu lation (CPT 09877 Inactive) Unknown 04/27/2021 Administered Influenza, unspecified formu lation (CPT 84403 Inactive) Unknown 04/27/2022 Administered Influenza, unspecified formu lation (CPT 87734 Inactive) Unknown 04/25/2023 Administered Pneumococcal polysaccharide PPV23 [...] Acne vulgaris (L70.0) Active confirmed Acne vulgaris (57831402) Acne is improving on Accutane with minimal [...] Encounter Location Date Provider Diagnosis [facility] [address] [place], [place] [id number] 08/21/2023 Soheila Jacobs Acne vulgaris L70.0 [facility] [address] [place], [place] [id number] 11/15/2023 Soheila Jacobs Acne vulgaris L70.0 and terminal carman use of drug Z79.899 Soheila Jacobs, Inc[facility] [address] [place] [id number] 12/18/2023 Soheila Jacobs, [facility] [address] [place] [id number] 01/24/2024 Soheila Jacobs Acne vulgaris L70.0 and terminal carman use of drug Z79.899 Soehila Jacobs, Inc. [address] [place] [address] [id number] 10/10/2023 Soheila Jacobs Acne vulgaris L70.0 and terminal carman use of drug Z79.899 Soheila Jacobs, Inc[facility] [address] [id number] 08/25/2023 Soheila Jacobs, Inc. [facility] [address] [place] [address] [place] [id number] 11/28/2023 Soheila Jacobs, Inc[facility] [address] [place] [address] [id number] 12/21/2023 Soheila Platta Jacobs, Inc[facility] [address] [place] [id number] 07/19/2023 Soheila Jacobs Acne vulgaris L70.0 and terminal carman use of drug Z79.899 Soheila Jacobs, Inc[facility] [address] [place] [address] [place] [address] [id number] 11/09/2023 Soheila Jacobs Acne vulgaris L70.0 and longterm use of drug Z79.899 Soheila Jacobs, Inc[facility] [address] [place] [address] [id number] 11/09/2023 Soheila Platta Reynaldo[place] Inc[facility] [address] [id number] 03/07/2024 Soheila Jacobs Acne vulgaris L70.0 and terminal carman use of drug Z79.899 ASSESSMENTS Encounter Date [...] at 30 mg p.o. twice daily 11/15/2023 longterm use of drug (ICD-10 - Z79.899) 01/24/2024 [...] at 30 mg p.o. twice daily 01/24/2024 longterm use of drug (ICD-10 - Z79.899) 10/10/2023 [...] at 30 mg p.o. twice daily 10/10/2023 longterm use of drug (ICD-10 - Z79.899) 07/19/2023 [...] the side effects of this medication. 07/19/2023 terminal carman use of drug (ICD-10 - Z79.899) 11/09/2023 [...] at 30 mg p.o. twice daily 03/07/2024 longterm use of drug (ICD-10 - Z79.899) 11/09/2023 terminal carman use of drug (ICD-10 - Z79.899) 07/19/2023 Other Learning About Sun Damage and [...] Lipid Panel 07/19/2023 Comp. Metabolic Panel (14) 11/15/2023 Comp. Metabolic Panel (14) 07/19/2023 Future Test Test Name Order Date hCG,Beta Subunit,Qnt,Serum 11/07/2023 Lipid Panel 11/07/2023 Comp. Metabolic Panel (14) 11/07/2023 Insurance Providers Payer Name Payer Address Payer Phone Subscriber Number Group Number Insured Name Patient Relationship to Insured Coverage Start Date Coverage End Date [facility] [address] [place] [phone] [id number] COMBS Self - patient is the insured
--- OUTSIDE RECORDS SUMMARY | 2024-06-16 21:52 | XMS_ITS | Encounter Summary ---
Author Organization [facility] Healthcare Address [address] [place] [address] Care Team Providers Care Electrician Control Equipment Name Role Phone Gerald Tuttle MD Primary Care Provider [phone] Reason for Visit * Reason Comments iud check Encounter Details Date Type Department Care Team (Latest Contact Info) Description 04/30/2024 10:15 AM CDT Procedure visit 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 BD Regular Bevel [place] 18 gauge x 1 needle USE DIRECTED [...] 04/16/2024 added in this encounter Care Teams Electrician Control Equipment Relationship Specialty [place] [address] [facility] [address] [place] [address] PCP - General Pediatrics 08/20/19 documented as of this encounter
--- NOTE | 2024-06-16 21:55 | ED.NURSE ---
Pt's Fiance is okay to talk to and give medical information to per the patient.
[2024-06-16 22:03] LABS: Appearance Urine Clear (Clear); Bilirubin Urine Negative (Negative); Blood Urine Negative (Negative); Color Urine Yellow (Yellow); Glucose Urine Negative (Negative); Ketones Urine Negative (Negative); Leukocyte Esterase Urine 1+ (Negative); Nitrite Urine Negative (Negative); Protein Urine Negative (Negative); Urobilinogen Urine 0.2 (0.2-1.0)
[2024-06-16 22:05] LABS: Ur HCG Qualitative* Negative (Negative)
[2024-06-16 22:14] LABS: Albumin* 4.4 g/dL (3.3-5.0); Chloride* 105 mmol/L (96-114)
[2024-06-16 22:15] LABS: Potassium* 3.7 mmol/L (3.6-5.1); Sodium* 137 mmol/L (135-149)
[2024-06-16 22:17] LABS: Alanine Aminotransferase* 14 U/L (4-35); Alkaline Phosphatase* 79 U/L (40-150); Aspartate Amino Transferase* 19 U/L (12-35); Bilirubin Direct* 0.1 mg/dL (0.0-0.5); Bilirubin Total* 0.4 mg/dL (0.1-1.5); Creatinine* 0.6 mg/dL (0.5-1.5); Est. Creatinine Clearance* 145.44; Estimated Glomerular Filt Rate 132 ml/min; Total Protein* 6.5 g/dL (6.0-8.3)
[2024-06-16 22:18] LABS: Anion Gap 10 mEq/L (7-15); Blood Urea Nitrogen* 10 mg/dL (5-24); Calcium* 9.6 mg/dL (8.4-10.6); Carbon Dioxide* 22 mmol/L (20-32); Glucose* 92 mg/dL (60-115); Magnesium* 1.8 mg/dL (1.5-2.6)
[2024-06-16 22:19] LABS: Acetaminophen* < 10.0 ug/mL (10.0-30.0); Ethanol* < 0.01 % (0.01-0.03)
[2024-06-16 22:32] LABS: SARS PCR* Negative SARS-CoV-2 (Negative)
--- NOTE | 2024-06-16 22:33 | ED.NURSE ---
Arcadio (Stacy) called and wanted to speak with pt. Pt stated she did not want to speak right now. Arcadio number is [phone]
[2024-06-16 22:40] LABS: Bacteria Urine Few; RBC Urine 0-2 (0-2); Squamous Epithelial Cell Urine Few (None-Few)
[2024-06-16 22:41] LABS: Mucus Urine Moderate
--- NOTE | 2024-06-16 22:41 | ED.NURSE ---
neck laceration clean. gauze applied to wound.
--- NOTE | 2024-06-16 22:43 | ED.NURSE ---
Pt laceration on left neck bleeding slightly, wound was cleaned up and rebandaged. Pt feeling slightly dizzy, doctor notified.
[2024-06-16 22:47] LABS: Salicylate* < 1.0 mg/dL (1.0-10)
--- NOTE | 2024-06-16 23:53 | ED.NURSE ---
Poison control called back for update on patient and then stated to this nurse they would sign off on this pt and clear her, doctor notified.
[2024-06-17] VITALS (65 sets, daily range): BP systolic 71–111; BP diastolic 50–78; PULSE 69–146; RESP 16; O2SAT 90–99
[2024-06-17] MEDS: LORazepam 1 MG TABLET PO ×2 (01:28→07:39)
[2024-06-17 01:46] LABS: Amphetamine Screen Urine Negative (Negative); Barbiturate Screen Urine Negative (Negative); Benzodiazepines Screen Urine Negative (Negative); Cannabinoid Screen Urine POSITIVE (Negative); Cocaine Screen Urine Negative (Negative); Methadone Screen Urine Negative (Negative); Methamphetamines Screen Urine Negative (Negative); Opiate Screen Urine Negative (Negative); Oxycodone Screen Urine Negative (Negative); Phencyclidine Screen Urine Negative (Negative); Tricyclic Antidepressant Urine Negative (Negative)
--- NOTE | 2024-06-17 06:32 | ED.NURSE ---
Pt states it is okay to for her to go to [facility] for a mental ealth transfer if need be. Permission was received by patient to this nurse at [phone] 06/17/24.
--- NOTE | 2024-06-17 07:18 | ED.NURSE ---
Upon arrival to ER pt refused IV placement. Pt was approached again during the night x2 for IV placement and again refused placement.
== END 2024-06-17 08:29 ==
PROVIDERS: Emergency Provider Family Medicine
DX: T43.3X2A Poisoning by phenothiazine antipsychotics and neuroleptics, intentional self-harm, initial encounter (principal); S11.91XA Laceration without foreign body of unspecified part of neck, initial encounter; X78.9XXA Intentional self-harm by unspecified sharp object, initial encounter
CPT/HCPCS: 36415; 80048; 80076; 80143; 80179; 80306; 81001; 81025; 82077; 83735; 87086; 87186; 87635; 93005; 99285; 99291; A9270

== ENCOUNTER 2024-06-17 08:19 | Outpatient (CLI) | payer BC, SELFPAY | END 2024-06-17 08:20 | disposition home or self-care (01) | LOC: AMB 07-04 10:32 | PROVIDERS: Visit Provider Emergency Medicine | DX: R45.851 Suicidal ideations (principal) | CPT/HCPCS: A0425; A0428 ==

== ENCOUNTER 2024-11-21 21:39 | Outpatient (CLI) | payer BC, SELFPAY | END 2024-11-21 21:40 | disposition home or self-care (01) | LOC: AMB 11-22 11:44 | PROVIDERS: Visit Provider Student in an Organized Health Care Education/Training Program | DX: T43.591A Poisoning by other antipsychotics and neuroleptics, accidental (unintentional), initial encounter (principal) | CPT/HCPCS: A0425; A0427 ==

== ENCOUNTER 2024-11-21 21:53 | Emergency (ER) | payer BC, SELFPAY ==
[2024-11-21] VITALS (9 sets, daily range): BP systolic 108–135; BP diastolic 70–93; PULSE 91–136; RESP 10–30; TEMP 36.6; O2SAT 97–100; BMI 24.2
--- OUTSIDE RECORDS SUMMARY | 2024-11-21 21:55 | XMS_ITS | Clinical Summary ---
Author Organization [facility] Address [address] [place] [address] Care Team Providers Care Engineering Team Supervisor Name Role Phone Gerald Tuttle MD Primary Care Provider [phone] Source Comments [facility],non-owned Affiliates and Associated Physician Practices is amultiple site organization consisting of ambulatory clinics and hospital sitesin [place], [place], [place] and [place]. This disclosure is being madepursuant to the Care Everywhere program and may not contain all information available regarding this patient. Last updated 18.[facility] Allergies Active Allergy Reactions Criticality Noted Date Comments Amoxicillin Unknown 05/25/2021 Medications * This document contains information received from the source organization and may not represent a complete record from that organization. * Be aware that medications may not be up to date on this document. Alwaysverify current medications with the patient. norgestim-eth estrad triphasic 0.18/0.215/0.25 MG-35 MCG tabletIndication s:Contraceptive Therapy Take 1 tablet by mouth at bedtime Reasons: Control Treatment 1 Active hydrOXYzine hcl (ATARAX) 10 MG tabletIndication s:Anxiety Take 1 (one) tablet by mouth 3 times daily Reasons: Feeling Anxious 90 tablet 1 1 Active traZODone (DESYREL) 50 MG tabletIndication s:Insomnia Take 1 (one) tablet by mouth at bedtime Reasons: Trouble Sleeping 30 tablet 1 1 Active Additional Information Patient not taking.Reported on 11/16/2021 prazosin (MINIPRESS) 1 MG capsuleIndicatio ns:Sleep Disturbance Take 1 (one) capsule by mouth at bedtime Reasons: Disturbed Sleep 30 capsule 1 1 Active Additional Information Patient not taking.Reported on 11/16/2021 ARIPiprazole (ABILIFY) 2 MG tabletIndication s:Major Depressive Disorder Take 1 (one) tablet by mouth once daily Reasons: Major Depressive Disorder 30 tablet 1 1 Active Additional Information Patient not taking.Reported on [...] Severe severe anticholinergic toxicity typically prevents with WAFER ABRADING MACHINE TENDER effects (central), which include anxiety, agitation, dysarthria, [...] anticholinergic poisoning are treated with sodium bicarbonate. WAFER ABRADING MACHINE TENDER toxicity including agitation and seizures should be treated with benzodiazepines. Environmental cooling factors should be implemented in hyperthermia. Physostigmine can be used in cases of severe toxicity (0.02 mg/kg IV up to a maximum of 0.5 mg per dose). [place] poison control was contacted upon admission, peak [...] PTSD (post-traumatic stress disorder) 05/27/2021 Major depressive disorder, single episode, moder ate 05/25/2021 Immunizations Immunization Administration Dates Next Due INFLUENZA VACCINE, QUADR. [...] Date Recorded PHQ2 TOTAL SCORE 6 05/25/2021 Comments Unknown Sex and Gender Information Value Date Recorded Sex Assigned at Not on file Legal Sex Female 5:44 AM FISHER SEAL Gender Identity Not on file Sexual Orientation [...] - 3-dose series) 02/11/2019 CHLAMYDIA/GONORRHEA SCREENING 2020 MENINGOCOCCAL (Group B) VACCINE SHARED DECISION-MAKING (1 of 2 - Standard) 2020 HEPATITIS C SCREENING 02/07/2022 DTAP/TDAP/TD VACCINES (1 - Tdap) 02/11/2023 HEPATITIS B VACCINE (1 of 3 - 19+ 3-dose series) 02/11/2023 COVID-19 VACCINE (4 - 2023- season) 2024 07/08/2021, 11/13/2020, 10/22/2020 DEPRESSION SCREENING 07/17/2024 INFLUENZA VACCINE (Season Ended) 2025 05/26/2021, 04/10/2020, 04/26/2019, Additional history exists ZOSTER VACCINE (1 of 2) 02/11/2054 HIB VACCINE Aged Out No longer eligi ble based on patient's age to complete this topic MENINGOCOCCAL GROUPS A/C/Y/W VACCINE Aged Out No longer eligible based on patient's age to complete this topic PNEUMOCOCCAL VACCINE Aged Out No long er eligible based on patient's age to complete this topic Insurance [place] [id number] Advance Directives * Full Code (Latest Code Status on File) Date Activated Date Inactivated Comments 11/16/2021 8:14 PM 11/17/2021 6:05 PM * Full Code Date Activated Date Inactivated Comments 05/25/2021 9:06 PM 05/30/2021 11:55 AM Care Teams Engineering Team Supervisor Relationship Specialty [place] [address] [facility] [address] [place] [address] PCP - General Pediatrics 05/25/21
--- OUTSIDE RECORDS SUMMARY | 2024-11-21 21:55 | XMS_ITS | Referral Summary ---
Author Organization [facility] Address [address] [place] [address] Care Team Providers Care Desktop Architect Name Role Phone Gerald Tuttle MD Primary Care Provider [phone] Encounters Date Type Department Care Team Description 10/31/2024 7:15 AM CDT Telemedicine [facility] Virtual Care [address] [place] [phone] Claudia Sue NP Flu-like symptoms (Primary Dx) 10/31/2024 Patient Self-Triage [facility] Phys[facility] [address] [place] [address] Mychart, Generic Provider 10/31/2024 Patient [facility] [address] [place] [address] Mychart, Generic Provider from Last 3 Months Allergies Active Allergy [...] 1 each by intrauterine route once Parag[facility] [facility]: [address]-4 Lot: [id number] Exp: 04/202902/20/20 24 Active carBAMazepine (TEGretol) 200 [...] OF MEDICATION. 04/16/20 Active BD Regular Bevel Alba 18 gauge x 1 needle USE DIRECTED [...] 04/23/2016 Overview (10/27/2017): Description: Admitted to [facility] for suicidal ideation. Major depressive disorder, single episode, moder ate 09/09/2015 Overview (08/09/2021): Intentional overdose of clonidine 07/2021. Admitted to [facility]. Vocal cord dysfunction 01/12/2015 Resolved Problems Problem [...] breast 07/05/2016 07/05/2018 Angioedema 01/12/2015 07/05/2018 Immunizations Immunization Administration Dates Next Due DTaP 03/02/2009, 6,2004,06/18,2004 [...] on file Legal Sex Female 10:45 AM DORMITORY KEEPER Gender Identity Not on file Sexual Orientation Not on file Last Filed Vital Signs Vital Sign Reading Time Taken Comments Blood Pressure 116/74 04/30/2024 10:27 AM CDT Pulse 57 08/16/2023 6:50 PM DORMITORY KEEPER Temperature 36.7 C (98.1 F) 01/22/2024 3:19 PM CDT Respiratory Rate 22 01/22/2024 3:19 PM CDT Oxygen Saturation 98% 08/16/2023 6:50 PM DORMITORY KEEPER Inhaled Oxygen Concentration - - Weight 69.3 kg (152 lb 12.8 oz) 07/04/2024 3:47 PM DORMITORY KEEPER Height 165.1 cm (5' 5) 04/30/2024 10:2 7 AM CDT Body Mass Index 25.43 04/30/2024 10:27 AM CDT Plan of Treatment Not on file Insurance [facility] HMO/PPO Address: [facility] [address] [place] [address] [facility] [employer] [facility] [facility]/PPO Address: [address] [address] [place] [address] Care Teams Desktop Architect Relationship Specialty Start Date End Date Gerald Tuttle MD PCP - General Pediatrics 2/4/20
--- OUTSIDE RECORDS SUMMARY | 2024-11-21 21:55 | XMS_ITS | Encounter Summary ---
Author Organization [facility] Healthcare Address [address] [place] [address] Care Team Providers Care Finisher Cold Rolling Name Role Phone Gerald Tuttle MD Primary Care Provider [phone] Encounter Details Date Type Department Care Team (Late st Contact Info) Description 10/31/2024 7:15 AM CDT Telemedicine [facility] Medical Group Virtual Care [address] [place] [phone] Claudia Sue NP [address] [place] [address] Flu-like symptoms (Primary Dx) Social History Tobacco Use Types [...] on file Legal Sex Female 10:45 AM CAR INSPECTOR Gender Identity Not on file Sexual Orientation Not on file documented as of this encounter Patient Instructions * Patient Instructions* Claudia Sue NP - 10/31/2024 7:15 AM CDT It was great to meet you and I hope you feel better soon! I have included my recommendations below.Please reach out if you have any questions or concerns. Take care! Claudia Sue NP Work note sent via [employer] diet recommended Over the counter Imodium recommended Take at home COVID/Influenza test to rule out COVID and flu Rest Increase fluid intake Tylenol every 8 hours as needed for fever or body aches recommended. Alternate with ibuprofen 600 mg every 8 hours as needed Report new or worsening symptoms Warning signs warranting immediate medical care: chest pain, trouble breathing, shortness of breaththat does not improve with rest and taking deep breaths Isolate for 72 hours from start of symptoms if positive for influenza. Remain home until 24 hours fever-free documented in this encounter Progress Notes * Claudia Sue NP - 10/31/2024 7:15 AM CDT Images from the original note were not included. This was a telemedicine visit with Karen Jean alone which took place via real-time video connection. During the visit, I was located at home and the patient was located at home in the state of [place]. The patient visit started at 0754 and ended at 0759. My total encounter time on 10/31/2024 was 10 minutes which was spent in the activities documented in the note. This includes time spent prior to the visit and after the visit in direct care of the patient. This time does not include time spent in any separately reportable services. I have explained the option of participating in a telemedicine visit to the patient. After being given an opportunity to ask questions about and discuss this type of visit, the patient verbally consented to proceeding with the telemedicine visit. The patient understands that this service replaces an office visit and they may be billed and/or responsible for any applicable copayments. Subjective/Objective Patient ID: Karen Jean is a 19 y.o. female. Flu Symptoms This is a new problem. Episode onset: Patient reports vomiting last night. Now has diarrhea, cough,fever. Notes body aches as well. 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 Associated symptoms include chills, a fever and myalgias. Associated symptoms comments: Diarrhea. Treatments tried: Tylenol, ibuprofen, dayquil. Review of Systems Constitutional: Positive for chills and fever. Musculoskeletal: Positive for myalgias. Physical Exam Constitutional: Appearance: Normal appearance. Pulmonary: Effort: Pulmonary effort is normal. Neurological: General: No focal deficit present. Mental Status: She is alert and oriented to person, place, and time. Psychiatric: Mood and Affect: Mood normal. Behavior: Behavior normal. Thought Content: Thought content normal. Judgment: Judgment normal. Assessment/Plan Diagnoses and all orders for this visit: Flu-like symptoms (Primary) Work note sent via [employer] diet recommended Over the counter Imodium recommended Take at home COVID/Influenza test to rule out COVID and flu Rest Increase fluid intake Tylenol every 8 hours as needed for fever or body aches recommended. Alternate with ibuprofen 600 mg every 8 hours as needed Report new or worsening symptoms Warning signs warranting immediate medical care: chest pain, trouble breathing, shortness of breaththat does not improve with rest and taking deep breaths Isolate for 72 hours from start of symptoms if positive for influenza. Remain home until 24 hours fever-free . Claudia Sue NP documented in this encounter Plan of Treatment Not on file documented as of this encounter Visit Diagnoses Diagnosis Flu-like symptoms- Primary documented in this encounter Care Teams Finisher Cold Rolling Relationship Specialty Start Date End Date Gerald Tuttle MD PCP - General Pediatrics 08/20/19 documented as of this encounter
--- OUTSIDE RECORDS SUMMARY | 2024-11-21 21:55 | XMS_ITS | Encounter Summary ---
Author Organization [facility] Healthcare Address [address] [place] [address] Care Team Providers Care Slot Shift Supervisor Name Role Phone Gerald Tuttle MD Primary Care Provider [phone] Encounter Details Date Type Department Care Team (Late st Contact Info) Description 10/31/2024 Patient Self-Triage [facility] HealthCare/ Physicians [address] [place] [address] Hilary, [facility] Provider [address] [place], [place] [id number] Social History Tobacco Use Types Packs/Day Years [...] on file Legal Sex Female 10:45 AM COAL CHEMIST Gender Identity Not on file Sexual Orientation Not on file documented as of this encounter Plan of Treatment Not on file documented as of this encounter Visit Diagnoses Not on filedocumented in this encounter Care Teams Slot Shift Supervisor Relationship Specialty Start Date End Date Gerald Tuttle MD PCP - General Pediatrics 08/20/19 documented as of this encounter
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
--- OUTSIDE RECORDS SUMMARY | 2024-11-21 21:55 | XMS_ITS | Clinical Summary ---
Author Organization [facility] Address [address] [place] [address] Care Team Providers Care Varnish Remover Name Role Phone Pcp, No Primary Care Provider Unavailabl e Allergies Active Allergy Reactions Criticality Noted Date Comments Amoxicillin *Unknown - Follow up needed,Hives 1 07/25/2020 Medications clonazePAM (KLONOPIN) 1 mg tablet TAKE 1 TABLET BY MOUTH FOUR TIMES DAILY NEEDED FOR ANXIETY 2 Active clascoterone (Winlevi) 1 % crea 1 application 2 Active Dapsone (Aczone) 5 % topical gel APPLY ONCE DAILY IN THE MORNING TO AFFECTED AREA Active doxycycline (VIBRAMYCIN) 100 mg capsule TAKE 1 CAPSULE BY MOUTH EVERY DAY FOR 30 DAYS 2 Active Latuda 60 mg tab 3 Active OLANzapine (ZYPREXA) 5 mg tablet Take 5 mg by mouth. Active prazosin (MINIPRESS) 1 mg capsule 3 Active spironolactone (ALDACTONE) 100 mg tablet 1 tablet 1 Active topiramate (TOPAMAX) 50 mg tablet TAKE 1 TABLET BY MOUTH AT BED FOR 2 NIGHTS THEN TAKE 1 TAB IN THE AM AND 1 TAB AT BED 2 Active tretinoin 0.05 % 0.05 % cream APPLY TO AFFECTED AREA IN THE EVENING TO FACE EXTERNALLY ONCE A DAY 30 DAYS 2 Active zolpidem (AMBIEN) 10 mg tablet TAKE 1 TABLET BY MOUTH AT BEDTIME NEEDED FOR INSOMNIA 2 Active Social History Tobacco Use Types Packs/Day Years Used Date Smoking Tobacco: Never Passive Smoke Exposure: Never Smokeless Tobacco: Never Tobacco Cessation:Counseling Given: Yes Alcohol Use Standard Drinks/Week Comments Never 0 (1 standard drink = 0.6 oz pur e alcohol) Social Connections Answer Date Recorded Frequency of Communication with Friends and Fami ly Not on file 07/27/2022 Comments No Sex and Gender Information Value Date Recorded Sex Assigned at Female 07/04/2022 2:10 PM ACADEMIC SUCCESS COORDINATOR Legal Sex Female 2:07 PM ACADEMIC SUCCESS COORDINATOR Gender Identity Female 07/04/2022 2:10 PM ACADEMIC SUCCESS COORDINATOR Sexual Orientation Don't know 07/04/2022 2: 10 PM ACADEMIC SUCCESS COORDINATOR Obstetrics History Para Term AB IAB SAB Ectopic Multiple Livin g Live Births 0 0 0 0 0 0 0 0 0 0 0 Last Filed Vital Signs Vital Sign Reading Time Taken Comments Blood Pressure 124/82 07/27/2022 8:34 AM ACADEMIC SUCCESS COORDINATOR Pulse 80 07/27/2022 8:34 AM ACADEMIC SUCCESS COORDINATOR Temperature - - Respiratory Rate - - Oxygen Saturation 98% 07/27/2022 8:34 AM ACADEMIC SUCCESS COORDINATOR Inhaled Oxygen Concentration - - Weight 56.2 kg (123 lb 12.8 oz) 07/27/2022 8:34 AM ACADEMIC SUCCESS COORDINATOR Height 167 cm (5' 5.75) 07/27/2022 8:34 AM ACADEMIC SUCCESS COORDINATOR Body Mass Index 20.14 07/27/2022 8:34 AM ACADEMIC SUCCESS COORDINATOR Plan of Treatment Health Maintenance Due Date [...] vaccine series ( season) 2024 06/15/2022 Influenza Vaccine (Season Ended) 2025 Meningococcal series for age 11-21 Aged Out No longer eligible based on patient's age to complete this topic Pneumococcal series for age 6-49 Aged Out No longer eligible based on patient's age to complete this topic Care Teams Varnish Remover Relationship Specialty Start Date End Date Pcp, No . PCP - General 07/04/22
--- OUTSIDE RECORDS SUMMARY | 2024-11-21 21:55 | XMS_ITS | Encounter Summary ---
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
--- OUTSIDE RECORDS SUMMARY | 2024-11-21 21:55 | XMS_ITS ---
Author Organization [facility] Address [address] [place] [address] [address] [place], [place] [id number] Care Team Providers Care Voucher Clerk Name Role Phone PT DOESNT KNOW NAME, . Primary Care Provider Katelyn vailable Soheila Jacobs [phone] Encounters Encounter Location Date Provider Diagnosis [facility] [address] [place] [address] [address] [place], [place] [phone] 12/21/2023 Soheila Jacobs Plan Of Treatment No Information Progress Notes * IWONA COMBS JDOB:[birth year] (18 yo F)Acc No.[id number]:12/21/2023 Patient: Theo EDUARDOIWONA :2005 A ge:18 Y S ex:Female Phone: Address:[address] [place] [address] * true * Date: Generated for Carlos carvajal/Usha/eTransmitting on: 0 11/21/2024 09:55 PM CDT
--- OUTSIDE RECORDS SUMMARY | 2024-11-21 21:55 | XMS_ITS ---
Author Organization [facility] Address [address] [place] [address] [address] [place] [phone] Care Team Providers Care Early Childhood Education Instructor Name Role Phone PT DOESNT KNOW NAME, . Primary Care Provider Katelyn vailable Soheila Jacobs Unavailable [phone] Allergies Allergen (clinical drug ingredient) Drug/Non Drug Allergy documented on EMR Reaction Allergy Type Onset Date Status amoxicillin Amoxicillin Unknown Drug Allergy Act beau Results Component Value Reference Range Notes Test, Urine (Not y et reviewed by provider) Interpretation: Performing Lab: Notes/Report: Test, Urine negative REASON FOR VISIT ACCUTANE - facetime Medications Medication SIG (Take, Route, Frequency, Duration) Notes [...] ARIPiprazole 2 MG Oral for 30 Active Social History Tobacco Use: Social History Observation Description Date Details (start date - stop date) Never Smoker NA - NA Tobacco Use/Smoking Question Answer Notes Are you a nonsmoker Encounters Encounter Location Date Provider Diagnosis [facility] [address] [place] [phone] 03/07/2024 Soheila Jacobs Acne vulgaris L70.0 and group home use of drug Z79.899 Assessments Encounter Date Diagnosis (ICD Code) Assessment Notes Treatment Notes Treatment Clinical Notes Section Notes 03/07/2024 Acne vulgaris (ICD-10 - L70.0) [...] 30 mg p.o. twice daily 03/07/2024 terminal carman use of drug (ICD-10 - Z79.899) 03/07/2024 Other Learning About Sun Damage and Your Skin material was published Plan Of Treatment Medication Medication Name Sig Start Date Stop Date Notes Accutane 30 MG 1 pill Orally twice a day for 30 days 11/27 Treatment Notes Assessment Notes Other Learning About Sun D amage and Your Skin material was published Pending Test Test Name Order Date Test, Urine 03/07/2024 Next Appt Details Follow Up: prn, Reason: Progress Notes * IWONA COMBSDOB:[birth year] (19 yo F)Acc No.[id number]:03/07/2024 Patient: IWONA TORRES Provider: Eveline Jacobs M.D :2005 A ge:19 Y S ex:Female Date:03/07/2024 Phone: Address:[address] [place], [phone] Pcp:. NONE PROVIDED Subjective: * Chief Complaints: * A CCUTANE - facetime * HPI: H PI: This is a follow-up office visit for this patient with a history of acne currently being treated with accutane for 4 mo. The patient is responding well with minimal side effects accept for dryness. * ROS: A complete medical history, family history, social history and review of systems were completed by the patient on the patient history form and salient issues reviewed with the patient during this visit. The patient history form can be found in the electronic medical record as a scanned document. * Medical History: * Surgical History: N o Surgical History documented. * Hospitalization/Major Diagno stic Procedure: * Family History: Patient has no known family history of skin cancer. * Social History: T obacco Use: T obacco Use/Smoking A re you a n onsmoker * Medications: T akinghydrOXYzine HCl 10 MG Tablet Oral Prazosin HCl 1 MG Capsule Oral traZODone HCl 50 MG Tablet Oral ARIPiprazole 2 MG Tablet Oral Accutane 30 MG Capsule 1 pill Orally twice a dayTaking hydrOXYzine HCl 10 MG Tablet Oral Taking Prazosin HCl 1 MG Capsule Oral Taking traZODone HCl 50 MG Tablet Oral Taking ARIPiprazole 2 MG Tablet Oral Taking Accutane 30 MG Capsule 1 pill Orally twice a dayNot-TakingDoxycycline Hyclate 100 MG Capsule 1 capsule Orally Once a daySpironolactone 100 MG Tablet 1 tablet Orally Once a dayWinlevi 1 % Cream 1 application Externally Twice a dayTazarotene 0.1 % Cream 1 application in the evening Externally Once a dayCleocin-T 1 % Lotion 1 application to affected area Externally Twice a day, Notes: large bottleTretinoin 0.05 % Cream 1 application to affected area in the evening to face Externally Once a dayBactrim DS 800-160 MG Tablet 1 tablet Orally 11rf qdaySpironolactone 100 MG Tablet 1 tablet Orally Once a dayAczone 5 % Gel APPLY ONCE DAILY IN THE MORNING TO AFFECTED AREA Adapalene 0.3 % Gel 1 application to affected area at bedtime Externally Once a dayMedication List reviewed and reconciled with the patientNot-Taking Doxycycline Hyclate 100 MG Capsule 1 capsule Orally Once a dayNot-Taking Spironolactone 100 MG Tablet 1 tablet Orally Once a dayNot-Taking Winlevi 1 % Cream 1 application Externally Twice a dayNot-Taking Tazarotene 0.1 % Cream 1 application in the evening Externally Once a dayNot-Taking Cleocin-T 1 % Lotion 1 application to affected area Externally Twice a day, Notes: large bottleNot-Taking Tretinoin 0.05 % Cream 1 application to affected area in the evening to face Externally Once a dayNot- Taking Bactrim DS 800-160 MG Tablet 1 tablet Orally 11rf qdayNot-Taking Spironolactone 100 MG Tablet 1 tablet Orally Once a dayNot-Taking Aczone 5 % Gel APPLY ONCE DAILY IN THE MORNING TO AFFECTED AREA Not-Taking Adapalene 0.3 % Gel 1 application to affected area at bedtime Externally Once a dayMedication List reviewed and reconciled with the patient * Allergies: A moxicillinno[Allergies Verified] Objective: * Examination: D ermatology: P hysical exam reveals resolving acneiform papules with xerosis on the face and trunk. Assessment: * Assessment: 1. A cne vulgaris - L70.0 (Primary), Acne is improving on Accutane with minimal [...] continue Accutane at 30 mg p.o. twice daily?2. L naomi term use of drug - Z79.899 Plan: * Treatment: 2. L naomi term use of drug L AB: Test, Urine 3. O thers Notes: Learning About Sun Damage and Your Skin material was published * Immunizations: Immunization record has been reviewed and updated. * Labs: * L ab: Test, Urine Value Reference Range P regnancy Test, Urine negative * Procedure Codes: * Follow Up: p rn * * Sign off status: Completed true * Provider: Eveline Jacobs M.D Date: 0 03/07/2024 Generated for Carlos carvajal/Usha/Adama on: 0 11/21/2024 09:55 PM CDT History and Physical Notes * Examination Category Sub-Category Detail Notes Category Not es Dermatology Physical exam r eveals resolving acneiform papules with xerosis on the face and trunk.
--- OUTSIDE RECORDS SUMMARY | 2024-11-21 21:55 | XMS_ITS ---
Author Organization [facility] Address [address] [place] [address] Care Team Providers Care Delivery Agent Name Role Phone Gerald Tuttle MD Primary Care Provider [phone] Active Problems Problem Noted Date Diagnosed Date [...] Anxiety 04/23/2016 Overview (10/27/2017): Description: Admitted to [facility] for suicidal ideation. Major depressive disorder, single episode, moder ate 09/09/2015 Overview (08/09/2021): Intentional overdose of clonidine 07/2021. Admitted to [facility]. Vocal cord dysfunction 01/12/2015 Current Treatment and Therapy Plans No current plan information found. Past Treatment and Therapy Plans No past plan information found. Lifetime Dose Tracking * Chemical Lifetime Dose [...]
--- OUTSIDE RECORDS SUMMARY | 2024-11-21 21:55 | XMS_ITS ---
Author Organization [facility] Address [address] [place] [address] [address] [place] [phone] Care Team Providers Care Hand Sign Writer Name Role Phone PT DOESNT KNOW NAME, . Primary Care Provider Katelyn vailable Soheila Jacobs Unavailable [phone] Allergies Allergen (clinical drug ingredient) Drug/Non Drug Allergy documented on EMR Reaction Allergy Type Onset Date Status amoxicillin Amoxicillin Unknown Drug Allergy Act beau Results Component Value Reference Range Notes Test, Urine (Not y et reviewed by provider) Interpretation: Performing Lab: Notes/Report: Test, Urine Negative REASON FOR VISIT acne facetime - [phone] Medications Medication SIG (Take, Route, Frequency, Duration) [...] a day for 30 days 03/08/2022 Not-Taking Social History Tobacco Use: Social History Observation Description Date Details (start date - stop date) Never Smoker NA - NA Tobacco Use/Smoking Question Answer Notes Are you a nonsmoker Encounters Encounter Location Date Provider Diagnosis [facility] [address] [place] [phone] 01/24/2024 Sohelia Jacobs Acne vulgaris L70.0 and [facility] use of drug Z79.899 Assessments Encounter Date Diagnosis (ICD Code) Assessment Notes Treatment Notes Treatment Clinical Notes Section Notes 01/24/2024 Acne vulgaris (ICD-10 - L70.0) [...] at 30 mg p.o. twice daily 01/24/2024 [facility] use of drug (ICD-10 - Z79.899) 01/24/2024 [...] Follow Up: pt will call, Stephanie son: Progress Notes * IWONA COMBSB:[birth year] (18 yo F)Acc No.[id number]:01/24/2024 Progress Notes Patient: IWONA TORRES Provider: Eveline Jacobs M.D :2005 A ge:18 Y S ex:Female Date:01/24/2024 Phone: Address:[address] [place] [address] [place], [id number] Pcp:. NONE PROVIDED Subjective: * Chief Complaints: * [facility] [phone] * HPI: H PI: This is a follow-up office visit for this patient with a history of acne currently being treated with accutane for 3 mo. The patient is responding well with [...] Value Reference Range P regnancy Test, Urine Negative * Procedure Codes: * Follow Up: p t will call * * Sign off status: Completed true * Provider: Eveline Jacobs M.D Date: 0 01/24/2024 Generated for Carlos carvajal/Usha/Adama on: 0 11/21/2024 09:55 PM CDT History and Physical Notes * Examination Category Sub-Category Detail Notes Category Not es Dermatology Physical exam r eveals resolving acneiform papules with xerosis on the face and trunk.
--- OUTSIDE RECORDS SUMMARY | 2024-11-21 21:55 | XMS_ITS | Clinical Summary ---
Author Organization [facility] Address [address] [place] [address]. [place] [address] Care Team Providers Care Sail Finisher Hand Name Role Phone Unavailable Primary Care Provider [...] Comments Blood Pressure 102/70 08/13/2022 6:00 AM RECREATION COORDINATOR Pulse 91 08/13/2022 6:00 AM RECREATION COORDINATOR Temperature 36.2 C (97.2 F) 08/13/2022 6:00 AM RECREATION COORDINATOR Respiratory Rate 12 08/13/2022 6:00 AM RECREATION COORDINATOR Oxygen Saturation 100% 08/13/2022 6:00 AM RECREATION COORDINATOR Inhaled Oxygen Concentration - - Weight 58.8 kg (129 lb 11.9 oz) 05/05/2022 2:09 PM CDT Height - - Body Mass Index - - Plan of Treatment Health Maintenance Due Date Last Done Comments ADVANCE CARE PLANNING 2005 ANNUAL REVIEW OF HM ORDERS 2004 CHLAMYDIA SCREENING 2004 YEARLY PREVENTIVE VISIT 02/11/2007 DTAP/TDAP/TD IMMUNIZATION (1 - Tdap) 02/11/2011 HIV SCREENING 02/11/2019 HPV IMMUNIZATION (1 - 3-dose series) 02/11/2019 MENINGITIS B IMMUNIZATION (1 of 2 - Standard) 2020 HEPATITIS C SCREENING 02/11/2022 HEPATITIS B IMMUNIZATION (1 of 3 - 19+ 3-dose series) 02/11/2023 COVID-19 Vaccine (2 - season) 2024 06/15/2022 PHQ-2 (once per calendar year) 2024 INFLUENZA VACCINE (Season Ended) 2025 04/27/2022, 05/26/2021, 04/27/2021, Additional history exists ZOSTER IMMUNIZATION (1 of 2) 02/11/2054 MENINGITIS IMMUNIZATION Aged Out No l onger eligible based on patient's age to complete this topic Pneumococcal Vaccine: Pediatrics (0 to 5 Years) and At-Risk Patients (6 to 49 Years) Aged Out No longer eligible based on patient's age to complete this topic Insurance [facility] ALL SAVERS [facility] ALL SAVERS Advance Directives For more information, please contact: [phone] * Full Code (Latest Code Status on File) Date Activated Date Inactivated Comments 08/09/2022 12:32 PM 08/13/2022 2:59 PM All basic a nd advanced life-sustaining interventions are performed as appropriate Question Answer Comments Code status determined by: Unable to dis cuss and no AD/POLST on file; continue PREVIOUSLY ORDERED code status
--- OUTSIDE RECORDS SUMMARY | 2024-11-21 21:56 | XMS_ITS | Patient Health Record ---
Author Organization [facility] Address [address] [place] [address] [address] [place], [place] [phone] Care Team Providers Care Multiple Drum Sander Name Role Phone PT DOESNT KNOW NAME, . Primary Care Provider Katelyn vailable Soheila Jacobs Unavailable [phone] Allergies Allergen (clinical drug ingredient) Drug/Non Drug Allergy documented on EMR Reaction Allergy Type Onset Date Status amoxicillin Amoxicillin Unknown Drug Allergy Act beau Results Component Value Reference Range Notes Test, Urine (Not y et reviewed by provider) Interpretation: Performing Lab: Notes/Report: Test, Urine Negative Test, Urine (Not y et reviewed by provider) Interpretation: Performing Lab: Notes/Report: Test, Urine negative COMPREHENSIVE METABOLIC PANE L Reviewed date:12/21/2023 08:20:23 AM Interpretation:01/07 accu labs Acceptable Performing Lab:[place], [facility]-[id number] [facility], [id number] ItzelMahsa Warren MD Notes/Report: FASTING:YES FASTING: YES GLUCOSE [...] Reviewed date:12/21/2023 08:20:23 AM Interpretation: Acceptable Performing Lab:[place], [facility][id number] [facility], [id number] Carlos Warren MD Notes/Report: FASTING:YES FASTING: YES CHOLESTEROL, TOTAL 157 <170 mg/dL HDL CHOLESTEROL 55 >45 mg/dL TRIGLYCERIDES 140 <90 mg/dL LDL-CHOLESTEROL 78 <110 mg/dL (calc) LDL-C is now calculated using the Godwin-Hamlin calculation, which is a validated novel method providing better accuracy than the Friedewald equation in the estimation of LDL-C. Godwin SS et al. CINDY. 2013;310(19): 3121-0905 (http://education.SendtoNews.Hlidacky.cz/faq/FAQ16 4) CHOL/HDLC RATIO 2.9 <5.0 (calc) NON HDL CHOLESTEROL 102 <120 mg/dL (calc) For patients with diabetes plus 1 major ASCVD risk factor, treating to a non-HDL-C goal of <100 mg/dL (LDL-C of <70 mg/dL) is considered a therapeutic option. Reason For Referral No Information Medications Medication SIG (Take, Route, Frequency, Duration) [...] a day for 30 days 03/11/2019 Not-Taking Immunizations Vaccine Route Administration Date Status Comme nts Influenza, unspecified formu lation (CPT 27317 Inactive) Unknown 04/25/2017 Administered Influenza, unspecified formu lation (CPT 78460 Inactive) Unknown 04/25/2018 Administered Influenza, unspecified formu lation (CPT 73745 Inactive) Unknown 03/20/2019 Administered Influenza, unspecified formu lation (CPT 06453 Inactive) Unknown 03/25/2020 Administered Influenza, unspecified formu lation (CPT 20553 Inactive) Unknown 04/27/2021 Administered Influenza, unspecified formu lation (CPT 50779 Inactive) Unknown 04/27/2022 Administered Influenza, unspecified formu lation (CPT 27664 Inactive) Unknown 04/25/2023 Administered Pneumococcal polysaccharide PPV23 Unknown 10/16/2017 Re fused Pneumococcal polysaccharide PPV23 Unknown 06/28/2021 Re fused Pneumococcal polysaccharide PPV23 Unknown 03/08/2022 Re fused Pneumococcal polysaccharide PPV23 Unknown 05/30/2022 Re fused Pneumococcal polysaccharide PPV23 Unknown 06/13/2023 Re fused Pneumococcal polysaccharide PPV23 Unknown 08/21/2023 Re fused Social History Tobacco Use: Social History Observation Description Date Details (start date - stop date) Never Smoker NA - NA Tobacco Use/Smoking Question Answer Notes Are you a nonsmoker Problems Problem Type SNOMED Code ICD Code Onset Dates Problem Status W/U Status Risk Notes Problem Acne vulgaris (74948306) Acne vulgaris (L70.0) Active confirmed Acne is improving on Accutane with minimal [...] Encounter Location Date Provider Diagnosis [facility] [address] [place] [phone] 01/24/2024 Soheila Jacobs Acne vulgaris L70.0 and termite helper use of drug Z79.899 [facility] [address] [place] [phone] 03/07/2024 Soheila Jacobs Acne vulgaris L70.0 and senior living use of drug Z79.899 [facility] [address] [place] [phone] 11/28/2023 [facility] [address] [place] [phone] 12/21/2023 Soheila Jacobs Assessments Encounter Date Diagnosis (ICD Code) Assessment [...] at 30 mg p.o. twice daily 01/24/2024 senior living use of drug (ICD-10 - Z79.899) 03/07/2024 Acne vulgaris (ICD-10 - L70.0) Acne [...] at 30 mg p.o. twice daily 03/07/2024 termite helper use of drug (ICD-10 - Z79.899) 01/24/2024 Other Learning About Sun Damage and Your Skin material was published 03/07/2024 Other Learning About Sun Damage and Your Skin material was published Plan Of Treatment Pending Test Test Name Order Date Test, Urine 03/07/2024 Test, Urine 01/24/2024 hCG,Beta Subunit,Qnt,Serum 07/19/2023 Lipid Panel 07/19/2023 Lipid Panel 11/15/2023 Comp. Metabolic Panel (14) 11/15/2023 Comp. Metabolic Panel (14) 07/19/2023 Future Test Test Name Order Date hCG,Beta Subunit,Qnt,Serum 11/07/2023 Lipid Panel 11/07/2023 Comp. Metabolic Panel (14) 11/07/2023 Insurance Providers Payer Name Payer Address Payer Phone Subscriber Number Group Number Insured Name Patient Relationship to Insured Coverage Start Date Coverage End Date [facility] [address] [place] [address] [phone] [id number] IWONA COMBS Self - patient is the insured
--- OUTSIDE RECORDS SUMMARY | 2024-11-21 22:39 | XMS_ITS ---
Author Organization [facility] Address [address] [place] [address] Care Team Providers Care Machining Associate Name Role Phone Gerald Tuttle MD Primary Care Provider [phone] Active Problems Problem Noted Date Diagnosed Date [...] Anxiety 04/23/2016 Overview (10/27/2017): Description: Admitted to [facility] for suicidal ideation. Major depressive disorder, single episode, moder ate 09/09/2015 Overview (08/09/2021): Intentional overdose of clonidine 07/2021. Admitted to [facility]. Vocal cord dysfunction 01/12/2015 Current Treatment [...]
--- OUTSIDE RECORDS SUMMARY | 2024-11-21 22:39 | XMS_ITS | Encounter Summary ---
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 During the visit, I was located at home and the patient was located at home in the state of [place]. The patient visit started at 0754 and [...] Flu-like symptoms (Primary) Work note sent via [employer] [place] diet recommended Over the counter Imodium recommended [...] Primary documented in this encounter Care Teams Entertainment Lawyer Relationship Specialty Start Date End Date Gerald Tuttle MD PCP - General Pediatrics 08/20/19 documented as of this encounter
--- OUTSIDE RECORDS SUMMARY | 2024-11-21 22:39 | XMS_ITS | Clinical Summary ---
Author Organization [email or web address] Address [address] [place] [address] Care Team Providers Care Protective Signal Installer Name Role Phone Pcp, No Primary Care [...] Sex Assigned at Female 07/04/2022 2:10 PM COOK FROZEN DESSERT Legal Sex Female 2:07 PM COOK FROZEN DESSERT Gender Identity Female 07/04/2022 2:10 PM COOK FROZEN DESSERT Sexual Orientation Don't know 07/04/2022 2: 10 PM COOK FROZEN DESSERT Obstetrics History Para Term AB IAB SAB Ectopic Multiple Livin g Live Births 0 0 0 0 0 0 0 0 0 0 0 Last Filed Vital Signs Vital Sign Reading Time Taken Comments Blood Pressure 124/82 07/27/2022 8:34 AM COOK FROZEN DESSERT Pulse 80 07/27/2022 8:34 AM COOK FROZEN DESSERT Temperature - - Respiratory Rate - - Oxygen Saturation 98% 07/27/2022 8:34 AM COOK FROZEN DESSERT Inhaled Oxygen Concentration - - Weight 56.2 kg (123 lb 12.8 oz) 07/27/2022 8:34 AM COOK FROZEN DESSERT Height 167 cm (5' 5.75) 07/27/2022 8:34 AM COOK FROZEN DESSERT Body Mass Index 20.14 07/27/2022 8:34 AM COOK FROZEN DESSERT Plan of Treatment Health Maintenance Due Date [...] age to complete this topic Care Teams Protective Signal Installer Relationship Specialty Start Date End Date Pcp, No . PCP - General 07/04/22
--- OUTSIDE RECORDS SUMMARY | 2024-11-21 22:39 | XMS_ITS | Encounter Summary ---
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
--- OUTSIDE RECORDS SUMMARY | 2024-11-21 22:39 | XMS_ITS | Clinical Summary ---
Author Organization [facility] Address [address] [place] [address]. [place] [address] Care Team Providers Care Mangle Operator Garments Name Role Phone Unavailable Primary Care Provider [...] Comments Blood Pressure 102/70 08/13/2022 6:00 AM NET FRONT END DEVELOPER Pulse 91 08/13/2022 6:00 AM NET FRONT END DEVELOPER Temperature 36.2 C (97.2 F) 08/13/2022 6:00 AM NET FRONT END DEVELOPER Respiratory Rate 12 08/13/2022 6:00 AM NET FRONT END DEVELOPER Oxygen Saturation 100% 08/13/2022 6:00 AM NET FRONT END DEVELOPER Inhaled Oxygen Concentration - - Weight 58.8 [...] patient's age to complete this topic Insurance [facility] ALL SAVERS [facility] ALL SAVERS Advance Directives For more information, please contact: [phone] * Full Code (Latest Code Status on File) Date Activated Date Inactivated Comments 08/09/2022 12:32 PM 08/13/2022 2:59 PM All basic a nd advanced life-sustaining interventions are performed as appropriate Question Answer Comments Code status determined by: Unable to dis cuss and no AD/POLST on file; continue PREVIOUSLY ORDERED code status
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
--- OUTSIDE RECORDS SUMMARY | 2024-11-21 22:39 | XMS_ITS | Clinical Summary ---
Author Organization [facility] Address [address] [place] [address] Care Team Providers Care Sports Complex Attendant Name Role Phone Gerald Tuttle MD Primary Care Provider [phone] Source Comments [facility],non-owned Affiliates and Associated Physician Practices is amultiple site organization consisting of ambulatory clinics and hospital sitesin [place], [place], [place] and [place]. This disclosure is being madepursuant to the Care Everywhere program and may not contain all information available regarding this patient. Last updated 18.[facility] [employer] Allergies Active Allergy Reactions Criticality Noted Date [...] Severe severe anticholinergic toxicity typically prevents with OPENSTACK DEVELOPER effects (central), which include anxiety, agitation, dysarthria, [...] anticholinergic poisoning are treated with sodium bicarbonate. OPENSTACK DEVELOPER toxicity including agitation and seizures should be treated with benzodiazepines. Environmental cooling factors should be implemented in hyperthermia. Physostigmine can be used in cases of severe toxicity (0.02 mg/kg IV up to a maximum of 0.5 mg per dose). [place] poison control was contacted upon admission, peak [...] on file Legal Sex Female 5:44 AM PAPER TESTER Gender Identity Not on file Sexual Orientation [...] patient's age to complete this topic Insurance [place] [id number] Advance Directives * Full Code (Latest Code Status on File) Date Activated Date Inactivated Comments 11/16/2021 8:14 PM 11/17/2021 6:05 PM * Full Code Date Activated Date Inactivated Comments 05/25/2021 9:06 PM 05/30/2021 11:55 AM Care Teams Sports Complex Attendant Relationship Specialty [place] [address] [facility] [address] [place] [address] PCP - General Pediatrics 05/25/21
--- OUTSIDE RECORDS SUMMARY | 2024-11-21 22:39 | XMS_ITS | Referral Summary ---
Author Organization [facility] Address [address] [place] [address] Care Team Providers Care Cooker Mechanic Name Role Phone Gerald Tuttle MD Primary Care Provider [phone] Encounters Date Type Department Care Team Description 10/31/2024 7:15 AM CDT Telemedicine [facility] Medical Group Virtual Care [address] [place] [phone] Claudia Sue NP Flu-like symptoms (Primary Dx) 10/31/2024 Patient Self-Triage [facility] HealthCare/ Physicians [address] [place] [address] Mychart, Generic Provider 10/31/2024 Patient Self-Triage [facility]/ Physicians [address] [place] [address] Mychart, Generic Provider from Last 3 Months [...] 1 each by intrauterine route once Paragard [facility]: [address]-8 Lot: [id number] Exp: 04/202902/20/20 24 Active carBAMazepine (TEGretol) 200 [...] OF MEDICATION. 04/16/20 Active BD Regular Bevel [place] 18 gauge x 1 needle USE DIRECTED [...] Anxiety 04/23/2016 Overview (10/27/2017): Description: Admitted to [facility] for suicidal ideation. Major depressive disorder, single episode, moder ate 09/09/2015 Overview (08/09/2021): Intentional overdose of clonidine 07/2021. Admitted to [facility]. Vocal cord dysfunction 01/12/2015 Resolved Problems [...] on file Legal Sex Female 10:45 AM REMOTELY PILOTED VEHICLE CONTROLLER Gender Identity Not on file Sexual Orientation Not on file Last Filed Vital Signs Vital Sign Reading Time Taken Comments Blood Pressure 116/74 04/30/2024 10:27 AM CDT Pulse 57 08/16/2023 6:50 PM REMOTELY PILOTED VEHICLE CONTROLLER Temperature 36.7 C (98.1 F) 01/22/2024 3:19 PM CDT Respiratory Rate 22 01/22/2024 3:19 PM CDT Oxygen Saturation 98% 08/16/2023 6:50 PM REMOTELY PILOTED VEHICLE CONTROLLER Inhaled Oxygen Concentration - - Weight 69.3 kg (152 lb 12.8 oz) 07/04/2024 3:47 PM REMOTELY PILOTED VEHICLE CONTROLLER Height 165.1 cm (5' 5) 04/30/2024 10:2 7 AM CDT Body Mass Index 25.43 04/30/2024 10:27 AM CDT Plan of Treatment Not on file Insurance [facility] [employer]s ACCESS OOS BLUE ACCESS OOS Care Teams Cooker Mechanic Relationship Specialty Start Date End Date Gerald Tuttle MD PCP - General Pediatrics 2/4/20
--- OUTSIDE RECORDS SUMMARY | 2024-11-21 22:39 | XMS_ITS | Encounter Summary ---
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
[2024-11-21 23:00] LABS: Amphetamine Screen Urine Negative (Negative); Barbiturate Screen Urine Negative (Negative); Benzodiazepines Screen Urine Negative (Negative); Cannabinoid Screen Urine POSITIVE (Negative); Cocaine Screen Urine Negative (Negative); Methadone Screen Urine Negative (Negative); Methamphetamines Screen Urine Negative (Negative); Opiate Screen Urine Negative (Negative); Oxycodone Screen Urine Negative (Negative); Phencyclidine Screen Urine Negative (Negative); Tricyclic Antidepressant Urine Negative (Negative)
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
== END 2024-11-22 00:44 | disposition home or self-care (01) ==
PROVIDERS: Emergency Provider Student in an Organized Health Care Education/Training Program
DX: T43.591A Poisoning by other antipsychotics and neuroleptics, accidental (unintentional), initial encounter (principal)
CPT/HCPCS: 80306; 93005; 99284